=== PATIENT | female | born 1935 | race Caucasian/White ===

== ENCOUNTER → 2016-07-08 | Outpatient (CLI) | payer BC ==
[~2016-07-08] MED LIST: ASPEC81 PO; ASPI-435 PO; BISM262S7 PO; CALC-393 PO; CALCTAB5 PO; CHOL100010 PO; CHOL1TAB42 PO; COEN10CA4 PO; COEN1CAP17 PO; EXLP95 TOP; FERR325T51 PO; FERR83TA2 PO; INSPMPNVLG; LEVE500T14 PO; LEVO150T9 PO; LISI2.5T5 PO; MAGN400T5 PO; MULTCAP36 PO; OMEG10007 PO; RIVA4.6D TD
== END | disposition home or self-care (01) ==
LOC: C.LABFOXMH 17:04
PROVIDERS: ATTEND Internal Medicine
DX: I10 Essential (primary) hypertension (principal)

== ENCOUNTER → 2016-07-26 | Outpatient (CLI) | payer BC ==
[2016-07-26 10:27] LABS: BLOOD UREA NITROGEN 14 mg/dl (7-18); CALCIUM 8.8 mg/dl (8.5-10.1); CARBON DIOXIDE 31 mmol/L (21-32); CHLORIDE 105 mmol/L (98-107); CREATININE 0.72 mg/dl (0.60-1.20); GLUCOSE 178 mg/dl (70-99); POTASSIUM 4.2 mmol/L (3.5-5.1); SODIUM 143 mmol/L (136-145)
== END | disposition home or self-care (01) ==
LOC: C.LABFOXMH 09:06
PROVIDERS: ATTEND Nurse Practitioner Family
DX: I10 Essential (primary) hypertension (principal)

== ENCOUNTER → 2016-08-16 | Outpatient (CLI) | payer BC | END | disposition home or self-care (01) | LOC: C.LABFOXMH 11:55 | PROVIDERS: ATTEND Internal Medicine | DX: R35.0 Frequency of micturition (principal) ==

== ENCOUNTER → 2016-10-04 | Outpatient (CLI) | payer BC ==
--- NOTE | 2016-10-04 16:52 | MAMMOGRAPHY REPORT ---
BILATERAL DIGITAL SCREENING MAMMOGRAM WITH CAD: 10/04/2016 CLINICAL HISTORY: Routine screening. Patient has no complaints. TECHNIQUE: Bilateral CC and MLO views were obtained. Current study was also evaluated with a Comput er Aided Detection (CAD) system. COMPARISON: Comparison is made to exams dated: 09/30/2015 mammogram, 09/24/2014 mammogram, 09/23/2013 mammogram, 09/20/2012 mammogram, 09/20/2011 mammogram, and 09/13/2010 mammogram - [facility]. BREAST COMPOSITION: The tissue of both breasts is heterogeneously dense, which may obscure small ma sses. FINDINGS: There is a 6 mm nodular asymmetry in the far superior left breast, only seen on the MLO v iew. Although this could represent a dermal lesion or lymph node, definitive characterization with targeted ultrasound and possible additional mammographic views is recommended. The right MLO view is suboptimal due to the patient's frozen shoulder. However, a repeat attempt at a right MLO view to include more posterior tissue is also recommended at the time of diagnostic wor kup on the left. There are moderate vascular calcifications and benign rim calcifications bilaterally. No other susp icious mass, architectural distortion or cluster of microcalcifications is seen. IMPRESSION: ACR BI-RADS CATEGORY 0: INCOMPLETE EVALUATION: NEED ADDITIONAL IMAGING EVALUATION The 6 m nodular asymmetry in the left axilla needs additional evaluation. At the time of diagnostic workup in the left breast/axillary region, would recommend attempt at repeating the right MLO view to include more posterior tissue. The patient will be called to schedule an appointment. Approximately 10% of breast cancers are not detected with mammography. A negative mammographic repor t should not delay biopsy if a clinically suggestive mass is present. Sharla Stone M.D. ay/:10/04/2016 16:29:53 Pediatric Social Worker: Sapna Nicholson, [facility] letter sent: Addl Imaging 0 BI-RADS Code: ACR BI-RADS Category 0: Incomplete Evaluation: Need Additional Imaging Evaluation
== END | disposition home or self-care (01) ==
LOC: C.MAMM 14:12
PROVIDERS: ATTEND Internal Medicine
DX: Z12.31 Encounter for screening mammogram for malignant neoplasm of breast (principal); N64.89 Other specified disorders of breast

== ENCOUNTER → 2016-12-14 | Outpatient (CLI) | payer BC ==
--- NOTE | 2016-12-14 13:49 | DIAGNOSTIC IMAGING REPORT ---
RIGHT HIP 2 VIEWS CLINICAL HISTORY: Right hip pain. Fall from standing. FINDINGS: AP and frog-leg views of the right hip are correlated with pelvic radiograph dated 12/20/2009. The skeletal structures are osteopenic. There is no radiographic evidence of fracture in the right hip or the imaged right hemipelvis. Moderate arthritic change is identified. Sclerotic change is present in the right sacroiliac joint. An electronic device projects over the right hemipelvis. Pelvic phleboliths are observed. The overlying soft tissues are within normal limits. IMPRESSION: Osteopenia and arthritic change as above. No right hip fracture is identified. Electronically signed by: Burak Mistry M.D. 12/14/2016 1:47 PM Dictated Date/Time: 12/14/2016 1:46 PM
== END | disposition home or self-care (01) ==
LOC: C.RADBC 13:21
PROVIDERS: ATTEND Nurse Practitioner Family
DX: M25.551 Pain in right hip (principal)

== ENCOUNTER → 2016-12-22 | Outpatient (CLI) | payer BC ==
[2016-12-22 10:04] LABS: ESTIMATED AVERAGE GLUCOSE 189 mg/dl; HA1C FLAG Normal (Normal)
== END | disposition home or self-care (01) ==
LOC: C.LABFOXMH 09:03
PROVIDERS: ATTEND Nurse Practitioner Adult Health
DX: E10.649 Type 1 diabetes mellitus with hypoglycemia without coma (principal)

== ENCOUNTER 2017-01-21 16:04 | Emergency (ER) | payer BC ==
[~2017-01-21] VITALS: Ht 165.1 cm; Wt 59.0 kg
[~2017-01-21 16:04] MED LIST changes: -ASPI-435 PO; -CALC-393 PO; -CHOL1TAB42 PO; -COEN1CAP17 PO; -EXLP95 TOP; -FERR83TA2 PO; -LEVE500T14 PO; -LISI2.5T5 PO
[2017-01-21 16:06] VITALS: BP 129/65; PULSE 83; TEMP 36.7; O2SAT 100; Ht 165.1 cm; Wt 59.0 kg
[2017-01-21] MEDS ORDERED: COEN1CAP17 PO (16:17)
[2017-01-21] MEDS ORDERED: FERR83TA2 PO (16:17)
[2017-01-21] MEDS ORDERED: LISI2.5T5 PO (16:17)
[2017-01-21] MEDS ORDERED: CALC-393 PO (16:17)
[2017-01-21] MEDS ORDERED: CHOL1TAB42 PO (16:17)
[2017-01-21] MEDS ORDERED: EXLP95 TOP (16:17)
[2017-01-21] MEDS ORDERED: ASPI-435 PO (16:17)
[2017-01-21] MEDS ORDERED: LEVE500T14 PO (16:17)
--- NOTE | 2017-01-21 16:40 | DIAGNOSTIC IMAGING REPORT ---
LEFT WRIST MIN 3 VIEWS ROUTINE CLINICAL HISTORY: Left wrist pain and . COMPARISON: None FINDINGS: No acute fracture is identified. There is severe arthritis of the left first carpometacarpal joint. A ring on the fourth finger is noted. There is moderate narrowing of the radiocarpal articulation. Osteopenia is noted. IMPRESSION: 1. No acute fracture. 2. 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 Electronically signed by: Elieser Watson M.D. 01/21/2017 4:38 PM Dictated Date/Time: 01/21/2017 4:37 PM
--- NOTE | 2017-01-21 16:55 | EMERGENCY ROOM VISIT NOTE ---
ED Visit Note First contact with patient: 16:09 CHIEF COMPLAINT: Left wrist injury History of present illness: This 81-year-old white female patient complains of moderate constant wrist pain today after having a piece of furniture close on her wrist. She was working in a dresser that had a hinged top. She was reaching inside when the top suddenly closed. It struck her across the left radial wrist. She had immediate onset of pain. Ecchymosis and mild edema have developed. The pain is worse with movement of the wrist. No laceration, no numbness or weakness. No other injury. She denies any loss of motion. No fingers are involved. No treatment yet. Her accompanies her today. Pain is 3/10. REVIEW OF SYSTEMS: GENERAL: No fever or chills, easy fatigue, loss of appetite, or significant weight change. NEUROLOGIC: No headache, change in mental status, weakness, numbness, or dizziness. PMH: Supplemental sheet was reviewed and signed. Previous surgeries: Tonsillectomy, appendectomy Medical history: Significant for diabetes and osteoarthritis Current medications: Reviewed and filed in patient's chart Allergies: NKDA SOCIAL HISTORY: Patient lives at home. . Retired. No tobacco use, no EtOH use. Family history: Significant for diabetes and cancer. Parents are . PHYSICAL EXAM: Vital Signs: Afebrile. Reviewed and filed in patient's chart. General: Well-developed, well-nourished, elderly white female, in no acute distress. No obvious discomfort. She is sitting on a bed. MENTAL STATUS: Alert and oriented. Skin: Warm and dry with fair turgor. No rashes or lesions. Moderate ecchymosis over the radial aspect of her wrist. No erythema. Mild edema. The patient is not diaphoretic. No abrasions. Musculoskeletal: There is tenderness over the base of the thumb, styloid, and anatomic snuffbox. Mild swelling. Range of motion is full. No obvious deformity. No pain with palpation over the metacarpal heads or digits. There is intact motion of the digits, including opposition and circumduction of the thumb. Wrist circumduction is intact. No pain with palpation over the midshaft forearm. Neurologic: The hand is warm and well perfused and the fingers have normal sensation. Median, radial, and ulnar nerve functions are clearly intact. EMERGENCY DEPARTMENT COURSE: Radiographic images obtained today of the wrist did not show any fracture. DIAGNOSIS: Left wrist contusion DISCHARGE INSTRUCTIONS & TREATMENT: The patient was educated regarding today's findings. Conservative care measures were discussed. Tubigrip compression wrap was applied to the patient. Wear it for 3-4 days until the pain subsides. Ice and elevate the wrist intermittently to reduce pain and swelling. Tylenol 1 g every 6 hours if needed for the pain. Gentle motion daily. Wrist sprain handout was provided. Followup with your PCP if not improved over the next 7 days. Problem List Medical Problems: (1) Closed head injury Status: Resolved (2) Contusion of toe, right Status: Resolved (3) Contusion of toe, right Status: Resolved (4) Diab Jhoana Wo Compl, Type Ii Or Unspec Type, Not Uncntrld Status: Chronic (5) Fracture of right humerus Status: Resolved (6) Fracture, olecranon Status: Resolved (7) HTN (hypertension) Status: Chronic (8) Hyperthyroidism Status: Chronic (9) Left knee sprain Status: Resolved (10) Left knee sprain Status: Resolved (11) Nausea, vomiting, and diarrhea Status: Resolved (12) Short-term memory loss Status: Chronic Current/Historical Medications Scheduled Aspirin (Aspirin 81), 81 MG PO DAILY Calcium Carbonate (Calcium), 600 MG PO DAILY Cholecalciferol (Vitamin D), 5,000 UNITS PO DAILY Coenzyme Q10 (Ubidecarenone) (Co Q 10), 1 CAP PO DAILY Ferrous Sulfate (Ferrous Sulfate), 65 MG PO DAILY Fish Oil ([place]-3), 1 CAP PO QPM Insulin Aspart (novoLOG INSULIN PUMP ), 1 EA N/A UD Levetiracetam (Keppra Xr), 500 MG PO DAILY Levothyroxine Sodium (Levothyroxine Sodium), 150 MCG PO DAILY Lisinopril (Lisinopril), 2.5 MG PO DAILY Magnesium Oxide (Mag-Ox), 400 MG PO DAILY Multiple Vitamins W/ Minerals (Preservision/Lutein), 1 CAP PO BID Rivastigmine Tartrate (Exelon), 1 PATCH TOP DAILY Allergies Coded Allergies: No Known Allergies (Verified , 12/27/15) Vital Signs Date Time Temp Pulse Resp B/P (MAP) Pulse Ox O2 Delivery O2 Flow Rate FiO2 01/21/17 16:06 36.7 83 18 129/65 100 Departure Information Impression Primary Impression: Contusion of left wrist, initial encounter Dispostion Home / Self-Care Forms HOME CARE DOCUMENTATION FORM, TYLENOL USE, IMPORTANT VISIT INFORMATION Patient Instructions My [facility] [employer] Additional Instructions Ice and elevate frequently to reduce pain and swelling Use the compression sleeve to control swelling and improve pain Tylenol every 6 hours as needed for discomfort Gentle motion daily Follow-up with your PCP as needed or return to the ED for any other concerns
== END 2017-01-21 16:44 | disposition home or self-care (01) ==
LOC: C.EDB 16:05 → C.EDD 16:44
DX: S60.212A Contusion of left wrist, initial encounter (principal); W23.0XXA Caught, crushed, jammed, or pinched between moving objects, initial encounter; E11.9 Type 2 diabetes mellitus without complications; I10 Essential (primary) hypertension; M19.90 Unspecified osteoarthritis, unspecified site; Z83.3 Family history of diabetes mellitus; E05.90 Thyrotoxicosis, unspecified without thyrotoxic crisis or storm; Z79.82 Long term (current) use of aspirin; Z79.4 Long term (current) use of insulin

== ENCOUNTER → 2017-02-08 | Outpatient (CLI) | payer BC ==
[~2017-02-08] MED LIST changes: -ASPEC81 PO; +ASPI-435 PO; -BISM262S7 PO; +CALC-393 PO; -CALCTAB5 PO; -CHOL100010 PO; +CHOL1TAB42 PO; -COEN10CA4 PO; +COEN1CAP17 PO; +EXLP95 TOP; -FERR325T51 PO; +FERR83TA2 PO; +LEVE500T14 PO; +LISI2.5T5 PO; -RIVA4.6D TD
--- NOTE | 2017-02-08 13:10 | DIAGNOSTIC IMAGING REPORT ---
LEFT FOOT MIN 3 VIEWS ROUTINE HISTORY: 81 years-old Female acute left foot pain for approximately one week status post trauma. Pain is most pronounced within the region of the first and second metatarsals. COMPARISON: None available TECHNIQUE: 3 views of the left foot FINDINGS: The bones are moderately demineralized which limits evaluation for acute nondisplaced fracture. Multifocal degenerative changes are noted throughout the forefoot, midfoot and hindfoot notably with moderate osteoarthritis of the first MTP joint. Prominent spurring about the calcaneus is noted. 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 No definite acute fracture or dislocation is identified. No opaque foreign body. IMPRESSION: 1. Moderate bone demineralization limits evaluation for acute nondisplaced fracture. 2. No acute fracture or dislocation identified. 3. Multifocal degenerative changes of the forefoot, midfoot and hindfoot as above. The above report was generated using voice recognition software. It may contain grammatical, syntax or spelling errors. Electronically signed by: Gordon Henning M.D. 02/08/2017 1:08 PM Dictated Date/Time: 02/08/2017 1:06 PM
== END | disposition home or self-care (01) ==
LOC: C.RADBC 12:18
PROVIDERS: ATTEND Nurse Practitioner Family
DX: M79.672 Pain in left foot (principal); Z87.828 Personal history of other (healed) physical injury and trauma

== ENCOUNTER → 2017-04-03 | Outpatient (CLI) | payer BC ==
[2017-04-03 08:31] LABS: ALT/SGPT 22 U/L (12-78); AST/SGOT 18 U/L (15-37); BLOOD UREA NITROGEN 15 mg/dl (7-18); BUN/CREATININE RATIO 23.3 (10-20); CALCIUM 8.7 mg/dl (8.5-10.1); CARBON DIOXIDE 35 mmol/L (21-32); CHLORIDE 103 mmol/L (98-107); CHOLESTEROL 187 mg/dl (0-200); CREATININE 0.66 mg/dl (0.60-1.20); GLUCOSE 100 mg/dl (70-99); SODIUM 143 mmol/L (136-145); TRIGLYCERIDES 42 mg/dl (0-150); VERY LOW DENSITY LIPOPROT CALC 8 mg/dl
[2017-04-03 08:41] LABS: ALB/GLOB RATIO 1.2 (0.9-2); ALKALINE PHOSPHATASE 70 U/L (45-117); CHOLESTEROL/HDL RATIO 2.4; HDL CHOLESTEROL 79 mg/dl; LDL CHOLESTEROL CALCULATED 100 mg/dl
[2017-04-03 09:15] LABS: ESTIMATED AVERAGE GLUCOSE 174 mg/dl; HA1C FLAG Normal (Normal)
== END | disposition home or self-care (01) ==
LOC: C.LABFOXMH 08:09
PROVIDERS: ATTEND Nurse Practitioner Family
DX: E11.9 Type 2 diabetes mellitus without complications (principal); E03.9 Hypothyroidism, unspecified

== ENCOUNTER → 2017-05-17 | Outpatient (CLI) | payer BC ==
[2017-05-17 10:29] LABS: CREATININE RANDOM URINE 17.9 mg/dl
== END | disposition home or self-care (01) ==
LOC: C.LABFOXMH 08:00
PROVIDERS: ATTEND Nurse Practitioner Adult Health
DX: R20.9 Unspecified disturbances of skin sensation (principal); I10 Essential (primary) hypertension; E10.40 Type 1 diabetes mellitus with diabetic neuropathy, unspecified; E03.9 Hypothyroidism, unspecified

== ENCOUNTER 2017-06-08 20:29 | Emergency (ER) | payer BC ==
[~2017-06-08] VITALS: Ht 162.6 cm; Wt 57.4 kg
[~2017-06-08 20:29] MED LIST changes: +LISI-1116 PO; -LISI2.5T5 PO
[2017-06-08 20:31] VITALS: TEMP 36.5; Ht 162.6 cm; Wt 57.4 kg
[2017-06-08] MEDS ORDERED: SODIUM CHLORIDE 0.9% 1000ML 1,000 ML IV STA (20:42)
--- NOTE | 2017-06-08 20:48 | EMERGENCY ROOM VISIT NOTE ---
History Report prepared by Daniel: Giovanna Wills Under the Supervision of: Dr. Konrad Gibson D.O. First contact with patient: 20:35 Chief Complaint: HYPERGLYCEMIA Stated Complaint: BRITTLE DIABETIC W/ 400 BLOOD SUGAR ALL DAY History of Present Illness The patient is an 82 year old female who presents to the Emergency Room with complaints of an episode of hyperglycemia starting this morning. The patient states that she checked her blood sugar this morning after breakfast and it was 420. She states that she takes insulin and took 13 units though out the day. She reports that she hasn't eaten since breakfast. She states that it did not help at all. Her notes that her blood sugar goes from 400 to 40 frequently. The patient complains of diarrhea, melena, and abdominal pain. She notes that she had 3 of the abnormal bowel movements this morning. Source of History: patient, spouse/significant other Onset: this morning Position: other (global) Quality: other (global) Timing: other (episode) Associated Symptoms: + abdominal pain, + melena, + diarrhea Review of Systems See HPI for pertinent positives & negatives. A total of 10 systems reviewed and were otherwise negative. Past Medical & Surgical Medical Problems: (1) Closed head injury (2) Contusion of toe, right (3) Contusion of toe, right (4) Diab Jhoana Wo Compl, Type Ii Or Unspec Type, Not Uncntrld (5) Diabetic peripheral neuropathy associated with type 2 diabetes mellitus (6) Diverticulosis Colon (W/O Ment Of Hemorrhage) (7) Foot deformity (8) Fracture of right humerus (9) Fracture, olecranon (10) HTN (hypertension) (11) Hyperthyroidism (12) Left knee sprain (13) Left knee sprain (14) Loss of sensation (15) Nausea, vomiting, and diarrhea (16) Short-term memory loss Family History Cancer Diabetes mellitus Social History Smoking Status: Never Smoker Alcohol Use: none Marital Status: Housing Status: lives with significant other Occupation Status: retired Current/Historical Medications Scheduled Aspirin (Aspirin 81), 81 MG PO DAILY Calcium Carbonate (Calcium), 600 MG PO DAILY Cholecalciferol (Vitamin D), 5,000 UNITS PO DAILY Coenzyme Q10 (Ubidecarenone) (Co Q 10), 100 MG PO DAILY Ferrous Sulfate (Ferrous Sulfate), 65 MG PO DAILY Fish Oil ([place]-3), 1 CAP PO QPM Insulin Aspart (novoLOG INSULIN PUMP ), 1 EA N/A UD Levetiracetam (Keppra Xr), 500 MG PO DAILY Levothyroxine Sodium (Levothyroxine Sodium), 150 MCG PO DAILY Lisinopril (Lisinopril), 2.5 MG PO DAILY Magnesium Oxide (Mag-Ox), 400 MG PO DAILY Ocuvite Preservision (Ocuvite Preservision), 1 TAB PO BID Rivastigmine Tartrate (Exelon), 1 PATCH TOP DAILY Sulfa/Trimethoprim (Bactrim Ds 800MG/160MG), 1 TAB PO BID Allergies Coded Allergies: No Known Allergies (Verified , 06/08/17) Physical Exam Vital Signs Date Time Temp Pulse Resp B/P (MAP) Pulse Ox O2 Delivery O2 Flow Rate FiO2 06/08/17 21:21 69 20 154/76 97 Room Air 06/08/17 21:20 71 06/08/17 20:31 36.5 79 19 145/66 97 Room Air Physical Exam CONSTITUTIONAL/VITAL SIGNS: Reviewed / noted above. GENERAL: Non-toxic in appearance. INTEGUMENTARY: Warm, dry, and [place]. HEAD: Normocephalic. EYES: without scleral icterus or trauma. ENT/OROPHARYNX: clear and moist. LYMPHADENOPATHY/NECK: Is supple without lymphadenopathy or meningismus. RESPIRATORY: Lungs clear and equal. CARDIOVASCULAR: Regular rate and rhythm. GI/ABDOMEN: Soft and nontender. No organomegaly or pulsatile mass. No rebound or guarding. Normal bowel sounds. EXTREMITIES: Warm and well perfused. BACK: No CVA tenderness. NEUROLOGICAL: Intact without focal deficits. PSYCHIATRIC: normal affect. MUSCULOSKELETAL: Normally developed with good muscle tone. Medical Decision & Procedures ER Provider Diagnostic Interpretation: Radiology results as stated below per my review and radiologist interpretation: CHEST ONE VIEW PORTABLE CLINICAL HISTORY: 82 years-old Female presenting with EVALUATE ALTERED MENTAL STATUS/WEAKNESS. TECHNIQUE: Portable upright AP view of the chest was obtained. COMPARISON: 12/27/2015. FINDINGS: Atherosclerosis of the aortic arch. Cardiac silhouette normal in size. Prominent lung markings, unchanged. Lungs and pleural spaces otherwise clear. Degenerative changes of the thoracic spine. Deformity of the right humeral head could suggest prior fracture. Crescentic ossification along the inferior right shoulder joint capsule could suggest degenerative change or prior rim fracture. Upper abdomen normal. IMPRESSION: 1. Chronic prominent lung markings. No focal infiltrate. No change from prior exam. Electronically signed by: Gui Mckinnon M.D. 06/08/2017 9:09 PM Dictated Date/Time: 06/08/2017 9:07 PM Laboratory Results 06/08/17 21:15 Red Blood Count 3.98, Mean Corpuscular Volume 90.7, Mean Corpuscular Hemoglobin 29.6, Mean Corpuscular Hemoglobin Concent 32.7, Mean Platelet Volume 10.4, Neutrophils (%) (Auto) 62.4, Lymphocytes (%) (Auto) 28.0, Monocytes (%) (Auto) 6.2, Eosinophils (%) (Auto) 3.0, Basophils (%) (Auto) 0.2, Neutrophils # (Auto) 2.94, Lymphocytes # (Auto) 1.32, Monocytes # (Auto) 0.29, Eosinophils # (Auto) 0.14, Basophils # (Auto) 0.01 06/08/17 21:15 Test 06/08/17 21:00 06/08/17 21:15 06/08/17 22:00 Urine Color YELLOW Urine Appearance CLEAR (CLEAR) Urine pH 6.5 (4.5-7.5) Urine Specific [place] 1.010 (1.000-1.030) Urine Protein NEG (NEG) Urine Glucose (UA) 2+ (NEG) Urine Ketones NEG (NEG) Urine Occult Blood NEG (NEG) Urine Nitrite NEG (NEG) Urine Bilirubin NEG (NEG) Urine Urobilinogen NEG (NEG) Urine Leukocyte Esterase MODERATE (NEG) Urine WBC (Auto) 5-10 /hpf (0-5) Urine RBC (Auto) 0-4 /hpf (0-4) Urine Hyaline Casts (Auto) 1-5 /lpf (0-5) Urine Epithelial Cells (Auto) 20-30 /lpf (0-5) Urine Bacteria (Auto) 1+ (NEG) White Blood Count 4.71 K/uL (4.8-10.8) Red Blood Count 3.98 M/uL (4.2-5.4) Hemoglobin 11.8 g/dL (12.0-16.0) Hematocrit 36.1 % (37-47) Mean Corpuscular Volume 90.7 fL (80-100) Mean Corpuscular Hemoglobin 29.6 pg (25-34) Mean Corpuscular Hemoglobin Concent 32.7 g/dl (32-36) Platelet Count 147 K/uL (130-400) Mean Platelet Volume 10.4 fL (7.4-10.4) Neutrophils (%) (Auto) 62.4 % Lymphocytes (%) (Auto) 28.0 % Monocytes (%) (Auto) 6.2 % Eosinophils (%) (Auto) 3.0 % Basophils (%) (Auto) 0.2 % Neutrophils # (Auto) 2.94 K/uL (1.4-6.5) Lymphocytes # (Auto) 1.32 K/uL (1.2-3.4) Monocytes # (Auto) 0.29 K/uL (0.11-0.59) Eosinophils # (Auto) 0.14 K/uL (0-0.5) Basophils # (Auto) 0.01 K/uL (0-0.2) RDW Standard Deviation 42.9 fL (36.4-46.3) RDW Coefficient of Variation 12.9 % (11.5-14.5) Immature Granulocyte % (Auto) 0.2 % Immature Granulocyte # (Auto) 0.01 K/uL (0.00-0.02) Anion Gap 6.0 mmol/L (3-11) Est Creatinine Clear Calc Drug Dose 56.8 ml/min Estimated GFR () 95.3 Estimated GFR (Non- 82.3 BUN/Creatinine Ratio 19.9 (10-20) Calcium Level 8.8 mg/dl (8.5-10.1) Magnesium Level 2.0 mg/dl (1.8-2.4) Total Bilirubin 0.7 mg/dl (0.2-1) Direct Bilirubin 0.2 mg/dl (0-0.2) Aspartate Amino Transf (AST/SGOT) 14 U/L (15-37) Alanine Aminotransferase (ALT/SGPT) 22 U/L (12-78) Alkaline Phosphatase 73 U/L (45-117) Total Creatine Kinase 164 U/L (26-192) Creatine Kinase MB 4.2 ng/ml (0.5-3.6) Creatine Kinase MB Ratio 2.6 (0-3.0) Total Protein 6.8 gm/dl (6.4-8.2) Albumin 3.8 gm/dl (3.4-5.0) Lipase 175 U/L (73-393) Bedside Glucose 270 mg/dl (70-90) Laboratory results as stated above per my review. Medications Administered Medications (Trade) Dose Ordered Sig/Dell Route Start Time Stop Time Status Last Admin Dose Admin Sodium Chloride 1,000 ml @ 999 mls/hr Q1H1M STAT IV 06/08/17 20:42 06/08/17 21:42 DC 06/08/17 21:23 999 MLS/HR Ceftriaxone Sodium (Rocephin Inj) 1 gm NOW STAT IV 06/08/17 23:04 06/08/17 23:05 DC 06/08/17 23:15 1 GM ED Course 2035: Previous medical records were reviewed. The patient was evaluated in room B12B. A complete history and physical examination was performed. 2041: Ordered NSS 1000 ml @ 999 mls/hr IV. 2303: Ordered Rocephin Inj 1 gm IV. 2308: On reevaluation, the patient is resting comfortably. I discussed the results and findings with the patient. She verbalized agreement of the treatment plan. The patient was discharged home. Medical Decision Differential includes acute coronary syndrome, myocardial infarction, CVA, TIA, anemia, infection, pneumonia, UTI, pyelonephritis, poor nutrition, dehydration, electrolyte disturbance,hypoglycemia. This is an 82-year-old female who presents to the ED with a chief complaint of hyperglycemia. She denies any other specific symptoms. She did have 3 episodes of diarrhea this morning. Denies fevers. No nausea vomiting. Further details listed above. Patient's exam was unremarkable. She does not report feeling any distress symptoms at this time. Blood work reveals an unremarkable CBC and complete metabolic panel. Glucose was 292. Her glucometer was reading around 400. Urine is concerning for possible infection. Patient was treated with IV Rocephin. She was given IV fluids. She will be discharged on Bactrim. Medication Reconcilliation Current Medication List: was personally reviewed by me Blood Pressure Screening Patient's blood pressure: Elevated blood pressure Blood pressure disposition: Elevated BP felt to be situational Impression Primary Impression: UTI (urinary tract infection) Additional Impression: Hyperglycemia Scribe Attestation The scribe's documentation has been prepared under my direction and personally reviewed by me in its entirety. I confirm that the note above accurately reflects all work, treatment, procedures, and medical decision making performed by me. Departure Information Dispostion Home / Self-Care Prescriptions Sulfa/Trimethoprim (Bactrim Ds 800MG/160MG) Tab 1 TAB PO BID, #10 TAB Prov: Konrad Gibson D.O. 06/08/17 Referrals Ilene Ojeda (PCP) Forms HOME CARE DOCUMENTATION FORM, IMPORTANT VISIT INFORMATION, WORK / SCHOOL INSTRUCTIONS Patient Instructions My [facility] Additional Instructions Bactrim as prescribed twice a day for 5 days. Follow-up with your doctor for further care and evaluation in 5-7 days if symptoms persist. Return to the emergency department for worsening or new symptoms or any concerns. You have been examined and treated today on an emergency basis only. This is not a substitute for, or an effort to provide, complete comprehensive medical care. It is impossible to recognize and treat all injuries or illnesses in a single emergency department visit. It is therefore important that you follow up closely with your doctor. Call as soon as possible for an appointment. Problem Qualifiers
[2017-06-08] MEDS ORDERED: MULT-190 PO (21:05)
--- NOTE | 2017-06-08 21:10 | DIAGNOSTIC IMAGING REPORT ---
CHEST ONE VIEW PORTABLE CLINICAL HISTORY: 82 years-old Female presenting with EVALUATE ALTERED MENTAL STATUS/WEAKNESS. TECHNIQUE: Portable upright AP view of the chest was obtained. COMPARISON: 12/27/2015. FINDINGS: Atherosclerosis of the aortic arch. Cardiac silhouette normal in size. Prominent lung markings, unchanged. Lungs and pleural spaces otherwise clear. Degenerative changes of the thoracic spine. Deformity of the right humeral head could suggest prior fracture. Crescentic ossification along the inferior right shoulder joint capsule could suggest degenerative change or prior rim fracture. Upper abdomen normal. IMPRESSION: 1. Chronic prominent lung markings. No focal infiltrate. No change from prior exam. Electronically signed by: Gui Mckinnon M.D. 06/08/2017 9:09 PM Dictated Date/Time: 06/08/2017 9:07 PM
[2017-06-08 21:34] LABS: BASO % 0.2 %; BASO ABS # 0.01 K/uL (0-0.2); EOS ABS # 0.14 K/uL (0-0.5); HEMATOCRIT 36.1 % (37-47); HEMOGLOBIN 11.8 g/dL (12.0-16.0); IG# 0.01 K/uL (0.00-0.02); LYMPH ABS # 1.32 K/uL (1.2-3.4); MEAN CELL VOLUME 90.7 fL (80-100); MEAN CORPUSCULAR HEMOGLOBIN 29.6 pg (25-34); MEAN CORPUSCULAR HGB CONC 32.7 g/dl (32-36); MEAN PLATELET VOLUME 10.4 fL (7.4-10.4); MONO % 6.2 %; MONO ABS # 0.29 K/uL (0.11-0.59); NEUT % 62.4 %; NEUT ABS # 2.94 K/uL (1.4-6.5); PLATELET COUNT 147 K/uL (130-400); RED CELL DISTRIBUTION WIDTH CV 12.9 % (11.5-14.5); RED CELL DISTRIBUTION WIDTH SD 42.9 fL (36.4-46.3); WHITE BLOOD COUNT 4.71 K/uL (4.8-10.8)
[2017-06-08 21:52] LABS: ALBUMIN 3.8 gm/dl (3.4-5.0); CALCIUM 8.8 mg/dl (8.5-10.1); CREATININE 0.66 mg/dl (0.60-1.20); POTASSIUM 4.2 mmol/L (3.5-5.1)
[2017-06-08 21:55] LABS: CKMB 4.2 ng/ml (0.5-3.6); TOTAL PROTEIN 6.8 gm/dl (6.4-8.2)
[2017-06-08] MEDS ORDERED: CEFTRIAXONE SOD INJ 1 GM ADDVIAL IV STA (23:04)
[2017-06-08] MEDS ORDERED: SULF800T23 PO (23:07)
[2017-06-08 23:19] VITALS: BP 139/61; PULSE 57; O2SAT 99
[2017-06-10] MEDS ORDERED: PHENYLEPHRINE 100MCG/ML 5ML SYR ONE (07:30)
[2017-06-10] MEDS ORDERED: EpHEDrine SULFATE 50MG/5ML SYR ONE (07:30)
[2018-02-08] MEDS ORDERED: CALC-5 PO (14:02)
[2018-02-08] MEDS ORDERED: LEVO125T5 PO (14:02)
== END 2017-06-08 23:47 | disposition home or self-care (01) ==
LOC: C.EDB 20:31
DX: N39.0 Urinary tract infection, site not specified (principal); R73.9 Hyperglycemia, unspecified; E11.9 Type 2 diabetes mellitus without complications; I10 Essential (primary) hypertension; E03.9 Hypothyroidism, unspecified; K57.90 Diverticulosis of intestine, part unspecified, without perforation or abscess without bleeding; Z83.3 Family history of diabetes mellitus; Z79.82 Long term (current) use of aspirin; Z79.4 Long term (current) use of insulin

== ENCOUNTER → 2017-07-20 | Outpatient (CLI) | payer BC ==
[~2017-07-20] MED LIST changes: -LISI-1116 PO; +LISI2.5T5 PO; +MULT-190 PO; -MULTCAP36 PO; +SULF800T23 PO
== END | disposition home or self-care (01) ==
LOC: C.LABFOXMH 08:22
PROVIDERS: ATTEND Internal Medicine
DX: E03.9 Hypothyroidism, unspecified (principal)

== ENCOUNTER → 2017-09-22 | Outpatient (CLI) | payer BC ==
[~2017-09-22] MED LIST changes: +LISI-1116 PO; -LISI2.5T5 PO
[2017-09-22 08:57] LABS: HEMOGLOBIN A1C 8.2 % (4.5-5.6)
== END | disposition home or self-care (01) ==
LOC: C.LABFOXMH 08:24
PROVIDERS: ATTEND Nurse Practitioner Adult Health
DX: E10.40 Type 1 diabetes mellitus with diabetic neuropathy, unspecified (principal); E03.9 Hypothyroidism, unspecified

== ENCOUNTER → 2017-10-10 | Outpatient (CLI) | payer BC ==
--- NOTE | 2017-10-10 15:21 | MAMMOGRAPHY REPORT ---
BILATERAL DIGITAL SCREENING MAMMOGRAM TOMOSYNTHESIS WITH CAD: 10/10/2017 CLINICAL HISTORY: Routine screening. Patient has no complaints. TECHNIQUE: Breast tomosynthesis in addition to standard 2D mammography was performed. Current study was also evaluated with a Computer Aided Detection (CAD) system. COMPARISON: Comparison is made to exams dated: 10/13/2016 ultrasound, 10/13/2016 mammogram, 10/04/2016 ma mmogram, 09/30/2015 mammogram, 09/24/2014 mammogram, and 09/23/2013 mammogram - [facility] nter. BREAST COMPOSITION: The tissue of both breasts is heterogeneously dense, which may obscure small mas ses. FINDINGS: There is a stable sebaceous cyst versus epidermal inclusion cyst in the far superior left a xillary region on the MLO view. There are moderate vascular calcifications and scattered benign rim calcifications in the breasts. No suspicious mass, architectural distortion or cluster of microcalci fications is seen. IMPRESSION: ACR BI-RADS CATEGORY 1: NEGATIVE There is no mammographic evidence of malignancy. A 1 year screening mammogram is recommended. The pa tient will receive written notification of the results. Approximately 10% of breast cancers are not detected with mammography. A negative mammographic report should not delay biopsy if a clinically suggestive mass is present. Sharla Stone M.D. ay/:10/10/2017 14:29:34 Button Pusher: Sapna Nicholson, [facility] letter sent: Normal 1/2 BI-RADS Code: ACR BI-RADS Category 1: Negative
== END | disposition home or self-care (01) ==
LOC: C.MAMM 13:56
PROVIDERS: ATTEND Internal Medicine
DX: Z12.31 Encounter for screening mammogram for malignant neoplasm of breast (principal)

== ENCOUNTER 2020-02-03 21:52 | Inpatient (IN) ==
[2020-02-03] MEDS ORDERED: fentaNYL citrate 100 MCG/2 ML VIAL IV STA ×2 (22:17→22:56)
--- NOTE | 2020-02-03 22:36 | Emergency Department Note ---
History of Present Illness General Chief complaint: Hip Pain Stated complaint: FALL, R HIP FX OR DISLOCATION Time Seen by Provider: 02/03/20 22:04 Source: patient Mode of arrival: EMS Limitations: no limitations History of Present Illness Maximum Pain Intensity: 8 This patient is an 84-year-old female who presents to the emergency department for evaluation of a right hip fracture. Patient states that she was spinning around to sit down in her chair when she became dizzy/lightheaded and fell, landing on her right hip. Patient's reports that she has had some issues with some lightheadedness over the past few months, but nothing that has caused her to fall in the past. Patient and her live at [facility]. Patient reports pain in the right hip, especially with any attempts to move the hip. She rates her current discomfort an 8/10. She denies any chest pain or shortness of breath. She denies any headache or neck pain. Home Medications Home Medications Medication Instructions Recorded Confirmed Type magnesium oxide 400 mg PO QAM #0 tab 12/27/15 02/03/20 History lisinopril 2.5 mg PO QAM #0 tab 01/21/17 02/03/20 History vit C-vit A-fefogo-dbrl-lutein 1 cap PO BID 01/02/19 02/03/20 History [PreserVision Lutein] aspirin 81 mg tablet,delayed 81 mg PO DAILY #0 tab 01/03/19 02/03/20 History release cholecalciferol (vitamin D3) 125 5,000 unit PO DAILY #0 tab 01/03/19 02/03/20 History mcg (5,000 unit) tablet coenzyme Q10 100 mg capsule 100 mg PO DAILY #0 cap 01/03/19 02/03/20 History insulin syringe-needle U-100 0.5 #10 ea 01/03/19 01/21/20 History mL 31 gauge x 10/25" omega 3-abj-kyz-fish oil 1,000 mg 1 cap PO DAILY #0 cap 01/03/19 02/03/20 History (120 mg-180 mg) capsule blood sugar diagnostic #10 ea 01/14/19 01/21/20 History calcium carbonate 600 mg calcium 600 mg PO DAILY tab 01/14/19 02/03/20 History (1,500 mg) tablet ferrous sulfate 325 mg (65 mg 65 mg PO QAM #0 tab 05/04/20 08/24/20 History iron) tablet levetiracetam 500 mg 500 mg PO DAILY 30 Days #30 tab 12/23/19 02/03/20 Rx tablet,extended release 24 hr rivastigmine 9.5 mg TOPICAL DAILY 90 Days #0 12/23/19 02/03/20 History patch insulin aspart U-100 [Novolog 25 units CONTINUOUS IV INFUSION 02/03/20 02/03/20 History U-100 Insulin aspart] DAILY levothyroxine 125 mcg PO DAILY 02/03/20 02/03/20 History Allergies Allergy/AdvReac Type Severity Reaction Status Date / Time No Known Allergies Allergy Verified 02/03/20 23:13 Past Med/Surg History Medical History Closed head injury Diabetes type 1, controlled Dyslipidemia Focal seizures History of herpes zoster History of meningioma History of rheumatic fever Hypertension Insulin pump in place Surgical History History of appendectomy History of breast biopsy History of tonsillectomy Family History Father Colon cancer Mother Alzheimer disease Other Diabetes Social History Smoking Status: Former smoker Cigarettes Per Day: No smoking since freshman year of college.; Second Hand Exposure: No; Do You Dip or Chew Tobacco: No; Tobacco Cessation Education Requested by Patient: No Hx Alcohol Use: Yes Alcohol type: wine Hx Substance Use: No Preferred Language: [place] Communication Ability: Effective Machine Taper Required: No Beliefs That Will Affect Care: None marital status: Current Living Situation: Spouse and Correction Current Living Situation Comment: [facility]. current occupation: retired Other Information That Helps Us Care for You: No Feels Safe at Home: Yes Safety Concerns: Feels Safe At This Time Review of Systems A total of 10 systems reviewed and were otherwise negative Physical Exam Vital Signs Vital Signs - 24 hr 02/03/20 22:10 02/03/20 22:19 02/03/20 22:30 Temperature 36.7 C Temperature Source Oral Pulse Rate 89 88 94 H Pulse Rate from SpO2 Sensor 88 92 H Pulse Rhythm Regular Pulse Strength Normal Respiratory Rate 18 20 19 Respiratory Effort / Characteristics Non-Labored Spontaneous Respiratory Depth Normal Respiratory Pattern Regular Blood Pressure 165/74 H 165/74 H 174/86 H Blood Pressure Mean 104 101 97 Blood Pressure Position Lying Pulse Oximetry 99 98 97 Oxygen Delivery Method Room Air Sepsis Recent Fever Within 48 Hours No Sepsis New/Unexplained Change in Mental Status No Sepsis Action Taken by Nursing No Action Required VITALS: Vitals are noted on the nurse's note and reviewed by myself. Vital signs stable. GENERAL: This is an 84-year-old female, appears to be in pain, lying supine in bed. SKIN: There are no lacerations or abrasions. HEAD: Normocephalic atraumatic. EARS: External auditory canals clear, tympanic membranes pearly garcia without erythema or effusion bilaterally. EYES: Pupils equal round and reactive to light and accommodation. Extraocular movements intact. MOUTH: Mucous membranes moist. Tonsils are not enlarged. Pharynx without erythema or exudate. NECK: Supple without nuchal rigidity. Cervical spine is nontender. HEART: Regular rate and rhythm without murmurs gallops or rubs. LUNGS: Clear to auscultation bilaterally without wheezes, rales or rhonchi. ABDOMEN: Positive bowel sounds x 4. Soft, nontender to palpation. MUSCULOSKELETAL: The right leg is shortened and externally rotated. There is a large hematoma of the proximal right upper leg. There is tenderness to palpation of the right lateral hip. No tenderness of the knee or tibia/fibula. Dorsalis pedis pulse 2+. NEURO: Patient was alert and oriented to person place and time. Distal sensation intact. Course Consultations Consultation #1: Dr. Chavarria - [facility] [place] [facility] hospitalist Administered Medications Lactated Ringer's (Lr) 1,000 mls @ 80 mls/hr IV .[id number] [facility] Stop: 03/05/20 00:50 Last Admin: 02/04/20 01:38 Dose: 80 mls/hr Documented by: [id number] Insulin Aspart (Novolog Insulin Pump) 1 ea N/A Q6 [facility]; Protocol Stop: 03/05/20 05:59 Last Admin: 02/04/20 06:02 Dose: 1 ea Documented by: [id number] Levothyroxine Sodium (Levothyroxine Sodium 125 Mcg Tablet) 125 mcg PO DAILYBB [facility] Stop: 03/05/20 06:29 Last Admin: 02/04/20 06:03 Dose: 125 mcg Documented by: [id number] Miscellaneous (Keppra Xr~Order Awaiting Action) 1 ea N/A QS DALY Stop: 03/05/20 01:14 Last Admin: 02/04/20 01:05 Dose: Not Given Documented by: [id number] Miscellaneous (Exelon Patch~Order Awaiting Action) 1 ea N/A QS DALY Stop: 03/05/20 01:14 Last Admin: 02/04/20 01:04 Dose: Not Given Documented by: [id number] Discontinued Medications Fentanyl Citrate (Fentanyl Citrate 100 Mcg/2 Ml Vial) 50 mcg IV NOW STA Stop: 02/03/20 22:18 Last Admin: 02/03/20 22:26 Dose: 50 mcg Documented by: [id number] Fentanyl Citrate (Fentanyl Citrate 100 Mcg/2 Ml Vial) 50 mcg IV NOW STA Stop: 02/03/20 22:57 Last Admin: 02/03/20 23:17 Dose: 50 mcg Documented by: [id number] Insulin Aspart (Insulin Aspart Per Unit) 2 units SC ONE ONE Stop: 02/04/20 06:16 Last Admin: 02/04/20 06:24 Dose: 2 units Documented by: [id number] Cosigned by: [id number] Morphine Sulfate (Morphine Sulfate 4 Mg/Ml 1 Ml Carp\\Vial) 4 mg IV NOW STA Stop: 02/04/20 00:22 Last Admin: 02/04/20 00:27 Dose: 4 mg Documented by: [id number] Ondansetron HCl (Ondansetron Inj 2 Mg/Ml 2 Ml Vial) Confirm Administered Dose 4 mg .ROUTE .STK-MED ONE Stop: 02/04/20 00:31 Last Admin: 02/04/20 00:30 Dose: 4 mg Documented by: [id number] Medical Decision Making Differential Diagnosis Differential diagnosis includes fracture, dislocation, contusion, anemia, cardiac disease, electrolyte abnormality, among others. Home Medications Current Medication List: was personally reviewed by me Laboratory Data Attestation: I reviewed the patient's lab results. Result diagrams: 02/03/20 22:10 02/03/20 22:10 Lab Results 02/03/20 02/03/20 02/03/20 Range/Units 22:10 22:10 22:10 WBC 6.93 (4.8-10.8) K/uL RBC 3.92 L (4.2-5.4) M/uL Hgb 11.9 L (12.0-16.0) g/dL Hct 36.1 L (37-47) % MCV 92.1 (80-100) fL MCH 30.4 (25-34) pg MCHC 33.0 (32-36) g/dL Plt Count 169 (130-400) K/uL Immature Gran % (Auto) 0.3 % Neut % (Auto) 64.9 % Lymph % (Auto) 27.1 % [place] % (Auto) 5.5 % Eos % (Auto) 1.9 % Baso % (Auto) 0.3 % Neut # (Auto) 4.50 (1.4-6.5) K/uL Lymph # (Auto) 1.88 (1.2-3.4) K/uL [place] # (Auto) 0.38 (0.11-0.59) K/uL Eos # (Auto) 0.13 (0-0.5) K/uL Baso # (Auto) 0.02 (0-0.2) K/uL Immature Gran # (Auto) 0.02 (0.00-0.02) K/uL PT 11.5 (9.0-12.0) Seconds INR 1.1 (0.9-1.1) APTT 23.1 (21.0-31.0) Seconds PTT Ratio 0.8 Sodium 139 (136-145) mmol/L Potassium 4.2 (3.5-5.1) mmol/L Chloride 103 (98-107) mmol/L Carbon Dioxide 33 H (21-32) mmol/L Anion Gap 3.0 (3-11) BUN 16 (7-18) mg/dl Creatinine 0.83 (0.6-1.2) mg/dl Est Cr Clr Drug Dosing 39.1 ml/min Est GFR ( Amer) 75.1 Est GFR (Non-Af Amer) 64.8 BUN/Creatinine Ratio 19.5 (10-20) Glucose 146 H (70-99) mg/dl Calcium 9.0 (8.5-10.1) mg/dl Magnesium 1.9 (1.8-2.4) mg/dl Total Bilirubin 0.3 (0.2-1) mg/dl AST 18 (15-37) U/L ALT 22 (12-78) U/L Alkaline Phosphatase 80 (45-117) U/L Total Protein 6.6 (6.4-8.2) gm/dl Albumin 3.7 (3.4-5.0) gm/dl Globulin 2.9 (2.5-4.0) gm/dl Albumin/Globulin Ratio 1.3 (0.9-2) Blood Type Antibody Screen 02/03/20 Range/Units 22:44 WBC (4.8-10.8) K/uL RBC (4.2-5.4) M/uL Hgb (12.0-16.0) g/dL Hct (37-47) % MCV (80-100) fL MCH (25-34) pg MCHC (32-36) g/dL Plt Count (130-400) K/uL Immature Gran % (Auto) % Neut % (Auto) % Lymph % (Auto) % [place] % (Auto) % Eos % (Auto) % Baso % (Auto) % Neut # (Auto) (1.4-6.5) K/uL Lymph # (Auto) (1.2-3.4) K/uL [place] # (Auto) (0.11-0.59) K/uL Eos # (Auto) (0-0.5) K/uL Baso # (Auto) (0-0.2) K/uL Immature Gran # (Auto) (0.00-0.02) K/uL PT (9.0-12.0) Seconds INR (0.9-1.1) APTT (21.0-31.0) Seconds PTT Ratio Sodium (136-145) mmol/L Potassium (3.5-5.1) mmol/L Chloride (98-107) mmol/L Carbon Dioxide (21-32) mmol/L Anion Gap (3-11) BUN (7-18) mg/dl Creatinine (0.6-1.2) mg/dl Est Cr Clr Drug Dosing ml/min Est GFR ( Amer) Est GFR (Non-Af Amer) BUN/Creatinine Ratio (10-20) Glucose (70-99) mg/dl Calcium (8.5-10.1) mg/dl Magnesium (1.8-2.4) mg/dl Total Bilirubin (0.2-1) mg/dl AST (15-37) U/L ALT (12-78) U/L Alkaline Phosphatase (45-117) U/L Total Protein (6.4-8.2) gm/dl Albumin (3.4-5.0) gm/dl Globulin (2.5-4.0) gm/dl Albumin/Globulin Ratio (0.9-2) Blood Type AB Negative Antibody Screen NEGATIVE Imaging Data Attestation: I personally reviewed and interpreted this imaging study as follows: My Impression: RIGHT HIP: Angulated intertrochanteric fracture. CHEST 1 VIEW: No pneumothorax or pneumonia. No cardiomegaly. ECG Data Attestation: I personally reviewed and interpreted this ECG as follows: Indication: + weakness Rate (beats per minute): 84 Rhythm: + normal sinus ECG Intervals/blocks: + Normal QRS ECG ST segments: + Normal ST segments Change: no significant change Blood Pressure Blood Pressure Findings: Normal blood pressure Blood Pressure Disposition: did not require urgent referral MDM Narrative The patient is an 84-year-old female who presents today for evaluation of a fall/right hip pain. Patient did become slightly lightheaded before the fall, which has been happening to her over the past few months. X-ray shows an angulated hip fracture. Labs are unremarkable. Patient did not sustain any other injuries. She was treated with IV fentanyl and morphine in the emergency department for her pain. The case was discussed with the [facility] service, who agreed to evaluate the patient for further care. The patient was independently evaluated by Dr. Lyle, who agreed with my assessment and treatment plan. Impression & Plan Fracture of right hip Discharge Plan Visit Data Chief Complaint: Hip Pain Stated Complaint: FALL, R HIP FX OR DISLOCATION ED Provider: Mariano Lyle ED Midlevel Provider: Porsche Kwon Discharge Problem: Fracture of right hip Patient Disposition: Admitted As Inpatient Discharge Instructions Interventions: ED Discharge Assessment Last Done: 02/04/20 00:04 Discharge Problem: Fracture of right hip Qualifiers: Encounter type: initial encounter Fracture type: closed Qualified Code(s): S72.001A - Fracture of unspecified part of neck of right femur, initial encounter for closed fracture
[2020-02-03 22:49] LABS: Basophils # (auto) 0.02 K/uL (0-0.2); Basophils % (auto) 0.3 %; Eosinophils # (auto) 0.13 K/uL (0-0.5); Eosinophils % (auto) 1.9 %; Hematocrit (blood only) 36.1 % (37-47); Hemoglobin 11.9 g/dL (12.0-16.0); Immature Granulocytes # (auto) 0.02 K/uL (0.00-0.02); Immature Granulocytes % (auto) 0.3 %; Lymphocytes # (auto) 1.88 K/uL (1.2-3.4); Lymphocytes % (auto) 27.1 %; Mean Corpuscular Hemoglobin 30.4 pg (25-34); Mean Corpuscular Volume 92.1 fL (80-100); Monocytes # (auto) 0.38 K/uL (0.11-0.59); Monocytes % (auto) 5.5 %; Neutrophils % (auto) 64.9 %; Platelet Count 169 K/uL (130-400); Red Blood Count 3.92 M/uL (4.2-5.4); White Blood Count 6.93 K/uL (4.8-10.8)
[2020-02-03 22:53] LABS: Albumin Level 3.7 gm/dl (3.4-5.0); BUN Creatinine Ratio 19.5 (10-20); Creatinine Clr Calc Pharmacy 39.1 ml/min; Est GFR (African American) 75.1; Est GFR (Non-African American) 64.8; INR 1.1 (0.9-1.1); Partial Thromboplastin Ratio 0.8; Partial Thromboplastin Time 23.1 Seconds (21.0-31.0); Potassium 4.2 mmol/L (3.5-5.1); Prothrombin Time 11.5 Seconds (9.0-12.0)
[2020-02-03 22:56] LABS: Albumin Globulin Ratio 1.3 (0.9-2); Bilirubin,Total 0.3 mg/dl (0.2-1); Globulin 2.9 gm/dl (2.5-4.0); Total Protein 6.6 gm/dl (6.4-8.2)
--- NOTE | 2020-02-03 23:31 | History & Physical Report ---
Date of Service February 03, 2020 Assessment & Plan (1) Hip fracture: 84yo C female presenting with closed fracture of right hip following mechanical fall at [facility]. Patient is neurovascularly intact, pain is well controlled at present -Admit to medical floor -Check EKG and BNP preoperatively -Pharmacy management on insulin -Pain control with Tylenol, Oxycodone and Morphine PRN -Will hold ASA and Lisinopril -Patient may proceed to surgery with no additional testing. Pharmacy to assist with perioperative blood sugar management. -Pre-op COVID-19 test ordered Present on Admission?: Yes (2) Dyslipidemia: Chronic -Continue fish oil outpatient Present on Admission?: Yes (3) Hypertension: Blood pressure well controlled. denies history of HTN - Hold Lisinopril 2.5mg po daily pre-op, patient with DM -Continue to monitor Present on Admission?: Yes (4) Diabetes type 1, controlled: Longstanding Type I DM with insulin pump in place. states patient is a very brittle diabetic. -Hold insulin pump -Will proceed with basal/bolus coverage -Pharmacy consultation/Glycemic management assistance appreciated Present on Admission?: Yes (5) Focal seizures: Chronic -Continue Keppra Present on Admission?: Yes (6) Hypothyroidism: Chronic. -Continue SYnthroid F/E/N - LR at 80mL/hr, monitor electrolytes NPO Ppx - low risk for DVT, SCDs Code - Full Dispo - Admit to medical floor Present on Admission?: Yes History of Present Illness Chief Complaint: right hip fracture Primary Care Provider: Walter Jeter MD Gricelda Doyle is an 84yo C female with history of HTN, HLP, DM Type I on insulin pump. Patient had an episode of dizziness today after getting out of a chair and fell onto her right hip. Denies head trauma or LOC. She denies CP, palpitations, cough, SOB. No fevers/chills/abdominal pain/nausea/vomiting. On arrival to the ER patient found to be afebrile, HD stable, X-ray revealed fracture of right hip. Patient's is at bedside and states that patient's blood sugars are quite variable. He says that they range anywhere from 40 - 400 and that they change rapidly. Patient has an insulin pump in place. states that her basal rate is typically 0.5u/hr and CR=1:15. No additional complaints at this time. Allergies Allergy/AdvReac Type Severity Reaction Status Date / Time No Known Allergies Allergy Verified 02/03/20 23:13 Home Medications Home Medications Medication Instructions Recorded Confirmed Type magnesium oxide 400 mg PO QAM #0 tab 12/27/15 02/03/20 History lisinopril 2.5 mg PO QAM #0 tab 01/21/17 02/03/20 History vit C-vit B-murowt-dlsf-lutein 1 cap PO BID 01/02/19 02/03/20 History [PreserVision Lutein] aspirin 81 mg tablet,delayed 81 mg PO DAILY #0 tab 01/03/19 02/03/20 History release cholecalciferol (vitamin D3) 125 5,000 unit PO DAILY #0 tab 01/03/19 02/03/20 History mcg (5,000 unit) tablet coenzyme Q10 100 mg capsule 100 mg PO DAILY #0 cap 01/03/19 02/03/20 History insulin syringe-needle U-100 0.5 #10 ea 01/03/19 01/21/20 History mL 31 gauge x 5/16" omega 8-oit-tuq-fish oil 1,000 mg 1 cap PO DAILY #0 cap 01/03/19 02/03/20 History (120 mg-180 mg) capsule blood sugar diagnostic #10 ea 01/14/19 01/21/20 History calcium carbonate 600 mg calcium 600 mg PO DAILY tab 01/14/19 02/03/20 History (1,500 mg) tablet ferrous sulfate 325 mg (65 mg 65 mg PO QAM #0 tab 10/14/19 02/03/20 History iron) tablet levetiracetam 500 mg 500 mg PO DAILY 30 Days #30 tab 12/23/19 02/03/20 Rx tablet,extended release 24 hr rivastigmine 9.5 mg TOPICAL DAILY 90 Days #0 12/23/19 02/03/20 History patch insulin aspart U-100 [Novolog 25 units CONTINUOUS IV INFUSION 02/03/20 02/03/20 History U-100 Insulin aspart] DAILY levothyroxine 125 mcg PO DAILY 02/03/20 02/03/20 History Past Med/Surg History Medical History (Updated 02/04/20 @ 04:37 by Noa Chavarria DO) Closed head injury Diabetes type 1, controlled Dyslipidemia Focal seizures History of herpes zoster History of meningioma History of rheumatic fever Hypertension Insulin pump in place Surgical History History of appendectomy History of breast biopsy History of tonsillectomy Family History Father Colon cancer Mother Alzheimer disease Other Diabetes Social History Smoking Status: Former smoker Cigarettes Per Day: No smoking since freshman year of college.; Second Hand Exposure: No; Do You Dip or Chew Tobacco: No; Tobacco Cessation Education Requested by Patient: No Hx Alcohol Use: Yes Alcohol type: wine Hx Substance Use: No Preferred Language: Greenlandic Communication Ability: Effective Finish Carpenter Required: No Beliefs That Will Affect Care: None marital status: Current Living Situation: Spouse and Halfway Current Living Situation Comment: [facility]. current occupation: retired Other Information That Helps Us Care for You: No Feels Safe at Home: Yes Safety Concerns: Feels Safe At This Time Review of Systems Review of Systems: All systems reviewed & are unremarkable except as noted in HPI & below Physical Exam Physical Exam: General: patient resting comfortably, NAD, non-toxic in appearance, AA&O x 4 Skin: warm, dry, intact, no rashes or lesions HEENT: NC/AT, PERRL, EOMI, anicteric sclera, conjunctiva without injection, external ear normal to inspection and nontender, nares patent, moist mucus membranes, dentition intact, no oropharyngeal lesions, neck supple, trachea midline, no LAD, no thyromegaly, no JVD Heart: +S1/S2, regular, no m/r/g Lungs: equal air entry bilaterally, no rales/rhonchi/wheezes Abd: +BS, soft, NT/ND, no masses/organomegaly/ascites Ext: warm, 2+ pulses in UE/LE bilaterally, no clubbing/cyanosis or edema Neuro: nonfocal, patient AA&O x 4, speech intact, no facial droop, moving all extremities on command with equal strength 5/5 Results & Data Results & Data ([facility]) Vital Signs (Past 12 Hours) Vital Signs Temp Pulse Resp BP Pulse Ox 02/03/20 22:10 36.7 C 89 18 165/74 H 99 Laboratory Results Lab Results 02/03/20 02/03/20 02/03/20 Range/Units 22:10 22:10 22:10 WBC 6.93 (4.8-10.8) K/uL RBC 3.92 L (4.2-5.4) M/uL Hgb 11.9 L (12.0-16.0) g/dL Hct 36.1 L (37-47) % MCV 92.1 (80-100) fL MCH 30.4 (25-34) pg MCHC 33.0 (32-36) g/dL Plt Count 169 (130-400) K/uL Immature Gran % (Auto) 0.3 % Neut % (Auto) 64.9 % Lymph % (Auto) 27.1 % [place] % (Auto) 5.5 % Eos % (Auto) 1.9 % Baso % (Auto) 0.3 % Neut # (Auto) 4.50 (1.4-6.5) K/uL Lymph # (Auto) 1.88 (1.2-3.4) K/uL [place] # (Auto) 0.38 (0.11-0.59) K/uL Eos # (Auto) 0.13 (0-0.5) K/uL Baso # (Auto) 0.02 (0-0.2) K/uL Immature Gran # (Auto) 0.02 (0.00-0.02) K/uL PT 11.5 (9.0-12.0) Seconds INR 1.1 (0.9-1.1) APTT 23.1 (21.0-31.0) Seconds PTT Ratio 0.8 Sodium 139 (136-145) mmol/L Potassium 4.2 (3.5-5.1) mmol/L Chloride 103 (98-107) mmol/L Carbon Dioxide 33 H (21-32) mmol/L Anion Gap 3.0 (3-11) BUN 16 (7-18) mg/dl Creatinine 0.83 (0.6-1.2) mg/dl Est Cr Clr Drug Dosing 39.1 ml/min Est GFR ( Amer) 75.1 Est GFR (Non-Af Amer) 64.8 BUN/Creatinine Ratio 19.5 (10-20) Glucose 146 H (70-99) mg/dl POC Glucose (70-99) mg/dl Calcium 9.0 (8.5-10.1) mg/dl Magnesium 1.9 (1.8-2.4) mg/dl Total Bilirubin 0.3 (0.2-1) mg/dl AST 18 (15-37) U/L ALT 22 (12-78) U/L Alkaline Phosphatase 80 (45-117) U/L Total Protein 6.6 (6.4-8.2) gm/dl Albumin 3.7 (3.4-5.0) gm/dl Globulin 2.9 (2.5-4.0) gm/dl Albumin/Globulin Ratio 1.3 (0.9-2) Urine Color Urine Appearance (Clear) Urine pH (4.5-7.5) Ur Specific Lilly (1.000-1.030) Urine Protein (Negative) Urine Glucose (UA) (Negative) Urine Ketones (Negative) Urine Blood (Negative) Urine Nitrite (Negative) Urine Bilirubin (Negative) Urine Urobilinogen (Negative) Ur Leukocyte Esterase (Negative) Blood Type Antibody Screen 02/03/20 02/03/20 02/03/20 Range/Units 22:44 23:40 23:40 WBC (4.8-10.8) K/uL RBC (4.2-5.4) M/uL Hgb (12.0-16.0) g/dL Hct (37-47) % MCV (80-100) fL MCH (25-34) pg MCHC (32-36) g/dL Plt Count (130-400) K/uL Immature Gran % (Auto) % Neut % (Auto) % Lymph % (Auto) % [place] % (Auto) % Eos % (Auto) % Baso % (Auto) % Neut # (Auto) (1.4-6.5) K/uL Lymph # (Auto) (1.2-3.4) K/uL [place] # (Auto) (0.11-0.59) K/uL Eos # (Auto) (0-0.5) K/uL Baso # (Auto) (0-0.2) K/uL Immature Gran # (Auto) (0.00-0.02) K/uL PT (9.0-12.0) Seconds INR (0.9-1.1) APTT (21.0-31.0) Seconds PTT Ratio Sodium (136-145) mmol/L Potassium (3.5-5.1) mmol/L Chloride (98-107) mmol/L Carbon Dioxide (21-32) mmol/L Anion Gap (3-11) BUN (7-18) mg/dl Creatinine (0.6-1.2) mg/dl Est Cr Clr Drug Dosing ml/min Est GFR ( Amer) Est GFR (Non-Af Amer) BUN/Creatinine Ratio (10-20) Glucose (70-99) mg/dl POC Glucose 134 H (70-99) mg/dl Calcium (8.5-10.1) mg/dl Magnesium (1.8-2.4) mg/dl Total Bilirubin (0.2-1) mg/dl AST (15-37) U/L ALT (12-78) U/L Alkaline Phosphatase (45-117) U/L Total Protein (6.4-8.2) gm/dl Albumin (3.4-5.0) gm/dl Globulin (2.5-4.0) gm/dl Albumin/Globulin Ratio (0.9-2) Urine Color Yellow Urine Appearance Clear (Clear) Urine pH 7.0 (4.5-7.5) Ur Specific Lilly 1.016 (1.000-1.030) Urine Protein Negative (Negative) Urine Glucose (UA) Negative (Negative) Urine Ketones Negative (Negative) Urine Blood Negative (Negative) Urine Nitrite Negative (Negative) Urine Bilirubin Negative (Negative) Urine Urobilinogen Negative (Negative) Ur Leukocyte Esterase Negative (Negative) Blood Type AB Negative Antibody Screen NEGATIVE 02/04/20 Range/Units 00:53 WBC (4.8-10.8) K/uL RBC (4.2-5.4) M/uL Hgb (12.0-16.0) g/dL Hct (37-47) % MCV (80-100) fL MCH (25-34) pg MCHC (32-36) g/dL Plt Count (130-400) K/uL Immature Gran % (Auto) % Neut % (Auto) % Lymph % (Auto) % [place] % (Auto) % Eos % (Auto) % Baso % (Auto) % Neut # (Auto) (1.4-6.5) K/uL Lymph # (Auto) (1.2-3.4) K/uL [place] # (Auto) (0.11-0.59) K/uL Eos # (Auto) (0-0.5) K/uL Baso # (Auto) (0-0.2) K/uL Immature Gran # (Auto) (0.00-0.02) K/uL PT (9.0-12.0) Seconds INR (0.9-1.1) APTT (21.0-31.0) Seconds PTT Ratio Sodium (136-145) mmol/L Potassium (3.5-5.1) mmol/L Chloride (98-107) mmol/L Carbon Dioxide (21-32) mmol/L Anion Gap (3-11) BUN (7-18) mg/dl Creatinine (0.6-1.2) mg/dl Est Cr Clr Drug Dosing ml/min Est GFR ( Amer) Est GFR (Non-Af Amer) BUN/Creatinine Ratio (10-20) Glucose (70-99) mg/dl POC Glucose 200 H (70-99) mg/dl Calcium (8.5-10.1) mg/dl Magnesium (1.8-2.4) mg/dl Total Bilirubin (0.2-1) mg/dl AST (15-37) U/L ALT (12-78) U/L Alkaline Phosphatase (45-117) U/L Total Protein (6.4-8.2) gm/dl Albumin (3.4-5.0) gm/dl Globulin (2.5-4.0) gm/dl Albumin/Globulin Ratio (0.9-2) Urine Color Urine Appearance (Clear) Urine pH (4.5-7.5) Ur Specific Lilly (1.000-1.030) Urine Protein (Negative) Urine Glucose (UA) (Negative) Urine Ketones (Negative) Urine Blood (Negative) Urine Nitrite (Negative) Urine Bilirubin (Negative) Urine Urobilinogen (Negative) Ur Leukocyte Esterase (Negative) Blood Type Antibody Screen PG Care Time/CCT Total # of Minutes Spent Total Time Spent with Patient: Total time spent is greater than 50% in coordination of care (as documented) at patient's floor/unit and/or counseling patient: Coding Level of Care Code 59069 Initial In Care Lvl 3 Diagnoses Hip fracture S72.001A Encounter type: initial encounter Fracture type: closed Laterality: right Dyslipidemia E78.5 Hypertension I10 Hypertension type: essential hypertension Diabetes type 1, controlled E10.8 Diabetes mellitus complication status: with unspecified complications Focal seizures R56.9 Hypothyroidism E03.9 Hypothyroidism type: unspecified (1) Hypertension Hypertension type: essential hypertension Qualified Code(s): I10 - Essential (primary) hypertension (2) Diabetes type 1, controlled Diabetes mellitus complication status: with unspecified complications Qualified Code(s): E10.8 - Type 1 diabetes mellitus with unspecified complications (3) Hypothyroidism Hypothyroidism type: unspecified Qualified Code(s): E03.9 - Hypothyroidism, unspecified (4) Hip fracture Encounter type: initial encounter Fracture type: closed Laterality: right Qualified Code(s): S72.001A - Fracture of unspecified part of neck of right femur, initial encounter for closed fracture
[2020-02-04 00:06] LABS: Appearance Urine Clear (Clear); Bilirubin Urine Negative (Negative); Blood Urine Negative (Negative); Color Urine Yellow; Glucose Urine UA Negative (Negative); Ketones Urine Negative (Negative); Leukocyte Esterase Urine Negative (Negative); Nitrite Urine Negative (Negative); Protein Urine Negative (Negative); Specific Gravity Urine 1.016 (1.000-1.030); Urobilinogen Urine Negative (Negative)
[2020-02-04] MEDS ORDERED: MoRPHine SULFATE 4 MG/ML 1 ML CARP\\VIAL IV STA (00:21)
[2020-02-04] MEDS ORDERED: ONDANSETRON INJ 2 MG/ML 2 ML VIAL ONE ×2 (00:30→13:47)
--- NOTE | 2020-02-04 00:30 | Emergency Department Note ---
ED Visit Note The patient was seen and examined with Porsche Kwon PA-C. I agree with the history, physical and findings. Please see the note for disposition and details. Right hip fracture. Hospitalist consulted for admission. .
[2020-02-04] MEDS ORDERED: GLUCOSE 40% GEL 15 GM TUBE PO PRN (00:51)
[2020-02-04] MEDS ORDERED: ACETAMINOPHEN 325 MG TAB PO PRN (00:51)
[2020-02-04] MEDS ORDERED: MAGNESIUM HYDROXIDE SUSP 30 ML UDC PO PRN (00:51)
[2020-02-04] MEDS ORDERED: OXYCODONE HCL IR 5 MG TAB (IMMEDIATE RELEASE) PO PRN (00:51)
[2020-02-04] MEDS ORDERED: MoRPHine SULFATE 2 MG/ML CARP IV PRN (00:51)
[2020-02-04] MEDS ORDERED: bisacodyL 10 MG SUPP PR PRN (00:51)
[2020-02-04] MEDS ORDERED: NALOXONE HCL 0.4 MG/1 ML VIAL/CARP IV PRN ×2 (00:51→15:40)
[2020-02-04] MEDS ORDERED: GLUCAGON FOR INJ 1 MG VIAL SQ PRN (00:51)
[2020-02-04] MEDS ORDERED: LACTATED RINGER'S 1,000 ML IV SCH (00:51)
[2020-02-04] MEDS ORDERED: CARBOHYDRATES FOR HYPOGLYCEMIA PO PRN (00:51)
[2020-02-04] MEDS ORDERED: GLUCOSE 10 TABS/TUBE PO PRN (00:51)
[2020-02-04] MEDS ORDERED: DEXTROSE 50% 50 ML SYRINGE IV PRN (00:51)
[2020-02-04] MEDS ORDERED: PHARMACY GLYCEMIC MGMT CONSULT PRN (01:00)
[2020-02-04 01:04] LABS: Magnesium 1.9 mg/dl (1.8-2.4)
[2020-02-04] MEDS: EXELON PATCH~ORDER AWAITING ACTION SCH ×3 (01:04→17:32)
[2020-02-04] MEDS: KEPPRA XR~ORDER AWAITING ACTION SCH ×3 (01:05→17:32)
[2020-02-04] MEDS ORDERED: INSULIN ASPART 100 UNITS/ML VIAL SC PRN (01:30)
[2020-02-04] MEDS ORDERED: NovoLOG INSULIN PUMP SCH (06:00)
[2020-02-04] MEDS ORDERED: INSULIN ASPART PER UNIT SC ONE (06:15)
[2020-02-04] MEDS ORDERED: LEVOTHYROXINE SODIUM 125 MCG TABLET PO SCH (06:30)
[2020-02-04 07:24] LABS: Hematocrit (blood only) 36.3 % (37-47); Hemoglobin 11.9 g/dL (12.0-16.0); Immature Granulocytes # (auto) 0.03 K/uL (0.00-0.02); Immature Granulocytes % (auto) 0.2 %; Lymphocytes # (auto) 0.73 K/uL (1.2-3.4); Lymphocytes % (auto) 5.2 %; Mean Corpuscular Hemoglobin 30.4 pg (25-34); Mean Corpuscular Hgb Conc 32.8 g/dL (32-36); Mean Corpuscular Volume 92.8 fL (80-100); Mean Platelet Volume 9.8 fL (7.4-10.4); Monocytes # (auto) 0.48 K/uL (0.11-0.59); Monocytes % (auto) 3.4 %; Neutrophils # (auto) 12.93 K/uL (1.4-6.5); Neutrophils % (auto) 91.2 %; Platelet Count 180 K/uL (130-400); RDW Coefficient of Variation 12.9 % (11.5-14.5); RDW Standard Deviation 43.6 fL (36.4-46.3); Red Blood Count 3.91 M/uL (4.2-5.4); White Blood Count 14.17 K/uL (4.8-10.8)
[2020-02-04] MEDS ORDERED: INSULIN ASPART 100 UNITS/ML 3 ML PEN SC SCH (07:30)
--- NOTE | 2020-02-04 07:47 | XRay Report ---
XR chest 1V portable CLINICAL HISTORY: Hip fracture. COMPARISON STUDY: Chest radiograph February 08, 2018. FINDINGS: Lung volumes are normal. Lungs are clear. There is no pneumothorax or pleural effusion. Car diac size is stable. Mediastinal contours are normal. There is no evidence for pulmonary edema. Incid ental note is made of an old, healed proximal right humeral fracture. Skinfold projects over the righ t hemithorax. IMPRESSION: No acute cardiopulmonary findings. No significant change in appearance of the chest. ACT 112: Negative or not required by law. Electronically signed by: Elieser Watson M.D. 02/04/2020 7:46 AM
--- NOTE | 2020-02-04 07:50 | XRay Report ---
XR hip RT min 2V CLINICAL HISTORY: right hip injury COMPARISON: Right hip radiographs December 28, 2018. FINDINGS: Note is made of an acute displaced intertrochanteric fracture of the right femur. Angulati on at the level of the fracture is noted. No additional fractures are identified on this examination. IMPRESSION: Acute displaced intertrochanteric fracture of the right femur. ACT 112: Negative or not required by law. Electronically signed by: Elieser Watson M.D. 02/04/2020 7:48 AM
[2020-02-04 07:51] LABS: BUN Creatinine Ratio 19.5 (10-20); Calcium 9.3 mg/dl (8.5-10.1); Est GFR (African American) 70.9; Est GFR (Non-African American) 61.2; Potassium 4.3 mmol/L (3.5-5.1)
--- NOTE | 2020-02-04 08:44 | Pharmacy Report ---
Pharmacy Glycemic Short Note 2 - Date of Service February 04, 2020 - Glycemic Short BSG Results (Last 24 hours): 02/03/20 02/03/20 02/04/20 22:10 23:40 00:53 Glucose 146 H POC Glucose 134 H 200 H 02/04/20 02/04/20 05:56 07:13 Glucose 270 H POC Glucose 250 H OUTPATIENT ANTIDIABETIC REGIMEN: * Novolog pump (Medtronic 630G) * Basal: 0000 0.55, 0200 0.5, 1200 0.6, 1600 0.55 * Bolus insulin to carb ratio: 0000 1:15, 0800 1:14, 1130 1:15 * Correction factor: 50 * BG Target: 175 ([id number]) and 140-160 ([id number]) * TDD: 22 units ASSESSMENT: * Gricelda is a 84 yo T1DM admitted with closed right hip fracture. She is NPO for hip surgery * Patient is well controlled on Novolog insulin pump as an outpatient. Her manages her pump. Pump was continued on admission. Despite NPO status, BSGs have been 200 - 250 mg/dL over the past several hours. * Hospitalist requested insulin pump be stopped and DKA protocol be initiated based on evidence of ketones in her blood. Of note, most recent labs do not indicate metabolic acidosis (anion gap and bicarb are WNL). This transition has been held up per patient was taken to OR around 1215. Plan for glycemic control will depend on whether or not patient is administered steroids saulo- operatively. PLAN FOR INPATIENT GLYCEMIC CONTROL: * Basal * Lantus 12 units SQ q24h * Bolus * Novolog q4h * Goal range: 120-170 mg/dL * Correction factor: 50 * Carb ratio: 15 regimen will require adjustment if steroids are given in OR PLAN FOR DISCHARGE: * A1c of 7.7% is reasonable based on patient age/co morbidities. * Continue Novolog insulin pump on discharge and f/u with [facility] Endocrinology
--- NOTE | 2020-02-04 09:06 | Electrocardiogram Report ---
Test Reason : Blood Pressure : / mmHG Vent. Rate : 104 BPM Atrial Rate : 104 BPM P-R Int : 130 ms QRS Dur : 086 ms QT Int : 340 ms P-R-T Axes : 076 056 020 degrees QTc Int : 447 ms Sinus tachycardia with Premature supraventricular complexes Incomplete right bundle branch block Diffuse Minor Nonspecific ST abnormality Abnormal ECG When compared with ECG of 02-JAN-2019 14:32, Premature supraventricular complexes are now Present Nonspecific ST abnormality now present Confirmed by Wilmer Eagle ([id number]) on 02/04/2020 9:06:21 AM Referred By: Lynette Odom Confirmed By:Wilmer Eagle
--- NOTE | 2020-02-04 10:40 | Hospitalist Progress Note ---
Date of Service February 04, 2020 Assessment & Plan (1) Hip fracture: * 84yo C female presenting with closed fracture of right hip following mechanical fall at [facility]. Patient is neurovascularly intact, pain is well controlled at present * -Admit to medical floor * EKG pre-op with T wave abn, improved on repeat EKG this AM. Trop bumped to 0.049 and trended down on repeat --> likely demand given recent stress/fracture/dehydration. IVF changed from LR to NSS + 20meq KCl @125cc/hr * Pharmacy consulted for DKA given elevated BSG and beta-hydroxybutrate 5.89 * BNP 580 * CXR without acute findings * Holding ASA and lisinopril * Pre-op COVID-19 negative * NPO for OR this afternoon with Dr. Kaplan * pain control with tylenol, oxycodone and morphine as needed * PT/OT following surgery per orthopedic team * TSH added to labs as patient with low TSH earlier this month and reported worsening dizziness and constipation lately (2) Dyslipidemia: * Chronic * Continue fish oil outpatient (3) Hypertension: * Blood pressure well controlled and denies history of HTN * Holding lisinopril pre-operatively (patient with DM I) * BP elevated slightly at 150/75 likely secondary to pain * Continue to monitor (4) Diabetes type 1, controlled: * Longstanding Type I DM with insulin pump in place. states patient is a very brittle diabetic. * Given 2 unit bolus this morning via pump given by --> will be held post-operatively and placed on SQ DKA protocol as above * Pharmacy consulted -- appreciate assistance * Most recent BSG prior to being taken down for surgery 201 * Continue to monitor -- labs and replace electrolytes as needed (5) Focal seizures: * Chronic * Continue Keppra (6) Hypothyroidism: * Chronic. Last TSH 0.386 January 2020 * Will repeat TSH * Continue home levothyroxine 125mcg daily for now (7) Elevated troponin: * Trending down -- likely demand given acute fracture. EKG stable (8) DKA, type 1: (9) DVT prophylaxis: * SCDs * chemoproph not ordered as patient for OR this afternoon Admission and Anticipated Discharge Date Admission Date: February 03, 2020 Supervising Physician Co-Signing Physician Notes Pt d/w Ms. Bernal, PAC Agree with plan as outlined above R hip repair today DM-I pt, uses pump at baseline Subjective Patient evaluated this morning at bedside with . Pain tolerable with medications. Discussed elevated blood sugars and bolus prior to going down for surgery. administering 2 units from her pump and then will be placed on SQ protocol for tighter control given slight DKA on labs and undergoing surgery where she will likely receive steroids in operative period. Denies fever, chills, chest pain, shortness of breath, abdominal pain, nausea or vomiting at this time. She has been dealing with issues with constipation lately and endorses 1 BM yesterday but she typically had been going daily. Getting ready to be wheeled off for surgery as I was leaving the room. She states she was dizzy while getting to her chair but does not have dizziness at this current moment. Review of Systems Review of Systems: All systems reviewed & are unremarkable except as noted in HPI & below Physical Exam Constitutional: well developed; no acute distress Eyes: + anicteric sclerae and PERRL ENMT: dry mm Neck: normal visual inspection Respiratory: normal respiratory effort, lungs clear to auscultation Cardiovascular: RRR, no murmur, no edema Gastrointestinal (Abdomen): normal bowel sounds, soft, nontender, no hepatosplenomegaly Musculoskeletal: no cyanosis or clubbing, extremities motor strength 5/5 ROM testing deferred given fx Skin: warm , dry Neurologic: patellar DTR's 2+ bilat, sensation intact Psychiatric: Orientation: alert, oriented x 3 and cooperative Lymphatic: no cervical or axillary lymphadenopathy Results & Data Results & Data ([facility]) Vital Signs (Past 12 Hours) Vital Signs Temp Pulse Pulse Resp BP BP BP 02/04/20 07:35 36.9 C 99 H 16 149/64 H 02/04/20 00:50 36.8 C 64 16 122/78 02/04/20 00:00 95 H 21 154/57 H 02/03/20 23:51 98 H 15 151/68 H Pulse Ox 02/04/20 07:35 95 02/04/20 00:50 96 02/04/20 00:00 96 02/03/20 23:51 98 Laboratory Results 02/04/20 02/04/20 02/04/20 Range/Units 12:12 12:05 10:28 WBC (4.8-10.8) K/uL RBC (4.2-5.4) M/uL Hgb (12.0-16.0) g/dL Hct (37-47) % MCV (80-100) fL MCH (25-34) pg MCHC (32-36) g/dL RDW Std Deviation (36.4-46.3) fL RDW Coeff of Shady (11.5-14.5) % Plt Count (130-400) K/uL MPV (7.4-10.4) fL Immature Gran % (Auto) % Neut % (Auto) % Lymph % (Auto) % [place] % (Auto) % Eos % (Auto) % Baso % (Auto) % Neut # (Auto) (1.4-6.5) K/uL Lymph # (Auto) (1.2-3.4) K/uL [place] # (Auto) (0.11-0.59) K/uL Eos # (Auto) (0-0.5) K/uL Baso # (Auto) (0-0.2) K/uL Immature Gran # (Auto) (0.00-0.02) K/uL PT (9.0-12.0) Seconds INR (0.9-1.1) APTT (21.0-31.0) Seconds PTT Ratio Sodium (136-145) mmol/L Potassium (3.5-5.1) mmol/L Chloride (98-107) mmol/L Carbon Dioxide (21-32) mmol/L Anion Gap (3-11) BUN (7-18) mg/dl Creatinine (0.6-1.2) mg/dl Est Cr Clr Drug Dosing ml/min Est GFR ( Amer) Est GFR (Non-Af Amer) BUN/Creatinine Ratio (10-20) Glucose (70-99) mg/dl POC Glucose 201 H 246 H (70-99) mg/dl Calcium (8.5-10.1) mg/dl Magnesium (1.8-2.4) mg/dl Total Bilirubin (0.2-1) mg/dl AST (15-37) U/L ALT (12-78) U/L Alkaline Phosphatase (45-117) U/L Troponin I 0.043 (0-0.045) ng/ml NT-Pro-B Natriuret Pep (0-1800) pg/ml Total Protein (6.4-8.2) gm/dl Albumin (3.4-5.0) gm/dl Globulin (2.5-4.0) gm/dl Albumin/Globulin Ratio (0.9-2) Beta-Hydroxybutyric Acd (0.2-2.81) mg/dl Urine Color Urine Appearance (Clear) Urine pH (4.5-7.5) Ur Specific [place] (1.000-1.030) Urine Protein (Negative) Urine Glucose (UA) (Negative) Urine Ketones (Negative) Urine Blood (Negative) Urine Nitrite (Negative) Urine Bilirubin (Negative) Urine Urobilinogen (Negative) Ur Leukocyte Esterase (Negative) COVID-19 Eval Order SARS-CoV-2, RNA, NAAT (NEGATIVE) Blood Type Antibody Screen 02/04/20 02/04/20 02/04/20 Range/Units 07:13 07:13 07:13 WBC (4.8-10.8) K/uL RBC (4.2-5.4) M/uL Hgb (12.0-16.0) g/dL Hct (37-47) % MCV (80-100) fL MCH (25-34) pg MCHC (32-36) g/dL RDW Std Deviation (36.4-46.3) fL RDW Coeff of Shady (11.5-14.5) % Plt Count (130-400) K/uL MPV (7.4-10.4) fL Immature Gran % (Auto) % Neut % (Auto) % Lymph % (Auto) % [place] % (Auto) % Eos % (Auto) % Baso % (Auto) % Neut # (Auto) (1.4-6.5) K/uL Lymph # (Auto) (1.2-3.4) K/uL [place] # (Auto) (0.11-0.59) K/uL Eos # (Auto) (0-0.5) K/uL Baso # (Auto) (0-0.2) K/uL Immature Gran # (Auto) (0.00-0.02) K/uL PT (9.0-12.0) Seconds INR (0.9-1.1) APTT (21.0-31.0) Seconds PTT Ratio Sodium 137 (136-145) mmol/L Potassium 4.3 (3.5-5.1) mmol/L Chloride 102 (98-107) mmol/L Carbon Dioxide 30 (21-32) mmol/L Anion Gap 5.0 (3-11) BUN 17 (7-18) mg/dl Creatinine 0.87 (0.6-1.2) mg/dl Est Cr Clr Drug Dosing 40.0 ml/min Est GFR ( Amer) 70.9 Est GFR (Non-Af Amer) 61.2 BUN/Creatinine Ratio 19.5 (10-20) Glucose 270 H (70-99) mg/dl POC Glucose (70-99) mg/dl Calcium 9.3 (8.5-10.1) mg/dl Magnesium (1.8-2.4) mg/dl Total Bilirubin (0.2-1) mg/dl AST (15-37) U/L ALT (12-78) U/L Alkaline Phosphatase (45-117) U/L Troponin I 0.049 H* (0-0.045) ng/ml NT-Pro-B Natriuret Pep 580 (0-1800) pg/ml Total Protein (6.4-8.2) gm/dl Albumin (3.4-5.0) gm/dl Globulin (2.5-4.0) gm/dl Albumin/Globulin Ratio (0.9-2) Beta-Hydroxybutyric Acd 5.89 H (0.2-2.81) mg/dl Urine Color Urine Appearance (Clear) Urine pH (4.5-7.5) Ur Specific [place] (1.000-1.030) Urine Protein (Negative) Urine Glucose (UA) (Negative) Urine Ketones (Negative) Urine Blood (Negative) Urine Nitrite (Negative) Urine Bilirubin (Negative) Urine Urobilinogen (Negative) Ur Leukocyte Esterase (Negative) COVID-19 Eval Order SARS-CoV-2, RNA, NAAT (NEGATIVE) Blood Type Antibody Screen 02/04/20 02/04/20 02/04/20 Range/Units 07:13 05:56 05:48 WBC 14.17 H (4.8-10.8) K/uL RBC 3.91 L (4.2-5.4) M/uL Hgb 11.9 L (12.0-16.0) g/dL Hct 36.3 L (37-47) % MCV 92.8 (80-100) fL MCH 30.4 (25-34) pg MCHC 32.8 (32-36) g/dL RDW Std Deviation 43.6 (36.4-46.3) fL RDW Coeff of Shady 12.9 (11.5-14.5) % Plt Count 180 (130-400) K/uL MPV 9.8 (7.4-10.4) fL Immature Gran % (Auto) 0.2 % Neut % (Auto) 91.2 % Lymph % (Auto) 5.2 % [place] % (Auto) 3.4 % Eos % (Auto) 0.0 % Baso % (Auto) 0.0 % Neut # (Auto) 12.93 H (1.4-6.5) K/uL Lymph # (Auto) 0.73 L (1.2-3.4) K/uL [place] # (Auto) 0.48 (0.11-0.59) K/uL Eos # (Auto) 0.00 (0-0.5) K/uL Baso # (Auto) 0.00 (0-0.2) K/uL Immature Gran # (Auto) 0.03 H (0.00-0.02) K/uL PT (9.0-12.0) Seconds INR (0.9-1.1) APTT (21.0-31.0) Seconds PTT Ratio Sodium (136-145) mmol/L Potassium (3.5-5.1) mmol/L Chloride (98-107) mmol/L Carbon Dioxide (21-32) mmol/L Anion Gap (3-11) BUN (7-18) mg/dl Creatinine (0.6-1.2) mg/dl Est Cr Clr Drug Dosing ml/min Est GFR ( Amer) Est GFR (Non-Af Amer) BUN/Creatinine Ratio (10-20) Glucose (70-99) mg/dl POC Glucose 250 H (70-99) mg/dl Calcium (8.5-10.1) mg/dl Magnesium (1.8-2.4) mg/dl Total Bilirubin (0.2-1) mg/dl AST (15-37) U/L ALT (12-78) U/L Alkaline Phosphatase (45-117) U/L Troponin I (0-0.045) ng/ml NT-Pro-B Natriuret Pep (0-1800) pg/ml Total Protein (6.4-8.2) gm/dl Albumin (3.4-5.0) gm/dl Globulin (2.5-4.0) gm/dl Albumin/Globulin Ratio (0.9-2) Beta-Hydroxybutyric Acd (0.2-2.81) mg/dl Urine Color Urine Appearance (Clear) Urine pH (4.5-7.5) Ur Specific [place] (1.000-1.030) Urine Protein (Negative) Urine Glucose (UA) (Negative) Urine Ketones (Negative) Urine Blood (Negative) Urine Nitrite (Negative) Urine Bilirubin (Negative) Urine Urobilinogen (Negative) Ur Leukocyte Esterase (Negative) COVID-19 Eval Order SARS-CoV-2, RNA, NAAT NEGATIVE (NEGATIVE) Blood Type Antibody Screen 02/04/20 02/04/20 02/03/20 Range/Units 05:48 00:53 23:40 WBC (4.8-10.8) K/uL RBC (4.2-5.4) M/uL Hgb (12.0-16.0) g/dL Hct (37-47) % MCV (80-100) fL MCH (25-34) pg MCHC (32-36) g/dL RDW Std Deviation (36.4-46.3) fL RDW Coeff of Shady (11.5-14.5) % Plt Count (130-400) K/uL MPV (7.4-10.4) fL Immature Gran % (Auto) % Neut % (Auto) % Lymph % (Auto) % [place] % (Auto) % Eos % (Auto) % Baso % (Auto) % Neut # (Auto) (1.4-6.5) K/uL Lymph # (Auto) (1.2-3.4) K/uL [place] # (Auto) (0.11-0.59) K/uL Eos # (Auto) (0-0.5) K/uL Baso # (Auto) (0-0.2) K/uL Immature Gran # (Auto) (0.00-0.02) K/uL PT (9.0-12.0) Seconds INR (0.9-1.1) APTT (21.0-31.0) Seconds PTT Ratio Sodium (136-145) mmol/L Potassium (3.5-5.1) mmol/L Chloride (98-107) mmol/L Carbon Dioxide (21-32) mmol/L Anion Gap (3-11) BUN (7-18) mg/dl Creatinine (0.6-1.2) mg/dl Est Cr Clr Drug Dosing ml/min Est GFR ( Amer) Est GFR (Non-Af Amer) BUN/Creatinine Ratio (10-20) Glucose (70-99) mg/dl POC Glucose 200 H (70-99) mg/dl Calcium (8.5-10.1) mg/dl Magnesium (1.8-2.4) mg/dl Total Bilirubin (0.2-1) mg/dl AST (15-37) U/L ALT (12-78) U/L Alkaline Phosphatase (45-117) U/L Troponin I (0-0.045) ng/ml NT-Pro-B Natriuret Pep (0-1800) pg/ml Total Protein (6.4-8.2) gm/dl Albumin (3.4-5.0) gm/dl Globulin (2.5-4.0) gm/dl Albumin/Globulin Ratio (0.9-2) Beta-Hydroxybutyric Acd (0.2-2.81) mg/dl Urine Color Yellow Urine Appearance Clear (Clear) Urine pH 7.0 (4.5-7.5) Ur Specific [place] 1.016 (1.000-1.030) Urine Protein Negative (Negative) Urine Glucose (UA) Negative (Negative) Urine Ketones Negative (Negative) Urine Blood Negative (Negative) Urine Nitrite Negative (Negative) Urine Bilirubin Negative (Negative) Urine Urobilinogen Negative (Negative) Ur Leukocyte Esterase Negative (Negative) COVID-19 Eval Order Covid19 [facility] SARS-CoV-2, RNA, NAAT (NEGATIVE) Blood Type Antibody Screen 02/03/20 02/03/20 02/03/20 Range/Units 23:40 22:44 22:10 WBC (4.8-10.8) K/uL RBC (4.2-5.4) M/uL Hgb (12.0-16.0) g/dL Hct (37-47) % MCV (80-100) fL MCH (25-34) pg MCHC (32-36) g/dL RDW Std Deviation (36.4-46.3) fL RDW Coeff of Shady (11.5-14.5) % Plt Count (130-400) K/uL MPV (7.4-10.4) fL Immature Gran % (Auto) % Neut % (Auto) % Lymph % (Auto) % [place] % (Auto) % Eos % (Auto) % Baso % (Auto) % Neut # (Auto) (1.4-6.5) K/uL Lymph # (Auto) (1.2-3.4) K/uL [place] # (Auto) (0.11-0.59) K/uL Eos # (Auto) (0-0.5) K/uL Baso # (Auto) (0-0.2) K/uL Immature Gran # (Auto) (0.00-0.02) K/uL PT (9.0-12.0) Seconds INR (0.9-1.1) APTT (21.0-31.0) Seconds PTT Ratio Sodium 139 (136-145) mmol/L Potassium 4.2 (3.5-5.1) mmol/L Chloride 103 (98-107) mmol/L Carbon Dioxide 33 H (21-32) mmol/L Anion Gap 3.0 (3-11) BUN 16 (7-18) mg/dl Creatinine 0.83 (0.6-1.2) mg/dl Est Cr Clr Drug Dosing 39.1 ml/min Est GFR ( Amer) 75.1 Est GFR (Non-Af Amer) 64.8 BUN/Creatinine Ratio 19.5 (10-20) Glucose 146 H (70-99) mg/dl POC Glucose 134 H (70-99) mg/dl Calcium 9.0 (8.5-10.1) mg/dl Magnesium 1.9 (1.8-2.4) mg/dl Total Bilirubin 0.3 (0.2-1) mg/dl AST 18 (15-37) U/L ALT 22 (12-78) U/L Alkaline Phosphatase 80 (45-117) U/L Troponin I (0-0.045) ng/ml NT-Pro-B Natriuret Pep (0-1800) pg/ml Total Protein 6.6 (6.4-8.2) gm/dl Albumin 3.7 (3.4-5.0) gm/dl Globulin 2.9 (2.5-4.0) gm/dl Albumin/Globulin Ratio 1.3 (0.9-2) Beta-Hydroxybutyric Acd (0.2-2.81) mg/dl Urine Color Urine Appearance (Clear) Urine pH (4.5-7.5) Ur Specific [place] (1.000-1.030) Urine Protein (Negative) Urine Glucose (UA) (Negative) Urine Ketones (Negative) Urine Blood (Negative) Urine Nitrite (Negative) Urine Bilirubin (Negative) Urine Urobilinogen (Negative) Ur Leukocyte Esterase (Negative) COVID-19 Eval Order SARS-CoV-2, RNA, NAAT (NEGATIVE) Blood Type AB Negative Antibody Screen NEGATIVE 02/03/20 02/03/20 Range/Units 22:10 22:10 WBC 6.93 (4.8-10.8) K/uL RBC 3.92 L (4.2-5.4) M/uL Hgb 11.9 L (12.0-16.0) g/dL Hct 36.1 L (37-47) % MCV 92.1 (80-100) fL MCH 30.4 (25-34) pg MCHC 33.0 (32-36) g/dL RDW Std Deviation (36.4-46.3) fL RDW Coeff of Shady (11.5-14.5) % Plt Count 169 (130-400) K/uL MPV (7.4-10.4) fL Immature Gran % (Auto) 0.3 % Neut % (Auto) 64.9 % Lymph % (Auto) 27.1 % [place] % (Auto) 5.5 % Eos % (Auto) 1.9 % Baso % (Auto) 0.3 % Neut # (Auto) 4.50 (1.4-6.5) K/uL Lymph # (Auto) 1.88 (1.2-3.4) K/uL [place] # (Auto) 0.38 (0.11-0.59) K/uL Eos # (Auto) 0.13 (0-0.5) K/uL Baso # (Auto) 0.02 (0-0.2) K/uL Immature Gran # (Auto) 0.02 (0.00-0.02) K/uL PT 11.5 (9.0-12.0) Seconds INR 1.1 (0.9-1.1) APTT 23.1 (21.0-31.0) Seconds PTT Ratio 0.8 Sodium (136-145) mmol/L Potassium (3.5-5.1) mmol/L Chloride (98-107) mmol/L Carbon Dioxide (21-32) mmol/L Anion Gap (3-11) BUN (7-18) mg/dl Creatinine (0.6-1.2) mg/dl Est Cr Clr Drug Dosing ml/min Est GFR ( Amer) Est GFR (Non-Af Amer) BUN/Creatinine Ratio (10-20) Glucose (70-99) mg/dl POC Glucose (70-99) mg/dl Calcium (8.5-10.1) mg/dl Magnesium (1.8-2.4) mg/dl Total Bilirubin (0.2-1) mg/dl AST (15-37) U/L ALT (12-78) U/L Alkaline Phosphatase (45-117) U/L Troponin I (0-0.045) ng/ml NT-Pro-B Natriuret Pep (0-1800) pg/ml Total Protein (6.4-8.2) gm/dl Albumin (3.4-5.0) gm/dl Globulin (2.5-4.0) gm/dl Albumin/Globulin Ratio (0.9-2) Beta-Hydroxybutyric Acd (0.2-2.81) mg/dl Urine Color Urine Appearance (Clear) Urine pH (4.5-7.5) Ur Specific [place] (1.000-1.030) Urine Protein (Negative) Urine Glucose (UA) (Negative) Urine Ketones (Negative) Urine Blood (Negative) Urine Nitrite (Negative) Urine Bilirubin (Negative) Urine Urobilinogen (Negative) Ur Leukocyte Esterase (Negative) COVID-19 Eval Order SARS-CoV-2, RNA, NAAT (NEGATIVE) Blood Type Antibody Screen PG Care Time/CCT Total # of Minutes Spent Total Time Spent with Patient: Total time spent is greater than 50% in coordination of care (as documented) at patient's floor/unit and/or counseling patient: Coding Level of Care Code 77760 Subseq Hosp Care Lvl 3 Diagnoses Hip fracture S72.001A Encounter type: initial encounter Fracture type: closed Laterality: right Dyslipidemia E78.5 Hypertension I10 Hypertension type: essential hypertension Diabetes type 1, controlled E10.8 Diabetes mellitus complication status: with unspecified complications Focal seizures R56.9 Hypothyroidism E03.9 Hypothyroidism type: unspecified Elevated troponin R79.89 DKA, type 1 E10.10 DVT prophylaxis Z29.9 (1) Hip fracture Encounter type: initial encounter Fracture type: closed Laterality: right Qualified Code(s): S72.001A - Fracture of unspecified part of neck of right femur, initial encounter for closed fracture (2) Hypothyroidism Hypothyroidism type: unspecified Qualified Code(s): E03.9 - Hypothyroidism, unspecified (3) Diabetes type 1, controlled Diabetes mellitus complication status: with unspecified complications Qualified Code(s): E10.8 - Type 1 diabetes mellitus with unspecified complications (4) Hypertension Hypertension type: essential hypertension Qualified Code(s): I10 - Essential (primary) hypertension
[2020-02-04] MEDS: NSS + 20MEQ KCL 20 MEQ/1,000 ML BAG IV SCH (11:47)
[2020-02-04] MEDS ORDERED: fentaNYL citrate 100 MCG/2 ML VIAL ONE ×2 (12:05→13:48)
[2020-02-04] MEDS ORDERED: MIDAZOLAM HCL 1 MG/ML 2ML VIAL ONE (12:08)
--- NOTE | 2020-02-04 12:11 | Electrocardiogram Report ---
Test Reason : Blood Pressure : / mmHG Vent. Rate : 093 BPM Atrial Rate : 093 BPM P-R Int : 142 ms QRS Dur : 080 ms QT Int : 372 ms P-R-T Axes : 080 062 048 degrees QTc Int : 462 ms Sinus rhythm with Premature atrial complexes Diffuse Minor Nonspecific ST abnormality Abnormal ECG When compared with ECG of 04-FEB-2020 07:22, Nonspecific T wave abnormality no longer evident in Anterior leads Confirmed by Wilmer Eagle ([id number]) on 02/04/2020 12:11:18 PM Referred By: Lynette Odom Confirmed By:Wilmer Eagle
[2020-02-04] MEDS: NovoLOG INSULIN PUMP SCH ×2 (12:20→17:33)
--- NOTE | 2020-02-04 12:34 | Anesthesiology Consultation ---
Date of Service February 04, 2020 Assessment & Plan (1) Encounter for pre-operative examination: Chart Review Chart Review: Acceptable Risk for Surgery Consults Requested none ASA ASA4 Proposed Anesthesia Anesthesia Type: MAC Spinal Risk / Benefits Reviewed With: PT / POA / Parent / Guardian, Accepts Plan and Informed Consent Obtained History Surgery Operation Date: 02/04/20 10:50 Proposed Procedures p Right Hip Trochanteric Nailing - Konrad Kaplan Height/Weight Height: 5 ft 4 in Weight: 52.7 kg Allergies Allergy/AdvReac Type Severity Reaction Status Date / Time No Known Allergies Allergy Verified 02/03/20 23:13 Medications Home Medications Medication Instructions Recorded Confirmed Last Taken magnesium oxide 400 mg PO QAM #0 tab 12/27/15 02/03/20 02/03/20 lisinopril 2.5 mg PO QAM #0 tab 01/21/17 02/03/20 02/03/20 vit C-vit R-mafmcu-wyaj-lutein 1 cap PO BID 01/02/19 02/03/20 02/03/20 [PreserVision Lutein] aspirin 81 mg tablet,delayed 81 mg PO DAILY #0 tab 01/03/19 02/03/20 02/03/20 release cholecalciferol (vitamin D3) 125 5,000 unit PO DAILY #0 tab 01/03/19 02/03/20 02/03/20 mcg (5,000 unit) tablet coenzyme Q10 100 mg capsule 100 mg PO DAILY #0 cap 01/03/19 02/03/20 02/03/20 insulin syringe-needle U-100 0.5 #10 ea 01/03/19 01/21/20 Unknown mL 31 gauge x 5/16" omega 3-ajf-ncm-fish oil 1,000 mg 1 cap PO DAILY #0 cap 01/03/19 02/03/20 02/03/20 (120 mg-180 mg) capsule blood sugar diagnostic #10 ea 01/14/19 01/21/20 Unknown calcium carbonate 600 mg calcium 600 mg PO DAILY tab 01/14/19 02/03/20 02/03/20 (1,500 mg) tablet ferrous sulfate 325 mg (65 mg 65 mg PO QAM #0 tab 10/14/19 02/03/20 02/03/20 iron) tablet levetiracetam 500 mg 500 mg PO DAILY 30 Days #30 tab 12/23/19 02/03/20 02/03/20 tablet,extended release 24 hr rivastigmine 9.5 mg TOPICAL DAILY 90 Days #0 12/23/19 02/03/20 02/03/20 patch insulin aspart U-100 [Novolog 25 units CONTINUOUS IV INFUSION 02/03/20 02/03/20 02/03/20 U-100 Insulin aspart] DAILY levothyroxine 125 mcg PO DAILY 02/03/20 02/03/20 02/03/20 Active Medications Generic Name Dose Route Start Last Admin Trade Name Gudelia PRN Reason Stop Dose Admin Potassium Chloride/Sodium Chloride 20 meq in 1,000 mls @ 125 mls/hr 02/04/20 12:00 02/04/20 11:47 Normal Saline W/20 Meq Kcl IV 03/05/20 11:59 125 mls/hr .Q8H DALY Administration Insulin Aspart 1 02/04/20 12:00 02/04/20 12:20 Novolog Insulin Pump N/A 03/05/20 11:59 Not Given Q4 DALY Protocol Levothyroxine Sodium 125 mcg 02/04/20 06:30 02/04/20 06:03 Levothyroxine Sodium 125 Mcg Tablet PO 03/05/20 06:29 125 mcg DAILYBB DALY Administration Miscellaneous 1 02/04/20 01:15 02/04/20 09:07 Keppra Xr~Order Awaiting Action N/A 03/05/20 01:14 Not Given QS DALY Miscellaneous 1 ea 02/04/20 01:15 02/04/20 09:07 Exelon Patch~Order Awaiting Action N/A 03/05/20 01:14 Not Given QS DALY Past Medical History Medical History Closed head injury Diabetes type 1, controlled Dyslipidemia Focal seizures History of herpes zoster History of meningioma History of rheumatic fever Hypertension Insulin pump in place Exercise / Class Metabolic Activity III < 4 Walking/Shop/Light housework Past Family History Family History Father Colon cancer Mother Alzheimer disease Other Diabetes Past Surgical History Surgical History History of appendectomy History of breast biopsy History of tonsillectomy Past Anesthesia History No Hx of Anesthesia Complications and No Family Hx of Anesthesia Complications History of PONV No Hx of PONV and No Hx of Motion Sickness Social History Smoking Status: Former smoker tobacco type: cigarettes Smoking cigarettes per day: No smoking since freshman year of college. Do You Dip or Chew Tobacco: No Hx Alcohol Use: Yes Alcohol type: wine alcohol intake frequency: holidays/special occasions only Hx Substance Use: No Physical Exam Vital Signs Last Vital Signs Temp 98.4 F 02/04/20 07:35 Pulse 99 H 02/04/20 07:35 Resp 16 02/04/20 07:35 BP 149/64 H 02/04/20 07:35 Pulse Ox 95 02/04/20 07:35 ENMT Mouth: + dentures Thyromental Distance: > or= 3.5 Finger Breadths Mallampati Class: II Neck normal visual inspection Respiratory normal respiratory effort Auscultation: lungs clear to auscultation bilaterally Cardiovascular Rate/Rhythm: regular rhythm and + tachycardic Testing Laboratory Results 02/04/20 07:13 02/04/20 07:13 PT 11.5 Seconds (9.0-12.0) 02/03/20 22:10 INR 1.1 (0.9-1.1) 02/03/20 22:10 APTT 23.1 Seconds (21.0-31.0) 02/03/20 22:10 Urine Color Yellow 02/03/20 23:40 Urine Appearance Clear (Clear) 02/03/20 23:40 Urine pH 7.0 (4.5-7.5) 02/03/20 23:40 Ur Specific [employer] 1.016 (1.000-1.030) 02/03/20 23:40 Urine Protein Negative (Negative) 02/03/20 23:40 Urine Glucose (UA) Negative (Negative) 02/03/20 23:40 Urine Ketones Negative (Negative) 02/03/20 23:40 Urine Nitrite Negative (Negative) 02/03/20 23:40 Ur Leukocyte Esterase Negative (Negative) 02/03/20 23:40 Blood Type AB Negative 02/03/20 22:44 Antibody Screen NEGATIVE 02/03/20 22:44 02/04/20 02/04/20 02/04/20 12:05 10:28 05:56 POC Glucose 201 H 246 H 250 H 02/04/20 00:53 POC Glucose 200 H Electrocardiogram Date: 02/04/20 Sinus rhythm with Premature atrial complexes, rate 93 bpm Diffuse Minor Nonspecific ST abnormality Abnormal ECG When compared with ECG of 04-FEB-2020 07:22, Nonspecific T wave abnormality no longer evident in Anterior leads Confirmed by Wilmer Eagle ([id number]) on 02/04/2020 12:11:18 PM Chest X-Ray Date: 02/04/20 IMPRESSION: No acute cardiopulmonary findings. No significant change in appearance of the chest.
[2020-02-04] MEDS ORDERED: ATROPINE SULFATE 0.1 MG/ML 10ML SYR IV PRN (12:45)
[2020-02-04] MEDS ORDERED: ePHEDrine sulfate 50 MG/ML AMP IV PRN (12:45)
[2020-02-04] MEDS ORDERED: fentaNYL citrate 100 MCG/2 ML VIAL IV PRN (12:45)
[2020-02-04] MEDS ORDERED: ONDANSETRON INJ 2 MG/ML 2 ML VIAL IV PRN (12:45)
[2020-02-04] MEDS ORDERED: LACTATED RINGER'S 500 ML IV ONE (12:53)
[2020-02-04] MEDS ORDERED: BUPIVACAINE 0.5 % 5 MG/1 ML PF 10ML VIAL ONE (12:54)
[2020-02-04] MEDS ORDERED: CEFAZOLIN 2,000 MG/15 ML IV PUSH IV ONE (13:06)
[2020-02-04] MEDS ORDERED: CEFAZOLIN 3000MG/72.5 ML BAG IV ONE (13:10)
[2020-02-04] MEDS ORDERED: EPINEPHrine INJ 1 MG/ML AMP ONE (13:15)
[2020-02-04] MEDS ORDERED: BUPIVACAINE 0.5 % 5 MG/1 ML MPF 30ML VIAL ONE (13:15)
--- NOTE | 2020-02-04 13:17 | Orthopedic Consultation ---
Date of Consultation February 04, 2020 Assessment & Plan (1) Closed intertrochanteric fracture of right hip: The diagnosis was discussed with the patient and her today in the preoperative area. I recommended surgery today for right hip intertrochanteric nail to stabilize a fracture and return her to weightbearing. We discussed the risks and benefits of surgery in detail. The risks discussed include but not limited to infection, neurovascular, blood loss, nonunion/malunion, symptomatic hardware, need for repeat or revision procedures, pain syndromes, blood clots and complications related to anesthesia. They both asked appropriate questions, demonstrated good understanding, elected proceed with surgery. Informed consent was obtained today in the preoperative area with the patient and her present. Present on Admission?: Yes History of Present Illness Reason for Consultation: Right hip fracture Attending Physician: Nadja Santoyo DO History of Present Illness 84-year-old female who sustained a fall at her assisted living facility last evening resulting in immediate pain and inability to bear weight. She was taken to the emergency room at [facility] and she was diagnosed with a intertrochanteric fracture of the right hip. She was admitted to the hospitalist service overnight and she was medically optimized. Surgical clearance was obtained. She has been n.p.o. since midnight Allergies Allergy/AdvReac Type Severity Reaction Status Date / Time No Known Allergies Allergy Verified 02/03/20 23:13 Home Medications Home Medications Medication Instructions Recorded Confirmed Type magnesium oxide 400 mg PO QAM #0 tab 12/27/15 02/03/20 History lisinopril 2.5 mg PO QAM #0 tab 01/21/17 02/03/20 History vit C-vit F-zyqpwj-iagj-lutein 1 cap PO BID 01/02/19 02/03/20 History [PreserVision Lutein] aspirin 81 mg tablet,delayed 81 mg PO DAILY #0 tab 01/03/19 02/03/20 History release cholecalciferol (vitamin D3) 125 5,000 unit PO DAILY #0 tab 01/03/19 02/03/20 History mcg (5,000 unit) tablet coenzyme Q10 100 mg capsule 100 mg PO DAILY #0 cap 01/03/19 02/03/20 History insulin syringe-needle U-100 0.5 #10 ea 01/03/19 01/21/20 History mL 31 gauge x 5/16" omega 6-awo-jiu-fish oil 1,000 mg 1 cap PO DAILY #0 cap 01/03/19 02/03/20 History (120 mg-180 mg) capsule blood sugar diagnostic #10 ea 01/14/19 01/21/20 History calcium carbonate 600 mg calcium 600 mg PO DAILY tab 01/14/19 02/03/20 History (1,500 mg) tablet ferrous sulfate 325 mg (65 mg 65 mg PO QAM #0 tab 10/14/19 02/03/20 History iron) tablet levetiracetam 500 mg 500 mg PO DAILY 30 Days #30 tab 12/23/19 02/03/20 Rx tablet,extended release 24 hr rivastigmine 9.5 mg TOPICAL DAILY 90 Days #0 12/23/19 02/03/20 History patch insulin aspart U-100 [Novolog 25 units CONTINUOUS IV INFUSION 02/03/20 02/03/20 History U-100 Insulin aspart] DAILY levothyroxine 125 mcg PO DAILY 02/03/20 02/03/20 History Patient History Medical History Closed head injury Diabetes type 1, controlled Dyslipidemia Focal seizures History of herpes zoster History of meningioma History of rheumatic fever Hypertension Insulin pump in place Surgical History History of appendectomy History of breast biopsy History of tonsillectomy Family History Father Colon cancer Mother Alzheimer disease Other Diabetes Social History Smoking Status: Former smoker Cigarettes Per Day: No smoking since freshman year of college.; Second Hand Exposure: No; Do You Dip or Chew Tobacco: No; Tobacco Cessation Education Requested by Patient: No Hx Alcohol Use: Yes Alcohol type: wine Hx Substance Use: No Preferred Language: Georgian Communication Ability: Effective Lumber Trimmer Required: No Beliefs That Will Affect Care: None marital status: Current Living Situation: Spouse and Group Home Current Living Situation Comment: [facility]. current occupation: retired Other Information That Helps Us Care for You: No Feels Safe at Home: Yes Safety Concerns: Feels Safe At This Time Review of Systems Review of Systems: All systems reviewed & are unremarkable except as noted in HPI & below Physical Exam Physical Exam: Right lower extremity: The overlying skin on the right hip has no disruption. The extremity is held in a position that is shortened and externally rotated. She has positive dorsiflexion/plantarflexion/EHL activity. Sensation is grossly intact light touch. There are 2+ DP and PT pulses. Constitutional: well developed and well nourished; no acute distress and not intoxicated appearing ENMT: external ear and nose normal, oropharynx normal Respiratory: normal respiratory effort; no respiratory distress Cardiovascular: Extremities: normal capillary refill; no edema Skin: no rashes, warm and dry Psychiatric: A+Ox3, euthymic affect Results & Data ([facility]) Vital Signs (Past 12 Hours) Vital Signs Temp Pulse Resp BP Pulse Ox 02/04/20 12:38 37 C 106 H 18 150/75 H 99 02/04/20 07:35 36.9 C 99 H 16 149/64 H 95 Laboratory Tests 02/03/20 02/04/20 02/04/20 23:40 05:48 07:13 WBC 14.17 H Hgb 11.9 L Hct 36.3 L Glucose Ur Leukocyte Esterase Negative SARS-CoV-2, RNA, NAAT NEGATIVE 02/04/20 07:13 WBC Hgb Hct Glucose 270 H Ur Leukocyte Esterase SARS-CoV-2, RNA, NAAT Plain x-rays of the AP pelvis/AP and lateral hip demonstrate intertrochanteric fracture without any subtrochanteric extension. PG Care Time/CCT Total # of Minutes Spent Total Time Spent with Patient: Total time spent is greater than 50% in coordination of care (as documented) at patient's floor/unit and/or counseling patient: Coding Level of Care Code 30895 Initial Inpt Care Lvl 3 Diagnoses Closed intertrochanteric fracture of right hip S72.141A Encounter type: initial encounter (1) Closed intertrochanteric fracture of right hip Encounter type: initial encounter
--- NOTE | 2020-02-04 13:20 | History & Physical Bridge Note ---
Date of Service February 04, 2020 History & Physical Bridge Note I have examined the patient, reviewed the History & Physical and in the interval since the performance of the History & Physical I have noted the following changes of clinical significance: no changes noted. Patient is aware of COVID-19 risks. Patient is asymptomatic of any COVID-19 symptoms. Patient has been tested for COVID-19.
[2020-02-04] MEDS ORDERED: PROPOFOL IV EMULSION 10 MG/ML 20 ML VIAL IV ONE (13:47)
[2020-02-04] MEDS ORDERED: PHENYLEPHRINE 100MCG/ML 5ML SYR ONE (13:49)
[2020-02-04] MEDS ORDERED: ePHEDrine sulfate 50 MG/ML SYR ONE (13:49)
--- NOTE | 2020-02-04 15:28 | Post Operative Brief Note ---
PG Immediate Post Op with CF Date of Surgery February 04, 2020 Pre & Post Diagnosis Operation Date: 02/04/20 10:50 Pre-Op Diagnosis: Right Intertrochanteric Hip Fracture Post-Op Diagnosis: Right Intertrochanteric Hip Fracture I identified the patient and participated in the time-out.: Yes Procedure Operation Date: 02/04/20 10:50 Actual Procedures p Right Hip Interrochanteric Nailing (Short Nail)(Right) - Konrad Kaplan Surgeon Konrad Kaplan Saw Offbearer Sergio Caro PA-C Estimated Blood Loss 250 Findings Consistent with Post-Op Diagnosis Specimens Specimen Description: none per surgeon Drains Miranda Catheter (Present on admission)
--- NOTE | 2020-02-04 15:31 | Fluoroscopy Report ---
INTRAOPERATIVE RADIOGRAPHS CLINICAL HISTORY: Open reduction and internal fixation of the right femur. Fluoroscopy time: 113 seconds. FINDINGS: 4 spot fluoroscopic views of the right femur are correlated with radiographs dated 0. Intertrochanteric and intramedullary nails have placed transfixing an intertrochanteric fracture. There has been mandaen of near-anatomic alignment. A single cortical lag screw transfixes the dis jaye end of the intramedullary nail. The orthopedic hardware appears intact. There is mild medial disp lacement of the lesser trochanter. IMPRESSION: Intraoperative images from open reduction and internal fixation of a right femoral fractu re as above. Electronically signed by: Burak Mistry M.D. 02/04/2020 3:30 PM
--- NOTE | 2020-02-04 15:31 | Fluoroscopy Report ---
INTRAOPERATIVE RADIOGRAPHS CLINICAL HISTORY: Open reduction and internal fixation of the right femur. Fluoroscopy time: 113 seconds. FINDINGS: 4 spot fluoroscopic views of the right femur are correlated with radiographs dated 0. Intertrochanteric and intramedullary nails have placed transfixing an intertrochanteric fracture. There has been sabianism of near-anatomic alignment. A single cortical lag screw transfixes the dis jaye end of the intramedullary nail. The orthopedic hardware appears intact. There is mild medial disp lacement of the lesser trochanter. IMPRESSION: Intraoperative images from open reduction and internal fixation of a right femoral fractu re as above. Electronically signed by: Burak Mistry M.D. 02/04/2020 3:30 PM
--- NOTE | 2020-02-04 15:35 | Operative Report ---
PG Post Operative Report Pre & Post Diagnosis Operation Date: 02/04/20 10:50 Pre-Op Diagnosis: Right Intertrochanteric Hip Fracture Post-Op Diagnosis: Right Intertrochanteric Hip Fracture I identified the patient and participated in the time-out.: Yes Procedure Operation Date: 02/04/20 10:50 Actual Procedures p Right Hip Interrochanteric Nailing (Short Nail)(Right) - Konrad Kaplan Surgeon Konrad Kaplan Steward/Stewardess Tourist Class Sergio Caro PA-C Estimated Blood Loss 250 Findings See Below There was a comminuted intertrochanteric nail without subtrochanteric tension that was stabilized by a short Synthes trochanteric fixation nail. Synthes implants included a 11 mm titanium helical blade measuring 90 mm length, a 12 mm / 130 degree titanium cannulated trochanteric fixation nail measuring 170 mm in length, and a 5 mm diameter interlocking screw measuring 38 mm in length. Of note, the interlock screw was in complicated by extremely hard bone. The screw head stripped but did gain bicortical purchase. Specimens none Anesthesia Type General Complications none Disposition Accompanied Patient To Recovery: No Disposition: Recovery Room Indications 84-year-old female who sustained a fall onto her right hip resulting immediate pain and inability her weight. She is admitted to the hospital with an intertrochanteric right femur fracture. She was cleared and optimized for surgery by the hospitalist team. Surgery was recommended for fracture treatment with a trochanteric fixation nail. The risks benefits of this surgery was discussed in detail with the patient and her in the preoperative area and informed consent was obtained. Description of Procedure On the day of surgery should be was greeted in the preoperative holding area and the informed consent was reviewed and confirmed. The surgical site was then identified by the patient and signed by myself. The patient was taken to the operating placed by the OR table and anesthesia was induced. The patient is then positioned on the fracture table. All kathy prominences were well padded. The operative foot was placed in the fracture boot with abundant padding. The well leg was secured. We then positioned the lower extremities in a scissor fashion with a non-op leg flexed down to allow visualization with fluoroscopy which was confirmed before we prepped and draped. Surgical timeout was called and verified by all present. Antibiotics were infused, and equipment was available and functional. The procedure was initiated with a closed reduction maneuvers. Gentle in-line traction pulled the fracture out to length. The limb was then internally rotated to reduce the proximal femur, but this fracture pattern seem to require a bit of external rotation for anatomic reduction. Flexion and adduction were used to adjust the reduction and allow access to the greater trochanter. We had adequate reduction prior to prepping and draping. The leg was then prepped and draped in usual sterile fashion. Surgical timeout was reconfirmed. We initiated the surgical internal fixation portion with finding the start point with the tip of the greater trochanter. Fluoroscopic guidance was used and a small poke hole was established. The start point was confirmed on fluoroscopy in AP and lateral planes and the pin was advanced using a mallet. An incision was made about the pin to allow access for the reamers. The pin was then advanced past the lesser trochanter, and its position was confirmed using AP and lateral fluoroscopy. Using the protective sleeve, the opening reamer was advanced under power with fluoroscopic guidance over the guidepin. It was advanced slowly and we did ream out some lateral bone of the trochanter. Preoperative measurements and intraoperative findings with the opening reamer allowed for a 12 millimeters short trochanteric fixation nail. The implant was loaded onto the jig and advanced manually down the canal, while ensuring maintenance of the reduction on fluoroscopy. We then tapped it down into place until we achieve the good position for our cephalo-medullary screw. The cannula was placed on the jig to allow positioning of the cephalo-medullary screw. The skin incision was made in the appropriate spot. The jig cannulas were then placed against the lateral cortex. The cephalo-medullary screw guid epin was advanced towards the femoral head. The center-center position was confirmed on fluoroscopy in AP and lateral planes. The length of the screw was measured off the guide. The helical blade screw was then opened on the back table and prepared on the screwdriver. The lateral cortical opening drill, followed by the triple drill reamer for the helical blade was advanced under fluoroscopic guidance. The helical blade was advanced over the guidepin to appropriate position. The helical blade was locked in rotation and then the traction was taken off. Fluoroscopy confirmed maintenance of reduction and adequate position of the implant. Attention was then directed distally to perform the interlock screws in using the short trochanteric fixation nail interlock guide on the jig. 1 interlock screw was placed with a 5 mm diameter. The length was measured using the drill pin. On placement of the screw, we encountered a significantly hard bone which required clearing bony debris from the drill bit. We did gain bicortical purchase with fluoroscopic guidance. Upon placement of the interlock screw, there was significant resistance. We did gain bicortical purchase but the screw head was left prominent as a began to strip. I felt the best course of action was to leave as is because fixation was stable and she had adequate soft tissue coverage of the 5 mm screw\. This completed the fixation. The wounds were then thoroughly irrigated with bulb syringe and normal saline. The deep fascial layer was approximated with 1 Vicryl suture. The dermal layer was approximated using 2-0 Vicryl suture. The final skin closure was completed with jodie. Wounds were dressed with sterile Xeroform, sterile gauze, and foam tape over ABDs. The patient tolerated procedure well, awoke from anesthesia without complication, was extubated in the operating room, and transferred to the PACU in stable condition. Disposition: The patient be weightbearing as tolerated. I recommended routine DVT prophylaxis consisting of low molecular weight heparin while an inpatient and transition to oral aspirin, if tolerable, as the patient transitions out of the hospital. DVT prophylaxis should last 6 weeks. 24 hours of antibiotic prophylaxis should be continued. Physician insurance sales assistant attestation: Sergio Caro PA-C was present and scrubbed for the duration of the case. He was essential to prepping/draping, patient positioning, reduction maneuvers, and assistance with wound closure. I attest to the content of the Intraoperative Record and any orders documented therein. Any exceptions are noted below.
[2020-02-04] MEDS ORDERED: HYDROmorphone INJ 0.5 MG/0.5 ML SYR IV PRN (15:46)
--- NOTE | 2020-02-04 16:15 | XRay Report ---
XR hip RT min 2V CLINICAL HISTORY: Post-Operative implant position. Right hip fracture. COMPARISON STUDY: Right hip 02/03/2020. FINDINGS: Status post internal fixation of a right intertrochanteric hip fracture with a proximal int ramedullary joaquim and interlocking femoral neck pin. The hardware is intact. Alignment is near-anatomic . Skin jodie are in place. IMPRESSION: Status post internal fixation of a right intertrochanteric hip fracture. ACT 112: Negative or not required by law. Electronically signed by: Francesco Vang M.D. 02/04/2020 4:14 PM
--- NOTE | 2020-02-04 16:51 | Anesthesiology Progress Note ---
Date of Service February 04, 2020 Anesthesia Post Procedure Vital Signs Vital Signs: Temp Pulse Pulse Pulse Resp BP BP 02/04/20 16:40 97.5 F L 87 15 124/52 L 02/04/20 16:30 89 16 129/53 L 02/04/20 16:20 95 H 15 139/68 02/04/20 16:10 92 H 16 140/65 02/04/20 16:00 91 H 18 143/67 H 02/04/20 15:50 87 15 118/63 02/04/20 15:44 97.7 F 93 H 23 124/60 02/04/20 12:38 98.6 F 106 H 18 150/75 H 02/04/20 07:35 98.4 F 99 H 16 149/64 H 02/04/20 00:50 98.2 F 64 16 02/04/20 00:00 95 H 21 154/57 H 02/03/20 23:51 98 H 15 151/68 H 02/03/20 22:30 94 H 19 174/86 H 02/03/20 22:19 88 20 165/74 H 02/03/20 22:10 98.1 F 89 18 165/74 H BP Pulse Ox 02/04/20 16:40 100 02/04/20 16:30 99 02/04/20 16:20 100 02/04/20 16:10 100 02/04/20 16:00 100 02/04/20 15:50 100 02/04/20 15:44 100 02/04/20 12:38 99 02/04/20 07:35 95 02/04/20 00:50 122/78 96 02/04/20 00:00 96 02/03/20 23:51 98 02/03/20 22:30 97 02/03/20 22:19 98 02/03/20 22:10 99 Pain Intensity Right Hip: Pain Intensity: 0 Transfer of Care Handoff Completed per policy Notes Mental Status: alert / awake / arousable and participated in evaluation Patient Amnestic to Procedure: Yes Nausea / Vomiting: adequately controlled Pain: adequately controlled Airway Patency, RR, SpO2: stable & adequate BP & HR: stable & adequate Hydration State: stable & adequate Anesthetic Complications: no major complications apparent and Pt Satisfied with anesthetic care
[2020-02-04] MEDS ORDERED: INSULIN GLARGINE SOLOSTAR 100 UNITS/ML 3 ML PEN SC SCH (17:00)
[2020-02-04] MEDS: INSULIN ASPART 100 UNITS/ML 3 ML PEN SC SCH ×2 (18:33→22:01)
[2020-02-04] MEDS ORDERED: Nursing to Pharmacy Communication SCH (19:45)
[2020-02-04] MEDS: INSULIN GLARGINE SOLOSTAR 100 UNITS/ML 3 ML PEN SC SCH (20:54)
[2020-02-04] MEDS: DOCUSATE SODIUM/SENNA 50/8.6MG TAB PO SCH (20:57)
[2020-02-04] MEDS ORDERED: CEFAZOLIN 1000MG 1,000 MG/7.5 ML SYR IV ONE (22:30)
[2020-02-05] MEDS: INSULIN ASPART 100 UNITS/ML 3 ML PEN SC SCH ×6 (00:36→21:18)
[2020-02-05] MEDS: NSS + 20MEQ KCL 20 MEQ/1,000 ML BAG IV SCH ×5 (01:01→23:06)
[2020-02-05 06:54] LABS: Basophils # (auto) 0.01 K/uL (0-0.2); Basophils % (auto) 0.1 %; Eosinophils # (auto) 0.02 K/uL (0-0.5); Eosinophils % (auto) 0.2 %; Hematocrit (blood only) 24.7 % (37-47); Hemoglobin 8.2 g/dL (12.0-16.0); Immature Granulocytes # (auto) 0.01 K/uL (0.00-0.02); Immature Granulocytes % (auto) 0.1 %; Lymphocytes # (auto) 1.87 K/uL (1.2-3.4); Lymphocytes % (auto) 21.8 %; Mean Corpuscular Hemoglobin 30.8 pg (25-34); Mean Corpuscular Hgb Conc 33.2 g/dL (32-36); Mean Corpuscular Volume 92.9 fL (80-100); Monocytes # (auto) 0.85 K/uL (0.11-0.59); Monocytes % (auto) 9.9 %; Neutrophils # (auto) 5.83 K/uL (1.4-6.5); Neutrophils % (auto) 67.9 %; Platelet Count 133 K/uL (130-400); RDW Coefficient of Variation 13.2 % (11.5-14.5); RDW Standard Deviation 44.8 fL (36.4-46.3); Red Blood Count 2.66 M/uL (4.2-5.4); White Blood Count 8.59 K/uL (4.8-10.8)
[2020-02-05 07:16] LABS: Alanine Aminotransferase 19 U/L (12-78); Albumin Level 2.6 gm/dl (3.4-5.0); Aspartate Aminotransferase 16 U/L (15-37); BUN Creatinine Ratio 15.2 (10-20); Bilirubin Direct < 0.1 mg/dl (0-0.2); Blood Urea Nitrogen 12 mg/dl (7-18); Carbon Dioxide 28 mmol/L (21-32); Chloride 106 mmol/L (98-107); Creatinine Clr Calc Pharmacy 44.7 ml/min; Est GFR (African American) 80.9; Est GFR (Non-African American) 69.8; Glucose 190 mg/dl (70-99); Potassium 4.3 mmol/L (3.5-5.1); Sodium 139 mmol/L (136-145)
[2020-02-05 07:21] LABS: Alkaline Phosphatase 60 U/L (45-117); Bilirubin,Total 0.6 mg/dl (0.2-1); Total Protein 5.1 gm/dl (6.4-8.2)
[2020-02-05] MEDS: ENOXAPARIN INJ 30 MG/0.3 ML SYR SQ SCH (07:40)
--- NOTE | 2020-02-05 08:11 | Anesthesiology Progress Note ---
Date of Service February 05, 2020 Anesthesia Post Procedure Vital Signs Vital Signs: Temp Pulse Pulse Resp BP BP Pulse Ox 02/05/20 07:11 36.6 C 103 H 18 130/62 97 02/05/20 03:00 36.5 C 85 16 96/53 L 95 02/04/20 23:27 36.5 C 84 16 116/66 96 02/04/20 20:45 36.8 C 93 H 18 101/55 L 96 02/04/20 19:10 36.5 C 101 H 18 113/65 96 02/04/20 18:18 36.5 C 95 H 17 113/61 99 02/04/20 17:34 36.3 C L 86 16 119/68 99 02/04/20 17:00 88 18 124/54 L 100 02/04/20 16:50 89 17 119/60 100 02/04/20 16:40 36.4 C L 87 15 124/52 L 100 02/04/20 16:30 89 16 129/53 L 99 02/04/20 16:20 95 H 15 139/68 100 02/04/20 16:10 92 H 16 140/65 100 02/04/20 16:00 91 H 18 143/67 H 100 02/04/20 15:50 87 15 118/63 100 02/04/20 15:44 36.5 C 93 H 23 124/60 100 02/04/20 12:38 37 C 106 H 18 150/75 H 99 Pain Intensity Right Hip: Pain Intensity: 0 Notes Mental Status: alert / awake / arousable Patient Amnestic to Procedure: Yes Nausea / Vomiting: adequately controlled Pain: adequately controlled Airway Patency, RR, SpO2: stable & adequate BP & HR: stable & adequate Hydration State: stable & adequate Anesthetic Complications: no major complications apparent and Pt Satisfied with anesthetic care
--- NOTE | 2020-02-05 11:41 | Hospitalist Progress Note ---
Date of Service February 05, 2020 Assessment & Plan (1) Hip fracture: * 84yo C female presenting with closed fracture of right hip following mechanical fall at [facility]. EKG pre-op with T wave abn, improved on repeat EKG this AM. Trop bumped to 0.049 and trended down on repeat --> likely demand given recent stress/fracture/dehydration. CXR negative. TSH wnl * Orthopedics consulted * POD #1 s/p RIGHT hip with Dr. Kaplan. Pre-op h/h 11.9/36.3. EBL 250cc. * H/h down to 8.2/24.7 -- acute blood loss following surgery as well as some dilutional effect * Will repeat CBC this afternoon -- transfuse if needed (no cp, sob at current time) -- states no issues with transfusions in the past * PT/OT/pain management/DVT (Lovenox SQ) per surgical team * Vit D level pending Patient hopeful for PT/OT through [facility] at discharge (2) Diabetes type 1, controlled: * Longstanding Type I DM with insulin pump in place. states patient is a very brittle diabetic. * IVF changed from LR to NSS + 20meq KCl @125cc/hr for DKA on admission with beta-hydroxybutrate 5.89 and pharmacy consulted * Given 2 unit bolus via pump given by prior to surgery--> held post- operatively and placed on ISS and SQ DKA protocol as above * Most recent POC glucose 291 -- continue SQ protocol. Given 5 units insulin for lunch time sugar * Continue to monitor electrolytes and replace as needed (3) Dyslipidemia: * Chronic * Continue fish oil outpatient (4) Hypertension: * Blood pressure well controlled and denies history of HTN * Holding lisinopril pre-operatively (patient with DM I) -- will continue to hold for now but restart in AM * BP stable at 130/62 * Continue to monitor (5) Focal seizures: * Chronic * Continue Keppra (6) Hypothyroidism: * Chronic. Last TSH 0.386 January 2020 * Repeat TSH wnl -- rec repeat outpatient * Continue home levothyroxine 125mcg daily for now (7) Elevated troponin: * Trending down -- likely demand given acute fracture. EKG stable * No s/sx ischemia at this time (8) DKA, type 1: * See above (9) DVT prophylaxis: * SCDs * Lovenox Patient from [facility]. Plans for therapy through the same. Will repeat h/h this afternoon and transfuse if necessary. Hopeful to transition back to home insulin pump within the next 24 hours. Admission and Anticipated Discharge Date Admission Date: February 03, 2020 Supervising Physician Co-Signing Physician Notes Attending Attestation: Chart reviewed in detail, care plan d/w PA Bhakti Bernal. I agree with the blackwood components of her documentation. POD #1 s/p right hip fracture ORIF. Appreciate ortho assistance. T1DM - appreciate glycemic management from pharmacy. ACUTE BLOOD LOSS ANEMIA - serial H/H's - may need transfusional support. Gavin Salomon MD Subjective Patient evaluated this morning. Pain well controlled. Worked with occupational therapy this morning and was able to get out of bed and up to the chair. Eating/drinking without difficulty. Doll catheter still in place. Awaiting PT later today. Denies fever, chills, chest pain, shortness of breath, palpitations, abdominal pain. Believes she may have had a bowel movement yesterday but is unsure. confirms she hasn't had one since he has been with her. Discussed repeating blood counts this afternoon and that we will continue to utilize SQ insulin for now given recent bump in her sugar and she had not been snacking in between. Hopeful to transition back to her insulin pump in next 24 hours and her goal is 150 outpatient. From [facility] and has had therapy through there in the past and wound like to continue therapy at discharge at their facility. Review of Systems Review of Systems: All systems reviewed & are unremarkable except as noted in HPI & below Physical Exam Constitutional: WD/WN, vitals as above no acute distress Eyes: + anicteric sclerae and PERRL ENMT: mmm Neck: normal visual inspection Respiratory: normal respiratory effort, lungs clear to auscultation Cardiovascular: RRR, no murmur, no edema Gastrointestinal (Abdomen): normal bowel sounds, soft, nontender, no hepatosplenomegaly Musculoskeletal: dressing to RIGHT hip c/d/i tender to palpation over lateral aspect of femur NVI 2+ dp, pt pulses calves non-tender to palpation bilaterally Neurologic: PERRL, EOMI, accommodation nl, no face palsy, no dysarthria Psychiatric: A+Ox3, euthymic affect Genitourinary: doll draining yellow urine Lymphatic: no cervical or axillary lymphadenopathy Results & Data Results & Data ([facility]) Vital Signs (Past 12 Hours) Vital Signs Temp Pulse Resp BP BP Pulse Ox 02/05/20 07:11 36.6 C 103 H 18 130/62 97 02/05/20 03:00 36.5 C 85 16 96/53 L 95 Laboratory Results 02/05/20 02/05/20 02/05/20 Range/Units 11:49 08:03 06:20 WBC (4.8-10.8) K/uL RBC (4.2-5.4) M/uL Hgb (12.0-16.0) g/dL Hct (37-47) % MCV (80-100) fL MCH (25-34) pg MCHC (32-36) g/dL RDW Std Deviation (36.4-46.3) fL RDW Coeff of Shady (11.5-14.5) % Plt Count (130-400) K/uL MPV (7.4-10.4) fL Immature Gran % (Auto) % Neut % (Auto) % Lymph % (Auto) % Lane % (Auto) % Eos % (Auto) % Baso % (Auto) % Neut # (Auto) (1.4-6.5) K/uL Lymph # (Auto) (1.2-3.4) K/uL Lane # (Auto) (0.11-0.59) K/uL Eos # (Auto) (0-0.5) K/uL Baso # (Auto) (0-0.2) K/uL Immature Gran # (Auto) (0.00-0.02) K/uL Sodium 139 (136-145) mmol/L Potassium 4.3 (3.5-5.1) mmol/L Chloride 106 (98-107) mmol/L Carbon Dioxide 28 (21-32) mmol/L Anion Gap 5.0 (3-11) BUN 12 (7-18) mg/dl Creatinine 0.78 (0.6-1.2) mg/dl Est Cr Clr Drug Dosing 44.7 ml/min Est GFR ( Amer) 80.9 Est GFR (Non-Af Amer) 69.8 BUN/Creatinine Ratio 15.2 (10-20) Glucose 190 H (70-99) mg/dl POC Glucose 291 H 191 H (70-99) mg/dl Calcium 8.0 L (8.5-10.1) mg/dl Total Bilirubin 0.6 (0.2-1) mg/dl Direct Bilirubin < 0.1 (0-0.2) mg/dl AST 16 (15-37) U/L ALT 19 (12-78) U/L Alkaline Phosphatase 60 (45-117) U/L Troponin I (0-0.045) ng/ml Total Protein 5.1 L D (6.4-8.2) gm/dl Albumin 2.6 L (3.4-5.0) gm/dl TSH (0.300-4.500) uIu/ml 02/05/20 02/05/20 02/05/20 Range/Units 06:20 04:11 00:02 WBC 8.59 (4.8-10.8) K/uL RBC 2.66 L (4.2-5.4) M/uL Hgb 8.2 L D (12.0-16.0) g/dL Hct 24.7 L (37-47) % MCV 92.9 (80-100) fL MCH 30.8 (25-34) pg MCHC 33.2 (32-36) g/dL RDW Std Deviation 44.8 (36.4-46.3) fL RDW Coeff of Shady 13.2 (11.5-14.5) % Plt Count 133 (130-400) K/uL MPV 10.0 (7.4-10.4) fL Immature Gran % (Auto) 0.1 % Neut % (Auto) 67.9 % Lymph % (Auto) 21.8 % Lane % (Auto) 9.9 % Eos % (Auto) 0.2 % Baso % (Auto) 0.1 % Neut # (Auto) 5.83 (1.4-6.5) K/uL Lymph # (Auto) 1.87 (1.2-3.4) K/uL Lane # (Auto) 0.85 H (0.11-0.59) K/uL Eos # (Auto) 0.02 (0-0.5) K/uL Baso # (Auto) 0.01 (0-0.2) K/uL Immature Gran # (Auto) 0.01 (0.00-0.02) K/uL Sodium (136-145) mmol/L Potassium (3.5-5.1) mmol/L Chloride (98-107) mmol/L Carbon Dioxide (21-32) mmol/L Anion Gap (3-11) BUN (7-18) mg/dl Creatinine (0.6-1.2) mg/dl Est Cr Clr Drug Dosing ml/min Est GFR ( Amer) Est GFR (Non-Af Amer) BUN/Creatinine Ratio (10-20) Glucose (70-99) mg/dl POC Glucose 218 H 280 H (70-99) mg/dl Calcium (8.5-10.1) mg/dl Total Bilirubin (0.2-1) mg/dl Direct Bilirubin (0-0.2) mg/dl AST (15-37) U/L ALT (12-78) U/L Alkaline Phosphatase (45-117) U/L Troponin I (0-0.045) ng/ml Total Protein (6.4-8.2) gm/dl Albumin (3.4-5.0) gm/dl TSH (0.300-4.500) uIu/ml 02/04/20 02/04/20 02/04/20 Range/Units 21:58 21:56 17:21 WBC (4.8-10.8) K/uL RBC (4.2-5.4) M/uL Hgb (12.0-16.0) g/dL Hct (37-47) % MCV (80-100) fL MCH (25-34) pg MCHC (32-36) g/dL RDW Std Deviation (36.4-46.3) fL RDW Coeff of Shady (11.5-14.5) % Plt Count (130-400) K/uL MPV (7.4-10.4) fL Immature Gran % (Auto) % Neut % (Auto) % Lymph % (Auto) % Lane % (Auto) % Eos % (Auto) % Baso % (Auto) % Neut # (Auto) (1.4-6.5) K/uL Lymph # (Auto) (1.2-3.4) K/uL Lane # (Auto) (0.11-0.59) K/uL Eos # (Auto) (0-0.5) K/uL Baso # (Auto) (0-0.2) K/uL Immature Gran # (Auto) (0.00-0.02) K/uL Sodium (136-145) mmol/L Potassium (3.5-5.1) mmol/L Chloride (98-107) mmol/L Carbon Dioxide (21-32) mmol/L Anion Gap (3-11) BUN (7-18) mg/dl Creatinine (0.6-1.2) mg/dl Est Cr Clr Drug Dosing ml/min Est GFR ( Amer) Est GFR (Non-Af Amer) BUN/Creatinine Ratio (10-20) Glucose (70-99) mg/dl POC Glucose 298 H 319 H* 249 H (70-99) mg/dl Calcium (8.5-10.1) mg/dl Total Bilirubin (0.2-1) mg/dl Direct Bilirubin (0-0.2) mg/dl AST (15-37) U/L ALT (12-78) U/L Alkaline Phosphatase (45-117) U/L Troponin I (0-0.045) ng/ml Total Protein (6.4-8.2) gm/dl Albumin (3.4-5.0) gm/dl TSH (0.300-4.500) uIu/ml 02/04/20 02/04/20 02/04/20 Range/Units 15:47 12:12 12:12 WBC (4.8-10.8) K/uL RBC (4.2-5.4) M/uL Hgb (12.0-16.0) g/dL Hct (37-47) % MCV (80-100) fL MCH (25-34) pg MCHC (32-36) g/dL RDW Std Deviation (36.4-46.3) fL RDW Coeff of Shady (11.5-14.5) % Plt Count (130-400) K/uL MPV (7.4-10.4) fL Immature Gran % (Auto) % Neut % (Auto) % Lymph % (Auto) % Lane % (Auto) % Eos % (Auto) % Baso % (Auto) % Neut # (Auto) (1.4-6.5) K/uL Lymph # (Auto) (1.2-3.4) K/uL Lane # (Auto) (0.11-0.59) K/uL Eos # (Auto) (0-0.5) K/uL Baso # (Auto) (0-0.2) K/uL Immature Gran # (Auto) (0.00-0.02) K/uL Sodium (136-145) mmol/L Potassium (3.5-5.1) mmol/L Chloride (98-107) mmol/L Carbon Dioxide (21-32) mmol/L Anion Gap (3-11) BUN (7-18) mg/dl Creatinine (0.6-1.2) mg/dl Est Cr Clr Drug Dosing ml/min Est GFR ( Amer) Est GFR (Non-Af Amer) BUN/Creatinine Ratio (10-20) Glucose (70-99) mg/dl POC Glucose 231 H (70-99) mg/dl Calcium (8.5-10.1) mg/dl Total Bilirubin (0.2-1) mg/dl Direct Bilirubin (0-0.2) mg/dl AST (15-37) U/L ALT (12-78) U/L Alkaline Phosphatase (45-117) U/L Troponin I 0.043 (0-0.045) ng/ml Total Protein (6.4-8.2) gm/dl Albumin (3.4-5.0) gm/dl TSH 0.639 (0.300-4.500) uIu/ml Diagnostic Findings HIP RIGHT 2 VIEW IMPRESSION: Status post internal fixation of a right intertrochanteric hip fracture. PG Care Time/CCT Total # of Minutes Spent Total Time Spent with Patient: Total time spent is greater than 50% in coordination of care (as documented) at patient's floor/unit and/or counseling patient: Coding Level of Care Code 67191 Subseq Hosp Care Lvl 3 Diagnoses Hip fracture S72.001A Encounter type: initial encounter Fracture type: closed Laterality: right Diabetes type 1, controlled E10.8 Diabetes mellitus complication status: with unspecified complications Dyslipidemia E78.5 Hypertension I10 Hypertension type: essential hypertension Focal seizures R56.9 Hypothyroidism E03.9 Hypothyroidism type: unspecified Elevated troponin R79.89 DKA, type 1 E10.10 DVT prophylaxis Z29.9 (1) Hip fracture Encounter type: initial encounter Fracture type: closed Laterality: right Qualified Code(s): S72.001A - Fracture of unspecified part of neck of right femur, initial encounter for closed fracture (2) Hypothyroidism Hypothyroidism type: unspecified Qualified Code(s): E03.9 - Hypothyroidism, unspecified (3) Diabetes type 1, controlled Diabetes mellitus complication status: with unspecified complications Qualified Code(s): E10.8 - Type 1 diabetes mellitus with unspecified complications (4) Hypertension Hypertension type: essential hypertension Qualified Code(s): I10 - Essential (primary) hypertension
[2020-02-05] MEDS ORDERED: INSULIN GLARGINE SOLOSTAR 100 UNITS/ML 3 ML PEN SC ONE (12:00)
[2020-02-05 12:43] LABS: Magnesium 1.9 mg/dl (1.8-2.4); Phosphorus 2.3 mg/dl (2.5-4.9)
[2020-02-05] MEDS ORDERED: SODIUM PHOSPHATE 3 MMOL/1 ML INFUSION IV STA (14:07)
--- NOTE | 2020-02-05 14:29 | Orthopedic Progress Note ---
Date of Service February 05, 2020 Assessment & Plan (1) S/P right hip fracture: Continue plan of care Patient will remain on DVT prophylaxis with Lovenox for at least 6 weeks post op Her dressings will remain in place for now She will continue oxycodone as needed for pain control She will finish her course of post operative antibiotics Patient should remain weight bearing as tolerated. PT/OT will continue to evaluate She will follow up in our office in 2 weeks for additional post op x-rays and staple removal at that time Admission and Anticipated Discharge Date Admission Date: February 03, 2020 Andreas Madison is a pleasant 84 year old female who is currently 1 day s/p right intertrochanteric nailing for a right intertrochanteric hip fracture suffered on 02/03/20. Patient states her pain is currently well controlled. She did not have any difficulties sleeping through the night. She was being evaluated by PT upon arrival this afternoon. Patient states OT also visited with her earlier today. She has been on her feet twice so far and reports no pain with weight bearing. She is still having difficulty with ambulation. She denies any numbness or tingling. She denies any fever, chills, or sweats. Her hemoglobin today is 8.2, it was 11.9 on 02/04/20. She denies any lightheadedness or dizziness. She has no complaints at this time. Review of Systems Constitutional: no fever, no chills and no problem reported Eyes: as per Subjective / HPI; no problem reported Ear, Nose, Mouth, Throat: as per Subjective / HPI; no problem reported Respiratory: as per Subjective / HPI; no problem reported Cardiovascular: no edema and no problem reported Gastrointestinal: no nausea, no vomiting and no problem reported Musculoskeletal: as per Subjective / HPI Integumentary: as per Subjective / HPI; no problem reported Neurologic: no tingling, no paresthesia and no problem reported Psychiatric: no problem reported Endocrine: as per Subjective / HPI Hematologic / Lymphatic: as per Subjective / HPI Allergy / Immunological: no problem reported Physical Exam Musculoskeletal: Patient was sitting comfortably in her chair at bedside, being evaluated by PT upon arrival. She is A+Ox3, WDWN, in no acute distress. Right lower extremity: Dressings remained in place for exam. No evidence of drainage or discharge overlying her dressings. Positive tib ant, EHL, and plantarflexion/dorsiflexion. She can actively flex and extend her toes Capillary refill <2 seconds Light touch sensation grossly intact Firing of quad evident upon attempted SLR Patient was able to stand, without pain, when aided by PT. She had not yet attempted to take any steps Results & Data ([facility]) Vital Signs (Past 12 Hours) Vital Signs Temp Pulse Resp BP BP Pulse Ox 02/05/20 07:11 36.6 C 103 H 18 130/62 97 02/05/20 03:00 36.5 C 85 16 96/53 L 95 PG Care Time/CCT Total # of Minutes Spent Total Time Spent with Patient: Total time spent is greater than 50% in coordination of care (as documented) at patient's floor/unit and/or counseling patient: Coding Level of Care Code None Diagnoses S/P right hip fracture Z87.81
[2020-02-05] MEDS ORDERED: SODIUM PHOSPHATE 9 MMOL in SODIUM CHLORIDE 0.9% 250 ML IV ONE (14:30)
--- NOTE | 2020-02-05 14:53 | Pharmacy Report ---
Pharmacy Glycemic Short Note 2 - Date of Service February 05, 2020 - Glycemic Short BSG Results (Last 24 hours): 02/04/20 02/04/20 02/04/20 15:47 17:21 21:56 Glucose POC Glucose 231 H 249 H 319 H* 02/04/20 02/05/20 02/05/20 21:58 00:02 04:11 Glucose POC Glucose 298 H 280 H 218 H 02/05/20 02/05/20 02/05/20 06:20 08:03 11:49 Glucose 190 H POC Glucose 191 H 291 H OUTPATIENT ANTIDIABETIC REGIMEN: * Novolog pump (Zigabidtronic 630G) * Basal: 0000 0.55, 0200 0.5, 1200 0.6, 1600 0.55 * Bolus insulin to carb ratio: 0000 1:15, 0800 1:14, 1130 1:15 * Correction factor: 50 * BG Target: 175 ([id number]) and 140-160 ([id number]) * TDD: 22 units ASSESSMENT: 02/04: * Gricelda is POD #1 s/p R hip surgery * After surgery she was taken off her insulin pump and started on SQ basal + bolus insulin: * She was given 12 units of Lantus (which is similar to the 24 hour basal amount given via her pump). This was not given until ~2100, therefore patient went several hours without basal insulin * Novolog was ordered based on home CF and CR * All BSGs today have been above goal, therefore both basal and bolus insulin have been increased. Will continue to make conservative changes since patient is a brittle type 1. 02/03: * Gricelda is a 84 yo T1DM admitted with closed right hip fracture. She is NPO for hip surgery * Patient is well controlled on Novolog insulin pump as an outpatient. Her manages her pump. Pump was continued on admission. Despite NPO status, BSGs have been 200 - 250 mg/dL over the past several hours. * Hospitalist requested insulin pump be stopped and DKA protocol be initiated based on evidence of ketones in her blood. Of note, most recent labs do not indicate metabolic acidosis (anion gap and bicarb are WNL). This transition has been held up per patient was taken to OR around 1215. Plan for glycemic control will depend on whether or not patient is administered steroids saulo- operatively. PLAN FOR INPATIENT GLYCEMIC CONTROL: * Basal * Lantus 12 units SQ q24h * Extra 3 units x 1 with lunch * Bolus * Novolog q4h * Goal range: 120-170 mg/dL * Correction factor: 40 * Carb ratio: 12 * Plan to transition patient back to insulin pump closer to time of discharge (patient's manages pump and will need to be present for this process) PLAN FOR DISCHARGE: * A1c of 7.7% is reasonable based on patient age/co morbidities. * Continue Novolog insulin pump on discharge and f/u with [facility]
[2020-02-05] MEDS ORDERED: NON-FORMULARY MEDICATION (Coenzyme Q10 100 MG) PO SCH (15:00)
[2020-02-05] MEDS: FERROUS SULFATE 325 MG TAB PO SCH (15:53)
[2020-02-05] MEDS: CEROVITE ADV FORMULA TAB PO SCH (15:54)
[2020-02-05 16:41] LABS: Hematocrit (blood only) 24.1 % (37-47); Hemoglobin 8.2 g/dL (12.0-16.0); Mean Corpuscular Hemoglobin 32.2 pg (25-34); Mean Corpuscular Volume 94.5 fL (80-100); Mean Platelet Volume 10.2 fL (7.4-10.4); Platelet Count 120 K/uL (130-400); RDW Coefficient of Variation 13.2 % (11.5-14.5); Red Blood Count 2.55 M/uL (4.2-5.4); White Blood Count 8.24 K/uL (4.8-10.8)
[2020-02-05 16:46] LABS: Base Excess VBG 3.6 mEq/L; HCO3 VBG 29 mmol/L; Oxygen Saturation VBG < 60.0 %; PCO2 VBG 45 mmHg (38-50); PO2 VBG 30 mmHg; pH VBG 7.42 (7.36-7.41)
[2020-02-05] MEDS: CHOLECALCIFEROL 1,000 UNITS 25 MCG TAB PO SCH (16:56)
[2020-02-05] MEDS: MAGNESIUM OXIDE 400 MG TAB PO SCH (16:56)
[2020-02-05] MEDS: INSULIN GLARGINE SOLOSTAR 100 UNITS/ML 3 ML PEN SC SCH (21:21)
[2020-02-05] MEDS: DOCUSATE SODIUM/SENNA 50/8.6MG TAB PO SCH (21:21)
[2020-02-05] MEDS: OXYCODONE HCL IR 5 MG TAB (IMMEDIATE RELEASE) PO PRN (23:35)
[2020-02-06] MEDS: INSULIN ASPART 100 UNITS/ML 3 ML PEN SC SCH ×8 (00:03→23:53)
[2020-02-06] MEDS: HYDROmorphone INJ 0.5 MG/0.5 ML SYR IV PRN (01:08)
[2020-02-06 06:50] LABS: Basophils # (auto) 0.01 K/uL (0-0.2); Basophils % (auto) 0.1 %; Hematocrit (blood only) 21.4 % (37-47); Hemoglobin 7.2 g/dL (12.0-16.0); Immature Granulocytes # (auto) 0.02 K/uL (0.00-0.02); Immature Granulocytes % (auto) 0.2 %; Lymphocytes # (auto) 1.19 K/uL (1.2-3.4); Lymphocytes % (auto) 14.1 %; Mean Corpuscular Hemoglobin 31.2 pg (25-34); Mean Corpuscular Hgb Conc 33.6 g/dL (32-36); Mean Corpuscular Volume 92.6 fL (80-100); Mean Platelet Volume 9.9 fL (7.4-10.4); Monocytes # (auto) 0.98 K/uL (0.11-0.59); Monocytes % (auto) 11.6 %; Neutrophils # (auto) 6.22 K/uL (1.4-6.5); Platelet Count 122 K/uL (130-400); RDW Coefficient of Variation 13.1 % (11.5-14.5); RDW Standard Deviation 44.6 fL (36.4-46.3); Red Blood Count 2.31 M/uL (4.2-5.4); White Blood Count 8.42 K/uL (4.8-10.8)
[2020-02-06 07:13] LABS: Base Excess VBG 5.8 mEq/L; HCO3 VBG 31 mmol/L; PCO2 VBG 49 mmHg (38-50); PO2 VBG 27 mmHg; pH VBG 7.42 (7.36-7.41)
[2020-02-06 07:21] LABS: BUN Creatinine Ratio 21.6 (10-20); Calcium 7.8 mg/dl (8.5-10.1); Creatinine Clr Calc Pharmacy 68.3 ml/min; Est GFR (African American) 102.3; Est GFR (Non-African American) 88.3; Magnesium 2.2 mg/dl (1.8-2.4); Phosphorus 1.9 mg/dl (2.5-4.9); Potassium 4.2 mmol/L (3.5-5.1)
[2020-02-06] MEDS: NSS + 20MEQ KCL 20 MEQ/1,000 ML BAG IV SCH ×2 (07:26→16:57)
[2020-02-06] MEDS ORDERED: Nursing to Pharmacy Communication SCH (07:30)
[2020-02-06 07:53] LABS: RBC Morphology Unremarkable
[2020-02-06 08:11] LABS: Oxygen Saturation VBG < 60.0 %
[2020-02-06] MEDS ORDERED: SODIUM CHLORIDE 0.9% 250 ML IV PRN ×2 (08:24→08:50)
--- NOTE | 2020-02-06 10:15 | Hospitalist Progress Note ---
Date of Service February 06, 2020 Assessment & Plan (1) Hip fracture: * 84yo C female presenting with closed fracture of right hip following mechanical fall at [facility]. EKG pre-op with T wave abn, improved on repeat EKG this AM. Trop bumped to 0.049 and trended down on repeat --> likely demand given recent stress/fracture/dehydration. CXR negative. TSH wnl * Orthopedics consulted * POD #2 s/p RIGHT hip with Dr. aKplan. Pre-op h/h 11.9/36.3. EBL 250cc. Repeat h/h evening 02/04 stable 8.2 from AM * H/h down to 7.2/21.4 --> ordered 1 unit PRBC and will repeat h/h this evening after blood completed. Likely acute blood loss following surgery as well as dilutional from IVF * Will repeat CBC this afternoon following blood * PT/OT/pain management/DVT (Lovenox SQ) per surgical team * EKG repeated for irregular rhythm reported by nursing --> sinus rhythm with PACs, nonspecific T wave abn, similar to prior. Will repeat trop with afternoon CBC although patient denies any cp/sob * Vit D level 59.2 Patient hopeful for PT/OT through [facility] at discharge (2) Diabetes type 1, controlled: * Longstanding Type I DM with insulin pump in place. states patient is a very brittle diabetic. * IVF changed from LR to NSS + 20meq KCl @125cc/hr for DKA on admission with beta-hydroxybutyrate 5.89 and pharmacy consulted * Given 2 unit bolus via pump given by prior to surgery--> held post- operatively and placed on ISS and SQ DKA protocol with basal/bolus coverage * Patient had been trending down evening of 02/04 although bumped to 315 at lunch time BSG and then 335 on re-check. Discussed with pharmacy and would like to place back on home pump although not brought in by , who will need to be present for exchange as he assists at home. * Pharmacy to tighten parameters * Continue to monitor (3) Dyslipidemia: * Chronic * Continue fish oil outpatient (4) Hypertension: * Blood pressure well controlled and denies history of HTN * Holding lisinopril pre-operatively (patient with DM I) -- will continue to hold for now as patient receiving IVF and blood products with BP 113/64 * Restart lisinopril AM 02/06 * Continue to monitor (5) Focal seizures: * Chronic * Continue Keppra --> had been continued on 02/04 but not in system --> ordered separately to start 02/05 (6) Hypothyroidism: * Chronic. Last TSH 0.386 January 2020 * Repeat TSH wnl -- rec repeat outpatient * Continue home levothyroxine 125mcg daily for now--> had not been ordered even though continued on aug --> ordered separately to start in AM (7) Elevated troponin: * Trending down -- likely demand ischemia given acute fracture and blood loss. EKG stable * No s/sx ischemia at this time (8) DKA, type 1: * See above (9) DVT prophylaxis: * SCDs * Lovenox Patient from [facility]. Plans for therapy through the same. Admission and Anticipated Discharge Date Admission Date: February 03, 2020 Supervising Physician Co-Signing Physician Notes Attending Attestation: Chart reviewed in detail, care plan d/w CADE Bernal. I agree with the blackwood components of her documentation. POD #2 s/p right hip fracture ORIF. Appreciate ortho assistance. T1DM - appreciate glycemic management from pharmacy. Pump is on hold at this time; management with SC injections. ACUTE BLOOD LOSS ANEMIA - s/p PRBCs. CBC am. Gavin Salomon MD Subjective Patient evaluated this afternoon up in the chair. States she is feeling much better today. Had some pain overnight and still painful with ambulation but controlled with current pain medications. Eating/drinking without difficulty. had just left room to get something to eat. Discussed not receiving her Synthroid or Keppra yesterday but that they are resumed today. She denies fever, chills, chest pain, shortness of breath, abdominal pain. Had some nausea overnight into this morning but has since resolved. No vomiting. Had bowel movement this morning which was normal for the patient per her account. Hopeful for discharge to [facility] with therapy. Discussed tightening control on her blood sugars and to switch over to her insulin pump tomorrow when able to bring in. Discussed repeating labs this afternoon Review of Systems Review of Systems: All systems reviewed & are unremarkable except as noted in HPI & below Physical Exam Constitutional: well developed; no acute distress general pallor Eyes: + anicteric sclerae and PERRL Neck: normal visual inspection Respiratory: normal respiratory effort, lungs clear to auscultation Cardiovascular: Rate/Rhythm: regular rate and regular rhythm Heart Sounds: no murmur Extremities: no edema Gastrointestinal (Abdomen): Inspection/Auscultation: + abdomen distended and normal bowel sounds Percussion/Palpation: + abdomen tender (minimally tender in suprapubic region) Musculoskeletal: dressing to right hip c/d. edges of dressing peeling away. no drainage noted tender to palpation over trochanter NVI calves non-tender good dorsiflexion/plantarflexion, increased strength with hip flexion to RLE, although LLE>RLE 2+ dp, pt pulses bilaterally Skin: warm dry Neurologic: patellar DTR's 2+ bilat, sensation intact and PERRL, EOMI, accommodation nl, no face palsy, no dysarthria Psychiatric: A+Ox3, euthymic affect Lymphatic: no cervical or axillary lymphadenopathy Results & Data Results & [facility]) Vital Signs (Past 12 Hours) Vital Signs Temp Pulse Pulse Pulse Resp BP BP 02/06/20 09:47 36.6 C 118 H 18 124/73 02/06/20 07:53 36.6 C 96 H 16 119/63 02/05/20 23:49 36.9 C 113 H 18 BP Pulse Ox 02/06/20 09:47 02/06/20 07:53 95 02/05/20 23:49 136/62 97 Laboratory Results 02/06/20 02/06/20 02/06/20 Range/Units 12:01 11:58 08:31 WBC (4.8-10.8) K/uL RBC (4.2-5.4) M/uL Hgb (12.0-16.0) g/dL Hct (37-47) % MCV (80-100) fL MCH (25-34) pg MCHC (32-36) g/dL RDW Std Deviation (36.4-46.3) fL RDW Coeff of Shady (11.5-14.5) % Plt Count (130-400) K/uL MPV (7.4-10.4) fL Immature Gran % (Auto) % Neut % (Auto) % Lymph % (Auto) % J[place] % (Auto) % Eos % (Auto) % Baso % (Auto) % Neut # (Auto) (1.4-6.5) K/uL Lymph # (Auto) (1.2-3.4) K/uL J[place] # (Auto) (0.11-0.59) K/uL Eos # (Auto) (0-0.5) K/uL Baso # (Auto) (0-0.2) K/uL Immature Gran # (Auto) (0.00-0.02) K/uL RBC Morphology VBG pH (7.36-7.41) VBG pCO2 (38-50) mmHg VBG pO2 mmHg VBG HCO3 mmol/L VBG O2 Saturation % VBG Base Excess mEq/L Barometric Pressure mm/Hg Sodium (136-145) mmol/L Potassium (3.5-5.1) mmol/L Chloride (98-107) mmol/L Carbon Dioxide (21-32) mmol/L Anion Gap (3-11) BUN (7-18) mg/dl Creatinine (0.6-1.2) mg/dl Est Cr Clr Drug Dosing ml/min Est GFR ( Amer) Est GFR (Non-Af Amer) BUN/Creatinine Ratio (10-20) Glucose (70-99) mg/dl POC Glucose 335 H* 315 H* 195 H (70-99) mg/dl Calcium (8.5-10.1) mg/dl Phosphorus (2.5-4.9) mg/dl Magnesium (1.8-2.4) mg/dl 25-OH Vitamin D Total (30-100) ng/ml Blood Type Blood Type Recheck Antibody Screen Crossmatch 02/06/20 02/06/20 02/06/20 Range/Units 06:40 06:39 06:39 WBC (4.8-10.8) K/uL RBC (4.2-5.4) M/uL Hgb (12.0-16.0) g/dL Hct (37-47) % MCV (80-100) fL MCH (25-34) pg MCHC (32-36) g/dL RDW Std Deviation (36.4-46.3) fL RDW Coeff of Shady (11.5-14.5) % Plt Count (130-400) K/uL MPV (7.4-10.4) fL Immature Gran % (Auto) % Neut % (Auto) % Lymph % (Auto) % J[place]uld % (Auto) % Eos % (Auto) % Baso % (Auto) % Neut # (Auto) (1.4-6.5) K/uL Lymph # (Auto) (1.2-3.4) K/uL J[place] # (Auto) (0.11-0.59) K/uL Eos # (Auto) (0-0.5) K/uL Baso # (Auto) (0-0.2) K/uL Immature Gran # (Auto) (0.00-0.02) K/uL RBC Morphology VBG pH 7.42 H (7.36-7.41) VBG pCO2 49 (38-50) mmHg VBG pO2 27 mmHg VBG HCO3 31 mmol/L VBG O2 Saturation < 60.0 % VBG Base Excess 5.8 mEq/L Barometric Pressure 729.5 mm/Hg Sodium 142 (136-145) mmol/L Potassium 4.2 (3.5-5.1) mmol/L Chloride 108 H (98-107) mmol/L Carbon Dioxide 32 (21-32) mmol/L Anion Gap 2.0 L (3-11) BUN 11 (7-18) mg/dl Creatinine 0.51 L (0.6-1.2) mg/dl Est Cr Clr Drug Dosing 68.3 ml/min Est GFR ( Amer) 102.3 Est GFR (Non-Af Amer) 88.3 BUN/Creatinine Ratio 21.6 H (10-20) Glucose 178 H (70-99) mg/dl POC Glucose (70-99) mg/dl Calcium 7.8 L (8.5-10.1) mg/dl Phosphorus 1.9 L (2.5-4.9) mg/dl Magnesium 2.2 (1.8-2.4) mg/dl 25-OH Vitamin D Total (30-100) ng/ml Blood Type Blood Type Recheck AB Negative Antibody Screen Crossmatch 02/06/20 02/06/20 02/06/20 Range/Units 06:39 04:38 00:00 WBC 8.42 (4.8-10.8) K/uL RBC 2.31 L (4.2-5.4) M/uL Hgb 7.2 L (12.0-16.0) g/dL Hct 21.4 L (37-47) % MCV 92.6 (80-100) fL MCH 31.2 (25-34) pg MCHC 33.6 (32-36) g/dL RDW Std Deviation 44.6 (36.4-46.3) fL RDW Coeff of Shady 13.1 (11.5-14.5) % Plt Count 122 L (130-400) K/uL MPV 9.9 (7.4-10.4) fL Immature Gran % (Auto) 0.2 % Neut % (Auto) 74.0 % Lymph % (Auto) 14.1 % Jerauld % (Auto) 11.6 % Eos % (Auto) 0.0 % Baso % (Auto) 0.1 % Neut # (Auto) 6.22 (1.4-6.5) K/uL Lymph # (Auto) 1.19 L (1.2-3.4) K/uL J[place]uld # (Auto) 0.98 H (0.11-0.59) K/uL Eos # (Auto) 0.00 (0-0.5) K/uL Baso # (Auto) 0.01 (0-0.2) K/uL Immature Gran # (Auto) 0.02 (0.00-0.02) K/uL RBC Morphology Unremarkable VBG pH (7.36-7.41) VBG pCO2 (38-50) mmHg VBG pO2 mmHg VBG HCO3 mmol/L VBG O2 Saturation % VBG Base Excess mEq/L Barometric Pressure mm/Hg Sodium (136-145) mmol/L Potassium (3.5-5.1) mmol/L Chloride (98-107) mmol/L Carbon Dioxide (21-32) mmol/L Anion Gap (3-11) BUN (7-18) mg/dl Creatinine (0.6-1.2) mg/dl Est Cr Clr Drug Dosing ml/min Est GFR ( Amer) Est GFR (Non-Af Amer) BUN/Creatinine Ratio (10-20) Glucose (70-99) mg/dl POC Glucose 213 H 296 H (70-99) mg/dl Calcium (8.5-10.1) mg/dl Phosphorus (2.5-4.9) mg/dl Magnesium (1.8-2.4) mg/dl 25-OH Vitamin D Total (30-100) ng/ml Blood Type Blood Type Recheck Antibody Screen Crossmatch 02/05/20 02/05/20 02/05/20 Range/Units 21:17 17:13 16:29 WBC (4.8-10.8) K/uL RBC (4.2-5.4) M/uL Hgb (12.0-16.0) g/dL Hct (37-47) % MCV (80-100) fL MCH (25-34) pg MCHC (32-36) g/dL RDW Std Deviation (36.4-46.3) fL RDW Coeff of Shady (11.5-14.5) % Plt Count (130-400) K/uL MPV (7.4-10.4) fL Immature Gran % (Auto) % Neut % (Auto) % Lymph % (Auto) % Jerauld % (Auto) % Eos % (Auto) % Baso % (Auto) % Neut # (Auto) (1.4-6.5) K/uL Lymph # (Auto) (1.2-3.4) K/uL J[place] # (Auto) (0.11-0.59) K/uL Eos # (Auto) (0-0.5) K/uL Baso # (Auto) (0-0.2) K/uL Immature Gran # (Auto) (0.00-0.02) K/uL RBC Morphology VBG pH (7.36-7.41) VBG pCO2 (38-50) mmHg VBG pO2 mmHg VBG HCO3 mmol/L VBG O2 Saturation % VBG Base Excess mEq/L Barometric Pressure mm/Hg Sodium (136-145) mmol/L Potassium (3.5-5.1) mmol/L Chloride (98-107) mmol/L Carbon Dioxide (21-32) mmol/L Anion Gap (3-11) BUN (7-18) mg/dl Creatinine (0.6-1.2) mg/dl Est Cr Clr Drug Dosing ml/min Est GFR ( Amer) Est GFR (Non-Af Amer) BUN/Creatinine Ratio (10-20) Glucose (70-99) mg/dl POC Glucose 278 H 220 H (70-99) mg/dl Calcium (8.5-10.1) mg/dl Phosphorus (2.5-4.9) mg/dl Magnesium (1.8-2.4) mg/dl 25-OH Vitamin D Total 59.2 (30-100) ng/ml Blood Type Blood Type Recheck Antibody Screen Crossmatch 02/05/20 02/05/20 02/05/20 Range/Units 16:29 16:29 15:17 WBC 8.24 (4.8-10.8) K/uL RBC 2.55 L (4.2-5.4) M/uL Hgb 8.2 L (12.0-16.0) g/dL Hct 24.1 L (37-47) % MCV 94.5 (80-100) fL MCH 32.2 (25-34) pg MCHC 34.0 (32-36) g/dL RDW Std Deviation 46.0 (36.4-46.3) fL RDW Coeff of Shady 13.2 (11.5-14.5) % Plt Count 120 L (130-400) K/uL MPV 10.2 (7.4-10.4) fL Immature Gran % (Auto) % Neut % (Auto) % Lymph % (Auto) % Jerauld % (Auto) % Eos % (Auto) % Baso % (Auto) % Neut # (Auto) (1.4-6.5) K/uL Lymph # (Auto) (1.2-3.4) K/uL J[place]uld # (Auto) (0.11-0.59) K/uL Eos # (Auto) (0-0.5) K/uL Baso # (Auto) (0-0.2) K/uL Immature Gran # (Auto) (0.00-0.02) K/uL RBC Morphology VBG pH 7.42 H (7.36-7.41) VBG pCO2 45 (38-50) mmHg VBG pO2 30 mmHg VBG HCO3 29 mmol/L VBG O2 Saturation < 60.0 % VBG Base Excess 3.6 mEq/L Barometric Pressure 730.8 mm/Hg Sodium (136-145) mmol/L Potassium (3.5-5.1) mmol/L Chloride (98-107) mmol/L Carbon Dioxide (21-32) mmol/L Anion Gap (3-11) BUN (7-18) mg/dl Creatinine (0.6-1.2) mg/dl Est Cr Clr Drug Dosing ml/min Est GFR ( Amer) Est GFR (Non-Af Amer) BUN/Creatinine Ratio (10-20) Glucose (70-99) mg/dl POC Glucose 270 H (70-99) mg/dl Calcium (8.5-10.1) mg/dl Phosphorus (2.5-4.9) mg/dl Magnesium (1.8-2.4) mg/dl 25-OH Vitamin D Total (30-100) ng/ml Blood Type Blood Type Recheck Antibody Screen Crossmatch 02/05/20 02/03/20 Range/Units 06:20 22:44 WBC (4.8-10.8) K/uL RBC (4.2-5.4) M/uL Hgb (12.0-16.0) g/dL Hct (37-47) % MCV (80-100) fL MCH (25-34) pg MCHC (32-36) g/dL RDW Std Deviation (36.4-46.3) fL RDW Coeff of Shady (11.5-14.5) % Plt Count (130-400) K/uL MPV (7.4-10.4) fL Immature Gran % (Auto) % Neut % (Auto) % Lymph % (Auto) % J[place] % (Auto) % Eos % (Auto) % Baso % (Auto) % Neut # (Auto) (1.4-6.5) K/uL Lymph # (Auto) (1.2-3.4) K/uL [place] # (Auto) (0.11-0.59) K/uL Eos # (Auto) (0-0.5) K/uL Baso # (Auto) (0-0.2) K/uL Immature Gran # (Auto) (0.00-0.02) K/uL RBC Morphology VBG pH (7.36-7.41) VBG pCO2 (38-50) mmHg VBG pO2 mmHg VBG HCO3 mmol/L VBG O2 Saturation % VBG Base Excess mEq/L Barometric Pressure mm/Hg Sodium (136-145) mmol/L Potassium (3.5-5.1) mmol/L Chloride (98-107) mmol/L Carbon Dioxide (21-32) mmol/L Anion Gap (3-11) BUN (7-18) mg/dl Creatinine (0.6-1.2) mg/dl Est Cr Clr Drug Dosing ml/min Est GFR ( Amer) Est GFR (Non-Af Amer) BUN/Creatinine Ratio (10-20) Glucose (70-99) mg/dl POC Glucose (70-99) mg/dl Calcium (8.5-10.1) mg/dl Phosphorus 2.3 L (2.5-4.9) mg/dl Magnesium 1.9 (1.8-2.4) mg/dl 25-OH Vitamin D Total (30-100) ng/ml Blood Type AB Negative Blood Type Recheck Antibody Screen NEGATIVE Crossmatch See Detail PG Care Time/CCT Total # of Minutes Spent Total Time Spent with Patient: Total time spent is greater than 50% in coordination of care (as documented) at patient's floor/unit and/or counseling patient: Coding Level of Care Code 86609 Subseq Hosp Care Lvl 3 Diagnoses Hip fracture S72.001A Encounter type: initial encounter Fracture type: closed Laterality: right Diabetes type 1, controlled E10.8 Diabetes mellitus complication status: with unspecified complications Dyslipidemia E78.5 Hypertension I10 Hypertension type: essential hypertension Focal seizures R56.9 Hypothyroidism E03.9 Hypothyroidism type: unspecified Elevated troponin R79.89 DKA, type 1 E10.10 DVT prophylaxis Z29.9 (1) Hip fracture Encounter type: initial encounter Fracture type: closed Laterality: right Qualified Code(s): S72.001A - Fracture of unspecified part of neck of right femur, initial encounter for closed fracture (2) Hypothyroidism Hypothyroidism type: unspecified Qualified Code(s): E03.9 - Hypothyroidism, unspecified (3) Diabetes type 1, controlled Diabetes mellitus complication status: with unspecified complications Qualified Code(s): E10.8 - Type 1 diabetes mellitus with unspecified complications (4) Hypertension Hypertension type: essential hypertension Qualified Code(s): I10 - Essential (primary) hypertension
[2020-02-06] MEDS: FERROUS SULFATE 325 MG TAB PO SCH (10:30)
[2020-02-06] MEDS: ASPIRIN 81 MG ECTAB PO SCH (10:30)
[2020-02-06] MEDS: ENOXAPARIN INJ 30 MG/0.3 ML SYR SQ SCH (10:30)
[2020-02-06] MEDS: CEROVITE ADV FORMULA TAB PO SCH (10:31)
[2020-02-06] MEDS: MAGNESIUM OXIDE 400 MG TAB PO SCH (10:31)
[2020-02-06] MEDS: CALCIUM CARBONATE 1250MG TAB PO SCH (10:31)
[2020-02-06] MEDS: CHOLECALCIFEROL 1,000 UNITS 25 MCG TAB PO SCH (10:31)
[2020-02-06] MEDS ORDERED: POTASSIUM PHOS 3 MMOL/1 ML INFUSION IV STA (11:46)
[2020-02-06] MEDS ORDERED: POTASSIUM PHOSPHATE 21 MMOL in SODIUM CHLORIDE 0.9% 500 ML IV ONE (12:15)
[2020-02-06] MEDS ORDERED: INSULIN GLARGINE SOLOSTAR 100 UNITS/ML 3 ML PEN SC ONE (13:15)
[2020-02-06] MEDS: levETIRAcetam 500 MG TAB PO SCH (14:15)
[2020-02-06] MEDS: ACETAMINOPHEN 500 MG TAB PO PRN (14:22)
--- NOTE | 2020-02-06 14:43 | Pharmacy Report ---
Glycemic Control Progress Note - Date of Service February 06, 2020 - Scope Glycemic Pharmacist consulted for glycemic control to write orders per [facility] inpatient glycemic control protocol. - Objective Accuchecks BSG(last 24 hours):: 02/05/20 02/05/20 02/05/20 15:17 17:13 21:17 Glucose POC Glucose 270 H 220 H 278 H 02/06/20 02/06/20 02/06/20 00:00 04:38 06:39 Glucose 178 H POC Glucose 296 H 213 H 02/06/20 02/06/20 02/06/20 08:31 11:58 12:01 Glucose POC Glucose 195 H 315 H* 335 H* - Recent Pertinent Medications The patient is currently receiving: * Basal insulin: Lantus 12 units every 24 hours (received an additional 3 units at noon) * Correctional Insulin: Novolog Correction per scale ACHS Goal Range: Low 120 mg/dL - High 170 mg/dL Correction Factor: 40 mg/dL/unit * Prandial insulin: Per carb ratio of 1 unit per 10 grams CHO consumed - Outpatient Anti-Diabetic Meds Novolog pump -see previous notes for settings - Assessment & Plan ASSESSMENT: * See progress note from 02/04/20 for more background info, in short: * Pt receiving SQ basal bolus insulin regimen for hyperglycemia secondary to baseline DM (outpatient regimen on hold). Patient is POD 2 for Novolog pump. * Patient is currently receiving an average of 43 units of insulin per day * 15 units of basal insulin * 28 units of prandial/correctional insulin * BSGs ranging 191 - 296 mg/dl over the past 24hrs * Changes needed to insulin regimen: * AM Fasting BSG = 195 mg/dl. This is slightly above goal range for patient based on inpatient targets and co-morbidities. Plan today was for to bring in insulin pump but he did not. Patient received an additional 6 units of Novolog overnight indicating she is basal deficient. Give 15 units now. (home regimen of 12 units plus a little more since insulin pump requirements are generally less than SQ requirements). * Post-prandial BSGs are very elevated. Carbohydrate ratio had been tightened last night. Tighten further tonight. * Total daily dose = ? units. TBD * Additional notes / comments: plan to restart insulin pump tomorrow per discussion with provider PLAN FOR INPATIENT GLYCEMIC CONTROL: * Increasing Lantus to 15 units SQ now * Continuing correction factor of 40 mg/dl/unit * TIGHTENING carb ratio to 1 unit per 8 grams CHO consumed * Continuing goal range of Low 110 mg/dL - High 140 mg/dL RECOMMENDATIONS FOR DISCHARGE: * patient may continue to follow with outpatient endocrinology Thank you.
[2020-02-06 14:57] LABS: Hematocrit (blood only) 29.8 % (37-47); Hemoglobin 9.7 g/dL (12.0-16.0); Mean Corpuscular Hemoglobin 30.1 pg (25-34); Mean Corpuscular Hgb Conc 32.6 g/dL (32-36); Mean Corpuscular Volume 92.5 fL (80-100); Mean Platelet Volume 10.8 fL (7.4-10.4); Platelet Count 148 K/uL (130-400); RDW Coefficient of Variation 14.8 % (11.5-14.5); Red Blood Count 3.22 M/uL (4.2-5.4); White Blood Count 11.34 K/uL (4.8-10.8)
--- NOTE | 2020-02-06 16:19 | Electrocardiogram Report ---
Test Reason : Blood Pressure : / mmHG Vent. Rate : 097 BPM Atrial Rate : 097 BPM P-R Int : 116 ms QRS Dur : 072 ms QT Int : 342 ms P-R-T Axes : 076 048 038 degrees QTc Int : 434 ms Sinus rhythm with Premature atrial complexes Diffuse Minor Nonspecific ST and T wave abnormality Abnormal ECG When compared with ECG of 04-FEB-2020 09:38, Nonspecific T wave abnormality now evident in Inferior leads Nonspecific T wave abnormality now evident in Anterolateral leads Confirmed by Wilmer Eagle ([id number]) on 02/06/2020 4:19:09 PM Referred By: Lynette Odom Confirmed By:Wilmer Eagle
[2020-02-06] MEDS: DOCUSATE SODIUM/SENNA 50/8.6MG TAB PO SCH (20:19)
[2020-02-06] MEDS: OXYCODONE HCL IR 5 MG TAB (IMMEDIATE RELEASE) PO PRN (20:51)
[2020-02-06 21:02] LABS: Appearance Urine Cloudy (Clear); Bacteria Urine Automated Negative (Negative); Bilirubin Urine Negative (Negative); Blood Urine Trace (Negative); Color Urine Yellow; Glucose Urine UA 1+ (Negative); Ketones Urine Negative (Negative); Leukocyte Esterase Urine 3+ (Negative); Nitrite Urine Negative (Negative); Protein Urine Trace (Negative); Urobilinogen Urine Negative (Negative); WBC Urine Automated >30 /hpf (0-5)
[2020-02-06 21:24] LABS: RBC Urine Automated 0-4 /hpf (0-4)
[2020-02-07] MEDS: ACETAMINOPHEN 500 MG TAB PO PRN ×2 (02:13→19:32)
[2020-02-07] MEDS: OXYCODONE HCL IR 5 MG TAB (IMMEDIATE RELEASE) PO PRN (02:13)
[2020-02-07] MEDS: INSULIN ASPART 100 UNITS/ML 3 ML PEN SC SCH ×6 (03:52→23:47)
[2020-02-07] MEDS: LEVOTHYROXINE SODIUM 125 MCG TABLET PO SCH (06:02)
[2020-02-07 06:19] LABS: Basophils # (auto) 0.02 K/uL (0-0.2); Basophils % (auto) 0.2 %; Eosinophils # (auto) 0.08 K/uL (0-0.5); Eosinophils % (auto) 0.9 %; Hematocrit (blood only) 23.5 % (37-47); Hemoglobin 7.8 g/dL (12.0-16.0); Immature Granulocytes # (auto) 0.02 K/uL (0.00-0.02); Immature Granulocytes % (auto) 0.2 %; Lymphocytes # (auto) 1.46 K/uL (1.2-3.4); Lymphocytes % (auto) 17.2 %; Mean Corpuscular Hemoglobin 29.9 pg (25-34); Mean Corpuscular Hgb Conc 33.2 g/dL (32-36); Mean Platelet Volume 10.4 fL (7.4-10.4); Monocytes # (auto) 0.67 K/uL (0.11-0.59); Monocytes % (auto) 7.9 %; Neutrophils # (auto) 6.23 K/uL (1.4-6.5); Neutrophils % (auto) 73.6 %; Platelet Count 116 K/uL (130-400); RDW Coefficient of Variation 15.1 % (11.5-14.5); RDW Standard Deviation 49.6 fL (36.4-46.3); Red Blood Count 2.61 M/uL (4.2-5.4); White Blood Count 8.48 K/uL (4.8-10.8)
[2020-02-07] MEDS ORDERED: SODIUM CHLORIDE 0.9% 250 ML IV PRN ×2 (06:30→06:54)
[2020-02-07 06:38] LABS: RBC Morphology Unremarkable
[2020-02-07 06:52] LABS: Albumin Level 2.1 gm/dl (3.4-5.0); BUN Creatinine Ratio 29.1 (10-20); Bilirubin Direct 0.1 mg/dl (0-0.2); Creatinine Clr Calc Pharmacy 69.7 ml/min; Est GFR (Non-African American) 88.9; Potassium 4.8 mmol/L (3.5-5.1)
[2020-02-07 06:55] LABS: Bilirubin,Total 0.6 mg/dl (0.2-1); Phosphorus 2.2 mg/dl (2.5-4.9); Total Protein 4.6 gm/dl (6.4-8.2)
[2020-02-07] MEDS ORDERED: SODIUM PHOSPHATE 3 MMOL/1 ML INFUSION IV STA (08:49)
[2020-02-07] MEDS ORDERED: SODIUM PHOSPHATE 21 MMOL in SODIUM CHLORIDE 0.9% 500 ML IV ONE (09:00)
[2020-02-07] MEDS: FERROUS SULFATE 325 MG TAB PO SCH (09:31)
[2020-02-07] MEDS: CHOLECALCIFEROL 1,000 UNITS 25 MCG TAB PO SCH (09:31)
[2020-02-07] MEDS: CALCIUM CARBONATE 1250MG TAB PO SCH (09:32)
[2020-02-07] MEDS: MAGNESIUM OXIDE 400 MG TAB PO SCH (09:32)
[2020-02-07] MEDS: levETIRAcetam 500 MG TAB PO SCH (09:32)
[2020-02-07] MEDS: CEROVITE ADV FORMULA TAB PO SCH (09:32)
[2020-02-07] MEDS: ENOXAPARIN INJ 30 MG/0.3 ML SYR SQ SCH (09:33)
[2020-02-07] MEDS: ASPIRIN 81 MG ECTAB PO SCH (09:33)
--- NOTE | 2020-02-07 12:16 | Pharmacy Report ---
Glycemic Control Progress Note - Date of Service February 07, 2020 - Scope Glycemic Pharmacist consulted for glycemic control to write orders per [facility] inpatient glycemic control protocol. - Objective Accuchecks BSG(last 24 hours):: 02/06/20 02/06/20 02/06/20 16:18 17:46 20:04 Glucose POC Glucose 274 H 230 H 194 H 02/06/20 02/07/20 02/07/20 23:52 03:51 05:47 Glucose 162 H POC Glucose 151 H 167 H 02/07/20 08:30 Glucose POC Glucose 204 H - Recent Pertinent Medications The patient is currently receiving: * Basal insulin: Lantus 15 units every 24 hours * Correctional Insulin: Novolog Correction per scale ACHS Goal Range: Low 120 mg/dL - High 170 mg/dL Correction Factor: 40 mg/dL/unit * Prandial insulin: Per carb ratio of 1 unit per 8 grams CHO consumed - Outpatient Anti-Diabetic Meds Novolog pump - Assessment & Plan ASSESSMENT: * See progress note from 02/04/20 for more background info, in short: * Pt receiving SQ basal bolus insulin regimen for hyperglycemia secondary to baseline DM (outpatient regimen on hold). * Patient is currently receiving an average of 41 units of insulin per day * 15 units of basal insulin * 26 units of prandial/correctional insulin * BSGs ranging 151 - 315 mg/dl over the past 24hrs * Changes needed to insulin regimen: * AM Fasting BSG = 204 mg/dl. This is slightly above goal range for patient based on inpatient targets and co-morbidities. There was a plan today to start patient's own insulin pump today. Patient's brought in insulin pump without any supplies. Site is 7 days old. After discussion with physician, will continue with basal bolus for today. to bring in own supplies tomorrow including pump set and material to change DexCom. will be present for all meals to bolus patient. * Post-prandial BSGs were elevated yesterday -- however did trend down after tightening of carbohydrate ratio. Continue. * Total daily dose = ~40 units. This is much higher than what patient requires at home. Per , she requires around 25 units/day. PLAN FOR INPATIENT GLYCEMIC CONTROL: * Continuing Lantus 15 units SQ with lunch * Continuing correction factor of 40 mg/dl/unit * Continuing carb ratio of 1 unit per 8 grams CHO consumed * Continuing goal range of Low 110 mg/dL - High 140 mg/dL RECOMMENDATIONS FOR DISCHARGE: * Case management spoke with Lynette. * It is okay to continue insulin pump -- Lynette will manage. Thank you.
[2020-02-07] MEDS ORDERED: INSULIN GLARGINE SOLOSTAR 100 UNITS/ML 3 ML PEN SC ONE (12:30)
--- NOTE | 2020-02-07 17:59 | Orthopedic Progress Note ---
Date of Service February 07, 2020 Assessment & Plan (1) Closed intertrochanteric fracture of right hip: Making expected progress that postoperative day #3. She has remained inpatient to manage acute blood loss related to fracture and surgery. She has responded well to the transfusion. She has also required management of her blood glucose and insulin pump. The edema in her thigh is expected and directly related to perioperative blood loss through the fracture. -Continue plan of care. Hospitalist management is much appreciated. -Continue to change dressing daily, or as needed. -Hip abduction pillow has not required, but she can use for comfort if it helps. -Continue PT/OTweightbearing as tolerated. I encouraged range of motion through the leg to help mobilize some of the fluid. -Continue DVT prophylaxis, defer to medical team for choice of agent upon discharge. Duration should be for 6 weeks or until restores to preoperative level of function and walking. -Disposition: May be discharge when deemed ready by the hospitalist team. No further need for inpatient orthopedic service. I placed discharge and follow-up information into the instructions. Admission and Anticipated Discharge Date Admission Date: February 03, 2020 Subjective Evaluated as she remains an inpatient. in the room. They both report that she is making progress. Pain is tolerable. She had some discomfort overnight and it appears that an abduction pillow was used. She has remained as an inpatient to manage blood glucose. They report that she took several steps in the room. Review of Systems Review of Systems: All systems reviewed & are unremarkable except as noted in HPI & below Physical Exam Physical Exam: Right lower extremity: Dressing was taken down to reveal well approximated incisions without active drainage. There is no erythema. The thigh compartments are full, as expected. There is moderate edema about the knee. She has positive dorsiflexion, plantarflexion, and EHL activity. There is a palpable 2+ DP pulse. Constitutional: well developed and well nourished; no acute distress and not intoxicated appearing Respiratory: normal respiratory effort; no respiratory distress Cardiovascular: Extremities: normal capillary refill; no edema Skin: no rashes, warm and dry Psychiatric: A+Ox3, euthymic affect Results & Data ([facility]) Vital Signs (Past 12 Hours) Vital Signs Temp Pulse Pulse Pulse Resp BP BP 02/07/20 15:10 36.9 C 93 H 18 02/07/20 12:00 36.8 C 60 60 20 119/71 119/71 08/28/20 11:27 36.7 C 93 H 16 120/68 02/07/20 10:27 36.9 C 76 16 110/58 L 02/07/20 09:57 36.7 C 88 18 97/48 L 02/07/20 09:40 36.7 C 89 18 106/66 02/07/20 09:25 36.7 C 82 18 115/54 L 02/07/20 07:39 36.4 C L 84 20 BP Pulse Ox 02/07/20 15:10 113/65 99 02/07/20 12:00 96 02/07/20 11:27 98 02/07/20 10:27 97 02/07/20 09:57 96 02/07/20 09:40 93 02/07/20 09:25 92 02/07/20 07:39 128/72 97 PG Care Time/CCT Total # of Minutes Spent Total Time Spent with Patient: Total time spent is greater than 50% in coordination of care (as documented) at patient's floor/unit and/or counseling patient: Coding Level of Care Code None Diagnoses Closed intertrochanteric fracture of right hip S72.141A Encounter type: initial encounter (1) Closed intertrochanteric fracture of right hip Encounter type: initial encounter
[2020-02-07] MEDS: POLYETHYLENE (MIRALAX) 17 GM PACK PO SCH ×2 (19:32→21:24)
--- NOTE | 2020-02-07 21:17 | Hospitalist Progress Note ---
Date of Service February 07, 2020 Assessment & Plan (1) Closed intertrochanteric fracture of right hip: POD #3 s/p right hip ORIF. Doing well from surgical standpoint. DVT proph - lovenox 30mg daily. 25-OH vit D level 59. Pain controlled. Dispo - [facility] portion for rehab. (2) Acute blood loss anemia: Pre-surgical Hb 11.9. Now 7.8. Tx 1 unit PRBCs today. CBC in am. Cont ferrous sulfate supplementation. No evidence of GI bleeding. (3) Diabetes type 1, controlled: spoke with pharmacy who continues to manage T1DM. cont basal-bolus insulin SC. transition to pump in am. (4) Insulin pump in place: bringing necessary hook-up supplies in am. transition to pump in am on 02/07. long-standing DM for decades. (5) Hypothyroidism: TSH this admission wnl. Cont synthroid. (6) Dyslipidemia: (7) Elevated troponin: NO ischemic symptoms during the admission. Myocardial demand ischemia in setting of acute blood loss anemia. EKGs have been wnl. Follow. (8) Constipation: already on senna/colace. add miralax BID. milk of mag prn. no evidence of ileus. (9) Focal seizures: cont keppra prophylaxis. no issues while hospitalized. (10) DVT prophylaxis: lovenox 30mg daily. cont DVT proph x 30 days post-op. updated at bedside. dispo - [facility] portion of [facility], hopefully d/c on 02/07. Admission and Anticipated Discharge Date Admission Date: February 03, 2020 Subjective patient c/o constipation. passing flatus, but no stool since her surgery. suffers from chronic constipation at home. denies abd pain. eating fine. hip pain controlled. at bedside -- he confirms he will bring all necessary insulin pump supplies in am. they ask about d/c. Review of Systems Constitutional: no fever Respiratory: no cough and no dyspnea Cardiovascular: no chest pain Gastrointestinal: no abdominal pain, no nausea and no vomiting Physical Exam Constitutional: + thin; no acute distress and no altered mental status ENMT: external ear and nose normal, oropharynx normal Respiratory: normal respiratory effort, lungs clear to auscultation Cardiovascular: Rate/Rhythm: regular rate and + irregularly irregular (extra beats) Heart Sounds: normal S1 and normal S2; no murmur Vessels: posterior tibial pulses present and dorsalis pedis pulses present; no JVD Extremities: + edema (trace b/l ) Gastrointestinal (Abdomen): Inspection/Auscultation: + abdomen distended (minimal ) and normal bowel sounds Percussion/Palpation: abdomen nontender, no guarding and no hepatosplenomegaly Skin: right lateral thigh incision c/d/i Psychiatric: A+Ox3, euthymic affect Results & Data Results & Data ([facility]) Vital Signs (Past 12 Hours) Vital Signs Temp Pulse Pulse Pulse Resp BP BP 02/07/20 15:10 36.9 C 93 H 18 02/07/20 12:00 36.8 C 60 60 20 119/71 119/71 02/07/20 11:27 36.7 C 93 H 16 120/68 02/07/20 10:27 36.9 C 76 16 110/58 L 02/07/20 09:57 36.7 C 88 18 97/48 L 02/07/20 09:40 36.7 C 89 18 106/66 02/07/20 09:25 36.7 C 82 18 115/54 L BP Pulse Ox 02/07/20 15:10 113/65 99 02/07/20 12:00 96 02/07/20 11:27 98 02/07/20 10:27 97 02/07/20 09:57 96 02/07/20 09:40 93 02/07/20 09:25 92 Laboratory Results Hb 7.8 Cr 0.5 BSGs improved with most now <225 PG Care Time/CCT Total # of Minutes Spent Total Time Spent with Patient: Total time spent is greater than 50% in coordination of care (as documented) at patient's floor/unit and/or counseling patient: Coding Level of Care Code 43270 Subseq Hosp Care Lvl 2 Diagnoses Closed intertrochanteric fracture of right hip S72.141A Encounter type: initial encounter Acute blood loss anemia D62 Diabetes type 1, controlled E10.8 Diabetes mellitus complication status: with unspecified complications Insulin pump in place Z96.41 Hypothyroidism E03.9 Hypothyroidism type: unspecified Dyslipidemia E78.5 Elevated troponin R79.89 Constipation K59.00 Focal seizures R56.9 DVT prophylaxis Z29.9 (1) Closed intertrochanteric fracture of right hip Encounter type: initial encounter (2) Diabetes type 1, controlled Diabetes mellitus complication status: with unspecified complications Qualified Code(s): E10.8 - Type 1 diabetes mellitus with unspecified complications (3) Hypothyroidism Hypothyroidism type: unspecified Qualified Code(s): E03.9 - Hypothyroidism, unspecified
[2020-02-07] MEDS: DOCUSATE SODIUM/SENNA 50/8.6MG TAB PO SCH (21:24)
[2020-02-08] MEDS: HYDROmorphone INJ 0.5 MG/0.5 ML SYR IV PRN (01:18)
[2020-02-08] MEDS: INSULIN ASPART 100 UNITS/ML 3 ML PEN SC SCH ×2 (05:13→09:27)
[2020-02-08] MEDS: LEVOTHYROXINE SODIUM 125 MCG TABLET PO SCH (06:14)
[2020-02-08 07:04] LABS: Basophils # (auto) 0.05 K/uL (0-0.2); Basophils % (auto) 0.6 %; Eosinophils # (auto) 0.25 K/uL (0-0.5); Hematocrit (blood only) 31.4 % (37-47); Hemoglobin 10.2 g/dL (12.0-16.0); Immature Granulocytes # (auto) 0.04 K/uL (0.00-0.02); Immature Granulocytes % (auto) 0.5 %; Mean Corpuscular Hemoglobin 29.7 pg (25-34); Mean Corpuscular Hgb Conc 32.5 g/dL (32-36); Mean Corpuscular Volume 91.3 fL (80-100); Mean Platelet Volume 10.4 fL (7.4-10.4); Monocytes # (auto) 0.79 K/uL (0.11-0.59); Monocytes % (auto) 9.5 %; Neutrophils # (auto) 4.75 K/uL (1.4-6.5); Neutrophils % (auto) 57.4 %; Platelet Count 160 K/uL (130-400); RDW Coefficient of Variation 14.6 % (11.5-14.5); Red Blood Count 3.44 M/uL (4.2-5.4); White Blood Count 8.28 K/uL (4.8-10.8)
[2020-02-08 07:34] LABS: BUN Creatinine Ratio 24.8 (10-20); Calcium 8.2 mg/dl (8.5-10.1); Creatinine Clr Calc Pharmacy 62.2 ml/min; Est GFR (African American) 99.2; Est GFR (Non-African American) 85.6; Potassium 4.4 mmol/L (3.5-5.1)
[2020-02-08 08:04] VITALS: BP 139/71; PULSE 82; TEMP 98.1; O2SAT 98
[2020-02-08 09:08] LABS: Folate (Folic Acid) 8.65 ng/ml (>5.38)
--- NOTE | 2020-02-08 09:16 | Hospitalist Progress Note ---
Date of Service February 08, 2020 Assessment & Plan Admission and Anticipated Discharge Date Admission Date: February 03, 2020 Results & Data Results & Data ([facility]) Vital Signs (Past 12 Hours) Vital Signs Temp Pulse Resp BP BP Pulse Ox 02/08/20 08:00 36.7 C 82 16 139/71 98 02/07/20 23:13 36.6 C 103 H 18 151/75 H 94 PG Care Time/CCT Total # of Minutes Spent Total Time Spent with Patient: Total time spent is greater than 50% in coordination of care (as documented) at patient's floor/unit and/or counseling patient: Coding
[2020-02-08] MEDS: POLYETHYLENE (MIRALAX) 17 GM PACK PO SCH (09:29)
[2020-02-08] MEDS: ASPIRIN 81 MG ECTAB PO SCH (09:29)
[2020-02-08] MEDS: CALCIUM CARBONATE 1250MG TAB PO SCH (09:29)
[2020-02-08] MEDS: MAGNESIUM OXIDE 400 MG TAB PO SCH (09:30)
[2020-02-08] MEDS: ENOXAPARIN INJ 30 MG/0.3 ML SYR SQ SCH (09:30)
[2020-02-08] MEDS: CHOLECALCIFEROL 1,000 UNITS 25 MCG TAB PO SCH (09:31)
[2020-02-08] MEDS: levETIRAcetam 500 MG TAB PO SCH (09:31)
[2020-02-08] MEDS: CEROVITE ADV FORMULA TAB PO SCH (09:31)
[2020-02-08] MEDS: FERROUS SULFATE 325 MG TAB PO SCH (09:31)
[2020-02-08] MEDS: OXYCODONE HCL IR 5 MG TAB (IMMEDIATE RELEASE) PO PRN (09:40)
[2020-02-08] MEDS ORDERED: CYANOCOBALAMIN 500 MCG TABLET (VITAMIN B-12) PO SCH (09:45)
--- NOTE | 2020-02-08 10:23 | Discharge Summary ---
Date of Service February 08, 2020 Admission HPI Per Admitting Provider Gricelda Doyle is an 84yo C female with history of HTN, HLP, DM Type I on insulin pump. Patient had an episode of dizziness today after getting out of a chair and fell onto her right hip. Denies head trauma or LOC. She denies CP, palpitations, cough, SOB. No fevers/chills/abdominal pain/nausea/vomiting. On arrival to the ER patient found to be afebrile, HD stable, X-ray revealed fracture of right hip. Patient's is at bedside and states that patient's blood sugars are quite variable. He says that they range anywhere from 40 - 400 and that they change rapidly. Patient has an insulin pump in place. states that her basal rate is typically 0.5u/hr and CR=1:15. No additional complaints at this time. Admission Exam Per Admitting Provider General: patient resting comfortably, NAD, non-toxic in appearance, AA&O x 4 Skin: warm, dry, intact, no rashes or lesions HEENT: NC/AT, PERRL, EOMI, anicteric sclera, conjunctiva without injection, external ear normal to inspection and nontender, nares patent, moist mucus membranes, dentition intact, no oropharyngeal lesions, neck supple, trachea midline, no LAD, no thyromegaly, no JVD Heart: +S1/S2, regular, no m/r/g Lungs: equal air entry bilaterally, no rales/rhonchi/wheezes Abd: +BS, soft, NT/ND, no masses/organomegaly/ascites Ext: warm, 2+ pulses in UE/LE bilaterally, no clubbing/cyanosis or edema Neuro: nonfocal, patient AA&O x 4, speech intact, no facial droop, moving all extremities on command with equal strength 5/5 Principal Diagnosis Right Hip Fracture Discharge Exam Constitutional well developed; no acute distress Eyes + anicteric sclerae and PERRL ENMT Ears: no EAC abnormality Nose: no external nose abnormality Neck normal visual inspection Respiratory normal respiratory effort, lungs clear to auscultation Cardiovascular Rate/Rhythm: regular rate and regular rhythm (extra beats) Heart Sounds: no murmur Extremities: no edema Gastrointestinal (Abdomen) normal bowel sounds, soft, nontender, no hepatosplenomegaly Inspection/Auscultation: + abdomen distended (minimal) Percussion/Palpation: abdomen nontender insulin pump in place Musculoskeletal dressing to R hip c/d/i minimally tender to palpation decreased hematoma at surgical site Neurologic patellar DTR's 2+ bilat, sensation intact and PERRL, EOMI, accommodation nl, no face palsy, no dysarthria Psychiatric A+Ox3, euthymic affect Orientation: alert, oriented x 3 and cooperative Lymphatic no cervical or axillary lymphadenopathy Discharge Data Allergies Allergy/AdvReac Type Severity Reaction Status Date / Time No Known Allergies Allergy Verified 02/03/20 23:13 Consultations 02/03/20 23:15 ED Decision to Admit Stat 02/04/20 00:51 Consult Case Management - Discharge Planning Routine 02/04/20 15:41 Consult Case Management - Discharge Planning Routine Procedures Performed Operation Date: 02/04/20 10:50 Actual Procedures p Right Hip Interrochanteric Nailing (Short Nail)(Right) - Konrad Kaplan Ordered Studies 02/04/20 14:30 FL fluoroscopy <1hr Routine FL hip RT 2-3V Routine Hip XRAY Hospital Course (1) Closed intertrochanteric fracture of right hip: POD #4 s/p right hip ORIF with Dr. Kaplan on 02/03 Pre-surgical Hb 11.9 and had dropped <8 requiring total of 2units PRBC during admission. h/h stable at 10. DVT proph - lovenox 30mg daily. 25-OH vit D level 59 and on replacement therapy -- continued at discharge Discharged to [facility] ([facility]) with transition back to [facility] after rehab (2) Acute blood loss anemia: h/h stable at 10. -- did req 2 u PRBC during admission Continued outpatient ferrous sulfate B12 borderline low and ordered oral replacement, continued at discharge No evidence of GI bleeding (3) Diabetes type 1, controlled: Brittle diabetic. Basal rate 0.5u/h with CR 1:15 Was placed on basal-bolus insulin SC while inpatient with mild DKA on admission. Blood sugars very variable (40-400) outpatient as well as inpatient even with pharmacy management. Had been receiving well above her home regimen with sugars still getting close to 300. Patient was transitioned back to her home insulin pump where she typically receives ~12 units basal insulin daily in hopes to gain better control at discharge with a continuous rate. Patient did have continuous glucose monitor present prior to surgery and transmitter shows stopped transmitting around 7pm 02/03 (patient arrived back to nursing unit around 5pm) so it must have been lost in between that time frame. Contacted PACU and charge nurse to contact [facility] office supervisor to see about possible replacement although seemed to be ok with obtaining new one --> to be followed up by nursing next week. Patient discharged on her home pump although will have [facility]mer Baca check blood sugars manually and use scale provided by , as he is not allowed to visit her over there and had been going for every meal to bolus patient during previous rehab. Follow up with Endocrinology outpatient (4) Insulin pump in place: bringing necessary hook-up supplies in am although CBG monitor lost as above (to call hospital next week for possible replacement). Per , patient's sugars are quite variable and they follow with Endocrinology locally with goal BSG 150 stopped transmitting on Monday night -- so it must have been removed in PACU or once back to the floor (of note, patient had sugars checked and was visible prior to being taken down for surgery as gave 2 unit bolus via pump prior to being taken down) long-standing DM for decades and follows with Endocrinology -- to follow up post-discharge (5) Hypothyroidism: TSH this admission wnl. Cont synthroid. (6) Dyslipidemia: Chronic Continue fish oil outpatient (7) Elevated troponin: NO ischemic symptoms during the admission. Myocardial demand ischemia in setting of acute blood loss anemia. EKGs have been wnl. (8) Constipation: already on senna/colace. added miralax BID. can continue bowel regimen at discharge to ensure continues to move her bowels. She had several BM 02/05 and per she typically does not go daily and is forgetful with short term memory (9) Focal seizures: cont keppra prophylaxis. no issues while hospitalized. (10) DVT prophylaxis: Lovenox 30mg daily --> continue for 30 days post-op for DVT prevention B12 level only slightly above "normal" at 256 -- started on and continued B12 supplementation at discharge Of note, would have low threshold for repeat UA/Cx if patient has any urinary symptoms as she did have doll placed. UA on admission without infection. Discharged to [facility] ([facility] portion of [facility]) Total Time Total Time Spent Total Time Spent (In Minutes): 75 Discharge Plan Discharge Items Patient Disposition: Transfer Custodial Fac Reason For Visit: HIP FRACTURE Discharge Diagnosis: Right intertrochanteric hip fracture Goals: You have been hospitalized for an urgent problem which required surgery. During your stay at [facility], we have made an effort to correct the problem that brought you to the hospital while keeping you as comfortable as possible. Surgery and medications were used to bring your condition under con trol and your discharge instructions will include directions for any medications you should take after leaving the hospital. Please make sure to follow the advice of your surgeon regarding follow up with the surgeon and with your primary care provider. Activity: Per Instructions section Non-emergency contact: Primary Care Provider and Surgeon Call non-emergency contact if: you have any medication questions, your symptoms worsen and your pain is not controlled Follow-up/Referrals: Konrad Kaplan [Surgeon] - Walter Jeter MD [Primary Care Provider] - Diet: Carb Count or DM1 Addtl Attending Provider Instructions: You have been hospitalized for a right hip fracture. You were taken to surgery for repair and required blood transfusions for acute blood loss following surgery. You blood counts are improved and stable following blood administration. Your vitamin D level was checked and is within normal limits. You should continue your daily supplements at discharge. Your B12 level appears to be slightly on the lower end and you should continue w ith B12 supplementation to ensure proper blood production as discussed. Please continue to utilize miralax as needed for constipation while you are using pain medications. You are being discharged on your home insulin pump and should follow up with Endocrinology at discharge for further management. They will check your blood sugars and bolus as needed based on previous recommendations from endocrine and have been filled out to provide to Wilmer Baca by . Please follow up with orthopedics in two weeks to monitor your progress. Please follow up with your primary care provider in one week to follow up following your hospitalization and surgery. If you develop any urinary symptoms, would recommend repeating urine analysis and culture in the meantime. It has been a pleasure being a part of the medical team providing for you while you have been in the hospital. Take care! Addtl Senior Sharepoint Architect Provider Instructions: Orthopaedic Instructions after Hip Fracture Surgery: Please keep your wound clean and dry. Do not remove any of the zulema. Zulema were removed at your follow-up appointment with orthopedic surgery. Please continue daily dressing changes until your follow-up appointment. If there is no drainage onto the dressing for total of 24 hours, you may shower after 5 days from surgery. Allow soap and water to run over the incision, no scrubbing, and pat dry. Do not submerse (sitting in bathtub, hot tub, jacuzzi, pool, etc) the wound for at least 3 weeks. You may bear weight on your lower extremities as tolerated. Please use the walker or as instructed by physical therapy. For pain control please use Tylenol as needed. You can also apply ice to the surgical site. To reduce the risk of dangerous blood clots please continue Lovenox SQ for the next 6 weeks. Pending Studies at Discharge: No Stand-Alone Forms: My [facility] Skilled Items Patient informed of condition?: Yes DNR: No Discharge Level of Care: Skilled Communicable Disease: No Discharge Prognosis: Improving Lines: None Urinary Catheter: No Medications and DC Order Prescriptions: New polyethylene glycol 3350 [Miralax] 17 gram Powder In Packet 17 g PO BID 30 Days Qty: 30 RF: 0 sennosides-docusate sodium [Senokot-S] 8.6-50 mg Tablet 2 tab PO HS 30 Days Qty: 60 RF: 0 cyanocobalamin (vitamin B-12) 500 mcg Tablet 500 mcg PO QAM 30 Days Qty: 30 RF: 0 oxycodone 5 mg Tablet 5 mg PO Q4H PRN (Reason: pain) Qty: 12 RF: 0 enoxaparin [Lovenox] 30 mg/0.3 mL Syringe 30 mg subcut QAM 90 Days Qty: 27 RF: 0 Continued magnesium oxide 400 mg (241.3 mg magnesium) Tablet 400 mg PO QAM Qty: 0 RF: 0 lisinopril 2.5 mg Tablet 2.5 mg PO QAM Qty: 0 RF: 0 omega 1-ads-ysv-fish oil [Fish Oil] 1,000 mg (120 mg-180 mg) capsule 1 cap PO DAILY Qty: 0 RF: 0 cholecalciferol (vitamin D3) [Vitamin D3] 5,000 unit tablet 5,000 unit PO DAILY Qty: 0 RF: 0 aspirin 81 mg tablet,delayed release (DR/EC) 81 mg PO DAILY Qty: 0 RF: 0 coenzyme Q10 100 mg capsule 100 mg PO DAILY Qty: 0 RF: 0 ferrous sulfate [iron] 325 mg (65 mg iron) tablet 65 mg PO QAM Qty: 0 RF: 0 (DME) insulin syringe-needle U-100 [BD Insulin Syringe Ultra-Fine] 0.5 mL 31 gauge x 5/16" syringe See Dose Instructions .ROUTE .MEDSUPPLY Qty: 10 RF: 0 calcium carbonate [Calcium 600] 600 mg calcium (1,500 mg) tablet 600 mg PO DAILY RF: 0 (DME) Contour Next Test Strips strip See Dose Instructions .ROUTE .MEDSUPPLY Qty: 10 RF: 0 rivastigmine [Exelon] 9.5 mg/24 hr patch 24 hour 9.5 mg Topical DAILY 90 Days Qty: 0 RF: 0 levetiracetam [Keppra XR] 500 mg tablet extended release 24 hr 500 mg PO DAILY 30 Days Qty: 30 RF: 5 PreserVision Lutein 226 mg-200 unit -5 mg-0.8 mg Capsule 1 cap PO BID RF: 0 insulin aspart U-100 [Novolog U-100 Insulin aspart] 100 unit/mL solution 25 units continuous IV infusion DAILY RF: 0 levothyroxine 125 mcg tablet 125 mcg PO DAILY RF: 0 Discharge Orders: Discharge Order (Routine); Ordered 02/08/20 Ordered By: Bhakti Bernal Admission Data Admit Date/Time: 02/03/20 23:30 Attending Provider: Gavin Salomon Admit Provider: Noa Chavarria Primary Care Provider: Walter Jeter Other Providers: Konrad Kaplan Other Interventions: Discharge Summary Assessment (RN) Last Done: 02/08/20 14:16 Supervising Physician Co-Signing Physician Notes Attending Attestation and Discharge Note: Pt seen/examined, chart reviewed, discharge care plan d/w CADE Bernal. I agree w/ the blackwood components of her documentation. 84yo female with T1DM on insulin pump who presented with right hip fracture following a fall. Underwent ORIF by Dr Konrad Kaplan. Post-op course complicated by acute blood loss anemia requiring PRBC transfusion. Also with uncontrolled DM - pharmacy provided blackwood recommendations for management. Ultimately transitioned back to her pump prior to discharge. pathological right hip fracture 2nd to osteoporosis discharge exam: gen - NAD neck - no JVD heart - RRR, s1, s2 lungs - CTA b/l abd - soft NT ext - mild edema right thigh skin - dressings c/d/i right thigh Gavin Salomon MD Coding Level of Care Code D/C Day Management >30 mins Diagnoses Closed intertrochanteric fracture of right hip S72.141A Encounter type: initial encounter Acute blood loss anemia D62 Diabetes type 1, controlled E10.8 Diabetes mellitus complication status: with unspecified complications Insulin pump in place Z96.41 Hypothyroidism E03.9 Hypothyroidism type: unspecified Dyslipidemia E78.5 Elevated troponin R79.89 Constipation K59.00 Focal seizures R56.9 DVT prophylaxis Z29.9
[2020-02-08] MEDS ORDERED: INSULIN ASPART 100 UNITS/ML VIAL SC PRN (10:30)
[2020-02-08] MEDS ORDERED: NovoLOG INSULIN PUMP SCH (11:30)
[2020-02-08] MEDS ORDERED: INSULIN ASPART 100 UNITS/ML 3 ML PEN SC SCH (12:00)
[2020-02-08] MEDS: INSULIN GLARGINE SOLOSTAR 100 UNITS/ML 3 ML PEN SC ONE ×2 (13:49→13:55)
== END 2020-02-08 14:45 | DRG 480 ==
LOC: ED 21:52 → 3N 23:30 → SUATTDRO 23:30 → 3N 02-04 00:04

== ENCOUNTER 2021-04-16 05:57 | Inpatient (IN) ==
[2021-04-16] MEDS ORDERED: ONDANSETRON INJ 2 MG/ML 2 ML VIAL IV STA (06:16)
[2021-04-16] MEDS ORDERED: SODIUM CHLORIDE 0.9% 1000ML 2,000 ML IV ONE (06:16)
[2021-04-16] MEDS ORDERED: CALCIUM CHLORIDE 10% 1,000 MG in SODIUM CHLORIDE 0.9% 50 ML IV STA (06:29)
[2021-04-16] MEDS ORDERED: NovoLIN-R INSULIN PER UNIT CHARGE IV STA (06:29)
[2021-04-16] MEDS ORDERED: CALCIUM CHLORIDE 10% 10 ML SYR IV ONE (06:33)
--- NOTE | 2021-04-16 06:42 | Emergency Department Note ---
Impression & Plan DKA (diabetic ketoacidosis), AMS (altered mental status), Anemia, Acute GI bleeding, Acute hyperkalemia, Abnormal EKG, IRENA (acute kidney injury) ED Provider Note With IVNAME: JORDON PALENCIA AGE: 86 SEX: F : 1935 ARRIVES VIA: Ambulance INFORMANT: Patient, the patient's significant other, EMS personnel ED PROVIDER(S): Aman Akhtar DO CHIEF COMPLAINT: Altered mental status HPI: The patient is an 86-year-old female who presented to the emergency department with her significant other by ambulance. The patient was starting having symptoms according to the significant other around midnight. The patient is confused which is not her baseline and she is unable to give much of the history. The patient herself is not complaining of chest pain. She denies having any abdominal pain. Her significant other states she has been having headache and nausea since last evening he thinks around midnight. He is also been noticing that her blood sugar has been elevated since yesterday. Normally she has very well-controlled blood sugar with an insulin pump. Insulin pump was changed approximately 4 to 5 days ago and have been working fine. The patient arrived via ambulance because of worsening symptoms. It sounds though she did have one episode of emesis. The patient denies having any fever. She denies having any weakness in the arms or legs. The patient was noted to have a very abnormal EKG and I was called to her room immediately for concerns of ischemia. ROS: See above HPI for pertinent positives & negatives. A total of 10 systems reviewed and were otherwise negative. PAST MEDICAL HISTORY: See Below PAST SURGICAL HISTORY: See Below FAMILY HISTORY: See Below SOCIAL HISTORY: See Below HOME MEDICATIONS: See Below ALLERGIES: See Below VITALS: See Below PHYSICAL EXAMINATION: GENERAL: The patient is awake to loud verbal commands but keeps her eyes closed for most of the evaluation. EYES: The conjunctivae are clear. The pupils are round and reactive. EARS, NOSE, MOUTH AND THROAT: The nose is without any evidence of any deformity. Mucous membranes are dry. NECK: The neck is nontender and supple. RESPIRATORY: Mild tachypnea was noted. Lungs were clear to auscultation. CARDIOVASCULAR: Regular rate and rhythm noted there no murmurs rubs or gallops normal S1 normal S2. GASTROINTESTINAL: The abdomen is soft and nondistended. There is diffuse tenderness to palpation. There is no guarding or rigidity. Rectal exam revealed brown stool which was heme positive. MUSCULOSKELETAL/EXTREMITIES: There is no evidence of gross deformity full range of motion is noted in the hips and shoulders. SKIN: Skin is warm and dry. Trace pedal edema was noted bilaterally. NEUROLOGIC: Patient is awake to verbal commands. She is not oriented to place or situation but appears to recognize her significant other and response to his voice. She is moving all extremities. MEDICAL DECISION MAKING: The patient is an 86-year-old female who presented to the emergency department with her significant other for evaluation of nausea vomiting. The patient had altered mental status. She was found to have DKA on laboratory studies. Her initial EKG was very abnormal with QRS widening and abnormal T waves. This is likely secondary to her elevated potassium. She was treated with calcium as well as IV fluids and IV insulin in the emergency department. On reevaluation her EKG significantly improved. I discussed the patient's laboratory and radiographic studies with her and her significant other. She received IV antibiotics IV fluids and IV insulin under DKA protocol. She also had a central line placed. Blood pressure slowly improved while she was in the emergency department. I discussed the patient's condition with the on-call [facility] hospitalist group. They've agreed to evaluate the patient in the emergency department for further management and disposition. Triage Nursing notes reviewed. Prior medical records reviewed Vital Signs: reviewed and remarkable for hypotension. Differential diagnosis: Infection, dehydration, metabolic abnormality, hypo/hyperglycemia, electrolyte disturbance, anemia, hypoxia, cardiac sources, intracerebral event, toxicologic, neurologic, as well as other pathologies. ER treatment provided: See below Diagnostics interpreted by me: ECG: EKG was obtained in the emergency department. My interpretation is sinus rhythm at 78 bpm. Sinus arrhythmia was noted. Diffuse ST depression with peak T waves were noted. A right bundle branch block pattern was also appreciated. This was compared to a tracing from February 052019. The EKG changes are new compared to the earlier tracing. A second EKG was obtained in the emergency department after treatment with calcium and insulin. My interpretation is sinus rhythm at 94 bpm. PACs were noted. Persistence of inferior and low lateral ST depressions was noted. This was compared again to a tracing from February 052019. The appearance is similar however the ST segment depressions are new. Cardiac Monitoring: An order was placed for continuous cardiac monitoring. The monitor shows a rate of 84 bpm with sinus rhythm. Laboratory studies: As stated above and show below. Imaging studies: See below Consultation(s): I discussed this case with Dr. Leon who is on-call for the [facility] hospitalist group. ED COURSE: Procedures: Femoral Central Venous Catheter Indication: DKA Catheter Type: Triple-lumen left femoral vein Location: Verbal consent was obtained after the risks and benefits were explained, including but not limited to intra-abdominal injury, vessel injury, bleeding, scarring, infection, pain, and bone/joint/nerve damage. At this time, the risks of the procedure are less than the risks of NOT performing the procedure. A time out was taken and the correct patient and site identified. The patient was placed in the supine position and the skin was prepped in the standard fashion with chlorhexidine and full sterile drapes applied. The proper landmarks were identified, anesthetized with 1% lidocaine without epinephrine, and the needle was inserted through the skin in the standard fashion. The needle was carefully advanced into blood vessel lumen. The guidewire was placed uneventfully. The vessel is dilated and the catheter was placed. It was secured into position. There was good blood return from all ports. The patient tolerated the procedure well and there were no complications. PDMP:reviewed and no issues Critical Care: I have personally spent greater than 65 minutes of critical care time in the direct management of this patient. This includes bedside care, interpretation of diagnostic studies, and testing, discussion with consultants, patient, and family members, and other required patient management activities. This 65 minutes is in excess of all separately billable procedures. Past Med/Surg History Medical History Closed head injury Diabetes type 1, controlled Diabetic peripheral neuropathy associated with type 1 diabetes mellitus Dyslipidemia Focal seizures Fracture of right hip History of herpes zoster History of meningioma History of rheumatic fever Hypertension Hypothyroidism Insulin pump in place Meningioma Pancreatic cyst Short-term memory loss Surgical History History of appendectomy History of breast biopsy History of hip surgery History of surgery on arm History of tonsillectomy Family History Father Colon cancer Mother Alzheimer disease Other Diabetes Social History Smoking Status: Never smoker Cigarettes Per Day: No smoking since freshman year of college.; Second Hand Exposure: No; Hx Alcohol Use: Yes Alcohol type: wine Hx Substance Use: No Preferred Language: Sami Communication Ability: Effective Disbursement Clerk Required: No Beliefs That Will Affect Care: None marital status: Current Living Situation: Spouse and Shelter Current Living Situation Comment: [facility]. current occupation: retired Feels Safe at Home: Yes Assistive Devices: Walker Allergies Allergies Allergy/AdvReac Type Severity Reaction Status Date / Time No Known Allergies Allergy Verified 04/16/21 07:32 Home Meds Home Medications Medication Instructions Recorded Confirmed magnesium oxide 400 mg (241.3 mg 400 mg PO HS #0 tab 12/27/15 04/16/21 magnesium) tablet lisinopril 2.5 mg tablet 2.5 mg PO HS #0 tab 01/21/17 04/16/21 vit C-vit [id number] ox-lutein 1 cap PO BID 01/02/19 04/16/21 226 mg-200 unit-5 mg-0.8 mg capsule (PreserVision Lutein) aspirin 81 mg tablet,delayed 81 mg PO QAM #0 tab 01/03/19 04/16/21 release cholecalciferol (vitamin D3) 125 5,000 unit PO HS #0 tab 01/03/19 04/16/21 mcg (5,000 unit) tablet (Vitamin D3) coenzyme Q10 100 mg capsule 100 mg PO HS #0 cap 01/03/19 04/16/21 insulin syringe-needle U-100 0.5 #10 ea 01/03/19 02/23/21 mL 31 gauge x 5/16" (BD Insulin Syringe Ultra-Fine) omega [id number] oil 1,000 mg 1 cap PO HS #0 cap 01/03/19 04/16/21 (120 mg-180 mg) capsule (Fish Oil) blood sugar diagnostic (Contour #10 ea 01/14/19 02/23/21 Next Test Strips) calcium carbonate 600 mg calcium 600 mg PO HS tab 01/14/19 04/16/21 (1,500 mg) tablet (Calcium) levothyroxine 125 mcg tablet 125 mcg PO DAILYBB tab 07/28/20 04/16/21 alendronate 70 mg tablet (Fosamax) 70 mg PO WK tab 10/26/20 04/16/21 acetaminophen 500 mg tablet 500 mg PO BID 04/16/21 04/16/21 cyanocobalamin (vitamin B-12) 500 500 mcg PO HS 04/16/21 04/16/21 mcg tablet (Vitamin B-12) levetiracetam 500 mg 500 mg PO QAM 04/16/21 04/16/21 tablet,extended release 24 hr (Keppra XR) magnesium hydroxide 400 mg/5 mL 30 ml PO UD 04/16/21 04/16/21 oral suspension (Jackson Milk of Magnesia) rivastigmine (Exelon Patch) 9.5 mg TOPICAL QAM 04/16/21 04/16/21 Previous Rx's Medication Instructions Recorded Novolog U-100 Insulin aspart 100 80 unit CONTINUOUS IV INFUSION 09/16/20 unit/mL subcutaneous solution DAILY 90 Days #80 ml NS (insulin aspart U-100) Results & Data (ED) Vital Signs Vital Signs - 24 hr 04/16/21 06:05 04/16/21 06:46 04/16/21 07:00 Temperature 36.4 C L Temperature Source Oral Pulse Rate 83 88 Pulse Rate from SpO2 Sensor 89 Respiratory Rate 16 24 Respiratory Effort / Characteristics Non-Labored Non-Labored Spontaneous Respiratory Depth Normal Blood Pressure 100/30 L 101/39 L Blood Pressure Mean 53 59 Pulse Oximetry 98 98 98 Oxygen Delivery Method Room Air Room Air Room Air Sepsis Recent Fever Within 48 Hours No Sepsis New/Unexplained Change in Mental Status N/A Sepsis Action Taken by Nursing No Action Required 04/16/21 07:30 04/16/21 07:45 04/16/21 08:00 Temperature Temperature Source Pulse Rate 91 H 107 H 92 H Pulse Rate from SpO2 Sensor 98 H 106 H 92 H Respiratory Rate 23 22 18 Respiratory Effort / Characteristics Non-Labored Spontaneous Non-Labored Spontaneous Respiratory Depth Blood Pressure 102/61 109/69 110/42 L Blood Pressure Mean 74 82 64 Pulse Oximetry 100 97 99 Oxygen Delivery Method Room Air Room Air Room Air Sepsis Recent Fever Within 48 Hours Sepsis New/Unexplained Change in Mental Status Sepsis Action Taken by Nursing 04/16/21 08:15 04/16/21 08:30 04/16/21 08:45 Temperature Temperature Source Pulse Rate 86 86 84 Pulse Rate from SpO2 Sensor 87 86 84 Respiratory Rate 17 18 17 Respiratory Effort / Characteristics Non-Labored Spontaneous Respiratory Depth Blood Pressure 100/37 L 102/40 L 105/42 L Blood Pressure Mean 58 60 63 Pulse Oximetry 100 99 98 Oxygen Delivery Method Room Air Room Air Room Air Sepsis Recent Fever Within 48 Hours Sepsis New/Unexplained Change in Mental Status Sepsis Action Taken by Nursing 04/16/21 09:30 04/16/21 10:00 Temperature Temperature Source Pulse Rate Pulse Rate from SpO2 Sensor Respiratory Rate 18 19 Respiratory Effort / Characteristics Non-Labored Spontaneous Non-Labored Spontaneous Respiratory Depth Blood Pressure Blood Pressure Mean Pulse Oximetry 100 98 Oxygen Delivery Method Room Air Room Air Sepsis Recent Fever Within 48 Hours Sepsis New/Unexplained Change in Mental Status Sepsis Action Taken by Shelter Medications Current Medication List: was personally reviewed by me Laboratory Data Attestation: I reviewed the patient's lab results. Result diagrams: 04/16/21 Unknown 04/16/21 Unknown Lab Results 04/16/21 04/16/21 04/16/21 Range/Units 06:13 06:26 06:50 WBC (4.8-10.8) K/uL RBC (4.2-5.4) M/uL Hgb (12.0-16.0) g/dL POC Hgb 10.5 L (12.0-16.0) g/dl Hct (37-47) % POC Hct 31 L (37-47) % MCV (80-100) fL MCH (25-34) pg MCHC (32-36) g/dL RDW Std Deviation (36.4-46.3) fL RDW Coeff of [place] (11.5-14.5) % Plt Count (130-400) K/uL MPV (7.4-10.4) fL Immature Gran % (Auto) % Neut % (Auto) % Lymph % (Auto) % [place] % (Auto) % Eos % (Auto) % Baso % (Auto) % Neut # (Auto) (1.4-6.5) K/uL Lymph # (Auto) (1.2-3.4) K/uL [place] # (Auto) (0.11-0.59) K/uL Eos # (Auto) (0-0.5) K/uL Baso # (Auto) (0-0.2) K/uL Immature Gran # (Auto) (0.00-0.02) K/uL PT (9.0-12.0) Seconds INR (0.9-1.1) APTT (21.0-31.0) Seconds PTT Ratio VBG pH (7.36-7.41) VBG pCO2 (38-50) mmHg VBG pO2 mmHg VBG HCO3 mmol/L VBG O2 Saturation % VBG Base Excess mEq/L Barometric Pressure mm/Hg POC Sodium 123 L (135-144) mmol/L Sodium (136-145) mmol/L POC Potassium 7.0 H* (3.3-5.0) mmol/L Potassium (3.5-5.1) mmol/L POC Chloride 94 L (101-112) mmol/L Chloride (98-107) mmol/L Carbon Dioxide (21-32) mmol/L POC Total CO2 14 L (24-31) mmol/L Anion Gap (3-11) POC Anion Gap 24.0 (16-25) mmol/L POC BUN 57 H (7-18) mg/dl BUN (7-18) mg/dl Creatinine (0.6-1.2) mg/dl POC Creatinine 2.3 H (0.6-1.3) mg/dl Est Cr Clr Drug Dosing ml/min Est GFR ( Amer) ml/min Est GFR (Non-Af Amer) ml/min BUN/Creatinine Ratio (10-20) Glucose (70-99) mg/dl POC Glucose > 600 H* (70-99) mg/dl POC Glucose (other) > 700 H* (70-99) mg/dl Estimat Average Glucose mg/dl Hemoglobin A1c (4.5-5.6) % Lactate (0.4-2.0) mmol/L Calcium (8.5-10.1) mg/dl POC Ioniz Calcium [place] 1.05 L (1.12-1.32) mmol/l Phosphorus (2.5-4.9) mg/dl Magnesium (1.8-2.4) mg/dl Total Bilirubin (0.2-1) mg/dl AST (15-37) U/L ALT (12-78) U/L Alkaline Phosphatase (45-117) U/L Troponin I (0-0.045) ng/ml Total Protein (6.4-8.2) gm/dl Albumin (3.4-5.0) gm/dl Globulin (2.5-4.0) gm/dl Albumin/Globulin Ratio (0.9-2) Beta-Hydroxybutyric Acd (0.2-2.81) mg/dl Procalcitonin (0-0.5) ng/ml TSH (0.300-4.500) uIu/ml Free T4 (0.8-1.6) ng/dl Urine Color Urine Appearance (Clear) Urine pH (4.5-7.5) Ur Specific [place] (1.000-1.030) Urine Protein (Negative) Urine Glucose (UA) (Negative) Urine Ketones (Negative) Urine Blood (Negative) Urine Nitrite (Negative) Urine Bilirubin (Negative) Urine Urobilinogen (Negative) Ur Leukocyte Esterase (Negative) Urine WBC (Auto) (0-5) /hpf Urine RBC (Auto) (0-4) /hpf U Hyaline Cast (Auto) (0-5) /lpf U Epithel Cells (Auto) (0-5) /lpf Urine Bacteria (Auto) (Negative) COVID-19 Eval Order Covid19 at [facility] SARS-CoV-2 (PCR) (Negative) Crossmatch 04/16/21 04/16/21 04/16/21 Range/Units 06:50 06:58 08:10 WBC (4.8-10.8) K/uL RBC (4.2-5.4) M/uL Hgb (12.0-16.0) g/dL POC Hgb (12.0-16.0) g/dl Hct (37-47) % POC Hct (37-47) % MCV (80-100) fL MCH (25-34) pg MCHC (32-36) g/dL RDW Std Deviation (36.4-46.3) fL RDW Coeff of Shady (11.5-14.5) % Plt Count (130-400) K/uL MPV (7.4-10.4) fL Immature Gran % (Auto) % Neut % (Auto) % Lymph % (Auto) % [place] % (Auto) % Eos % (Auto) % Baso % (Auto) % Neut # (Auto) (1.4-6.5) K/uL Lymph # (Auto) (1.2-3.4) K/uL [place] # (Auto) (0.11-0.59) K/uL Eos # (Auto) (0-0.5) K/uL Baso # (Auto) (0-0.2) K/uL Immature Gran # (Auto) (0.00-0.02) K/uL PT (9.0-12.0) Seconds INR (0.9-1.1) APTT (21.0-31.0) Seconds PTT Ratio VBG pH 7.17 L (7.36-7.41) VBG pCO2 31 L (38-50) mmHg VBG pO2 66 mmHg VBG HCO3 11 mmol/L VBG O2 Saturation 87.2 % VBG Base Excess -16.2 mEq/L Barometric Pressure 740.6 mm/Hg POC Sodium (135-144) mmol/L Sodium (136-145) mmol/L POC Potassium (3.3-5.0) mmol/L Potassium (3.5-5.1) mmol/L POC Chloride (101-112) mmol/L Chloride (98-107) mmol/L Carbon Dioxide (21-32) mmol/L POC Total CO2 (24-31) mmol/L Anion Gap (3-11) POC Anion Gap (16-25) mmol/L POC BUN (7-18) mg/dl BUN (7-18) mg/dl Creatinine (0.6-1.2) mg/dl POC Creatinine (0.6-1.3) mg/dl Est Cr Clr Drug Dosing ml/min Est GFR ( Amer) ml/min Est GFR (Non-Af Amer) ml/min BUN/Creatinine Ratio (10-20) Glucose (70-99) mg/dl POC Glucose (70-99) mg/dl POC Glucose (other) (70-99) mg/dl Estimat Average Glucose mg/dl Hemoglobin A1c (4.5-5.6) % Lactate 4.2 H* (0.4-2.0) mmol/L Calcium (8.5-10.1) mg/dl POC Ioniz Calcium [place] (1.12-1.32) mmol/l Phosphorus (2.5-4.9) mg/dl Magnesium (1.8-2.4) mg/dl Total Bilirubin (0.2-1) mg/dl AST (15-37) U/L ALT (12-78) U/L Alkaline Phosphatase (45-117) U/L Troponin I (0-0.045) ng/ml Total Protein (6.4-8.2) gm/dl Albumin (3.4-5.0) gm/dl Globulin (2.5-4.0) gm/dl Albumin/Globulin Ratio (0.9-2) Beta-Hydroxybutyric Acd (0.2-2.81) mg/dl Procalcitonin (0-0.5) ng/ml TSH (0.300-4.500) uIu/ml Free T4 (0.8-1.6) ng/dl Urine Color Urine Appearance (Clear) Urine pH (4.5-7.5) Ur Specific [place] (1.000-1.030) Urine Protein (Negative) Urine Glucose (UA) (Negative) Urine Ketones (Negative) Urine Blood (Negative) Urine Nitrite (Negative) Urine Bilirubin (Negative) Urine Urobilinogen (Negative) Ur Leukocyte Esterase (Negative) Urine WBC (Auto) (0-5) /hpf Urine RBC (Auto) (0-4) /hpf U Hyaline Cast (Auto) (0-5) /lpf U Epithel Cells (Auto) (0-5) /lpf Urine Bacteria (Auto) (Negative) COVID-19 Eval Order SARS-CoV-2 (PCR) NEGATIVE (Negative) Crossmatch 04/16/21 04/16/21 04/16/21 Range/Units 08:13 08:13 08:13 WBC 16.83 H (4.8-10.8) K/uL RBC 2.96 L (4.2-5.4) M/uL Hgb 9.0 L (12.0-16.0) g/dL POC Hgb (12.0-16.0) g/dl Hct 28.7 L (37-47) % POC Hct (37-47) % MCV 97.0 (80-100) fL MCH 30.4 (25-34) pg MCHC 31.4 L (32-36) g/dL RDW Std Deviation 47.2 H (36.4-46.3) fL RDW Coeff of [place]ady 13.4 (11.5-14.5) % Plt Count 205 (130-400) K/uL MPV 10.5 H (7.4-10.4) fL Immature Gran % (Auto) 0.5 % Neut % (Auto) 80.2 % Lymph % (Auto) 8.4 % [place] % (Auto) 10.7 % Eos % (Auto) 0.1 % Baso % (Auto) 0.1 % Neut # (Auto) 13.51 H (1.4-6.5) K/uL Lymph # (Auto) 1.42 (1.2-3.4) K/uL [place] # (Auto) 1.80 H (0.11-0.59) K/uL Eos # (Auto) 0.01 (0-0.5) K/uL Baso # (Auto) 0.01 (0-0.2) K/uL Immature Gran # (Auto) 0.08 H (0.00-0.02) K/uL PT (9.0-12.0) Seconds INR (0.9-1.1) APTT (21.0-31.0) Seconds PTT Ratio VBG pH (7.36-7.41) VBG pCO2 (38-50) mmHg VBG pO2 mmHg VBG HCO3 mmol/L VBG O2 Saturation % VBG Base Excess mEq/L Barometric Pressure mm/Hg POC Sodium (135-144) mmol/L Sodium 130 L (136-145) mmol/L POC Potassium (3.3-5.0) mmol/L Potassium 5.0 D (3.5-5.1) mmol/L POC Chloride (101-112) mmol/L Chloride 97 L (98-107) mmol/L Carbon Dioxide 12 L (21-32) mmol/L POC Total CO2 (24-31) mmol/L Anion Gap 20.0 H (3-11) POC Anion Gap (16-25) mmol/L POC BUN (7-18) mg/dl BUN 59 H (7-18) mg/dl Creatinine 2.79 H (0.6-1.2) mg/dl POC Creatinine (0.6-1.3) mg/dl Est Cr Clr Drug Dosing 11.0 ml/min Est GFR ( Amer) 17.1 ml/min Est GFR (Non-Af Amer) 14.7 ml/min BUN/Creatinine Ratio 21.3 H (10-20) Glucose 871 H* (70-99) mg/dl POC Glucose (70-99) mg/dl POC Glucose (other) (70-99) mg/dl Estimat Average Glucose 189 mg/dl Hemoglobin A1c 8.2 H (4.5-5.6) % Lactate (0.4-2.0) mmol/L Calcium 9.0 (8.5-10.1) mg/dl POC Ioniz Calcium [place] (1.12-1.32) mmol/l Phosphorus 6.2 H (2.5-4.9) mg/dl Magnesium 2.8 H (1.8-2.4) mg/dl Total Bilirubin 0.6 (0.2-1) mg/dl AST 13 L (15-37) U/L ALT 25 (12-78) U/L Alkaline Phosphatase 74 (45-117) U/L Troponin I (0-0.045) ng/ml Total Protein 5.7 L (6.4-8.2) gm/dl Albumin 3.0 L (3.4-5.0) gm/dl Globulin 2.7 (2.5-4.0) gm/dl Albumin/Globulin Ratio 1.1 (0.9-2) Beta-Hydroxybutyric Acd (0.2-2.81) mg/dl Procalcitonin (0-0.5) ng/ml TSH (0.300-4.500) uIu/ml Free T4 (0.8-1.6) ng/dl Urine Color Urine Appearance (Clear) Urine pH (4.5-7.5) Ur Specific [place] (1.000-1.030) Urine Protein (Negative) Urine Glucose (UA) (Negative) Urine Ketones (Negative) Urine Blood (Negative) Urine Nitrite (Negative) Urine Bilirubin (Negative) Urine Urobilinogen (Negative) Ur Leukocyte Esterase (Negative) Urine WBC (Auto) (0-5) /hpf Urine RBC (Auto) (0-4) /hpf U Hyaline Cast (Auto) (0-5) /lpf U Epithel Cells (Auto) (0-5) /lpf Urine Bacteria (Auto) (Negative) COVID-19 Eval Order SARS-CoV-2 (PCR) (Negative) Crossmatch 04/16/21 04/16/21 04/16/21 Range/Units 09:05 10:00 Unknown WBC 16.72 H (4.8-10.8) K/uL RBC 3.15 L (4.2-5.4) M/uL Hgb 9.6 L (12.0-16.0) g/dL POC Hgb (12.0-16.0) g/dl Hct 31.1 L (37-47) % POC Hct (37-47) % MCV 98.7 (80-100) fL MCH 30.5 (25-34) pg MCHC 30.9 L (32-36) g/dL RDW Std Deviation 49.8 H (36.4-46.3) fL RDW Coeff of [place] 13.8 (11.5-14.5) % Plt Count 227 (130-400) K/uL MPV 11.3 H (7.4-10.4) fL Immature Gran % (Auto) 0.4 % Neut % (Auto) 87.1 % Lymph % (Auto) 5.8 % [place] % (Auto) 6.5 % Eos % (Auto) 0.1 % Baso % (Auto) 0.1 % Neut # (Auto) 14.58 H (1.4-6.5) K/uL Lymph # (Auto) 0.97 L (1.2-3.4) K/uL [place] # (Auto) 1.08 H (0.11-0.59) K/uL Eos # (Auto) 0.01 (0-0.5) K/uL Baso # (Auto) 0.01 (0-0.2) K/uL Immature Gran # (Auto) 0.07 H (0.00-0.02) K/uL PT (9.0-12.0) Seconds INR (0.9-1.1) APTT (21.0-31.0) Seconds PTT Ratio VBG pH (7.36-7.41) VBG pCO2 (38-50) mmHg VBG pO2 mmHg VBG HCO3 mmol/L VBG O2 Saturation % VBG Base Excess mEq/L Barometric Pressure mm/Hg POC Sodium (135-144) mmol/L Sodium (136-145) mmol/L POC Potassium (3.3-5.0) mmol/L Potassium (3.5-5.1) mmol/L POC Chloride (101-112) mmol/L Chloride (98-107) mmol/L Carbon Dioxide (21-32) mmol/L POC Total CO2 (24-31) mmol/L Anion Gap (3-11) POC Anion Gap (16-25) mmol/L POC BUN (7-18) mg/dl BUN (7-18) mg/dl Creatinine (0.6-1.2) mg/dl POC Creatinine (0.6-1.3) mg/dl Est Cr Clr Drug Dosing ml/min Est GFR ( Amer) ml/min Est GFR (Non-Af Amer) ml/min BUN/Creatinine Ratio (10-20) Glucose 826 H* (70-99) mg/dl POC Glucose (70-99) mg/dl POC Glucose (other) (70-99) mg/dl Estimat Average Glucose mg/dl Hemoglobin A1c (4.5-5.6) % Lactate (0.4-2.0) mmol/L Calcium (8.5-10.1) mg/dl POC Ioniz Calcium [place] (1.12-1.32) mmol/l Phosphorus (2.5-4.9) mg/dl Magnesium (1.8-2.4) mg/dl Total Bilirubin (0.2-1) mg/dl AST (15-37) U/L ALT (12-78) U/L Alkaline Phosphatase (45-117) U/L Troponin I (0-0.045) ng/ml Total Protein (6.4-8.2) gm/dl Albumin (3.4-5.0) gm/dl Globulin (2.5-4.0) gm/dl Albumin/Globulin Ratio (0.9-2) Beta-Hydroxybutyric Acd (0.2-2.81) mg/dl Procalcitonin (0-0.5) ng/ml TSH (0.300-4.500) uIu/ml Free T4 (0.8-1.6) ng/dl Urine Color Urine Appearance (Clear) Urine pH (4.5-7.5) Ur Specific [place] (1.000-1.030) Urine Protein (Negative) Urine Glucose (UA) (Negative) Urine Ketones (Negative) Urine Blood (Negative) Urine Nitrite (Negative) Urine Bilirubin (Negative) Urine Urobilinogen (Negative) Ur Leukocyte Esterase (Negative) Urine WBC (Auto) (0-5) /hpf Urine RBC (Auto) (0-4) /hpf U Hyaline Cast (Auto) (0-5) /lpf U Epithel Cells (Auto) (0-5) /lpf Urine Bacteria (Auto) (Negative) COVID-19 Eval Order SARS-CoV-2 (PCR) (Negative) Crossmatch See Detail 04/16/21 04/16/21 04/16/21 Range/Units Unknown Unknown Unknown WBC (4.8-10.8) K/uL RBC (4.2-5.4) M/uL Hgb (12.0-16.0) g/dL POC Hgb (12.0-16.0) g/dl Hct (37-47) % POC Hct (37-47) % MCV (80-100) fL MCH (25-34) pg MCHC (32-36) g/dL RDW Std Deviation (36.4-46.3) fL RDW Coeff of [place] (11.5-14.5) % Plt Count (130-400) K/uL MPV (7.4-10.4) fL Immature Gran % (Auto) % Neut % (Auto) % Lymph % (Auto) % [place] % (Auto) % Eos % (Auto) % Baso % (Auto) % Neut # (Auto) (1.4-6.5) K/uL Lymph # (Auto) (1.2-3.4) K/uL [place] # (Auto) (0.11-0.59) K/uL Eos # (Auto) (0-0.5) K/uL Baso # (Auto) (0-0.2) K/uL Immature Gran # (Auto) (0.00-0.02) K/uL PT 10.9 (9.0-12.0) Seconds INR 1.1 (0.9-1.1) APTT 21.7 (21.0-31.0) Seconds PTT Ratio 0.8 VBG pH (7.36-7.41) VBG pCO2 (38-50) mmHg VBG pO2 mmHg VBG HCO3 mmol/L VBG O2 Saturation % VBG Base Excess mEq/L Barometric Pressure mm/Hg POC Sodium (135-144) mmol/L Sodium 125 L (136-145) mmol/L POC Potassium (3.3-5.0) mmol/L Potassium 6.9 H* (3.5-5.1) mmol/L POC Chloride (101-112) mmol/L Chloride 90 L (98-107) mmol/L Carbon Dioxide 10 L (21-32) mmol/L POC Total CO2 (24-31) mmol/L Anion Gap 25.0 H (3-11) POC Anion Gap (16-25) mmol/L POC BUN (7-18) mg/dl BUN 59 H (7-18) mg/dl Creatinine 2.65 H (0.6-1.2) mg/dl POC Creatinine (0.6-1.3) mg/dl Est Cr Clr Drug Dosing Not Reportable ml/min Est GFR ( Amer) 18.2 ml/min Est GFR (Non-Af Amer) 15.7 ml/min BUN/Creatinine Ratio 22.3 H (10-20) Glucose 1013 H* (70-99) mg/dl POC Glucose (70-99) mg/dl POC Glucose (other) (70-99) mg/dl Estimat Average Glucose mg/dl Hemoglobin A1c (4.5-5.6) % Lactate 4.2 H* (0.4-2.0) mmol/L Calcium 8.9 (8.5-10.1) mg/dl POC Ioniz Calcium [place] (1.12-1.32) mmol/l Phosphorus (2.5-4.9) mg/dl Magnesium 2.8 H (1.8-2.4) mg/dl Total Bilirubin 0.7 (0.2-1) mg/dl AST 13 L (15-37) U/L ALT 20 (12-78) U/L Alkaline Phosphatase 78 (45-117) U/L Troponin I 0.109 H* (0-0.045) ng/ml Total Protein 6.0 L (6.4-8.2) gm/dl Albumin 3.3 L (3.4-5.0) gm/dl Globulin 2.7 (2.5-4.0) gm/dl Albumin/Globulin Ratio 1.2 (0.9-2) Beta-Hydroxybutyric Acd 81.81 H (0.2-2.81) mg/dl Procalcitonin (0-0.5) ng/ml TSH 23.600 H (0.300-4.500) uIu/ml Free T4 1.48 (0.8-1.6) ng/dl Urine Color Urine Appearance (Clear) Urine pH (4.5-7.5) Ur Specific [place] (1.000-1.030) Urine Protein (Negative) Urine Glucose (UA) (Negative) Urine Ketones (Negative) Urine Blood (Negative) Urine Nitrite (Negative) Urine Bilirubin (Negative) Urine Urobilinogen (Negative) Ur Leukocyte Esterase (Negative) Urine WBC (Auto) (0-5) /hpf Urine RBC (Auto) (0-4) /hpf U Hyaline Cast (Auto) (0-5) /lpf U Epithel Cells (Auto) (0-5) /lpf Urine Bacteria (Auto) (Negative) COVID-19 Eval Order SARS-CoV-2 (PCR) (Negative) Crossmatch 04/16/21 04/16/21 Range/Units Unknown Unknown WBC (4.8-10.8) K/uL RBC (4.2-5.4) M/uL Hgb (12.0-16.0) g/dL POC Hgb (12.0-16.0) g/dl Hct (37-47) % POC Hct (37-47) % MCV (80-100) fL MCH (25-34) pg MCHC (32-36) g/dL RDW Std Deviation (36.4-46.3) fL RDW Coeff of [place] (11.5-14.5) % Plt Count (130-400) K/uL MPV (7.4-10.4) fL Immature Gran % (Auto) % Neut % (Auto) % Lymph % (Auto) % [place] % (Auto) % Eos % (Auto) % Baso % (Auto) % Neut # (Auto) (1.4-6.5) K/uL Lymph # (Auto) (1.2-3.4) K/uL [place] # (Auto) (0.11-0.59) K/uL Eos # (Auto) (0-0.5) K/uL Baso # (Auto) (0-0.2) K/uL Immature Gran # (Auto) (0.00-0.02) K/uL PT (9.0-12.0) Seconds INR (0.9-1.1) APTT (21.0-31.0) Seconds PTT Ratio VBG pH (7.36-7.41) VBG pCO2 (38-50) mmHg VBG pO2 mmHg VBG HCO3 mmol/L VBG O2 Saturation % VBG Base Excess mEq/L Barometric Pressure mm/Hg POC Sodium (135-144) mmol/L Sodium (136-145) mmol/L POC Potassium (3.3-5.0) mmol/L Potassium (3.5-5.1) mmol/L POC Chloride (101-112) mmol/L Chloride (98-107) mmol/L Carbon Dioxide (21-32) mmol/L POC Total CO2 (24-31) mmol/L Anion Gap (3-11) POC Anion Gap (16-25) mmol/L POC BUN (7-18) mg/dl BUN (7-18) mg/dl Creatinine (0.6-1.2) mg/dl POC Creatinine (0.6-1.3) mg/dl Est Cr Clr Drug Dosing ml/min Est GFR ( Amer) ml/min Est GFR (Non-Af Amer) ml/min BUN/Creatinine Ratio (10-20) Glucose (70-99) mg/dl POC Glucose (70-99) mg/dl POC Glucose (other) (70-99) mg/dl Estimat Average Glucose mg/dl Hemoglobin A1c (4.5-5.6) % Lactate (0.4-2.0) mmol/L Calcium (8.5-10.1) mg/dl POC Ioniz Calcium [place] (1.12-1.32) mmol/l Phosphorus (2.5-4.9) mg/dl Magnesium (1.8-2.4) mg/dl Total Bilirubin (0.2-1) mg/dl AST (15-37) U/L ALT (12-78) U/L Alkaline Phosphatase (45-117) U/L Troponin I (0-0.045) ng/ml Total Protein (6.4-8.2) gm/dl Albumin (3.4-5.0) gm/dl Globulin (2.5-4.0) gm/dl Albumin/Globulin Ratio (0.9-2) Beta-Hydroxybutyric Acd (0.2-2.81) mg/dl Procalcitonin 0.86 H (0-0.5) ng/ml TSH (0.300-4.500) uIu/ml Free T4 (0.8-1.6) ng/dl Urine Color Yellow Urine Appearance Clear (Clear) Urine pH 5.0 (4.5-7.5) Ur Specific [place] 1.022 (1.000-1.030) Urine Protein Trace H (Negative) Urine Glucose (UA) 3+ H (Negative) Urine Ketones Trace H (Negative) Urine Blood Negative (Negative) Urine Nitrite Negative (Negative) Urine Bilirubin Negative (Negative) Urine Urobilinogen Negative (Negative) Ur Leukocyte Esterase Negative (Negative) Urine WBC (Auto) 1-5 (0-5) /hpf Urine RBC (Auto) 5-10 H (0-4) /hpf U Hyaline Cast (Auto) 1-5 (0-5) /lpf U Epithel Cells (Auto) 20-30 H (0-5) /lpf Urine Bacteria (Auto) Negative (Negative) COVID-19 Eval Order SARS-CoV-2 (PCR) (Negative) Crossmatch Administered Medications Insulin Human Regular 250 (units/ Sodium Chloride) 250 mls @ 4.8 mls/hr IV .Q24H [facility]; Protocol Stop: 05/16/21 07:59 Last Titration: 04/16/21 10:02 Dose: 5.8 units/hr, 5.8 mls/hr Documented by: [id number] Cosigned by: [id number] Admin: 04/16/21 08:34 Dose: 4.8 units/hr, 4.8 mls/hr Documented by: [id number] Cosigned by: [id number] Discontinued Medications Calcium Chloride (Calcium Chloride 10% 10 Ml Syr) Confirm Administered Dose 1,000 mg IV .STK-MED ONE Stop: 04/16/21 06:34 Last Admin: 04/16/21 06:39 Dose: 1,000 mg Documented by: [id number] Sodium Chloride (Nss 1000ml) 2,000 mls @ 999 mls/hr IV .Q2H1M ONE Stop: 04/16/21 08:16 Last Infusion: 04/16/21 08:37 Dose: 0 mls/hr Documented by: [id number] Admin: 04/16/21 06:37 Dose: 999 mls/hr Documented by: [id number] Calcium Chloride 1,000 mg/ (Sodium Chloride) 60 mls @ 240 mls/hr IV NOW STA Stop: 04/16/21 06:43 Last Admin: 04/16/21 06:39 Dose: Not Given Documented by: [id number] Sodium Chloride (Nss 1000ml) 1,000 mls @ 999 mls/hr IV .Q1H1M ONE Stop: 04/16/21 08:52 Last Infusion: 04/16/21 09:45 Dose: 0 mls/hr Documented by: [id number] Admin: 04/16/21 08:00 Dose: 999 mls/hr Documented by: [id number] Pantoprazole Sodium 40 mg/ (Syringe) 10 mls @ 5 mls/min IV NOW ONE Stop: 04/16/21 07:53 Last Admin: 04/16/21 08:38 Dose: 5 mls/min Documented by: [id number] Piperacillin Sod/Tazobactam Sod (Zosyn) 4.5 gm in 120 mls @ 240 mls/hr IV NOW ONE Stop: 04/16/21 08:21 Last Infusion: 04/16/21 08:40 Dose: 0 mls/hr Documented by: [id number] Admin: 04/16/21 08:05 Dose: 240 mls/hr Documented by: [id number] Sodium Chloride (Nss 1000ml) 1,000 mls @ 999 mls/hr IV .Q1H1M DALY Stop: 04/16/21 09:45 Last Infusion: 04/16/21 09:44 Dose: 0 mls/hr Documented by: [id number] Admin: 04/16/21 08:35 Dose: 999 mls/hr Documented by: [id number] Insulin Human Regular (Novolin-R Insulin Per Unit Charge) 10 units IV NOW STA Stop: 04/16/21 06:30 Last Admin: 04/16/21 06:37 Dose: 10 units Documented by: [id number] Cosigned by: [id number] Miscellaneous (Stat Iv Infusion Titration Per Protocol) 1 ea N/A NOW STA Stop: 04/16/21 07:55 Last Admin: 04/16/21 08:43 Dose: Not Given Documented by: [id number] Miscellaneous (Dka Goal Range 150-250 Mg/Dl) 1 ea N/A ONE ONE Stop: 04/16/21 07:55 Last Admin: 04/16/21 08:43 Dose: Not Given Documented by: [id number] Ondansetron HCl (Ondansetron Inj 2 Mg/Ml 2 Ml Vial) 4 mg IV NOW STA Stop: 04/16/21 06:17 Last Admin: 04/16/21 06:36 Dose: 4 mg Documented by: [id number] Imaging Data Radiologist's Impression: Abdomen/Pelvis CT 04/16/21 06:16 CT abd pelvis wo con CLINICAL HISTORY: vomiting TECHNIQUE: Helical axial images of the abdomen and pelvis were obtained. Automated dose lowering techniques and/or adjustment according to patient size were utilized for this exam. This exam was performed without intravenous contrast. COMPARISON: None available at the time of this dictation. FINDINGS: Lower chest: For findings above the diaphragm, please see CT chest performed sa day. Liver: Hepatic steatosis is noted. Gallbladder and biliary tree: No calcified gallstones. Normal caliber wall. No intra- or extrahepatic biliary ductal dilation. Pancreas: Unremarkable, no focal lesions. Spleen: Unremarkable. Adrenals: Unremarkable. Kidneys and ureters: Nonobstructive nephrolithiasis is seen. Bladder: Miranda catheter is seen. Reproductive organs: Uterus retroverted. Bowel: Evaluation is limited due to paucity of intraperitoneal fat. Status post appendectomy. No evidence of bowel obstruction. Lymph nodes Retroperitoneal: Unremarkable. Mesenteric: Unremarkable. Pelvic: Unremarkable. Peritoneum: Normal Vessels: Atherosclerotic calcifications are seen. Abdominal wall: Unremarkable. Bones: Degenerative changes in the visualized spine. Scoliosis is noted. IMPRESSION: No acute abnormalities to explain patient's vomiting, in particular no evidence of bowel obstruction. ACT 112: Negative or not required by law. Electronically signed by: Harlan Rg M.D. 04/16/2021 7:46 AM Chest X-Ray 04/16/21 06:16 XR chest 1V portable CLINICAL HISTORY: SEPSIS TECHNIQUE: Single frontal radiograph of the chest was obtained. Comparison: Comparison is made to chest one view 02/03/2020 FINDINGS: No lines and tubes are seen. Cardiomegaly is noted. The lungs are clear. No evidence of pleural effusion or pneumothorax. Likely old healed right humeral fracture noted. IMPRESSION: No acute chest disease. ACT 112: Negative or not required by law. Electronically signed by: Harlan Rg M.D. 04/16/2021 8:[address] 04/16/21 06:16 CT head/brain wo con CLINICAL HISTORY: AMS Technique: Contiguous axial CT images of the head were acquired from the base of the skull to the vertex without intravenous contrast administration. Images were viewed in brain, subdural and bone windows. Automated dose lowering techniques and/or adjustment according to patient size were utilized for this exam. Comparison: Comparison is made to CT head 01/02/2019 Findings: Areas of decreased attenuation are present in the periventricular and subcortical white matter bilaterally consistent with small vessel ischemic disease. Generalized cerebral atrophy with commensurate enlargement of the ventricles, sulci, and cisterns is also present. There is no acute intracranial hemorrhage or evidence of acute territorial infarction. No shift of the midline structures, mass effect, or extra-axial abnormalities are shown. Atheroscl erotic calcifications are present in the intracranial segments of the internal carotid arteries. A large calcified mass arising from the falx is again seen. Imaged portions of the paranasal sinuses and mastoid air cells are clear. The orbits appear normal. There are no acute fractures of the calvaria or scalp swelling. Impression: No acute abnormalities. Interval stability of parafalcine meningioma. ACT 112: Negative or not required by law. Electronically signed by: Harlan Rg M.D. 04/16/2021 7:[address] 04/16/21 07:09 CT chest diagnostic wo con CLINICAL HISTORY: abnl CXR hyperglycemia, nausea, confusion TECHNIQUE: Multidetector row helical CT of the chest was performed. Coronal and sagittal reformations were obtained. Automated dose lowering techniques and/or adjustment according to patient size were utilized for this exam. Comparison: Comparison is made to chest one view 04/16/[address] chest 05/30/2008 FINDINGS: Lungs and pleura: Biapical scarring is noted. Dependent atelectasis versus scarring is seen. Heart and pericardium: Cardiomegaly is seen with biatrial enlargement. Vessels: Severe atherosclerotic changes in the aorta and coronary arteries. Mediastinum and simone: Unremarkable. Chest wall and lower neck: Subcentimeter thyroid nodules are noted which do not require follow-up by ACR criteria. Abdomen: For findings below the diaphragm, please refer to CT of the abdomen dated the same. Bones: Degenerative changes are seen in the visualized spine and shoulder joints. IMPRESSION: 1. Chronic scarring changes without evidence of acute abnormality. 2. Cardiomegaly ACT 112: Negative or not required by law. Electronically signed by: Harlan Rg M.D. 04/16/2021 7:31 AM Discharge Plan Visit Data Chief Complaint: Altered Mental Status Stated Complaint: AMS ED Provider: Aman Akhtar ED Midlevel Provider: Esteban Dan Discharge Problem: DKA (diabetic ketoacidosis), AMS (altered mental status), Anemia, Acute GI bleeding, Acute hyperkalemia, Abnormal EKG, IRENA (acute kidney injury) Patient Disposition: Being Evaluated by Hospitalist Forms Stand Alone Forms: My [facility] Prescriptions Prescriptions: No Action magnesium oxide 400 mg (241.3 mg magnesium) Tablet 400 mg PO HS Qty: 0 RF: 0 lisinopril 2.5 mg Tablet 2.5 mg PO HS Qty: 0 RF: 0 omega [id number]-fish oil [Fish Oil] 1,000 mg (120 mg-180 mg) capsule 1 cap PO HS Qty: 0 RF: 0 cholecalciferol (vitamin D3) [Vitamin D3] 5,000 unit tablet 5,000 unit PO HS Qty: 0 RF: 0 aspirin 81 mg tablet,delayed release (DR/EC) 81 mg PO QAM Qty: 0 RF: 0 coenzyme Q10 100 mg capsule 100 mg PO HS Qty: 0 RF: 0 insulin aspart U-100 [Novolog U-100 Insulin aspart] 100 unit/mL solution 80 unit continuous IV infusion DAILY 90 Days Qty: 80 RF: 3 levothyroxine 125 mcg tablet 125 mcg PO DAILYBB RF: 0 (DME) insulin syringe-needle U-100 [BD Insulin Syringe Ultra-Fine] 0.5 mL 31 gauge x 5/16" syringe See Dose Instructions .ROUTE .MEDSUPPLY Qty: 10 RF: 0 calcium carbonate [Calcium 600] 600 mg calcium (1,500 mg) tablet 600 mg PO HS RF: 0 (DME) Contour Next Test Strips strip See Dose Instructions .ROUTE .MEDSUPPLY Qty: 10 RF: 0 alendronate [Fosamax] 70 mg tablet 70 mg PO WK RF: 0 PreserVision Lutein 226 mg-200 unit -5 mg-0.8 mg Capsule 1 cap PO BID RF: 0 acetaminophen [Tylenol Ex Str Rapid Release] 500 mg Tablet 500 mg PO BID RF: 0 cyanocobalamin (vitamin B-12) [Vitamin B-12] 500 mcg Tablet 500 mcg PO HS RF: 0 rivastigmine [Exelon Patch] 9.5 mg/24 hour patch 24 hour 9.5 mg Topical QAM RF: 0 levetiracetam [Keppra XR] 500 mg tablet extended release 24 hr 500 mg PO QAM RF: 0 magnesium hydroxide [Jackson Milk of Magnesia] 400 mg/5 mL Suspension 30 ml PO UD RF: 0 Referrals Referrals: Lynette Odom [Primary Care Provider] -
[2021-04-16 06:44] LABS: Basophils # (auto) 0.01 K/uL (0-0.2); Basophils % (auto) 0.1 %; Eosinophils # (auto) 0.01 K/uL (0-0.5); Eosinophils % (auto) 0.1 %; Hematocrit (blood only) 31.1 % (37-47); Hemoglobin 9.6 g/dL (12.0-16.0); Immature Granulocytes # (auto) 0.07 K/uL (0.00-0.02); Immature Granulocytes % (auto) 0.4 %; Lymphocytes # (auto) 0.97 K/uL (1.2-3.4); Lymphocytes % (auto) 5.8 %; Mean Corpuscular Hemoglobin 30.5 pg (25-34); Mean Corpuscular Hgb Conc 30.9 g/dL (32-36); Mean Corpuscular Volume 98.7 fL (80-100); Mean Platelet Volume 11.3 fL (7.4-10.4); Monocytes # (auto) 1.08 K/uL (0.11-0.59); Monocytes % (auto) 6.5 %; Neutrophils # (auto) 14.58 K/uL (1.4-6.5); Neutrophils % (auto) 87.1 %; Platelet Count 227 K/uL (130-400); RDW Coefficient of Variation 13.8 % (11.5-14.5); RDW Standard Deviation 49.8 fL (36.4-46.3); Red Blood Count 3.15 M/uL (4.2-5.4); White Blood Count 16.72 K/uL (4.8-10.8)
[2021-04-16 07:01] LABS: INR 1.1 (0.9-1.1); Partial Thromboplastin Ratio 0.8; Partial Thromboplastin Time 21.7 Seconds (21.0-31.0); Prothrombin Time 10.9 Seconds (9.0-12.0)
[2021-04-16 07:03] LABS: Appearance Urine Clear (Clear); Bacteria Urine Automated Negative (Negative); Bilirubin Urine Negative (Negative); Blood Urine Negative (Negative); Color Urine Yellow; Epithelial Cell Urine Auto 20-30 /lpf (0-5); Glucose Urine UA 3+ (Negative); Ketones Urine Trace (Negative); Leukocyte Esterase Urine Negative (Negative); Nitrite Urine Negative (Negative); Protein Urine Trace (Negative); Specific Gravity Urine 1.022 (1.000-1.030); Urobilinogen Urine Negative (Negative)
[2021-04-16 07:11] LABS: iSTAT Blood Urea Nitrogen 57 mg/dl (7-18); iSTAT Carbon Dioxide 14 mmol/L (24-31); iSTAT Chloride 94 mmol/L (101-112); iSTAT Creatinine 2.3 mg/dl (0.6-1.3); iSTAT Glucose > 700 mg/dl (70-99); iSTAT Hematocrit 31 % (37-47); iSTAT Hemoglobin 10.5 g/dl (12.0-16.0); iSTAT Ionized Calcium 1.05 mmol/l (1.12-1.32); iSTAT Sodium 123 mmol/L (135-144)
[2021-04-16 07:14] LABS: Base Excess VBG -16.2 mEq/L; Oxygen Saturation VBG 87.2 %; pH VBG 7.17 (7.36-7.41)
--- NOTE | 2021-04-16 07:26 | CT Scan Report ---
CT head/brain wo con CLINICAL HISTORY: AMS Technique: Contiguous axial CT images of the head were acquired from the base of the skull to the tara charleen without intravenous contrast administration. Images were viewed in brain, subdural and bone [facility]. Automated dose lowering techniques and/or adjustment according to patient size were utilized for this exam. Comparison: Comparison is made to CT head 01/02/2019 Findings: Areas of decreased attenuation are present in the periventricular and subcortical white matter bilate rally consistent with small vessel ischemic disease. Generalized cerebral atrophy with commensurate e nlargement of the ventricles, sulci, and cisterns is also present. There is no acute intracranial hem orrhage or evidence of acute territorial infarction. No shift of the midline structures, mass effect, or extra-axial abnormalities are shown. Atherosclerotic calcifications are present in the intracran ial segments of the internal carotid arteries. A large calcified mass arising from the falx is again seen. Imaged portions of the paranasal sinuses and mastoid air cells are clear. The orbits appear normal. There are no acute fractures of the calvaria or scalp swelling. Impression: No acute abnormalities. Interval stability of parafalcine meningioma. ACT 112: Negative or not required by law. Electronically signed by: Harlan Rg M.D. 04/16/2021 7:24 AM
--- NOTE | 2021-04-16 07:32 | CT Scan Report ---
CT chest diagnostic wo con CLINICAL HISTORY: abnl CXR hyperglycemia, nausea, confusion TECHNIQUE: Multidetector row helical CT of the chest was performed. Coronal and sagittal reformations were obtained. Automated dose lowering techniques and/or adjustment according to patient size were u tilized for this exam. Comparison: Comparison is made to chest one view 04/16/[address] chest 05/30/2008 FINDINGS: Lungs and pleura: Biapical scarring is noted. Dependent atelectasis versus scarring is seen. Heart and pericardium: Cardiomegaly is seen with biatrial enlargement. Vessels: Severe atherosclerotic changes in the aorta and coronary arteries. Mediastinum and simone: Unremarkable. Chest wall and lower neck: Subcentimeter thyroid nodules are noted which do not require follow-up by ACR criteria. Abdomen: For findings below the diaphragm, please refer to CT of the abdomen dated the same. Bones: Degenerative changes are seen in the visualized spine and shoulder joints. IMPRESSION: 1. Chronic scarring changes without evidence of acute abnormality. 2. Cardiomegaly ACT 112: Negative or not required by law. Electronically signed by: Harlan Rg M.D. 04/16/2021 7:31 AM
[2021-04-16 07:35] LABS: Alanine Aminotransferase 20 U/L (12-78); Albumin Globulin Ratio 1.2 (0.9-2); Albumin Level 3.3 gm/dl (3.4-5.0); Alkaline Phosphatase 78 U/L (45-117); Aspartate Aminotransferase 13 U/L (15-37); BUN Creatinine Ratio 22.3 (10-20); Bilirubin,Total 0.7 mg/dl (0.2-1); Blood Urea Nitrogen 59 mg/dl (7-18); Calcium 8.9 mg/dl (8.5-10.1); Carbon Dioxide 10 mmol/L (21-32); Chloride 90 mmol/L (98-107); Est GFR (African American) 18.2 ml/min; Est GFR (Non-African American) 15.7 ml/min; Globulin 2.7 gm/dl (2.5-4.0); Glucose 1013 mg/dl (70-99); Magnesium 2.8 mg/dl (1.8-2.4); Potassium 6.9 mmol/L (3.5-5.1); Sodium 125 mmol/L (136-145)
[2021-04-16 07:37] LABS: Troponin I 0.109 ng/ml (0-0.045)
--- NOTE | 2021-04-16 07:48 | CT Scan Report ---
CT abd pelvis wo con CLINICAL HISTORY: vomiting TECHNIQUE: Helical axial images of the abdomen and pelvis were obtained. Automated dose lowering tech niques and/or adjustment according to patient size were utilized for this exam. This exam was perfor med without intravenous contrast. COMPARISON: None available at the time of this dictation. FINDINGS: Lower chest: For findings above the diaphragm, please see CT chest performed same day. Liver: Hepatic steatosis is noted. Gallbladder and biliary tree: No calcified gallstones. Normal caliber wall. No intra- or extrahepatic biliary ductal dilation. Pancreas: Unremarkable, no focal lesions. Spleen: Unremarkable. Adrenals: Unremarkable. Kidneys and ureters: Nonobstructive nephrolithiasis is seen. Bladder: Miranda catheter is seen. Reproductive organs: Uterus retroverted. Bowel: Evaluation is limited due to paucity of intraperitoneal fat. Status post appendectomy. No evid ence of bowel obstruction. Lymph nodes Retroperitoneal: Unremarkable. Mesenteric: Unremarkable. Pelvic: Unremarkable. Peritoneum: Normal Vessels: Atherosclerotic calcifications are seen. Abdominal wall: Unremarkable. Bones: Degenerative changes in the visualized spine. Scoliosis is noted. IMPRESSION: No acute abnormalities to explain patient's vomiting, in particular no evidence of bowel obstruction. ACT 112: Negative or not required by law. Electronically signed by: Harlan Rg M.D. 04/16/2021 7:46 AM
[2021-04-16] MEDS ORDERED: SODIUM CHLORIDE 0.9% 1000ML 1,000 ML IV ONE (07:52)
[2021-04-16] MEDS ORDERED: PANTOprazole 40 MG in SYRINGE 0 ML IV ONE (07:52)
[2021-04-16] MEDS ORDERED: PIPERACILL/TAZOBAC CONSULT ACTIVE PRN ×2 (07:52→14:09)
[2021-04-16] MEDS ORDERED: PIPERACILLIN/TAZOBACTAM 4.5 GM/120 ML BAG IV ONE (07:52)
[2021-04-16] MEDS ORDERED: CARBOHYDRATES FOR HYPOGLYCEMIA PO PRN (07:54)
[2021-04-16] MEDS ORDERED: GLUCOSE 40% GEL 15 GM TUBE PO PRN (07:54)
[2021-04-16] MEDS ORDERED: STAT IV Infusion **Titration per Protocol STA (07:54)
[2021-04-16] MEDS ORDERED: GLUCOSE 10 TABS/TUBE PO PRN (07:54)
[2021-04-16] MEDS ORDERED: DKA GOAL RANGE 150-250 mg/dl ONE (07:54)
[2021-04-16] MEDS ORDERED: GLUCAGON FOR INJ 1 MG VIAL SQ PRN (07:54)
[2021-04-16] MEDS ORDERED: INSULIN REGULAR 250 UNITS in SODIUM CHLORIDE 0.9% 247.5 ML IV SCH (08:00)
--- NOTE | 2021-04-16 08:00 | Communication Note ---
Date of Service: April 16, 2021 I was part of the care provided to the patient. For care plan please refer to the attending note.
[2021-04-16 08:08] LABS: Beta-Hydroxybutyrate 81.81 mg/dl (0.2-2.81); T4 Free Thyroxine 1.48 ng/dl (0.8-1.6)
--- NOTE | 2021-04-16 08:18 | XRay Report ---
XR chest 1V portable CLINICAL HISTORY: SEPSIS TECHNIQUE: Single frontal radiograph of the chest was obtained. Comparison: Comparison is made to chest one view 02/03/2020 FINDINGS: No lines and tubes are seen. Cardiomegaly is noted. The lungs are clear. No evidence of pleural effus ion or pneumothorax. Likely old healed right humeral fracture noted. IMPRESSION: No acute chest disease. ACT 112: Negative or not required by law. Electronically signed by: Harlan Rg M.D. 04/16/2021 8:17 AM
--- NOTE | 2021-04-16 08:23 | History & Physical Report ---
Date of Service April 16, 2021 Assessment & Plan (1) DKA (diabetic ketoacidosis): Plan: Presented with glucose greater than 1000, VBG pH 7.1, anion gap of 25, with acute kidney injury and hyperkalemia, NSTEMI Suspect due to insulin pump failure- reports he continued to bolus her multiple times over the last 12 hours and her glucose continue to rise No recent infectious symptoms, no chest pain. She did vomit once after hyperglycemia started last evening but no evidence of pneumonia. No UTI or evidence of skin infections Leukocytosis most likely reactive to DKA No strokelike symptoms Anion gap likely due to DKA and lactic acidosis CT chest/abdomen/pelvis without acute findings -Admit to ICU -Continue to aggressively hydrate with IV fluids-has already received 3 L normal saline, will give 1 more liter of normal saline bolus and then start Normosol at 125 mL's per hour with 20 mEq of KCl as repeat potassium has improved -Continue insulin drip started in the ICU until anion gap is closed -Serial BMP, magnesium, phosphorus, VBG, lactate -Add D5 into IV fluids when glucose less than 250 -Protecting airway at this time, no need for intubation -Appreciate clam dredger management -Do not want a drop glucose by more than 100 mg/DL per hour -Start empiric Zosyn in case of sepsis given leukocytosis, follow blood cultures (2) Acute metabolic encephalopathy: Plan: Likely secondary to DKA, renal failure, severe dehydration CT head with stable meningioma, but no hemorrhage or stroke seen Treating DKA, hydrating It is possible that she could have some degree of encephalopathy due to Keppra toxicity secondary to renal failure, but not likely (3) Hyperkalemia: Plan: Potassium of 6.9 on arrival, secondary to hyperglycemia and acute kidney injury ECG initially quite abnormal with ST elevation in anterior leads and ST depression in inferolateral leads-improved with treatment with IV calcium chloride and IV insulin Potassium improved to 5.0 on repeat Continue IV fluids -Serial BMPs -Given DKA and high amounts of insulin being given, add potassium chloride to maintenance IV fluids (4) Abnormal EKG: Plan: As above, seems more likely secondary to hyperkalemia is quickly resolved and she did not complain of chest pain Troponin is elevated on admission at 0.1 -Trend serial EKGs and troponins -Check echocardiogram (5) Anemia: Plan: Hemoglobin 9.2 on arrival down from twelve 1 year ago. This is borderline macrocytic TSH is quite elevated at 23 could be contributing to anemia She was Hemoccult positive on rectal exam in the ER, but no gross melena or history of GI bleeding as per She has not had an EGD or colonoscopy in many years This hemoglobin is also likely significantly hemoconcentrated and may actually be lower than 9 -Follow serial CBC, type and crossmatch for 2 units in case of need for transfusion Hold for now on anticoagulation for DVT prophylaxis -Check iron studies, B12, folate in the morning -Treat hypothyroidism as below (6) IRENA (acute kidney injury): Plan: Creatinine 2.6 on arrival with hyperkalemia as above Continue IV fluid hydration Follow BMP Avoid nephrotoxic agents -Hold home lisinopril (7) Pseudohyponatremia: Plan: Corrected sodium is 140 Follow BMP (8) Elevated troponin: Plan: As above, trend serial troponin and ECG Check echocardiogram Likely secondary to myocardial demand ischemia in the setting of DKA (9) Dyslipidemia: Plan: Hold home omega-3 (10) Hypertension: Plan: Blood pressure stable Hold home lisinopril (11) Diabetes type 1, controlled: Plan: Check hemoglobin A1c Normally on insulin pump-on hold (12) Focal seizures: Plan: Convert home extended release Keppra to IV Keppra 250 mg every 12 hours while n.p.o. Keppra does need to be renally dosed (13) Hypothyroidism: Plan: TSH quite elevated at 23 Patient's reports that they were aware that her TSH was abnormal and were told by health psychologist to make sure that she is her levothyroxine from her other pills when she takes in the morning Continue levothyroxine 75 mcg IV once daily while n.p.o. (14) Meningioma: Plan: Stable from previous Follows with neurology (15) Short-term memory loss: Plan: Hold home Exelon patch Plan: DVT prophylaxis-SCDs only given heme positive stool and anemia Disposition-admit to ICU Lines-has a left femoral CVC, Miranda catheter DNR/DNI as per discussion with , but is okay with vasopressors History of Present Illness Chief Complaint: Altered mental status, high blood sugars Primary Care Provider: Lynette Odom This patient is an 86-year-old female with history of type 1 diabetes for over 50 years on an insulin pump, partial seizures, mild cognitive impairment, Diabetic peripheral neuropathy, macular degeneration, hypothyroidism, hyperlipidemia, HTN, meningioma, who presents from [facility] with altered mental status and high blood sugars as per the . The patient is quite lethargic not able to answer any questions. Her reports that yesterday afternoon, he and his attended a meeting together, but by dinnertime she reported nausea and not feeling well. Her blood sugar was in the 300s and 400s which he reports is not uncommon for her. He helped her with her insulin pump to bolus extra insulin through the evening. She did have one episode of vomiting last night. He reports prior to yesterday, she was in her normal state of health. She has not had any recent fevers or chills, no complaints of headaches, no cough or cold symptoms, no chest pain or shortness of breath, no abdominal pain or urinary symptoms. No blood in her stool or diarrhea. This morning, she was very lethargic and she came to the ER. In the ER, she was found to be in DKA have a glucose of 1013, acute kidney injury with a creatinine of 2.65, hyperkalemia with a potassium of 7.0, and elevated lactate at 4.2, and a pH on VBG of 7.17. Hemoglobin was low at 9.6 down from twelve 1 year ago. Her troponin was elevated at 0.109 and she had an abnormal ECG initially with sinus tachycardia with PVCs and bigeminy with possible ST elevation in V1 and V2 with ST depression in the inferolateral leads. She was treated for her hyperkalemia with IV calcium chloride, 3 L of IV fluids, and IV insulin. Her potassium did come down to 5.0 and her repeat ECG showed resolution of ST elevations and with persistent nonspecific ST depression in the inferolateral leads but not as significant as previous as well as an incomplete right bundle branch block. Her Covid-19 test was negative. She had a leukocytosis of 16. She had some abdominal tenderness on exam as per ER physician and was sent for CT of the chest abdomen and pelvis-this showed just some chronic biapical scarring and dependent atelectasis versus scarring in the chest and abdomen/pelvis with hepatic steatosis, but no other acute abnormalities or bowel obstruction. She was found to be Hemoccult positive without gross melena on rectal exam as per ER physician. CT of the head showed no acute abnormalities and interval stability of a known parafalcine meningioma. She will be admitted to the intensive care unit for management of DKA, acute kidney injury, hyperkalemia, new anemia with Hemoccult positive stool, and possible NSTEMI. I discussed her care with the clam dredger at the time of admission. Allergies Allergy/AdvReac Type Severity Reaction Status Date / Time No Known Allergies Allergy Verified 04/16/21 07:32 Home Medications Medication Instructions Recorded Confirmed Type magnesium oxide 400 mg (241.3 mg 400 mg PO HS #0 tab 12/27/15 04/16/21 History magnesium) tablet lisinopril 2.5 mg tablet 2.5 mg PO HS #0 tab 01/21/17 04/16/21 History vit C-vit B-yttmbc-nspx ox-lutein 1 cap PO BID 01/02/19 04/16/21 History 226 mg-200 unit-5 mg-0.8 mg capsule (PreserVision Lutein) aspirin 81 mg tablet,delayed 81 mg PO QAM #0 tab 01/03/19 04/16/21 History release cholecalciferol (vitamin D3) 125 5,000 unit PO HS #0 tab 01/03/19 04/16/21 History mcg (5,000 unit) tablet (Vitamin D3) coenzyme Q10 100 mg capsule 100 mg PO HS #0 cap 01/03/19 04/16/21 History insulin syringe-needle U-100 0.5 #10 ea 01/03/19 02/23/21 History mL 31 gauge x 5/16" (BD Insulin Syringe Ultra-Fine) omega 6-vyh-rrr-fish oil 1,000 mg 1 cap PO HS #0 cap 01/03/19 04/16/21 History (120 mg-180 mg) capsule (Fish Oil) blood sugar diagnostic (Contour #10 ea 01/14/19 02/23/21 History Next Test Strips) calcium carbonate 600 mg calcium 600 mg PO HS tab 01/14/19 04/16/21 History (1,500 mg) tablet (Calcium) levothyroxine 125 mcg tablet 125 mcg PO DAILYBB tab 07/28/20 04/16/21 History Novolog U-100 Insulin aspart 100 80 unit CONTINUOUS IV INFUSION 09/16/20 04/16/21 Rx unit/mL subcutaneous solution DAILY 90 Days #80 ml NS (insulin aspart U-100) alendronate 70 mg tablet (Fosamax) 70 mg PO WK tab 10/26/20 04/16/21 History acetaminophen 500 mg tablet 500 mg PO BID 04/16/21 04/16/21 History cyanocobalamin (vitamin B-12) 500 500 mcg PO HS 04/16/21 04/16/21 History mcg tablet (Vitamin B-12) levetiracetam 500 mg 500 mg PO QAM 04/16/21 04/16/21 History tablet,extended release 24 hr (Keppra XR) magnesium hydroxide 400 mg/5 mL 30 ml PO UD 04/16/21 04/16/21 History oral suspension (Jackson Milk of Magnesia) rivastigmine (Exelon Patch) 9.5 mg TOPICAL QAM 04/16/21 04/16/21 History Past Med/Surg History Medical History Closed head injury Diabetes type 1, controlled Diabetic peripheral neuropathy associated with type 1 diabetes mellitus Dyslipidemia Focal seizures Fracture of right hip History of herpes zoster History of meningioma History of rheumatic fever Hypertension Hypothyroidism Insulin pump in place Meningioma Pancreatic cyst Short-term memory loss Surgical History History of appendectomy History of breast biopsy History of hip surgery History of surgery on arm History of tonsillectomy Family History Father Colon cancer Mother Alzheimer disease Other Diabetes Social History Smoking Status: Never smoker Cigarettes Per Day: No smoking since freshman year of college.; Second Hand Exposure: No; Hx Alcohol Use: No Hx Substance Use: No Preferred Language: [place]ese Communication Ability: Effective Supermarket Manager Required: No Beliefs That Will Affect Care: None marital status: Current Living Situation: Spouse Current Living Situation Comment: [facility]. current occupation: retired Feels Safe at Home: Yes Assistive Devices: Walker Review of Systems Review of Systems: All systems reviewed & are unremarkable except as noted in HPI & below As per Physical Exam Constitutional: WD/WN, vitals as above Eyes: PERRL, conjunctivae normal, anicteric sclerae ENMT: Ears: no hearing impairment and no external ear abnormality Nose: no external nose abnormality and no nasal mucous membrane abnormality Mouth: + dry oral mucous membranes Neck: trachea midline, no thyromegaly Respiratory: normal respiratory effort, lungs clear to auscultation Cardiovascular: RRR, no murmur, no edema Vessels: dorsalis pedis pulses present Extremities: no calf tenderness and no pedal edema Chest (Breasts): Chest: normal inspection of chest Gastrointestinal (Abdomen): normal bowel sounds, soft, nontender, no hepatosplenomegaly Musculoskeletal: Extremities: extremities normal to inspection; no cyanosis and no clubbing Skin: no rashes, warm and dry Neurologic: moves all extremities; no focal motor deficits and + not awake (But wakes up fairly easily and opens eyes and follows commands) Does not interact much except for yes and no answers at times Genitourinary: Miranda catheter in place draining clear yellow urine Lymphatic: no lymphedema Results & Data Results & Data ([facility]) Vital Signs (Past 12 Hours) Vital Signs Temp Pulse Resp BP Pulse Ox 04/16/21 06:46 98 04/16/21 06:05 36.4 C L 83 16 100/30 L 98 Laboratory Results 04/16/21 04/16/21 04/16/21 Range/Units Unknown Unknown Unknown WBC (4.8-10.8) K/uL RBC (4.2-5.4) M/uL Hgb (12.0-16.0) g/dL POC Hgb (12.0-16.0) g/dl Hct (37-47) % POC Hct (37-47) % MCV (80-100) fL MCH (25-34) pg MCHC (32-36) g/dL RDW Std Deviation (36.4-46.3) fL RDW Coeff of Shady (11.5-14.5) % Plt Count (130-400) K/uL MPV (7.4-10.4) fL Immature Gran % (Auto) % Neut % (Auto) % Lymph % (Auto) % Walker % (Auto) % Eos % (Auto) % Baso % (Auto) % Neut # (Auto) (1.4-6.5) K/uL Lymph # (Auto) (1.2-3.4) K/uL Walker # (Auto) (0.11-0.59) K/uL Eos # (Auto) (0-0.5) K/uL Baso # (Auto) (0-0.2) K/uL Immature Gran # (Auto) (0.00-0.02) K/uL PT (9.0-12.0) Seconds INR (0.9-1.1) APTT (21.0-31.0) Seconds PTT Ratio VBG pH (7.36-7.41) VBG pCO2 (38-50) mmHg VBG pO2 mmHg VBG HCO3 mmol/L VBG O2 Saturation % VBG Base Excess mEq/L Barometric Pressure mm/Hg POC Sodium (135-144) mmol/L Sodium (136-145) mmol/L POC Potassium (3.3-5.0) mmol/L Potassium (3.5-5.1) mmol/L POC Chloride (101-112) mmol/L Chloride (98-107) mmol/L Carbon Dioxide (21-32) mmol/L POC Total CO2 (24-31) mmol/L Anion Gap (3-11) POC Anion Gap (16-25) mmol/L POC BUN (7-18) mg/dl BUN (7-18) mg/dl Creatinine (0.6-1.2) mg/dl POC Creatinine (0.6-1.3) mg/dl Est Cr Clr Drug Dosing ml/min Est GFR ( Amer) ml/min Est GFR (Non-Af Amer) ml/min BUN/Creatinine Ratio (10-20) Glucose (70-99) mg/dl POC Glucose (70-99) mg/dl POC Glucose (other) (70-99) mg/dl Estimat Average Glucose Hemoglobin A1c Lactate 4.2 H* (0.4-2.0) mmol/L Calcium (8.5-10.1) mg/dl POC Ioniz Calcium Bethel (1.12-1.32) mmol/l Phosphorus (2.5-4.9) mg/dl Magnesium (1.8-2.4) mg/dl Total Bilirubin (0.2-1) mg/dl AST (15-37) U/L ALT (12-78) U/L Alkaline Phosphatase (45-117) U/L Troponin I (0-0.045) ng/ml Total Protein (6.4-8.2) gm/dl Albumin (3.4-5.0) gm/dl Globulin (2.5-4.0) gm/dl Albumin/Globulin Ratio (0.9-2) Beta-Hydroxybutyric Acd (0.2-2.81) mg/dl Procalcitonin 0.86 H (0-0.5) ng/ml TSH (0.300-4.500) uIu/ml Free T4 (0.8-1.6) ng/dl Urine Color Yellow Urine Appearance Clear (Clear) Urine pH 5.0 (4.5-7.5) Ur Specific [place] 1.022 (1.000-1.030) Urine Protein Trace H (Negative) Urine Glucose (UA) 3+ H (Negative) Urine Ketones Trace H (Negative) Urine Blood Negative (Negative) Urine Nitrite Negative (Negative) Urine Bilirubin Negative (Negative) Urine Urobilinogen Negative (Negative) Ur Leukocyte Esterase Negative (Negative) Urine WBC (Auto) 1-5 (0-5) /hpf Urine RBC (Auto) 5-10 H (0-4) /hpf U Hyaline Cast (Auto) 1-5 (0-5) /lpf U Epithel Cells (Auto) 20-30 H (0-5) /lpf Urine Bacteria (Auto) Negative (Negative) COVID-19 Eval Order SARS-CoV-2 (PCR) (Negative) 04/16/21 04/16/21 04/16/21 Range/Units Unknown Unknown Unknown WBC 16.72 H (4.8-10.8) K/uL RBC 3.15 L (4.2-5.4) M/uL Hgb 9.6 L (12.0-16.0) g/dL POC Hgb (12.0-16.0) g/dl Hct 31.1 L (37-47) % POC Hct (37-47) % MCV 98.7 (80-100) fL MCH 30.5 (25-34) pg MCHC 30.9 L (32-36) g/dL RDW Std Deviation 49.8 H (36.4-46.3) fL RDW Coeff of Shady 13.8 (11.5-14.5) % Plt Count 227 (130-400) K/uL MPV 11.3 H (7.4-10.4) fL Immature Gran % (Auto) 0.4 % Neut % (Auto) 87.1 % Lymph % (Auto) 5.8 % Walker % (Auto) 6.5 % Eos % (Auto) 0.1 % Baso % (Auto) 0.1 % Neut # (Auto) 14.58 H (1.4-6.5) K/uL Lymph # (Auto) 0.97 L (1.2-3.4) K/uL Walker # (Auto) 1.08 H (0.11-0.59) K/uL Eos # (Auto) 0.01 (0-0.5) K/uL Baso # (Auto) 0.01 (0-0.2) K/uL Immature Gran # (Auto) 0.07 H (0.00-0.02) K/uL PT 10.9 (9.0-12.0) Seconds INR 1.1 (0.9-1.1) APTT 21.7 (21.0-31.0) Seconds PTT Ratio 0.8 VBG pH (7.36-7.41) VBG pCO2 (38-50) mmHg VBG pO2 mmHg VBG HCO3 mmol/L VBG O2 Saturation % VBG Base Excess mEq/L Barometric Pressure mm/Hg POC Sodium (135-144) mmol/L Sodium 125 L (136-145) mmol/L POC Potassium (3.3-5.0) mmol/L Potassium 6.9 H* (3.5-5.1) mmol/L POC Chloride (101-112) mmol/L Chloride 90 L (98-107) mmol/L Carbon Dioxide 10 L (21-32) mmol/L POC Total CO2 (24-31) mmol/L Anion Gap 25.0 H (3-11) POC Anion Gap (16-25) mmol/L POC BUN (7-18) mg/dl BUN 59 H (7-18) mg/dl Creatinine 2.65 H (0.6-1.2) mg/dl POC Creatinine (0.6-1.3) mg/dl Est Cr Clr Drug Dosing Not Reportable ml/min Est GFR ( Amer) 18.2 ml/min Est GFR (Non-Af Amer) 15.7 ml/min BUN/Creatinine Ratio 22.3 H (10-20) Glucose 1013 H* (70-99) mg/dl POC Glucose (70-99) mg/dl POC Glucose (other) (70-99) mg/dl Estimat Average Glucose Hemoglobin A1c Lactate (0.4-2.0) mmol/L Calcium 8.9 (8.5-10.1) mg/dl POC Ioniz Calcium Bethel (1.12-1.32) mmol/l Phosphorus (2.5-4.9) mg/dl Magnesium 2.8 H (1.8-2.4) mg/dl Total Bilirubin 0.7 (0.2-1) mg/dl AST 13 L (15-37) U/L ALT 20 (12-78) U/L Alkaline Phosphatase 78 (45-117) U/L Troponin I 0.109 H* (0-0.045) ng/ml Total Protein 6.0 L (6.4-8.2) gm/dl Albumin 3.3 L (3.4-5.0) gm/dl Globulin 2.7 (2.5-4.0) gm/dl Albumin/Globulin Ratio 1.2 (0.9-2) Beta-Hydroxybutyric Acd 81.81 H (0.2-2.81) mg/dl Procalcitonin (0-0.5) ng/ml TSH 23.600 H (0.300-4.500) uIu/ml Free T4 1.48 (0.8-1.6) ng/dl Urine Color Urine Appearance (Clear) Urine pH (4.5-7.5) Ur Specific [place] (1.000-1.030) Urine Protein (Negative) Urine Glucose (UA) (Negative) Urine Ketones (Negative) Urine Blood (Negative) Urine Nitrite (Negative) Urine Bilirubin (Negative) Urine Urobilinogen (Negative) Ur Leukocyte Esterase (Negative) Urine WBC (Auto) (0-5) /hpf Urine RBC (Auto) (0-4) /hpf U Hyaline Cast (Auto) (0-5) /lpf U Epithel Cells (Auto) (0-5) /lpf Urine Bacteria (Auto) (Negative) COVID-19 Eval Order SARS-CoV-2 (PCR) (Negative) 04/16/21 04/16/21 04/16/21 Range/Units 09:05 08:13 08:13 WBC (4.8-10.8) K/uL RBC (4.2-5.4) M/uL Hgb (12.0-16.0) g/dL POC Hgb (12.0-16.0) g/dl Hct (37-47) % POC Hct (37-47) % MCV (80-100) fL MCH (25-34) pg MCHC (32-36) g/dL RDW Std Deviation (36.4-46.3) fL RDW Coeff of Shady (11.5-14.5) % Plt Count (130-400) K/uL MPV (7.4-10.4) fL Immature Gran % (Auto) % Neut % (Auto) % Lymph % (Auto) % Walker % (Auto) % Eos % (Auto) % Baso % (Auto) % Neut # (Auto) (1.4-6.5) K/uL Lymph # (Auto) (1.2-3.4) K/uL Walker # (Auto) (0.11-0.59) K/uL Eos # (Auto) (0-0.5) K/uL Baso # (Auto) (0-0.2) K/uL Immature Gran # (Auto) (0.00-0.02) K/uL PT (9.0-12.0) Seconds INR (0.9-1.1) APTT (21.0-31.0) Seconds PTT Ratio VBG pH (7.36-7.41) VBG pCO2 (38-50) mmHg VBG pO2 mmHg VBG HCO3 mmol/L VBG O2 Saturation % VBG Base Excess mEq/L Barometric Pressure mm/Hg POC Sodium (135-144) mmol/L Sodium 130 L (136-145) mmol/L POC Potassium (3.3-5.0) mmol/L Potassium 5.0 D (3.5-5.1) mmol/L POC Chloride (101-112) mmol/L Chloride 97 L (98-107) mmol/L Carbon Dioxide 12 L (21-32) mmol/L POC Total CO2 (24-31) mmol/L Anion Gap 20.0 H (3-11) POC Anion Gap (16-25) mmol/L POC BUN (7-18) mg/dl BUN 59 H (7-18) mg/dl Creatinine 2.79 H (0.6-1.2) mg/dl POC Creatinine (0.6-1.3) mg/dl Est Cr Clr Drug Dosing 11.0 ml/min Est GFR ( Amer) 17.1 ml/min Est GFR (Non-Af Amer) 14.7 ml/min BUN/Creatinine Ratio 21.3 H (10-20) Glucose Pending 871 H* (70-99) mg/dl POC Glucose (70-99) mg/dl POC Glucose (other) (70-99) mg/dl Estimat Average Glucose Pending Hemoglobin A1c Pending Lactate (0.4-2.0) mmol/L Calcium 9.0 (8.5-10.1) mg/dl POC Ioniz Calcium Bethel (1.12-1.32) mmol/l Phosphorus 6.2 H (2.5-4.9) mg/dl Magnesium 2.8 H (1.8-2.4) mg/dl Total Bilirubin 0.6 (0.2-1) mg/dl AST 13 L (15-37) U/L ALT 25 (12-78) U/L Alkaline Phosphatase 74 (45-117) U/L Troponin I (0-0.045) ng/ml Total Protein 5.7 L (6.4-8.2) gm/dl Albumin 3.0 L (3.4-5.0) gm/dl Globulin 2.7 (2.5-4.0) gm/dl Albumin/Globulin Ratio 1.1 (0.9-2) Beta-Hydroxybutyric Acd (0.2-2.81) mg/dl Procalcitonin (0-0.5) ng/ml TSH (0.300-4.500) uIu/ml Free T4 (0.8-1.6) ng/dl Urine Color Urine Appearance (Clear) Urine pH (4.5-7.5) Ur Specific [place] (1.000-1.030) Urine Protein (Negative) Urine Glucose (UA) (Negative) Urine Ketones (Negative) Urine Blood (Negative) Urine Nitrite (Negative) Urine Bilirubin (Negative) Urine Urobilinogen (Negative) Ur Leukocyte Esterase (Negative) Urine WBC (Auto) (0-5) /hpf Urine RBC (Auto) (0-4) /hpf U Hyaline Cast (Auto) (0-5) /lpf U Epithel Cells (Auto) (0-5) /lpf Urine Bacteria (Auto) (Negative) COVID-19 Eval Order SARS-CoV-2 (PCR) (Negative) 04/16/21 04/16/21 04/16/21 Range/Units 08:13 08:10 06:58 WBC 16.83 H (4.8-10.8) K/uL RBC 2.96 L (4.2-5.4) M/uL Hgb 9.0 L (12.0-16.0) g/dL POC Hgb (12.0-16.0) g/dl Hct 28.7 L (37-47) % POC Hct (37-47) % MCV 97.0 (80-100) fL MCH 30.4 (25-34) pg MCHC 31.4 L (32-36) g/dL RDW Std Deviation 47.2 H (36.4-46.3) fL RDW Coeff of Shady 13.4 (11.5-14.5) % Plt Count 205 (130-400) K/uL MPV 10.5 H (7.4-10.4) fL Immature Gran % (Auto) 0.5 % Neut % (Auto) 80.2 % Lymph % (Auto) 8.4 % Walker % (Auto) 10.7 % Eos % (Auto) 0.1 % Baso % (Auto) 0.1 % Neut # (Auto) 13.51 H (1.4-6.5) K/uL Lymph # (Auto) 1.42 (1.2-3.4) K/uL Walker # (Auto) 1.80 H (0.11-0.59) K/uL Eos # (Auto) 0.01 (0-0.5) K/uL Baso # (Auto) 0.01 (0-0.2) K/uL Immature Gran # (Auto) 0.08 H (0.00-0.02) K/uL PT (9.0-12.0) Seconds INR (0.9-1.1) APTT (21.0-31.0) Seconds PTT Ratio VBG pH 7.17 L (7.36-7.41) VBG pCO2 31 L (38-50) mmHg VBG pO2 66 mmHg VBG HCO3 11 mmol/L VBG O2 Saturation 87.2 % VBG Base Excess -16.2 mEq/L Barometric Pressure 740.6 mm/Hg POC Sodium (135-144) mmol/L Sodium (136-145) mmol/L POC Potassium (3.3-5.0) mmol/L Potassium (3.5-5.1) mmol/L POC Chloride (101-112) mmol/L Chloride (98-107) mmol/L Carbon Dioxide (21-32) mmol/L POC Total CO2 (24-31) mmol/L Anion Gap (3-11) POC Anion Gap (16-25) mmol/L POC BUN (7-18) mg/dl BUN (7-18) mg/dl Creatinine (0.6-1.2) mg/dl POC Creatinine (0.6-1.3) mg/dl Est Cr Clr Drug Dosing ml/min Est GFR ( Amer) ml/min Est GFR (Non-Af Amer) ml/min BUN/Creatinine Ratio (10-20) Glucose (70-99) mg/dl POC Glucose (70-99) mg/dl POC Glucose (other) (70-99) mg/dl Estimat Average Glucose Hemoglobin A1c Lactate 4.2 H* (0.4-2.0) mmol/L Calcium (8.5-10.1) mg/dl POC Ioniz Calcium [place] (1.12-1.32) mmol/l Phosphorus (2.5-4.9) mg/dl Magnesium (1.8-2.4) mg/dl Total Bilirubin (0.2-1) mg/dl AST (15-37) U/L ALT (12-78) U/L Alkaline Phosphatase (45-117) U/L Troponin I (0-0.045) ng/ml Total Protein (6.4-8.2) gm/dl Albumin (3.4-5.0) gm/dl Globulin (2.5-4.0) gm/dl Albumin/Globulin Ratio (0.9-2) Beta-Hydroxybutyric Acd (0.2-2.81) mg/dl Procalcitonin (0-0.5) ng/ml TSH (0.300-4.500) uIu/ml Free T4 (0.8-1.6) ng/dl Urine Color Urine Appearance (Clear) Urine pH (4.5-7.5) Ur Specific [place] (1.000-1.030) Urine Protein (Negative) Urine Glucose (UA) (Negative) Urine Ketones (Negative) Urine Blood (Negative) Urine Nitrite (Negative) Urine Bilirubin (Negative) Urine Urobilinogen (Negative) Ur Leukocyte Esterase (Negative) Urine WBC (Auto) (0-5) /hpf Urine RBC (Auto) (0-4) /hpf U Hyaline Cast (Auto) (0-5) /lpf U Epithel Cells (Auto) (0-5) /lpf Urine Bacteria (Auto) (Negative) COVID-19 Eval Order SARS-CoV-2 (PCR) (Negative) 04/16/21 04/16/21 04/16/21 Range/Units 06:50 06:50 06:26 WBC (4.8-10.8) K/uL RBC (4.2-5.4) M/uL Hgb (12.0-16.0) g/dL POC Hgb 10.5 L (12.0-16.0) g/dl Hct (37-47) % POC Hct 31 L (37-47) % MCV (80-100) fL MCH (25-34) pg MCHC (32-36) g/dL RDW Std Deviation (36.4-46.3) fL RDW Coeff of Shady (11.5-14.5) % Plt Count (130-400) K/uL MPV (7.4-10.4) fL Immature Gran % (Auto) % Neut % (Auto) % Lymph % (Auto) % Walker % (Auto) % Eos % (Auto) % Baso % (Auto) % Neut # (Auto) (1.4-6.5) K/uL Lymph # (Auto) (1.2-3.4) K/uL Walker # (Auto) (0.11-0.59) K/uL Eos # (Auto) (0-0.5) K/uL Baso # (Auto) (0-0.2) K/uL Immature Gran # (Auto) (0.00-0.02) K/uL PT (9.0-12.0) Seconds INR (0.9-1.1) APTT (21.0-31.0) Seconds PTT Ratio VBG pH (7.36-7.41) VBG pCO2 (38-50) mmHg VBG pO2 mmHg VBG HCO3 mmol/L VBG O2 Saturation % VBG Base Excess mEq/L Barometric Pressure mm/Hg POC Sodium 123 L (135-144) mmol/L Sodium (136-145) mmol/L POC Potassium 7.0 H* (3.3-5.0) mmol/L Potassium (3.5-5.1) mmol/L POC Chloride 94 L (101-112) mmol/L Chloride (98-107) mmol/L Carbon Dioxide (21-32) mmol/L POC Total CO2 14 L (24-31) mmol/L Anion Gap (3-11) POC Anion Gap 24.0 (16-25) mmol/L POC BUN 57 H (7-18) mg/dl BUN (7-18) mg/dl Creatinine (0.6-1.2) mg/dl POC Creatinine 2.3 H (0.6-1.3) mg/dl Est Cr Clr Drug Dosing ml/min Est GFR ( Amer) ml/min Est GFR (Non-Af Amer) ml/min BUN/Creatinine Ratio (10-20) Glucose (70-99) mg/dl POC Glucose (70-99) mg/dl POC Glucose (other) > 700 H* (70-99) mg/dl Estimat Average Glucose Hemoglobin A1c Lactate (0.4-2.0) mmol/L Calcium (8.5-10.1) mg/dl POC Ioniz Calcium [place] 1.05 L (1.12-1.32) mmol/l Phosphorus (2.5-4.9) mg/dl Magnesium (1.8-2.4) mg/dl Total Bilirubin (0.2-1) mg/dl AST (15-37) U/L ALT (12-78) U/L Alkaline Phosphatase (45-117) U/L Troponin I (0-0.045) ng/ml Total Protein (6.4-8.2) gm/dl Albumin (3.4-5.0) gm/dl Globulin (2.5-4.0) gm/dl Albumin/Globulin Ratio (0.9-2) Beta-Hydroxybutyric Acd (0.2-2.81) mg/dl Procalcitonin (0-0.5) ng/ml TSH (0.300-4.500) uIu/ml Free T4 (0.8-1.6) ng/dl Urine Color Urine Appearance (Clear) Urine pH (4.5-7.5) Ur Specific [place] (1.000-1.030) Urine Protein (Negative) Urine Glucose (UA) (Negative) Urine Ketones (Negative) Urine Blood (Negative) Urine Nitrite (Negative) Urine Bilirubin (Negative) Urine Urobilinogen (Negative) Ur Leukocyte Esterase (Negative) Urine WBC (Auto) (0-5) /hpf Urine RBC (Auto) (0-4) /hpf U Hyaline Cast (Auto) (0-5) /lpf U Epithel Cells (Auto) (0-5) /lpf Urine Bacteria (Auto) (Negative) COVID-19 Eval Order Covid19 at [facility] SARS-CoV-2 (PCR) NEGATIVE (Negative) 04/16/21 Range/Units 06:13 WBC (4.8-10.8) K/uL RBC (4.2-5.4) M/uL Hgb (12.0-16.0) g/dL POC Hgb (12.0-16.0) g/dl Hct (37-47) % POC Hct (37-47) % MCV (80-100) fL MCH (25-34) pg MCHC (32-36) g/dL RDW Std Deviation (36.4-46.3) fL RDW Coeff of [place] (11.5-14.5) % Plt Count (130-400) K/uL MPV (7.4-10.4) fL Immature Gran % (Auto) % Neut % (Auto) % Lymph % (Auto) % Walker % (Auto) % Eos % (Auto) % Baso % (Auto) % Neut # (Auto) (1.4-6.5) K/uL Lymph # (Auto) (1.2-3.4) K/uL Walker # (Auto) (0.11-0.59) K/uL Eos # (Auto) (0-0.5) K/uL Baso # (Auto) (0-0.2) K/uL Immature Gran # (Auto) (0.00-0.02) K/uL PT (9.0-12.0) Seconds INR (0.9-1.1) APTT (21.0-31.0) Seconds PTT Ratio VBG pH (7.36-7.41) VBG pCO2 (38-50) mmHg VBG pO2 mmHg VBG HCO3 mmol/L VBG O2 Saturation % VBG Base Excess mEq/L Barometric Pressure mm/Hg POC Sodium (135-144) mmol/L Sodium (136-145) mmol/L POC Potassium (3.3-5.0) mmol/L Potassium (3.5-5.1) mmol/L POC Chloride (101-112) mmol/L Chloride (98-107) mmol/L Carbon Dioxide (21-32) mmol/L POC Total CO2 (24-31) mmol/L Anion Gap (3-11) POC Anion Gap (16-25) mmol/L POC BUN (7-18) mg/dl BUN (7-18) mg/dl Creatinine (0.6-1.2) mg/dl POC Creatinine (0.6-1.3) mg/dl Est Cr Clr Drug Dosing ml/min Est GFR ( Amer) ml/min Est GFR (Non-Af Amer) ml/min BUN/Creatinine Ratio (10-20) Glucose (70-99) mg/dl POC Glucose > 600 H* (70-99) mg/dl POC Glucose (other) (70-99) mg/dl Estimat Average Glucose Hemoglobin A1c Lactate (0.4-2.0) mmol/L Calcium (8.5-10.1) mg/dl POC Ioniz Calcium [place] (1.12-1.32) mmol/l Phosphorus (2.5-4.9) mg/dl Magnesium (1.8-2.4) mg/dl Total Bilirubin (0.2-1) mg/dl AST (15-37) U/L ALT (12-78) U/L Alkaline Phosphatase (45-117) U/L Troponin I (0-0.045) ng/ml Total Protein (6.4-8.2) gm/dl Albumin (3.4-5.0) gm/dl Globulin (2.5-4.0) gm/dl Albumin/Globulin Ratio (0.9-2) Beta-Hydroxybutyric Acd (0.2-2.81) mg/dl Procalcitonin (0-0.5) ng/ml TSH (0.300-4.500) uIu/ml Free T4 (0.8-1.6) ng/dl Urine Color Urine Appearance (Clear) Urine pH (4.5-7.5) Ur Specific [place] (1.000-1.030) Urine Protein (Negative) Urine Glucose (UA) (Negative) Urine Ketones (Negative) Urine Blood (Negative) Urine Nitrite (Negative) Urine Bilirubin (Negative) Urine Urobilinogen (Negative) Ur Leukocyte Esterase (Negative) Urine WBC (Auto) (0-5) /hpf Urine RBC (Auto) (0-4) /hpf U Hyaline Cast (Auto) (0-5) /lpf U Epithel Cells (Auto) (0-5) /lpf Urine Bacteria (Auto) (Negative) COVID-19 Eval Order SARS-CoV-2 (PCR) (Negative) Diagnostic Findings Abdomen/Pelvis CT 04/16/21 06:16 CT abd pelvis wo con CLINICAL HISTORY: vomiting TECHNIQUE: Helical axial images of the abdomen and pelvis were obtained. Automated dose lowering techniques and/or adjustment according to patient size were utilized for this exam. This exam was performed without intravenous contrast. COMPARISON: None available at the time of this dictation. FINDINGS: Lower chest: For findings above the diaphragm, please see CT chest performed same day. Liver: Hepatic steatosis is noted. Gallbladder and biliary tree: No calcified gallstones. Normal caliber wall. No intra- or extrahepatic biliary ductal dilation. Pancreas: Unremarkable, no focal lesions. Spleen: Unremarkable. Adrenals: Unremarkable. Kidneys and ureters: Nonobstructive nephrolithiasis is seen. Bladder: Miranda catheter is seen. Reproductive organs: Uterus retroverted. Bowel: Evaluation is limited due to paucity of intraperitoneal fat. Status post appendectomy. No evidence of bowel obstruction. Lymph nodes Retroperitoneal: Unremarkable. Mesenteric: Unremarkable. Pelvic: Unremarkable. Peritoneum: Normal Vessels: Atherosclerotic calcifications are seen. Abdominal wall: Unremarkable. Bones: Degenerative changes in the visualized spine. Scoliosis is noted. IMPRESSION: No acute abnormalities to explain patient's vomiting, in particular no evidence of bowel obstruction. ACT 112: Negative or not required by law. Electronically signed by: Harlan Rg M.D. 04/16/2021 7:46 AM Chest X-Ray 04/16/21 06:16 XR chest 1V portable CLINICAL HISTORY: SEPSIS TECHNIQUE: Single frontal radiograph of the chest was obtained. Comparison: Comparison is made to chest one view 02/03/2020 FINDINGS: No lines and tubes are seen. Cardiomegaly is noted. The lungs are clear. No evidence of pleural effusion or pneumothorax. Likely old healed right humeral fracture noted. IMPRESSION: No acute chest disease. ACT 112: Negative or not required by law. Electronically signed by: Harlan Rg M.D. 04/16/2021 8:[address] 04/16/21 06:16 CT head/brain wo con CLINICAL HISTORY: AMS Technique: Contiguous axial CT images of the head were acquired from the base of the skull to the vertex without intravenous contrast administration. Images were viewed in brain, subdural and bone windows. Automated dose lowering techniques and/or adjustment according to patient size were utilized for this exam. Comparison: Comparison is made to CT head 01/02/2019 Findings: Areas of decreased attenuation are present in the periventricular and subcortical white matter bilaterally consistent with small vessel ischemic disease. Generalized cerebral atrophy with commensurate enlargement of the ventricles, sulci, and cisterns is also present. There is no acute intracranial hemorrhage or evidence of acute territorial infarction. No shift of the midline structures, mass effect, or extra-axial abnormalities are shown. Atherosclerotic calcifications are present in the intracranial segments of the internal carotid arteries. A large calcified mass arising from the falx is again seen. Imaged portions of the paranasal sinuses and mastoid air cells are clear. The orbits appear normal. There are no acute fractures of the calvaria or scalp swelling. Impression: No acute abnormalities. Interval stability of parafalcine meningioma. ACT 112: Negative or not required by law. Electronically signed by: Harlan Rg M.D. 04/16/2021 7:[address] 04/16/21 07:09 CT chest diagnostic wo con CLINICAL HISTORY: abnl CXR hyperglycemia, nausea, confusion TECHNIQUE: Multidetector row helical CT of the chest was performed. Coronal and sagittal reformations were obtained. Automated dose lowering techniques and/or adjustment according to patient size were utilized for this exam. Comparison: Comparison is made to chest one view 04/16/[address] chest 05/30/2008 FINDINGS: Lungs and pleura: Biapical scarring is noted. Dependent atelectasis versus scarring is seen. Heart and pericardium: Cardiomegaly is seen with biatrial enlargement. Vessels: Severe atherosclerotic changes in the aorta and coronary arteries. Mediastinum and simone: Unremarkable. Chest wall and lower neck: Subcentimeter thyroid nodules are noted which do not require follow-up by ACR criteria. Abdomen: For findings below the diaphragm, please refer to CT of the abdomen dated the same. Bones: Degenerative changes are seen in the visualized spine and shoulder joints. IMPRESSION: 1. Chronic scarring changes without evidence of acute abnormality. 2. Cardiomegaly ACT 112: Negative or not required by law. Electronically signed by: Harlan Rg M.D. 04/16/2021 7:31 AM ECG Additional Comments: As per HPI Code Status & VTE Plan Code Status DNR/DNI, but is okay with vasopressors VTE Prophylaxis Plan VTE Prophylaxis will be ordered: Yes PG Care Time/CCT Total # of Minutes Spent Total Time Spent with Patient: Total time spent is greater than 50% in coordination of care (as documented) at patient's floor/unit and/or counseling patient: Coding Level of Care Code 39540 Initial Inpt Care Lvl 3 Diagnoses DKA (diabetic ketoacidosis) E10.11 Diabetes mellitus complication detail: with coma Diabetes mellitus type: type 1 Anemia D64.9 Anemia type: unspecified type Abnormal EKG R94.31 IRENA (acute kidney injury) N17.9 Dyslipidemia E78.5 Hypertension I10 Hypertension type: essential hypertension Diabetes type 1, controlled E10.8 Diabetes mellitus complication status: with unspecified complications Focal seizures R56.9 Hypothyroidism E03.9 Hypothyroidism type: unspecified Meningioma D32.9 Pseudohyponatremia R79.89 Hyperkalemia E87.5 Elevated troponin R77.8 Acute metabolic encephalopathy G93.41 Short-term memory loss R41.3 (1) DKA (diabetic ketoacidosis) Diabetes mellitus complication detail: with coma Diabetes mellitus type: type 1 Qualified Code(s): E10.11 - Type 1 diabetes mellitus with ketoacidosis with coma (2) Anemia Anemia type: unspecified type Qualified Code(s): D64.9 - Anemia, unspecified (3) Hypothyroidism Hypothyroidism type: unspecified Qualified Code(s): E03.9 - Hypothyroidism, unspecified (4) Diabetes type 1, controlled Diabetes mellitus complication status: with unspecified complications Qualified Code(s): E10.8 - Type 1 diabetes mellitus with unspecified complications (5) Hypertension Hypertension type: essential hypertension Qualified Code(s): I10 - Essential (primary) hypertension
[2021-04-16 08:32] LABS: Hematocrit (blood only) 28.7 % (37-47); Mean Corpuscular Hemoglobin 30.4 pg (25-34); Mean Corpuscular Hgb Conc 31.4 g/dL (32-36); Mean Platelet Volume 10.5 fL (7.4-10.4); Platelet Count 205 K/uL (130-400); RDW Coefficient of Variation 13.4 % (11.5-14.5); RDW Standard Deviation 47.2 fL (36.4-46.3); Red Blood Count 2.96 M/uL (4.2-5.4); White Blood Count 16.83 K/uL (4.8-10.8)
[2021-04-16] MEDS ORDERED: SODIUM CHLORIDE 0.9% 1000ML 1,000 ML IV SCH (08:45)
[2021-04-16 09:08] LABS: Albumin Globulin Ratio 1.1 (0.9-2); BUN Creatinine Ratio 21.3 (10-20); Bilirubin,Total 0.6 mg/dl (0.2-1); Est GFR (African American) 17.1 ml/min; Est GFR (Non-African American) 14.7 ml/min; Globulin 2.7 gm/dl (2.5-4.0); Magnesium 2.8 mg/dl (1.8-2.4); Phosphorus 6.2 mg/dl (2.5-4.9); Total Protein 5.7 gm/dl (6.4-8.2)
[2021-04-16 09:26] LABS: Basophils # (auto) 0.01 K/uL (0-0.2); Basophils % (auto) 0.1 %; Eosinophils # (auto) 0.01 K/uL (0-0.5); Eosinophils % (auto) 0.1 %; Immature Granulocytes # (auto) 0.08 K/uL (0.00-0.02); Immature Granulocytes % (auto) 0.5 %; Lymphocytes # (auto) 1.42 K/uL (1.2-3.4); Lymphocytes % (auto) 8.4 %; Monocytes % (auto) 10.7 %; Neutrophils # (auto) 13.51 K/uL (1.4-6.5); Neutrophils % (auto) 80.2 %
[2021-04-16 09:54] LABS: Estimated Average Glucose 189 mg/dl; Hemoglobin A1C 8.2 % (4.5-5.6)
[2021-04-16 10:35] LABS: Beta-Hydroxybutyrate 51.45 mg/dl (0.2-2.81)
--- NOTE | 2021-04-16 10:44 | XCELERA ---
[id number]
[2021-04-16] MEDS: INSULIN ASPART 100 UNITS/ML 3 ML PEN SC SCH ×3 (10:53→17:08)
[2021-04-16] MEDS ORDERED: POTASSIUM CHLORIDE 20 MEQ in NORMOSOL-R 1,000 ML IV SCH (11:45)
[2021-04-16 11:50] LABS: Beta-Hydroxybutyrate 40.38 mg/dl (0.2-2.81)
[2021-04-16] MEDS ORDERED: levETIRAcetam 250 MG in 0.9 % SODIUM CHLORIDE 100 ML IV ONE (12:00)
[2021-04-16] MEDS ORDERED: LEVOTHYROXINE SODIUM 75 MCG in SYRINGE 0 ML IV ONE (12:00)
[2021-04-16 12:05] LABS: Beta-Hydroxybutyrate 26.34 mg/dl (0.2-2.81)
[2021-04-16 12:08] LABS: Hematocrit (blood only) 28.8 % (37-47); Hemoglobin 9.2 g/dL (12.0-16.0); Mean Corpuscular Hemoglobin 30.3 pg (25-34); Mean Corpuscular Hgb Conc 31.9 g/dL (32-36); Mean Corpuscular Volume 94.7 fL (80-100); Mean Platelet Volume 10.5 fL (7.4-10.4); Platelet Count 188 K/uL (130-400); RDW Coefficient of Variation 13.4 % (11.5-14.5); RDW Standard Deviation 46.5 fL (36.4-46.3); Red Blood Count 3.04 M/uL (4.2-5.4); White Blood Count 16.64 K/uL (4.8-10.8)
[2021-04-16 12:21] LABS: Base Excess VBG -6.9 mEq/L; Oxygen Saturation VBG 80.2 %; pH VBG 7.28 (7.36-7.41)
[2021-04-16 13:04] LABS: BUN Creatinine Ratio 22.5 (10-20); Calcium 8.6 mg/dl (8.5-10.1); Creatinine Clr Calc Pharmacy 11.8 ml/min; Est GFR (African American) 18.6 ml/min; Est GFR (Non-African American) 16.1 ml/min; Magnesium 2.8 mg/dl (1.8-2.4); Potassium 4.7 mmol/L (3.5-5.1); Troponin I 1.05 ng/ml (0-0.045)
[2021-04-16 13:16] LABS: Beta-Hydroxybutyrate 19.48 mg/dl (0.2-2.81)
[2021-04-16 13:18] LABS: Phosphorus 4.9 mg/dl (2.5-4.9)
[2021-04-16] MEDS ORDERED: SODIUM CHLORIDE 0.9% 250 ML IV PRN (14:09)
[2021-04-16] MEDS ORDERED: ICU PROTOCOL FOR HYPERGLYCEMIA PRN (14:09)
[2021-04-16 14:20] LABS: Beta-Hydroxybutyrate 7.23 mg/dl (0.2-2.81)
[2021-04-16 15:07] LABS: Beta-Hydroxybutyrate 2.94 mg/dl (0.2-2.81)
[2021-04-16] MEDS ORDERED: PIPERACILLIN/TAZOBACTAM 3.375 GM in DEXTROSE 5% 100 ML IV STA (15:18)
[2021-04-16] MEDS: POTASSIUM CHLORIDE 20 MEQ in NORMOSOL-R 1,000 ML IV SCH ×2 (15:56→18:17)
[2021-04-16 16:16] LABS: Beta-Hydroxybutyrate 1.41 mg/dl (0.2-2.81)
--- NOTE | 2021-04-16 16:17 | Critical Care Consultation ---
Date of Consultation April 16, 2021 Assessment & Plan (1) DKA (diabetic ketoacidosis): (2) Diabetic peripheral neuropathy associated with type 1 diabetes mellitus: (3) IRENA (acute kidney injury): (4) High anion gap metabolic acidosis: CT chest 04/16/2021 personally reviewed: Biapical scarring appreciated with minimal right upper lobe opacity likely representing scarring (unchanged since 2018) No mediastinal adenopathy -- HAGMA Delta-delta: Less than 1, gap/nongap Gap is likely from ketoacidosis plus lactic acidosis nongap is likely from IRENA Follow up urine lytes VBG showed a pH of 7.17 Monitor Procalcitonin 0.86 Continue with insulin drip until anion gap closes Decreasing blood glucose no more than 100 in an hour Replace potassium IV when potassium level between 3.3-5.3 BMP every 4 hours Continue with IV fluids -- IRENA Likely secondary to hypotension Follow-up urine lites Monitor BUN/creatinine Avoid nephrotoxic medications Strict ins and outs --Anemia of chronic disease FOBT positive Continue to monitor H&H --Hyperkalemia Likely in the setting of severe acidosis Continue to monitor while on insulin drip No ST-T wave changes appreciated on the EKG QTC 469 --Elevated troponin Likely from type II IN Trend troponin and EKG --Hypothyroidism TSH 8.1 Free T4 1.48 --Pseudohyponatremia corrected sodium 140 --History of seizures Continue with Keppra --Type 1 diabetes Patient has insulin pump at home --DNR/DNI --Prophylaxis VTE: Heparin GI: Pantoprazole Lines: Peripheral, left femoral Diet: N.p.o. Plan: Continue with BMP every 4 hours Not to decrease glucose more than 100 and an hour Follow-up urine lites Leukocytosis is likely from DKA. Continue with empiric antibiotics for the time being Follow-up in the MRSA Latest blood sugar is 426. I have personally spent 51 minutes of critical care time in the direct managemen t of this patient. This is a life/limb threatening event. This includes time spent evaluating patie nt, direct bedside care, chart review, placing orders, interpretation of diagnostic studies, discussion with consultants, patient, and family members, as well as other required patient management activities. This time is exclusive of all separately billable procedures, and teaching time and separate from and in addition to any other critical care service time. Please note the above document was generated using voice recognition software. It may contain grammatical, syntax or spelling errors. History of Present Illness Attending Physician: Debra Leon MD History of Present Illness 86-year-old female past medical history of type 1 diabetes on insulin pump at home, dyslipidemia, hypothyroidism, seizure disorder presented to the hospital with complaints of altered mental status In the ED patient was found to have sugar in 1000 She was in DKA pH on the VBG was 7.17 Patient was also found to be in IRENA with creatinine is 2.65 and potassium was 6.9 and bicarb of 10 ICU was consulted for further management At the time of examination patient was lying comfortably in bed She was sleeping x-ray Saturating 98-100 % on room air Denies any chest pain, no shortness of breath, no headache, no nausea or vomiting vomiting Denies any headache. Patient was awake alert oriented to self and place Social history: Lifetime non-smoker Allergies Allergy/AdvReac Type Severity Reaction Status Date / Time No Known Allergies Allergy Verified 04/16/21 07:32 Home Medications Medication Instructions Recorded Confirmed Type magnesium oxide 400 mg (241.3 mg 400 mg PO HS #0 tab 12/27/15 04/16/21 History magnesium) tablet lisinopril 2.5 mg tablet 2.5 mg PO HS #0 tab 01/21/17 04/16/21 History vit C-vit O-fvyufy-fkay ox-lutein 1 cap PO BID 01/02/19 04/16/21 History 226 mg-200 unit-5 mg-0.8 mg capsule (PreserVision Lutein) aspirin 81 mg tablet,delayed 81 mg PO QAM #0 tab 01/03/19 04/16/21 History release cholecalciferol (vitamin D3) 125 5,000 unit PO HS #0 tab 01/03/19 04/16/21 History mcg (5,000 unit) tablet (Vitamin D3) coenzyme Q10 100 mg capsule 100 mg PO HS #0 cap 01/03/19 04/16/21 History insulin syringe-needle U-100 0.5 #10 ea 01/03/19 02/23/21 History mL 31 gauge x 5/16" (BD Insulin Syringe Ultra-Fine) omega 4-lcn-vcy-fish oil 1,000 mg 1 cap PO HS #0 cap 01/03/19 04/16/21 History (120 mg-180 mg) capsule (Fish Oil) blood sugar diagnostic (Contour #10 ea 01/14/19 02/23/21 History Next Test Strips) calcium carbonate 600 mg calcium 600 mg PO HS tab 01/14/19 04/16/21 History (1,500 mg) tablet (Calcium) levothyroxine 125 mcg tablet 125 mcg PO DAILYBB tab 07/28/20 04/16/21 History Novolog U-100 Insulin aspart 100 80 unit CONTINUOUS IV INFUSION 09/16/20 04/16/21 Rx unit/mL subcutaneous solution DAILY 90 Days #80 ml NS (insulin aspart U-100) alendronate 70 mg tablet (Fosamax) 70 mg PO WK tab 10/26/20 04/16/21 History acetaminophen 500 mg tablet 500 mg PO BID 04/16/21 04/16/21 History cyanocobalamin (vitamin B-12) 500 500 mcg PO HS 04/16/21 04/16/21 History mcg tablet (Vitamin B-12) levetiracetam 500 mg 500 mg PO QAM 04/16/21 04/16/21 History tablet,extended release 24 hr (Keppra XR) magnesium hydroxide 400 mg/5 mL 30 ml PO UD 04/16/21 04/16/21 History oral suspension (Jackson Milk of Magnesia) rivastigmine (Exelon Patch) 9.5 mg TOPICAL QAM 04/16/21 04/16/21 History Patient History Medical History Closed head injury Diabetes type 1, controlled Diabetic peripheral neuropathy associated with type 1 diabetes mellitus Dyslipidemia Focal seizures Fracture of right hip History of herpes zoster History of meningioma History of rheumatic fever Hypertension Hypothyroidism Insulin pump in place Meningioma Pancreatic cyst Short-term memory loss Surgical History History of appendectomy History of breast biopsy History of hip surgery History of surgery on arm History of tonsillectomy Family History Father Colon cancer Mother Alzheimer disease Other Diabetes Social History Smoking Status: Never smoker Cigarettes Per Day: No smoking since freshman year of college.; Second Hand Exposure: No; Hx Alcohol Use: No Hx Substance Use: No Preferred Language: Icelandic Communication Ability: Effective Coordinator Volunteer Services Required: No Beliefs That Will Affect Care: None marital status: Current Living Situation: Spouse Current Living Situation Comment: [facility]. current occupation: retired Feels Safe at Home: Yes Assistive Devices: Walker Review of Systems Review of Systems: All systems reviewed & are unremarkable except as noted in HPI & below Physical Exam Physical Exam: Constitutional: No acute distress HEENT: EOMI, PERRLA Respiratory system: Good air entry bilaterally, no wheeze, no rhonchi, no crac kles CVS: S1-S2 positive, no murmurs or gallops Abdomen: Soft, nontender, nondistended, positive bowel sounds x4 Extremities: +2 pulses bilaterally radialis/ dorsalis pedis, no cyanosis, +1 pitting edema bilateral lower extremity Neuro: Awake alert oriented x3 Psych: Normal mood and affect G/U: Positive Miranda Skin: no rashes, warm and dry Lymphatic: no cervical or axillary lymphadenopathy Results & Data Results & Data ([facility]) Vital Signs (Past 12 Hours) Vital Signs Temp Pulse Resp BP Pulse Ox 04/16/21 12:45 81 16 103/43 L 99 04/16/21 12:30 87 19 99/67 L 100 04/16/21 12:15 88 24 120/54 L 100 04/16/21 12:00 84 19 114/45 L 97 04/16/21 11:45 85 18 108/46 L 100 04/16/21 11:30 83 14 95/41 L 99 04/16/21 11:15 86 18 106/45 L 100 04/16/21 11:00 86 17 105/44 L 98 04/16/21 10:45 89 19 108/47 L 99 04/16/21 10:30 89 19 109/44 L 99 04/16/21 10:15 88 17 93/51 L 98 04/16/21 10:00 86 17 110/44 L 100 04/16/21 09:45 90 21 112/49 L 99 04/16/21 09:30 85 18 100/45 L 100 04/16/21 09:15 86 17 99/41 L 100 04/16/21 09:00 88 19 109/44 L 100 04/16/21 08:45 84 17 105/42 L 98 04/16/21 08:30 86 18 102/40 L 99 04/16/21 08:15 86 17 100/37 L 100 04/16/21 08:00 92 H 18 110/42 L 99 04/16/21 07:45 107 H 22 109/69 97 04/16/21 07:30 91 H 23 102/61 100 04/16/21 07:00 88 24 101/39 L 98 04/16/21 06:46 98 04/16/21 06:05 36.4 C L 83 16 100/30 L 98 04/16/21 Unknown 04/16/21 Unknown Coding Level of Care Code Critical Care 1st 30-74 mins Diagnoses DKA (diabetic ketoacidosis) E10.11 Diabetes mellitus complication detail: with coma Diabetes mellitus type: type 1 Diabetic peripheral neuropathy associated with type 1 diabetes mellitus E10.42 IRENA (acute kidney injury) N17.9 High anion gap metabolic acidosis E87.2 Time Spent (min) 51 (1) DKA (diabetic ketoacidosis) Diabetes mellitus complication detail: with coma Diabetes mellitus type: type 1 Qualified Code(s): E10.11 - Type 1 diabetes mellitus with ketoacidosis with coma
[2021-04-16 18:24] LABS: Basophils # (auto) 0.01 K/uL (0-0.2); Basophils % (auto) 0.1 %; Hematocrit (blood only) 27.5 % (37-47); Hemoglobin 9.2 g/dL (12.0-16.0); Immature Granulocytes # (auto) 0.08 K/uL (0.00-0.02); Immature Granulocytes % (auto) 0.4 %; Lymphocytes # (auto) 0.99 K/uL (1.2-3.4); Lymphocytes % (auto) 5.6 %; Mean Corpuscular Hemoglobin 30.9 pg (25-34); Mean Corpuscular Hgb Conc 33.5 g/dL (32-36); Mean Corpuscular Volume 92.3 fL (80-100); Mean Platelet Volume 10.1 fL (7.4-10.4); Monocytes # (auto) 0.86 K/uL (0.11-0.59); Monocytes % (auto) 4.8 %; Neutrophils # (auto) 15.89 K/uL (1.4-6.5); Neutrophils % (auto) 89.1 %; Platelet Count 182 K/uL (130-400); RDW Coefficient of Variation 13.2 % (11.5-14.5); RDW Standard Deviation 44.7 fL (36.4-46.3); Red Blood Count 2.98 M/uL (4.2-5.4); White Blood Count 17.83 K/uL (4.8-10.8)
[2021-04-16 18:41] LABS: Oxygen Saturation VBG 82.1 %; pH VBG 7.36 (7.36-7.41)
[2021-04-16 18:47] LABS: BUN Creatinine Ratio 24.6 (10-20); Calcium 8.7 mg/dl (8.5-10.1); Creatinine Clr Calc Pharmacy 14.5 ml/min; Est GFR (African American) 21.5 ml/min; Est GFR (Non-African American) 18.5 ml/min; Magnesium 2.9 mg/dl (1.8-2.4); Phosphorus 3.1 mg/dl (2.5-4.9); Potassium 4.2 mmol/L (3.5-5.1); Troponin I 1.67 ng/ml (0-0.045)
[2021-04-16 18:49] LABS: Chloride Random Urine < 10 mmol/L; Potassium Random Urine 47.7 mmol/L; Sodium Random Urine < 5 mmol/L; Uric Acid Urine Random 28.3 mg/dl
[2021-04-16 18:59] LABS: Beta-Hydroxybutyrate 0.95 mg/dl (0.2-2.81)
[2021-04-16] MEDS: DEXTROSE 50% 50 ML SYRINGE IV PRN ×2 (21:45→23:50)
[2021-04-16] MEDS: PANTOprazole 40 MG in SYRINGE 0 ML IV SCH (21:58)
[2021-04-16] MEDS: PIPERACILLIN/TAZOBACTAM 3.375 GM in DEXTROSE 5% 100 ML IV SCH (21:58)
[2021-04-16 22:08] LABS: BUN Creatinine Ratio 25.9 (10-20); Calcium 8.9 mg/dl (8.5-10.1); Creatinine Clr Calc Pharmacy 15.8 ml/min; Est GFR (Non-African American) 20.7 ml/min; Potassium 4.2 mmol/L (3.5-5.1)
[2021-04-16 22:15] LABS: Phosphorus 2.9 mg/dl (2.5-4.9); Troponin I 1.93 ng/ml (0-0.045)
[2021-04-16] MEDS ORDERED: PHARMACY GLYCEMIC MGMT CONSULT PRN (23:14)
[2021-04-16] MEDS ORDERED: INSULIN GLARGINE SOLOSTAR 100 UNITS/ML 3 ML PEN SC ONE (23:45)
[2021-04-17] MEDS: DEXTROSE 50% 50 ML SYRINGE IV PRN ×2 (01:08→06:06)
[2021-04-17] MEDS: POTASSIUM CHLORIDE 20 MEQ in NORMOSOL-R 1,000 ML IV SCH (03:54)
[2021-04-17] MEDS ORDERED: D5W AND 1/2NSS + 20MEQ KCL 20 MEQ/1,000 ML BAG IV SCH (04:30)
[2021-04-17] MEDS: INSULIN ASPART 100 UNITS/ML 3 ML PEN SC SCH ×5 (06:06→21:08)
[2021-04-17] MEDS: PIPERACILLIN/TAZOBACTAM 3.375 GM in DEXTROSE 5% 100 ML IV SCH ×2 (06:07→19:45)
[2021-04-17] MEDS ORDERED: NORMOSOL-R 1,000 ML IV ONE (06:14)
--- NOTE | 2021-04-17 06:19 | Electrocardiogram Report ---
Test Reason : Blood Pressure : / mmHG Vent. Rate : 065 BPM Atrial Rate : 065 BPM P-R Int : 184 ms QRS Dur : 114 ms QT Int : 224 ms P-R-T Axes : 087 064 082 degrees QTc Int : 233 ms Normal sinus rhythm with sinus arrhythmia Low voltage QRS Right bundle branch block ST depression, consider subendocardial injury Abnormal ECG When compared with ECG of 06-FEB-2020 13:23, Right bundle branch block is now Present Premature atrial complexes are no longer Present Confirmed by Walter Ballard ([id number]) on 04/17/2021 6:18:44 AM Referred By: Lynette Odom Confirmed By:Walter Ballard
[2021-04-17 06:20] LABS: Basophils # (auto) 0.01 K/uL (0-0.2); Hematocrit (blood only) 27.1 % (37-47); Immature Granulocytes # (auto) 0.07 K/uL (0.00-0.02); Immature Granulocytes % (auto) 0.3 %; Lymphocytes # (auto) 1.52 K/uL (1.2-3.4); Mean Corpuscular Hemoglobin 30.8 pg (25-34); Mean Corpuscular Hgb Conc 33.2 g/dL (32-36); Mean Corpuscular Volume 92.8 fL (80-100); Mean Platelet Volume 10.3 fL (7.4-10.4); Monocytes # (auto) 1.44 K/uL (0.11-0.59); Monocytes % (auto) 6.6 %; Neutrophils # (auto) 18.66 K/uL (1.4-6.5); Neutrophils % (auto) 86.1 %; Platelet Count 191 K/uL (130-400); RDW Coefficient of Variation 13.4 % (11.5-14.5); RDW Standard Deviation 45.5 fL (36.4-46.3); Red Blood Count 2.92 M/uL (4.2-5.4)
--- NOTE | 2021-04-17 06:26 | Electrocardiogram Report ---
Test Reason : Blood Pressure : / mmHG Vent. Rate : 094 BPM Atrial Rate : 094 BPM P-R Int : 158 ms QRS Dur : 110 ms QT Int : 352 ms P-R-T Axes : 080 009 075 degrees QTc Int : 440 ms Sinus rhythm with Premature supraventricular complexes Incomplete right bundle branch block Nonspecific ST and T wave abnormality Abnormal ECG When compared with ECG of 16-APR-2021 06:07, Incomplete right bundle branch block has replaced Right bundle branch block Confirmed by Walter Ballard ([id number]) on 04/17/2021 6:26:30 AM Referred By: Lynette Odom Confirmed By:Walter Ballard
[2021-04-17 06:27] LABS: INR 1.2 (0.9-1.1); Partial Thromboplastin Ratio 0.9; Partial Thromboplastin Time 24.3 Seconds (21.0-31.0); Prothrombin Time 12.4 Seconds (9.0-12.0)
--- NOTE | 2021-04-17 06:49 | Electrocardiogram Report ---
Test Reason : Blood Pressure : / mmHG Vent. Rate : 088 BPM Atrial Rate : 088 BPM P-R Int : 132 ms QRS Dur : 090 ms QT Int : 388 ms P-R-T Axes : 078 058 -25 degrees QTc Int : 469 ms Poor data quality, interpretation may be adversely affected Normal sinus rhythm Nonspecific ST and T wave abnormality Abnormal ECG When compared with ECG of 16-APR-2021 07:00, Premature supraventricular complexes are no longer Present Questionable change in QRS duration Confirmed by Walter Ballard ([id number]) on 04/17/2021 6:49:14 AM Referred By: Lynette Odom Confirmed By:Walter Ballard
[2021-04-17 06:53] LABS: Alanine Aminotransferase 25 U/L (12-78); Albumin Level 2.7 gm/dl (3.4-5.0); Aspartate Aminotransferase 29 U/L (15-37); BUN Creatinine Ratio 27.4 (10-20); Bilirubin Direct < 0.1 mg/dl (0-0.2); Blood Urea Nitrogen 48 mg/dl (7-18); Calcium 8.4 mg/dl (8.5-10.1); Carbon Dioxide 23 mmol/L (21-32); Chloride 113 mmol/L (98-107); Est GFR (African American) 29.8 ml/min; Est GFR (Non-African American) 25.7 ml/min; Glucose 70 mg/dl (70-99); Iron 39 mcg/dl (35-150); Magnesium 2.9 mg/dl (1.8-2.4); Phosphorus 3.4 mg/dl (2.5-4.9); Potassium 4.4 mmol/L (3.5-5.1); Sodium 143 mmol/L (136-145)
[2021-04-17 07:08] LABS: Alkaline Phosphatase 61 U/L (45-117); Bilirubin,Total 0.3 mg/dl (0.2-1); Ferritin 265.2 ng/ml (8-388); Total Iron Binding Capacity 193 mcg/dl (250-450); Total Protein 5.2 gm/dl (6.4-8.2); Transferrin 154 mg/dl (200-360); Transferrin (FE) Percent Satur 18 % (15-50)
--- NOTE | 2021-04-17 07:34 | XRay Report ---
XR chest 1V portable CLINICAL HISTORY: Respiratory failure. COMPARISON STUDY: Chest radiograph and chest CT April 16, 2021. FINDINGS: Old proximal right humeral deformity is incidentally noted. Electronic device of the right upper arm is incidentally noted as well. There is no pneumothorax. Mild left basilar opacity has deve loped. There is pulmonary vascular congestion. IMPRESSION: 1. Interval development of mild left basilar opacity. This favors atelectasis although an infectious process could appear similar. 2. Pulmonary vascular congestion. ACT 112: Negative or not required by law. Electronically signed by: Elieser Watson M.D. 04/17/2021 7:33 AM
[2021-04-17] MEDS ORDERED: DAPTOmycin 325 MG in SYRINGE 0 ML IV ONE (07:45)
[2021-04-17] MEDS ORDERED: DAPTOmycin 325 MG in SYRINGE 0 ML IV SCH (07:45)
[2021-04-17] MEDS: FOLIC ACID 1 MG in SYRINGE 9.8 ML IV SCH (08:57)
[2021-04-17] MEDS: LEVOTHYROXINE SODIUM 75 MCG in SYRINGE 0 ML IV SCH (08:57)
[2021-04-17] MEDS: levETIRAcetam 250 MG in 0.9 % SODIUM CHLORIDE 100 ML IV SCH ×2 (08:58→21:11)
[2021-04-17] MEDS: PANTOprazole 40 MG in SYRINGE 0 ML IV SCH ×2 (08:58→21:11)
[2021-04-17] MEDS ORDERED: D5W AND 1/2NSS 1,000 ML IV SCH (09:00)
--- NOTE | 2021-04-17 09:01 | Critical Care Progress Note ---
Date of Service April 17, 2021 Assessment & Plan (1) DKA (diabetic ketoacidosis): (2) Diabetic peripheral neuropathy associated with type 1 diabetes mellitus: (3) IRENA (acute kidney injury): (4) High anion gap metabolic acidosis: (5) Acute metabolic encephalopathy: (6) Hyperkalemia: Plan: [id number] female with a history of type 1 diabetes mellitus who presented to the hospital with a picture of HHS/DKA. She is currently off insulin infusion. Her glucose began dropping overnight and she was receiving D50 boluses. Her anion gap is closed and serum bicarbonate is 23. IRENA is resolving. She has a mild troponin leak. We will continue to m onitor troponins closely. Procalcitonin is also mildly elevated, but this could be a false elevation due to her acute kidney injury. She is empirically on Zosyn. Chest x-ray and CT without acute findings. Urinalysis without signs of infection. Blood cultures negative to date. She was given a dose of daptomycin this morning empirically for sepsis and increasing leukocytosis MRSA screen was notably negative on admission. Holding lisinopril due to hyperkalemia on admission relative hypotension at present. Hyperkalemia resolved. Pharmacy is assisting with management of her diabetes. TSH is elevated possibly due to use euthyroid sick syndrome. Continue levothyroxine. I will switch her fluids from D5W/half-normal saline with potassium to D5W/half- normal saline at 80 mL an hour. Continue glucose checks. Speech therapy consulted due to concerns of possible aspiration. Echo from 04/16/2021 reviewed. LVEF greater than 70%. RVSP elevated 37 mmHg. Continue with delirium precautions. Stable for downgrade to PCU status. Discussed with bedside nursing. Admission and Anticipated Discharge Date Admission Date: April 16, 2021 Subjective Patient seen and examined. She appears somewhat confused and delirious. She is arousable and responds to commands. Mildly hypotensive this morning. Review of Systems Review of Systems: All systems reviewed & are unremarkable except as noted in HPI & below Physical Exam Physical Exam: Constitutional: No acute distress HEENT: EOMI, PERRLA Respiratory system: Good air entry bilaterally, no wheeze, no rhonchi, no crackles CVS: S1-S2 positive, no murmurs or gallops Abdomen: Soft, nontender, nondistended, positive bowel sounds x4 Extremities: +2 pulses bilaterally radialis/ dorsalis pedis, no cyanosis, no edema. Neuro: Awake and alert. Confused. Psych: Normal mood and affect G/U: Positive Miranda Skin: no rashes, warm and dry Results & Data Results & Data ([facility]) Vital Signs (Past 12 Hours) Vital Signs Temp Pulse Resp BP Pulse Ox 04/17/21 02:00 98.6 F 94 H 21 97/49 L 98 04/17/21 01:00 80 24 94 04/17/21 00:00 98.6 F 96 H 19 96 04/16/21 23:59 78 04/16/21 23:00 100 H 26 H 115/54 L 96 04/16/21 22:00 94 H 20 99/46 L 94 04/16/21 21:00 95 H 20 97/46 L 94 Vital signs, labs and imaging personally reviewed Coding Level of Care Code 61201 Subseq Hosp Care Lvl 3 Diagnoses DKA (diabetic ketoacidosis) E10.11 Diabetes mellitus complication detail: with coma Diabetes mellitus type: type 1 Diabetic peripheral neuropathy associated with type 1 diabetes mellitus E10.42 IRENA (acute kidney injury) N17.9 High anion gap metabolic acidosis E87.2 Acute metabolic encephalopathy G93.41 Hyperkalemia E87.5 (1) DKA (diabetic ketoacidosis) Diabetes mellitus complication detail: with coma Diabetes mellitus type: type 1 Qualified Code(s): E10.11 - Type 1 diabetes mellitus with ketoacidosis with coma
[2021-04-17 09:42] LABS: BUN Creatinine Ratio 26.6 (10-20); Calcium 8.3 mg/dl (8.5-10.1); Creatinine Clr Calc Pharmacy 19.8 ml/min; Est GFR (African American) 31.3 ml/min; Potassium 4.5 mmol/L (3.5-5.1)
--- NOTE | 2021-04-17 10:27 | Hospitalist Progress Note ---
Date of Service April 17, 2021 Assessment & Plan (1) DKA (diabetic ketoacidosis): Plan: Presented with glucose greater than 1000, VBG pH 7.1, anion gap of 25, with acute kidney injury and hyperkalemia, NSTEMI Suspect due to insulin pump failure- reports he continued to bolus her multiple times over the last 12 hours and her glucose continue to rise No recent infectious symptoms, no chest pain. She did vomit once after hyperglycemia started last evening but no evidence of pneumonia. No UTI or evidence of skin infections Leukocytosis most likely reactive to DKA No strokelike symptoms Anion gap likely due to DKA and lactic acidosis CT chest/abdomen/pelvis without acute findings Much improved now, weaned off insulin drip and transitioned to basal bolus insulin anion gap closed, blood sugars controlled, renal failure improving, and mental status greatly improved. -Downgrade from ICU to PCU -Discontinue IV fluids once taking p.o.-speech therapy consultation now -Follow CBC, BMP, magnesium and phosphorus in the morning -Continue empiric antibiotics for sepsis with Zosyn and added on daptomycin- follow blood cultures-if negative at 48 hours, remains afebrile, and leukocytosis improving, then discontinue antibiotics -Discontinue left femoral central venous catheter (2) Acute metabolic encephalopathy: Plan: Likely secondary to DKA, renal failure, severe dehydration CT head with stable meningioma, but no hemorrhage or stroke seen Much improved today after treatment of DKA and with hydration (3) Hyperkalemia: Plan: Potassium of 6.9 on arrival, secondary to hyperglycemia and acute kidney injury ECG initially quite abnormal with ST elevation in anterior leads and ST depression in inferolateral leads-improved with treatment with IV calcium chloride and IV insulin Potassium normalized with treatment of DKA and IV fluid hydration Follow BMP (4) Abnormal EKG: Plan: As above, seems more likely secondary to hyperkalemia is quickly resolved and she did not complain of chest pain Troponin is elevated on admission at 0.1 and peaked at 2.3, then trended downward -Echocardiogram with hyperdynamic systolic function EF greater than 70%, no regional wall motion abnormalities (5) Anemia: Plan: Hemoglobin 9.2 on arrival down from 12 a year ago. This is borderline macrocytic TSH is quite elevated at 23 could be contributing to anemia but this may be euthyroid sick syndrome as TSH was 8 just last week She was Hemoccult positive on rectal exam in the ER, but no gross melena or history of GI bleeding as per She has not had an EGD or colonoscopy in many years -Hemoglobin fortunately remained stable today at 9.0 despite multiple liters of fluid given in the last 24 hours Iron studies are normal, folate is low and will be replaced, B12 pending -Continue to hold for now on anticoagulation for DVT prophylaxis -Start folic acid 1 mg daily -Treat hypothyroidism as below (6) IRENA (acute kidney injury): Plan: Creatinine 2.6 on arrival with hyperkalemia as above, continuing to improve with hydration-creatinine down to 1.76, other electrolytes normalized, with good urine output No obstruction seen on CT abdomen/pelvis No evidence of infection in the urine, with bland urine sediment except trace protein Encourage p.o. intake once cleared to drink and eat by speech therapy Follow BMP Avoid nephrotoxic agents -Continue to hold home lisinopril (7) Pseudohyponatremia: Plan: Corrected sodium is 140 on arrival and remains normal Follow BMP (8) Elevated troponin: Plan: As above, troponin peaked at 2.3 With initial EKG changes thought to be secondary to hyperkalemia which are now resolved Echocardiogram as above Likely secondary to myocardial demand ischemia in the setting of DKA (9) Dyslipidemia: Plan: Hold home omega-3 (10) Hypertension: Plan: Blood pressure stable to low normal Hold home lisinopril (11) Diabetes type 1, controlled: Plan: hemoglobin A1c elevated 8.2% Normally on insulin pump-on hold Bolus and basal insulin now as above Pharmacy managing (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 tomorrow once more reliably taking p.o. Keppra does need to be renally dosed (13) Hypothyroidism: Plan: TSH quite elevated at 23 but was 8 one week ago-likely secondary to euthyroid sick syndrome but will convert back to p.o. tomorrow once more reliably taking p.o. Patient's reports that they were aware that her TSH was abnormal and were told by student nurse to make sure that she is her levothyroxine from her other pills when she takes in the morning Continue levothyroxine 75 mcg IV once daily while n.p.o. but will convert back to p.o. once more reliably taking p.o. tomorrow (14) Meningioma: Plan: Stable from previous Follows with neurology (15) Short-term memory loss: Plan: Hold home Exelon patch Plan: DVT prophylaxis-SCDs only given heme positive stool and anemia Disposition-admit to ICU Lines-has a left femoral CVC-discontinued Miranda catheter remains for now, but likely discontinue tomorrow DNR/DNI as per discussion with , but is okay with vasopressors Admission and Anticipated Discharge Date Admission Date: April 16, 2021 Subjective Patient is much improved today, is much more awake and interactive, answering questions appropriately. She denies headache or chest pain, no shortness of breath or cough, no abdominal pain. She knows she is in the hospital. Telemetry with sinus rhythm Review of Systems Review of Systems: All systems reviewed & are unremarkable except as noted in HPI & below Physical Exam Constitutional: WD/WN, vitals as above Eyes: PERRL, conjunctivae normal, anicteric sclerae ENMT: Ears: no hearing impairment and no external ear abnormality Nose: no external nose abnormality Mouth: + dry oral mucous membranes (But improved from previous) Neck: trachea midline, no thyromegaly Respiratory: normal respiratory effort, lungs clear to auscultation Cardiovascular: RRR, no murmur, no edema Extremities: no calf tenderness and no pedal edema Chest (Breasts): Chest: normal inspection of chest Gastrointestinal (Abdomen): normal bowel sounds, soft, nontender, no hepatosplenomegaly Musculoskeletal: Extremities: extremities normal to inspection; no cyanosis and no clubbing Skin: no rashes, warm and dry Neurologic: moves all extremities and awake; no focal motor deficits, not confused and not obtunded Psychiatric: Orientation: alert, oriented to person, oriented to place and cooperative Lymphatic: no lymphedema Results & Data Results & Data ([facility]) Vital Signs (Past 12 Hours) Vital Signs Temp Pulse Resp BP Pulse Ox 04/17/21 10:00 81 18 91/48 L 94 04/17/21 09:00 81 16 89/45 L 98 04/17/21 08:00 36.6 C 89 12 114/59 L 97 04/17/21 07:00 85 16 78/41 L 94 04/17/21 02:00 37 C 94 H 21 97/49 L 98 11/06/21 01:00 80 24 94 04/17/21 00:00 37 C 96 H 19 96 04/16/21 23:59 78 04/16/21 23:00 100 H 26 H 115/54 L 96 Laboratory Results 04/17/21 04/17/21 04/17/21 Range/Units 15:51 11:47 11:46 WBC (4.8-10.8) K/uL RBC (4.2-5.4) M/uL Hgb (12.0-16.0) g/dL Hct (37-47) % MCV (80-100) fL MCH (25-34) pg MCHC (32-36) g/dL RDW Std Deviation (36.4-46.3) fL RDW Coeff of Shady (11.5-14.5) % Plt Count (130-400) K/uL MPV (7.4-10.4) fL Immature Gran % (Auto) % Neut % (Auto) % Lymph % (Auto) % [place] % (Auto) % Eos % (Auto) % Baso % (Auto) % Neut # (Auto) (1.4-6.5) K/uL Lymph # (Auto) (1.2-3.4) K/uL [place] # (Auto) (0.11-0.59) K/uL Eos # (Auto) (0-0.5) K/uL Baso # (Auto) (0-0.2) K/uL Immature Gran # (Auto) (0.00-0.02) K/uL PT (9.0-12.0) Seconds INR (0.9-1.1) APTT (21.0-31.0) Seconds PTT Ratio VBG pH (7.36-7.41) VBG pCO2 (38-50) mmHg VBG pO2 mmHg VBG HCO3 mmol/L VBG O2 Saturation % VBG Base Excess mEq/L Barometric Pressure mm/Hg Sodium (136-145) mmol/L Potassium (3.5-5.1) mmol/L Chloride (98-107) mmol/L Carbon Dioxide (21-32) mmol/L Anion Gap (3-11) BUN (7-18) mg/dl Creatinine (0.6-1.2) mg/dl Est Cr Clr Drug Dosing ml/min Est GFR ( Amer) ml/min Est GFR (Non-Af Amer) ml/min BUN/Creatinine Ratio (10-20) Glucose (70-99) mg/dl POC Glucose 215 H 179 H (70-99) mg/dl POC Glucose (other) (70-99) mg/dl Lactate (0.4-2.0) mmol/L Calcium (8.5-10.1) mg/dl Phosphorus (2.5-4.9) mg/dl Magnesium (1.8-2.4) mg/dl Iron (35-150) mcg/dl TIBC (250-450) mcg/dl Transferrin (200-360) mg/dl Transferrin % Sat (15-50) % Ferritin (8-388) ng/ml Total Bilirubin (0.2-1) mg/dl Direct Bilirubin (0-0.2) mg/dl AST (15-37) U/L ALT (12-78) U/L Alkaline Phosphatase (45-117) U/L Troponin I 1.970 H* (0-0.045) ng/ml Total Protein (6.4-8.2) gm/dl Albumin (3.4-5.0) gm/dl Whole Bld Vitamin B1 Folate (>5.38) ng/ml Beta-Hydroxybutyric Acd (0.2-2.81) mg/dl Urine Osmolality (500-800) mOsm/kg Ur Random Creatinine mg/dl Ur Random Sodium mmol/L Ur Random Potassium mmol/L Ur Random Chloride mmol/L Ur Random Uric Acid mg/dl Nasal Screen MRSA (PCR) (Negative) 04/17/21 04/17/21 04/17/21 Range/Units 09:07 07:41 06:30 WBC (4.8-10.8) K/uL RBC (4.2-5.4) M/uL Hgb (12.0-16.0) g/dL Hct (37-47) % MCV (80-100) fL MCH (25-34) pg MCHC (32-36) g/dL RDW Std Deviation (36.4-46.3) fL RDW Coeff of Shady (11.5-14.5) % Plt Count (130-400) K/uL MPV (7.4-10.4) fL Immature Gran % (Auto) % Neut % (Auto) % Lymph % (Auto) % [place] % (Auto) % Eos % (Auto) % Baso % (Auto) % Neut # (Auto) (1.4-6.5) K/uL Lymph # (Auto) (1.2-3.4) K/uL [place] # (Auto) (0.11-0.59) K/uL Eos # (Auto) (0-0.5) K/uL Baso # (Auto) (0-0.2) K/uL Immature Gran # (Auto) (0.00-0.02) K/uL PT (9.0-12.0) Seconds INR (0.9-1.1) APTT (21.0-31.0) Seconds PTT Ratio VBG pH (7.36-7.41) VBG pCO2 (38-50) mmHg VBG pO2 mmHg VBG HCO3 mmol/L VBG O2 Saturation % VBG Base Excess mEq/L Barometric Pressure mm/Hg Sodium 140 (136-145) mmol/L Potassium 4.5 (3.5-5.1) mmol/L Chloride 110 H (98-107) mmol/L Carbon Dioxide 25 (21-32) mmol/L Anion Gap 5.0 (3-11) BUN 45 H (7-18) mg/dl Creatinine 1.69 H (0.6-1.2) mg/dl Est Cr Clr Drug Dosing 19.8 ml/min Est GFR ( Amer) 31.3 ml/min Est GFR (Non-Af Amer) 27.0 ml/min BUN/Creatinine Ratio 26.6 H (10-20) Glucose 142 H (70-99) mg/dl POC Glucose 112 H (70-99) mg/dl POC Glucose (other) (70-99) mg/dl Lactate 1.2 (0.4-2.0) mmol/L Calcium 8.3 L (8.5-10.1) mg/dl Phosphorus (2.5-4.9) mg/dl Magnesium (1.8-2.4) mg/dl Iron (35-150) mcg/dl TIBC (250-450) mcg/dl Transferrin (200-360) mg/dl Transferrin % Sat (15-50) % Ferritin (8-388) ng/ml Total Bilirubin (0.2-1) mg/dl Direct Bilirubin (0-0.2) mg/dl AST (15-37) U/L ALT (12-78) U/L Alkaline Phosphatase (45-117) U/L Troponin I (0-0.045) ng/ml Total Protein (6.4-8.2) gm/dl Albumin (3.4-5.0) gm/dl Whole Bld Vitamin B1 Folate (>5.38) ng/ml Beta-Hydroxybutyric Acd (0.2-2.81) mg/dl Urine Osmolality (500-800) mOsm/kg Ur Random Creatinine mg/dl Ur Random Sodium mmol/L Ur Random Potassium mmol/L Ur Random Chloride mmol/L Ur Random Uric Acid mg/dl Nasal Screen MRSA (PCR) (Negative) 04/17/21 04/17/21 04/17/21 Range/Units 05:55 05:49 05:49 WBC (4.8-10.8) K/uL RBC (4.2-5.4) M/uL Hgb (12.0-16.0) g/dL Hct (37-47) % MCV (80-100) fL MCH (25-34) pg MCHC (32-36) g/dL RDW Std Deviation (36.4-46.3) fL RDW Coeff of Shady (11.5-14.5) % Plt Count (130-400) K/uL MPV (7.4-10.4) fL Immature Gran % (Auto) % Neut % (Auto) % Lymph % (Auto) % [place] % (Auto) % Eos % (Auto) % Baso % (Auto) % Neut # (Auto) (1.4-6.5) K/uL Lymph # (Auto) (1.2-3.4) K/uL [place] # (Auto) (0.11-0.59) K/uL Eos # (Auto) (0-0.5) K/uL Baso # (Auto) (0-0.2) K/uL Immature Gran # (Auto) (0.00-0.02) K/uL PT (9.0-12.0) Seconds INR (0.9-1.1) APTT (21.0-31.0) Seconds PTT Ratio VBG pH (7.36-7.41) VBG pCO2 (38-50) mmHg VBG pO2 mmHg VBG HCO3 mmol/L VBG O2 Saturation % VBG Base Excess mEq/L Barometric Pressure mm/Hg Sodium (136-145) mmol/L Potassium (3.5-5.1) mmol/L Chloride (98-107) mmol/L Carbon Dioxide (21-32) mmol/L Anion Gap (3-11) BUN (7-18) mg/dl Creatinine (0.6-1.2) mg/dl Est Cr Clr Drug Dosing ml/min Est GFR ( Amer) ml/min Est GFR (Non-Af Amer) ml/min BUN/Creatinine Ratio (10-20) Glucose (70-99) mg/dl POC Glucose 73 (70-99) mg/dl POC Glucose (other) (70-99) mg/dl Lactate (0.4-2.0) mmol/L Calcium (8.5-10.1) mg/dl Phosphorus (2.5-4.9) mg/dl Magnesium (1.8-2.4) mg/dl Iron (35-150) mcg/dl TIBC (250-450) mcg/dl Transferrin (200-360) mg/dl Transferrin % Sat (15-50) % Ferritin (8-388) ng/ml Total Bilirubin (0.2-1) mg/dl Direct Bilirubin (0-0.2) mg/dl AST (15-37) U/L ALT (12-78) U/L Alkaline Phosphatase (45-117) U/L Troponin I (0-0.045) ng/ml Total Protein (6.4-8.2) gm/dl Albumin (3.4-5.0) gm/dl Whole Bld Vitamin B1 Pending Folate 4.30 L (>5.38) ng/ml Beta-Hydroxybutyric Acd (0.2-2.81) mg/dl Urine Osmolality (500-800) mOsm/kg Ur Random Creatinine mg/dl Ur Random Sodium mmol/L Ur Random Potassium mmol/L Ur Random Chloride mmol/L Ur Random Uric Acid mg/dl Nasal Screen MRSA (PCR) (Negative) 04/17/21 04/17/21 04/17/21 Range/Units 05:49 05:49 05:49 WBC 21.70 H (4.8-10.8) K/uL RBC 2.92 L (4.2-5.4) M/uL Hgb 9.0 L (12.0-16.0) g/dL Hct 27.1 L (37-47) % MCV 92.8 (80-100) fL MCH 30.8 (25-34) pg MCHC 33.2 (32-36) g/dL RDW Std Deviation 45.5 (36.4-46.3) fL RDW Coeff of Shady 13.4 (11.5-14.5) % Plt Count 191 (130-400) K/uL MPV 10.3 (7.4-10.4) fL Immature Gran % (Auto) 0.3 % Neut % (Auto) 86.1 % Lymph % (Auto) 7.0 % [place] % (Auto) 6.6 % Eos % (Auto) 0.0 % Baso % (Auto) 0.0 % Neut # (Auto) 18.66 H (1.4-6.5) K/uL Lymph # (Auto) 1.52 (1.2-3.4) K/uL [place] # (Auto) 1.44 H (0.11-0.59) K/uL Eos # (Auto) 0.00 (0-0.5) K/uL Baso # (Auto) 0.01 (0-0.2) K/uL Immature Gran # (Auto) 0.07 H (0.00-0.02) K/uL PT 12.4 H (9.0-12.0) Seconds INR 1.2 H (0.9-1.1) APTT 24.3 (21.0-31.0) Seconds PTT Ratio 0.9 VBG pH (7.36-7.41) VBG pCO2 (38-50) mmHg VBG pO2 mmHg VBG HCO3 mmol/L VBG O2 Saturation % VBG Base Excess mEq/L Barometric Pressure mm/Hg Sodium 143 (136-145) mmol/L Potassium 4.4 (3.5-5.1) mmol/L Chloride 113 H (98-107) mmol/L Carbon Dioxide 23 (21-32) mmol/L Anion Gap 7.0 (3-11) BUN 48 H (7-18) mg/dl Creatinine 1.76 H D (0.6-1.2) mg/dl Est Cr Clr Drug Dosing 19.0 ml/min Est GFR ( Amer) 29.8 ml/min Est GFR (Non-Af Amer) 25.7 ml/min BUN/Creatinine Ratio 27.4 H (10-20) Glucose 70 (70-99) mg/dl POC Glucose (70-99) mg/dl POC Glucose (other) (70-99) mg/dl Lactate (0.4-2.0) mmol/L Calcium 8.4 L (8.5-10.1) mg/dl Phosphorus 3.4 (2.5-4.9) mg/dl Magnesium 2.9 H (1.8-2.4) mg/dl Iron 39 (35-150) mcg/dl TIBC 193 L (250-450) mcg/dl Transferrin 154 L (200-360) mg/dl Transferrin % Sat 18 (15-50) % Ferritin 265.2 (8-388) ng/ml Total Bilirubin 0.3 (0.2-1) mg/dl Direct Bilirubin < 0.1 (0-0.2) mg/dl AST 29 (15-37) U/L ALT 25 (12-78) U/L Alkaline Phosphatase 61 (45-117) U/L Troponin I 2.300 H* (0-0.045) ng/ml Total Protein 5.2 L (6.4-8.2) gm/dl Albumin 2.7 L (3.4-5.0) gm/dl Whole Bld Vitamin B1 Folate (>5.38) ng/ml Beta-Hydroxybutyric Acd (0.2-2.81) mg/dl Urine Osmolality (500-800) mOsm/kg Ur Random Creatinine mg/dl Ur Random Sodium mmol/L Ur Random Potassium mmol/L Ur Random Chloride mmol/L Ur Random Uric Acid mg/dl Nasal Screen MRSA (PCR) (Negative) 04/17/21 04/17/21 04/17/21 Range/Units 05:06 04:16 02:56 WBC (4.8-10.8) K/uL RBC (4.2-5.4) M/uL Hgb (12.0-16.0) g/dL Hct (37-47) % MCV (80-100) fL MCH (25-34) pg MCHC (32-36) g/dL RDW Std Deviation (36.4-46.3) fL RDW Coeff of Shady (11.5-14.5) % Plt Count (130-400) K/uL MPV (7.4-10.4) fL Immature Gran % (Auto) % Neut % (Auto) % Lymph % (Auto) % [place] % (Auto) % Eos % (Auto) % Baso % (Auto) % Neut # (Auto) (1.4-6.5) K/uL Lymph # (Auto) (1.2-3.4) K/uL [place] # (Auto) (0.11-0.59) K/uL Eos # (Auto) (0-0.5) K/uL Baso # (Auto) (0-0.2) K/uL Immature Gran # (Auto) (0.00-0.02) K/uL PT (9.0-12.0) Seconds INR (0.9-1.1) APTT (21.0-31.0) Seconds PTT Ratio VBG pH (7.36-7.41) VBG pCO2 (38-50) mmHg VBG pO2 mmHg VBG HCO3 mmol/L VBG O2 Saturation % VBG Base Excess mEq/L Barometric Pressure mm/Hg Sodium (136-145) mmol/L Potassium (3.5-5.1) mmol/L Chloride (98-107) mmol/L Carbon Dioxide (21-32) mmol/L Anion Gap (3-11) BUN (7-18) mg/dl Creatinine (0.6-1.2) mg/dl Est Cr Clr Drug Dosing ml/min Est GFR ( Amer) ml/min Est GFR (Non-Af Amer) ml/min BUN/Creatinine Ratio (10-20) Glucose (70-99) mg/dl POC Glucose 96 76 93 (70-99) mg/dl POC Glucose (other) (70-99) mg/dl Lactate (0.4-2.0) mmol/L Calcium (8.5-10.1) mg/dl Phosphorus (2.5-4.9) mg/dl Magnesium (1.8-2.4) mg/dl Iron (35-150) mcg/dl TIBC (250-450) mcg/dl Transferrin (200-360) mg/dl Transferrin % Sat (15-50) % Ferritin (8-388) ng/ml Total Bilirubin (0.2-1) mg/dl Direct Bilirubin (0-0.2) mg/dl AST (15-37) U/L ALT (12-78) U/L Alkaline Phosphatase (45-117) U/L Troponin I (0-0.045) ng/ml Total Protein (6.4-8.2) gm/dl Albumin (3.4-5.0) gm/dl Whole Bld Vitamin B1 Folate (>5.38) ng/ml Beta-Hydroxybutyric Acd (0.2-2.81) mg/dl Urine Osmolality (500-800) mOsm/kg Ur Random Creatinine mg/dl Ur Random Sodium mmol/L Ur Random Potassium mmol/L Ur Random Chloride mmol/L Ur Random Uric Acid mg/dl Nasal Screen MRSA (PCR) (Negative) 04/17/21 04/17/21 04/16/21 Range/Units 01:31 01:05 23:39 WBC (4.8-10.8) K/uL RBC (4.2-5.4) M/uL Hgb (12.0-16.0) g/dL Hct (37-47) % MCV (80-100) fL MCH (25-34) pg MCHC (32-36) g/dL RDW Std Deviation (36.4-46.3) fL RDW Coeff of Shady (11.5-14.5) % Plt Count (130-400) K/uL MPV (7.4-10.4) fL Immature Gran % (Auto) % Neut % (Auto) % Lymph % (Auto) % [place] % (Auto) % Eos % (Auto) % Baso % (Auto) % Neut # (Auto) (1.4-6.5) K/uL Lymph # (Auto) (1.2-3.4) K/uL [place] # (Auto) (0.11-0.59) K/uL Eos # (Auto) (0-0.5) K/uL Baso # (Auto) (0-0.2) K/uL Immature Gran # (Auto) (0.00-0.02) K/uL PT (9.0-12.0) Seconds INR (0.9-1.1) APTT (21.0-31.0) Seconds PTT Ratio VBG pH (7.36-7.41) VBG pCO2 (38-50) mmHg VBG pO2 mmHg VBG HCO3 mmol/L VBG O2 Saturation % VBG Base Excess mEq/L Barometric Pressure mm/Hg Sodium (136-145) mmol/L Potassium (3.5-5.1) mmol/L Chloride (98-107) mmol/L Carbon Dioxide (21-32) mmol/L Anion Gap (3-11) BUN (7-18) mg/dl Creatinine (0.6-1.2) mg/dl Est Cr Clr Drug Dosing ml/min Est GFR ( Amer) ml/min Est GFR (Non-Af Amer) ml/min BUN/Creatinine Ratio (10-20) Glucose (70-99) mg/dl POC Glucose 122 H 66 L* 99 (70-99) mg/dl POC Glucose (other) (70-99) mg/dl Lactate (0.4-2.0) mmol/L Calcium (8.5-10.1) mg/dl Phosphorus (2.5-4.9) mg/dl Magnesium (1.8-2.4) mg/dl Iron (35-150) mcg/dl TIBC (250-450) mcg/dl Transferrin (200-360) mg/dl Transferrin % Sat (15-50) % Ferritin (8-388) ng/ml Total Bilirubin (0.2-1) mg/dl Direct Bilirubin (0-0.2) mg/dl AST (15-37) U/L ALT (12-78) U/L Alkaline Phosphatase (45-117) U/L Troponin I (0-0.045) ng/ml Total Protein (6.4-8.2) gm/dl Albumin (3.4-5.0) gm/dl Whole Bld Vitamin B1 Folate (>5.38) ng/ml Beta-Hydroxybutyric Acd (0.2-2.81) mg/dl Urine Osmolality (500-800) mOsm/kg Ur Random Creatinine mg/dl Ur Random Sodium mmol/L Ur Random Potassium mmol/L Ur Random Chloride mmol/L Ur Random Uric Acid mg/dl Nasal Screen MRSA (PCR) (Negative) 04/16/21 04/16/21 04/16/21 Range/Units 23:25 23:05 22:05 WBC (4.8-10.8) K/uL RBC (4.2-5.4) M/uL Hgb (12.0-16.0) g/dL Hct (37-47) % MCV (80-100) fL MCH (25-34) pg MCHC (32-36) g/dL RDW Std Deviation (36.4-46.3) fL RDW Coeff of Shady (11.5-14.5) % Plt Count (130-400) K/uL MPV (7.4-10.4) fL Immature Gran % (Auto) % Neut % (Auto) % Lymph % (Auto) % [place] % (Auto) % Eos % (Auto) % Baso % (Auto) % Neut # (Auto) (1.4-6.5) K/uL Lymph # (Auto) (1.2-3.4) K/uL [place] # (Auto) (0.11-0.59) K/uL Eos # (Auto) (0-0.5) K/uL Baso # (Auto) (0-0.2) K/uL Immature Gran # (Auto) (0.00-0.02) K/uL PT (9.0-12.0) Seconds INR (0.9-1.1) APTT (21.0-31.0) Seconds PTT Ratio VBG pH (7.36-7.41) VBG pCO2 (38-50) mmHg VBG pO2 mmHg VBG HCO3 mmol/L VBG O2 Saturation % VBG Base Excess mEq/L Barometric Pressure mm/Hg Sodium (136-145) mmol/L Potassium (3.5-5.1) mmol/L Chloride (98-107) mmol/L Carbon Dioxide (21-32) mmol/L Anion Gap (3-11) BUN (7-18) mg/dl Creatinine (0.6-1.2) mg/dl Est Cr Clr Drug Dosing ml/min Est GFR ( Amer) ml/min Est GFR (Non-Af Amer) ml/min BUN/Creatinine Ratio (10-20) Glucose (70-99) mg/dl POC Glucose 125 H 121 H 175 H (70-99) mg/dl POC Glucose (other) (70-99) mg/dl Lactate (0.4-2.0) mmol/L Calcium (8.5-10.1) mg/dl Phosphorus (2.5-4.9) mg/dl Magnesium (1.8-2.4) mg/dl Iron (35-150) mcg/dl TIBC (250-450) mcg/dl Transferrin (200-360) mg/dl Transferrin % Sat (15-50) % Ferritin (8-388) ng/ml Total Bilirubin (0.2-1) mg/dl Direct Bilirubin (0-0.2) mg/dl AST (15-37) U/L ALT (12-78) U/L Alkaline Phosphatase (45-117) U/L Troponin I (0-0.045) ng/ml Total Protein (6.4-8.2) gm/dl Albumin (3.4-5.0) gm/dl Whole Bld Vitamin B1 Folate (>5.38) ng/ml Beta-Hydroxybutyric Acd (0.2-2.81) mg/dl Urine Osmolality (500-800) mOsm/kg Ur Random Creatinine mg/dl Ur Random Sodium mmol/L Ur Random Potassium mmol/L Ur Random Chloride mmol/L Ur Random Uric Acid mg/dl Nasal Screen MRSA (PCR) (Negative) 04/16/21 04/16/21 04/16/21 Range/Units 21:41 21:34 21:28 WBC (4.8-10.8) K/uL RBC (4.2-5.4) M/uL Hgb (12.0-16.0) g/dL Hct (37-47) % MCV (80-100) fL MCH (25-34) pg MCHC (32-36) g/dL RDW Std Deviation (36.4-46.3) fL RDW Coeff of [place] (11.5-14.5) % Plt Count (130-400) K/uL MPV (7.4-10.4) fL Immature Gran % (Auto) % Neut % (Auto) % Lymph % (Auto) % [place] % (Auto) % Eos % (Auto) % Baso % (Auto) % Neut # (Auto) (1.4-6.5) K/uL Lymph # (Auto) (1.2-3.4) K/uL [place] # (Auto) (0.11-0.59) K/uL Eos # (Auto) (0-0.5) K/uL Baso # (Auto) (0-0.2) K/uL Immature Gran # (Auto) (0.00-0.02) K/uL PT (9.0-12.0) Seconds INR (0.9-1.1) APTT (21.0-31.0) Seconds PTT Ratio VBG pH (7.36-7.41) VBG pCO2 (38-50) mmHg VBG pO2 mmHg VBG HCO3 mmol/L VBG O2 Saturation % VBG Base Excess mEq/L Barometric Pressure mm/Hg Sodium 141 (136-145) mmol/L Potassium 4.2 (3.5-5.1) mmol/L Chloride 110 H (98-107) mmol/L Carbon Dioxide 21 (21-32) mmol/L Anion Gap 10.0 (3-11) BUN 55 H (7-18) mg/dl Creatinine 2.11 H (0.6-1.2) mg/dl Est Cr Clr Drug Dosing 15.8 ml/min Est GFR ( Amer) 24.0 ml/min Est GFR (Non-Af Amer) 20.7 ml/min BUN/Creatinine Ratio 25.9 H (10-20) Glucose 89 (70-99) mg/dl POC Glucose 90 146 H (70-99) mg/dl POC Glucose (other) (70-99) mg/dl Lactate (0.4-2.0) mmol/L Calcium 8.9 (8.5-10.1) mg/dl Phosphorus 2.9 (2.5-4.9) mg/dl Magnesium (1.8-2.4) mg/dl Iron (35-150) mcg/dl TIBC (250-450) mcg/dl Transferrin (200-360) mg/dl Transferrin % Sat (15-50) % Ferritin (8-388) ng/ml Total Bilirubin (0.2-1) mg/dl Direct Bilirubin (0-0.2) mg/dl AST (15-37) U/L ALT (12-78) U/L Alkaline Phosphatase (45-117) U/L Troponin I 1.930 H* (0-0.045) ng/ml Total Protein (6.4-8.2) gm/dl Albumin (3.4-5.0) gm/dl Whole Bld Vitamin B1 Folate (>5.38) ng/ml Beta-Hydroxybutyric Acd (0.2-2.81) mg/dl Urine Osmolality (500-800) mOsm/kg Ur Random Creatinine mg/dl Ur Random Sodium mmol/L Ur Random Potassium mmol/L Ur Random Chloride mmol/L Ur Random Uric Acid mg/dl Nasal Screen MRSA (PCR) (Negative) 04/16/21 04/16/21 04/16/21 Range/Units 20:26 19:27 18:15 WBC (4.8-10.8) K/uL RBC (4.2-5.4) M/uL Hgb (12.0-16.0) g/dL Hct (37-47) % MCV (80-100) fL MCH (25-34) pg MCHC (32-36) g/dL RDW Std Deviation (36.4-46.3) fL RDW Coeff of [place] (11.5-14.5) % Plt Count (130-400) K/uL MPV (7.4-10.4) fL Immature Gran % (Auto) % Neut % (Auto) % Lymph % (Auto) % [place] % (Auto) % Eos % (Auto) % Baso % (Auto) % Neut # (Auto) (1.4-6.5) K/uL Lymph # (Auto) (1.2-3.4) K/uL [place] # (Auto) (0.11-0.59) K/uL Eos # (Auto) (0-0.5) K/uL Baso # (Auto) (0-0.2) K/uL Immature Gran # (Auto) (0.00-0.02) K/uL PT (9.0-12.0) Seconds INR (0.9-1.1) APTT (21.0-31.0) Seconds PTT Ratio VBG pH (7.36-7.41) VBG pCO2 (38-50) mmHg VBG pO2 mmHg VBG HCO3 mmol/L VBG O2 Saturation % VBG Base Excess mEq/L Barometric Pressure mm/Hg Sodium (136-145) mmol/L Potassium (3.5-5.1) mmol/L Chloride (98-107) mmol/L Carbon Dioxide (21-32) mmol/L Anion Gap (3-11) BUN (7-18) mg/dl Creatinine (0.6-1.2) mg/dl Est Cr Clr Drug Dosing ml/min Est GFR ( Amer) ml/min Est GFR (Non-Af Amer) ml/min BUN/Creatinine Ratio (10-20) Glucose (70-99) mg/dl POC Glucose 224 H 286 H (70-99) mg/dl POC Glucose (other) 341 H (70-99) mg/dl Lactate (0.4-2.0) mmol/L Calcium (8.5-10.1) mg/dl Phosphorus (2.5-4.9) mg/dl Magnesium (1.8-2.4) mg/dl Iron (35-150) mcg/dl TIBC (250-450) mcg/dl Transferrin (200-360) mg/dl Transferrin % Sat (15-50) % Ferritin (8-388) ng/ml Total Bilirubin (0.2-1) mg/dl Direct Bilirubin (0-0.2) mg/dl AST (15-37) U/L ALT (12-78) U/L Alkaline Phosphatase (45-117) U/L Troponin I (0-0.045) ng/ml Total Protein (6.4-8.2) gm/dl Albumin (3.4-5.0) gm/dl Whole Bld Vitamin B1 Folate (>5.38) ng/ml Beta-Hydroxybutyric Acd (0.2-2.81) mg/dl Urine Osmolality (500-800) mOsm/kg Ur Random Creatinine mg/dl Ur Random Sodium mmol/L Ur Random Potassium mmol/L Ur Random Chloride mmol/L Ur Random Uric Acid mg/dl Nasal Screen MRSA (PCR) (Negative) 04/16/21 04/16/21 04/16/21 Range/Units 18:11 18:11 18:11 WBC 17.83 H (4.8-10.8) K/uL RBC 2.98 L (4.2-5.4) M/uL Hgb 9.2 L (12.0-16.0) g/dL Hct 27.5 L (37-47) % MCV 92.3 (80-100) fL MCH 30.9 (25-34) pg MCHC 33.5 (32-36) g/dL RDW Std Deviation 44.7 (36.4-46.3) fL RDW Coeff of [place] 13.2 (11.5-14.5) % Plt Count 182 (130-400) K/uL MPV 10.1 (7.4-10.4) fL Immature Gran % (Auto) 0.4 % Neut % (Auto) 89.1 % Lymph % (Auto) 5.6 % [place] % (Auto) 4.8 % Eos % (Auto) 0.0 % Baso % (Auto) 0.1 % Neut # (Auto) 15.89 H (1.4-6.5) K/uL Lymph # (Auto) 0.99 L (1.2-3.4) K/uL [place] # (Auto) 0.86 H (0.11-0.59) K/uL Eos # (Auto) 0.00 (0-0.5) K/uL Baso # (Auto) 0.01 (0-0.2) K/uL Immature Gran # (Auto) 0.08 H (0.00-0.02) K/uL PT (9.0-12.0) Seconds INR (0.9-1.1) APTT (21.0-31.0) Seconds PTT Ratio VBG pH 7.36 (7.36-7.41) VBG pCO2 41 (38-50) mmHg VBG pO2 50 mmHg VBG HCO3 22 mmol/L VBG O2 Saturation 82.1 % VBG Base Excess -3.0 mEq/L Barometric Pressure 741.0 mm/Hg Sodium (136-145) mmol/L Potassium (3.5-5.1) mmol/L Chloride (98-107) mmol/L Carbon Dioxide (21-32) mmol/L Anion Gap (3-11) BUN (7-18) mg/dl Creatinine (0.6-1.2) mg/dl Est Cr Clr Drug Dosing ml/min Est GFR ( Amer) ml/min Est GFR (Non-Af Amer) ml/min BUN/Creatinine Ratio (10-20) Glucose (70-99) mg/dl POC Glucose (70-99) mg/dl POC Glucose (other) (70-99) mg/dl Lactate 2.8 H* (0.4-2.0) mmol/L Calcium (8.5-10.1) mg/dl Phosphorus (2.5-4.9) mg/dl Magnesium (1.8-2.4) mg/dl Iron (35-150) mcg/dl TIBC (250-450) mcg/dl Transferrin (200-360) mg/dl Transferrin % Sat (15-50) % Ferritin (8-388) ng/ml Total Bilirubin (0.2-1) mg/dl Direct Bilirubin (0-0.2) mg/dl AST (15-37) U/L ALT (12-78) U/L Alkaline Phosphatase (45-117) U/L Troponin I (0-0.045) ng/ml Total Protein (6.4-8.2) gm/dl Albumin (3.4-5.0) gm/dl Whole Bld Vitamin B1 Folate (>5.38) ng/ml Beta-Hydroxybutyric Acd (0.2-2.81) mg/dl Urine Osmolality (500-800) mOsm/kg Ur Random Creatinine mg/dl Ur Random Sodium mmol/L Ur Random Potassium mmol/L Ur Random Chloride mmol/L Ur Random Uric Acid mg/dl Nasal Screen MRSA (PCR) (Negative) 04/16/21 04/16/21 04/16/21 Range/Units 18:11 18:00 18:00 WBC (4.8-10.8) K/uL RBC (4.2-5.4) M/uL Hgb (12.0-16.0) g/dL Hct (37-47) % MCV (80-100) fL MCH (25-34) pg MCHC (32-36) g/dL RDW Std Deviation (36.4-46.3) fL RDW Coeff of [place] (11.5-14.5) % Plt Count (130-400) K/uL MPV (7.4-10.4) fL Immature Gran % (Auto) % Neut % (Auto) % Lymph % (Auto) % [place] % (Auto) % Eos % (Auto) % Baso % (Auto) % Neut # (Auto) (1.4-6.5) K/uL Lymph # (Auto) (1.2-3.4) K/uL [place] # (Auto) (0.11-0.59) K/uL Eos # (Auto) (0-0.5) K/uL Baso # (Auto) (0-0.2) K/uL Immature Gran # (Auto) (0.00-0.02) K/uL PT (9.0-12.0) Seconds INR (0.9-1.1) APTT (21.0-31.0) Seconds PTT Ratio VBG pH (7.36-7.41) VBG pCO2 (38-50) mmHg VBG pO2 mmHg VBG HCO3 mmol/L VBG O2 Saturation % VBG Base Excess mEq/L Barometric Pressure mm/Hg Sodium 137 (136-145) mmol/L Potassium 4.2 (3.5-5.1) mmol/L Chloride 107 (98-107) mmol/L Carbon Dioxide 20 L (21-32) mmol/L Anion Gap 11.0 (3-11) BUN 57 H (7-18) mg/dl Creatinine 2.31 H (0.6-1.2) mg/dl Est Cr Clr Drug Dosing 14.5 ml/min Est GFR ( Amer) 21.5 ml/min Est GFR (Non-Af Amer) 18.5 ml/min BUN/Creatinine Ratio 24.6 H (10-20) Glucose 335 H* (70-99) mg/dl POC Glucose (70-99) mg/dl POC Glucose (other) (70-99) mg/dl Lactate (0.4-2.0) mmol/L Calcium 8.7 (8.5-10.1) mg/dl Phosphorus 3.1 D (2.5-4.9) mg/dl Magnesium 2.9 H (1.8-2.4) mg/dl Iron (35-150) mcg/dl TIBC (250-450) mcg/dl Transferrin (200-360) mg/dl Transferrin % Sat (15-50) % Ferritin (8-388) ng/ml Total Bilirubin (0.2-1) mg/dl Direct Bilirubin (0-0.2) mg/dl AST (15-37) U/L ALT (12-78) U/L Alkaline Phosphatase (45-117) U/L Troponin I 1.670 H* (0-0.045) ng/ml Total Protein (6.4-8.2) gm/dl Albumin (3.4-5.0) gm/dl Whole Bld Vitamin B1 Folate (>5.38) ng/ml Beta-Hydroxybutyric Acd 0.95 (0.2-2.81) mg/dl Urine Osmolality 420 L (500-800) mOsm/kg Ur Random Creatinine 71.0 mg/dl Ur Random Sodium < 5 mmol/L Ur Random Potassium 47.7 mmol/L Ur Random Chloride < 10 mmol/L Ur Random Uric Acid 28.3 mg/dl Nasal Screen MRSA (PCR) (Negative) 04/16/21 Range/Units 16:00 WBC (4.8-10.8) K/uL RBC (4.2-5.4) M/uL Hgb (12.0-16.0) g/dL Hct (37-47) % MCV (80-100) fL MCH (25-34) pg MCHC (32-36) g/dL RDW Std Deviation (36.4-46.3) fL RDW Coeff of [place] (11.5-14.5) % Plt Count (130-400) K/uL MPV (7.4-10.4) fL Immature Gran % (Auto) % Neut % (Auto) % Lymph % (Auto) % [place] % (Auto) % Eos % (Auto) % Baso % (Auto) % Neut # (Auto) (1.4-6.5) K/uL Lymph # (Auto) (1.2-3.4) K/uL [place] # (Auto) (0.11-0.59) K/uL Eos # (Auto) (0-0.5) K/uL Baso # (Auto) (0-0.2) K/uL Immature Gran # (Auto) (0.00-0.02) K/uL PT (9.0-12.0) Seconds INR (0.9-1.1) APTT (21.0-31.0) Seconds PTT Ratio VBG pH (7.36-7.41) VBG pCO2 (38-50) mmHg VBG pO2 mmHg VBG HCO3 mmol/L VBG O2 Saturation % VBG Base Excess mEq/L Barometric Pressure mm/Hg Sodium (136-145) mmol/L Potassium (3.5-5.1) mmol/L Chloride (98-107) mmol/L Carbon Dioxide (21-32) mmol/L Anion Gap (3-11) BUN (7-18) mg/dl Creatinine (0.6-1.2) mg/dl Est Cr Clr Drug Dosing ml/min Est GFR ( Amer) ml/min Est GFR (Non-Af Amer) ml/min BUN/Creatinine Ratio (10-20) Glucose (70-99) mg/dl POC Glucose (70-99) mg/dl POC Glucose (other) (70-99) mg/dl Lactate (0.4-2.0) mmol/L Calcium (8.5-10.1) mg/dl Phosphorus (2.5-4.9) mg/dl Magnesium (1.8-2.4) mg/dl Iron (35-150) mcg/dl TIBC (250-450) mcg/dl Transferrin (200-360) mg/dl Transferrin % Sat (15-50) % Ferritin (8-388) ng/ml Total Bilirubin (0.2-1) mg/dl Direct Bilirubin (0-0.2) mg/dl AST (15-37) U/L ALT (12-78) U/L Alkaline Phosphatase (45-117) U/L Troponin I (0-0.045) ng/ml Total Protein (6.4-8.2) gm/dl Albumin (3.4-5.0) gm/dl Whole Bld Vitamin B1 Folate (>5.38) ng/ml Beta-Hydroxybutyric Acd (0.2-2.81) mg/dl Urine Osmolality (500-800) mOsm/kg Ur Random Creatinine mg/dl Ur Random Sodium mmol/L Ur Random Potassium mmol/L Ur Random Chloride mmol/L Ur Random Uric Acid mg/dl Nasal Screen MRSA (PCR) Negative (Negative) PG Care Time/CCT Total # of Minutes Spent Total Time Spent with Patient: Total time spent is greater than 50% in coordination of care (as documented) at patient's floor/unit and/or counseling patient: Coding Level of Care Code 66988 Subseq Hosp Care Lvl 3 Diagnoses DKA (diabetic ketoacidosis) E10.11 Diabetes mellitus complication detail: with coma Diabetes mellitus type: type 1 Acute metabolic encephalopathy G93.41 Hyperkalemia E87.5 Abnormal EKG R94.31 Anemia D64.9 Anemia type: unspecified type IRENA (acute kidney injury) N17.9 Pseudohyponatremia R79.89 Elevated troponin R77.8 Dyslipidemia E78.5 Hypertension I10 Hypertension type: essential hypertension Diabetes type 1, controlled E10.8 Diabetes mellitus complication status: with unspecified complications Focal seizures R56.9 Hypothyroidism E03.9 Hypothyroidism type: unspecified Meningioma D32.9 Short-term memory loss R41.3 (1) DKA (diabetic ketoacidosis) Diabetes mellitus complication detail: with coma Diabetes mellitus type: type 1 Qualified Code(s): E10.11 - Type 1 diabetes mellitus with ketoacidosis with coma (2) Anemia Anemia type: unspecified type Qualified Code(s): D64.9 - Anemia, unspecified (3) Hypothyroidism Hypothyroidism type: unspecified Qualified Code(s): E03.9 - Hypothyroidism, unspecified (4) Diabetes type 1, controlled Diabetes mellitus complication status: with unspecified complications Qualified Code(s): E10.8 - Type 1 diabetes mellitus with unspecified complications (5) Hypertension Hypertension type: essential hypertension Qualified Code(s): I10 - Essential (primary) hypertension
--- NOTE | 2021-04-17 14:13 | Pharmacy Report ---
Pharmacy Glycemic Short Note 2 - Date of Service April 17, 2021 - Glycemic Short BSG Results (Last 24 hours): 04/16/21 04/16/21 04/16/21 14:19 15:24 17:03 Glucose 614 H* 531 H* POC Glucose POC Glucose (other) 427 H* 04/16/21 04/16/21 04/16/21 18:11 18:15 19:27 Glucose 335 H* POC Glucose 286 H POC Glucose (other) 341 H 04/16/21 04/16/21 04/16/21 20:26 21:28 21:34 Glucose 89 POC Glucose 224 H 146 H POC Glucose (other) 04/16/21 04/16/21 04/16/21 21:41 22:05 23:05 Glucose POC Glucose 90 175 H 121 H POC Glucose (other) 04/16/21 04/16/21 04/17/21 23:25 23:39 01:05 Glucose POC Glucose 125 H 99 66 L* POC Glucose (other) 04/17/21 04/17/21 04/17/21 01:31 02:56 04:16 Glucose POC Glucose 122 H 93 76 POC Glucose (other) 04/17/21 04/17/21 04/17/21 05:06 05:49 05:55 Glucose 70 POC Glucose 96 73 POC Glucose (other) 04/17/21 04/17/21 04/17/21 07:41 09:07 11:47 Glucose 142 H POC Glucose 112 H 179 H POC Glucose (other) OUTPATIENT ANTIDIABETIC REGIMEN: * Medtronic 770G * CF 50 CR 15 * Basal 13 units/day; TDD = 22 units/day with goal A1C <8% ASSESSMENT: * Ms Doyle is an 86 y/o F with a PMH of T1DM on insulin pump who presents with severe DKA. * Patient received insulin infusion and BSGs corrected rapidly. Insulin stopped overnight. * Patient given 10 units of Lantus yesterday. Did receive several Dextrose pushes this morning due to BSG < 100 mg/dL. * Patient was receiving D5 1/2NS @ 80 cc/hr but this was discontinued around 1300 after patient was able to eat diet and BSG > 140 mg/dL. * Lantus 13 units tonight. Per previous hospitalization, patient required Lantus 15 units CF 40 CR 8 and BSGs. BSGs were higher at that time. * Patient's BSGs most likely low due to rapid rate of insulin infusion. * Novolog slightly tighter than home dose but loose than previous admission since patient's BSGs do not seem as high as prior. PLAN FOR INPATIENT GLYCEMIC CONTROL: * Hold outpatient oral diabetes medications * Basal insulin * Lantus 13 units SQ HS * Bolus insulin * NovoLog per scale ACHS or Q6hrs while NPO * Goal Range: Low 110 mg/dL - High 140 mg/dL * Correction Factor: 40 mg/dL/unit * Nutritional / Prandial insulin per carb ratio of 1 unit per 10 grams CHO consumed PLAN FOR DISCHARGE: * Continue to [place] [facility] [place] for [place]cemic management.
[2021-04-17] MEDS ORDERED: INSULIN GLARGINE SOLOSTAR 100 UNITS/ML 3 ML PEN SC SCH (21:00)
[2021-04-18] MEDS: INSULIN ASPART 100 UNITS/ML 3 ML PEN SC SCH ×5 (00:03→18:58)
[2021-04-18 05:59] LABS: Basophils # (auto) 0.02 K/uL (0-0.2); Basophils % (auto) 0.2 %; Eosinophils # (auto) 0.05 K/uL (0-0.5); Eosinophils % (auto) 0.4 %; Hematocrit (blood only) 30.1 % (37-47); Hemoglobin 9.8 g/dL (12.0-16.0); Immature Granulocytes # (auto) 0.05 K/uL (0.00-0.02); Immature Granulocytes % (auto) 0.4 %; Lymphocytes % (auto) 14.3 %; Mean Corpuscular Hemoglobin 30.6 pg (25-34); Mean Corpuscular Hgb Conc 32.6 g/dL (32-36); Mean Corpuscular Volume 94.1 fL (80-100); Mean Platelet Volume 10.1 fL (7.4-10.4); Monocytes # (auto) 0.77 K/uL (0.11-0.59); Monocytes % (auto) 6.9 %; Neutrophils # (auto) 8.72 K/uL (1.4-6.5); Neutrophils % (auto) 77.8 %; Platelet Count 156 K/uL (130-400); RDW Coefficient of Variation 13.6 % (11.5-14.5); White Blood Count 11.21 K/uL (4.8-10.8)
[2021-04-18 06:17] LABS: Albumin Level 2.6 gm/dl (3.4-5.0); BUN Creatinine Ratio 29.3 (10-20); Bilirubin Direct 0.2 mg/dl (0-0.2); Bilirubin,Total 0.6 mg/dl (0.2-1); Calcium 8.5 mg/dl (8.5-10.1); Creatinine Clr Calc Pharmacy 37.1 ml/min; Est GFR (African American) 67.1 ml/min; Est GFR (Non-African American) 57.9 ml/min; Magnesium 2.7 mg/dl (1.8-2.4); Phosphorus 2.6 mg/dl (2.5-4.9); Potassium 4.3 mmol/L (3.5-5.1); Total Protein 5.3 gm/dl (6.4-8.2)
[2021-04-18] MEDS: levETIRAcetam 250 MG in 0.9 % SODIUM CHLORIDE 100 ML IV SCH (07:49)
[2021-04-18] MEDS: FOLIC ACID 1 MG in SYRINGE 9.8 ML IV SCH (07:52)
[2021-04-18] MEDS: PANTOprazole 40 MG in SYRINGE 0 ML IV SCH (07:52)
[2021-04-18] MEDS: PIPERACILLIN/TAZOBACTAM 3.375 GM in DEXTROSE 5% 100 ML IV SCH (07:52)
[2021-04-18] MEDS: LEVOTHYROXINE SODIUM 75 MCG in SYRINGE 0 ML IV SCH (08:14)
--- NOTE | 2021-04-18 09:15 | Pharmacy Report ---
Pharmacy Glycemic Short Note 2 - Date of Service April 18, 2021 - Glycemic Short BSG Results (Last 24 hours): 04/17/21 04/17/21 04/17/21 11:47 15:51 21:04 Glucose POC Glucose 179 H 215 H 305 H* 04/17/21 04/17/21 04/18/21 21:05 23:57 05:22 Glucose 88 POC Glucose 305 H* 284 H 04/18/21 04/18/21 05:23 07:38 Glucose POC Glucose 89 75 OUTPATIENT ANTIDIABETIC REGIMEN: * Medtronic 770G * CF 50 CR 15 * Basal 13 units/day; TDD = 22 units/day with goal A1C <8% ASSESSMENT: 04/18/21 * Patient's BSGs yesterday were [phone] and fasting today is 89 mg/dL. * Patient received 28 units of insulin (13 units of basal and 15 units of bolus). * BSGs trended upwards yesterday due to decreased basal dosing the previous night. * Continue Lantus 13 units. * Tighten CR as used in previous hospitalization. Background * Ms Doyle is an 86 y/o F with a PMH of T1DM on insulin pump who presents with severe DKA. * Patient received insulin infusion and BSGs corrected rapidly. Insulin stopped overnight. * Patient given 10 units of Lantus yesterday. Did receive several Dextrose pushes this morning due to BSG < 100 mg/dL. * Patient was receiving D5 1/2NS @ 80 cc/hr but this was discontinued around 1300 after patient was able to eat diet and BSG > 140 mg/dL. * Lantus 13 units tonight. Per previous hospitalization, patient required Lantus 15 units CF 40 CR 8 and BSGs. BSGs were higher at that time. * Patient's BSGs most likely low due to rapid rate of insulin infusion. * Novolog slightly tighter than home dose but loose than previous admission since patient's BSGs do not seem as high as prior. PLAN FOR INPATIENT GLYCEMIC CONTROL: * Hold outpatient oral diabetes medications * Basal insulin * Lantus 13 units SQ HS * Bolus insulin * NovoLog per scale ACHS or Q6hrs while NPO * Goal Range: Low 110 mg/dL - High 140 mg/dL * Correction Factor: 40 mg/dL/unit * Nutritional / Prandial insulin per carb ratio of 1 unit per 8 grams CHO consumed PLAN FOR DISCHARGE: * Continue to follow with [facility] endocr[facility] for glycemic management.
--- NOTE | 2021-04-18 09:26 | Hospitalist Progress Note ---
Date of Service April 18, 2021 Assessment & Plan (1) DKA (diabetic ketoacidosis): Plan: Presented with glucose greater than 1000, VBG pH 7.1, anion gap of 25, with acute kidney injury and hyperkalemia, NSTEMI Suspect due to insulin pump failure- reports he continued to bolus her multiple times over the last 12 hours and her glucose continue to rise No recent infectious symptoms, no chest pain. She did vomit once after hyperglycemia started but no evidence of pneumonia or GI abnormality on CT imaging. No UTI or evidence of skin infections Leukocytosis most likely reactive to DKA No strokelike symptoms Anion gap likely due to DKA and lactic acidosis-now resolved CT chest/abdomen/pelvis without acute findings Much improved now, weaned off insulin drip and transitioned to basal bolus insulin anion gap closed, blood sugars controlled, renal failure improving, and mental status greatly improved. -Downgraded from ICU to PCU on 04/17 -no further IVFs now as is taking po quite well following Speech Tx eval -Follow CBC, BMP, magnesium and phosphorus in the morning -will now discontinue empiric antibiotics for sepsis with Zosyn and daptomycin as blood cultures negative at 48 hours, remains afebrile, and leukocytosis improving -Discontinued left femoral central venous catheter -dc Miranda today and mobilize OOB to chair -Pharmacy managing basal and bolus insulin, will need transition back to insulin pump prior to discharge or once back at [facility] if supplies not available (2) Acute metabolic encephalopathy: Plan: Likely secondary to DKA, renal failure, severe dehydration CT head with stable meningioma, but no hemorrhage or stroke seen Now completely resolved after treatment of DKA and with hydration (3) Hyperkalemia: Plan: Potassium of 6.9 on arrival, secondary to hyperglycemia and acute kidney injury ECG initially quite abnormal with ST elevation in anterior leads and ST depression in inferolateral leads-improved with treatment with IV calcium chloride and IV insulin Potassium normalized with treatment of DKA and IV fluid hydration Follow BMP (4) Abnormal EKG: Plan: As above, seems more likely secondary to hyperkalemia is quickly resolved and she did not complain of chest pain Troponin is elevated on admission at 0.1 and peaked at 2.3, then trended downward -Echocardiogram with hyperdynamic systolic function EF greater than 70%, no regional wall motion abnormalities (5) Anemia: Plan: Hemoglobin 9.2 on arrival down from 12 a year ago. This is borderline macrocytic TSH is quite elevated at 23 could be contributing to anemia but this may be euthyroid sick syndrome as TSH was 8 just last week She was Hemoccult positive on rectal exam in the ER, but no gross melena or history of GI bleeding as per She has not had an EGD or colonoscopy in many years-can do as outpatient if desired -Hemoglobin fortunately remained stable again today at 9.8 despite multiple liters of fluid given Iron studies are normal, folate is low and will be replaced, B12 pending -ok to start DVT prophylaxis today -Started folic acid 1 mg daily and should be continued po on discharge-change from IV to po for tomorrow -Treat hypothyroidism as below (6) IRENA (acute kidney injury): Plan: Creatinine 2.6 on arrival with hyperkalemia as above, now much improved with hydration-creatinine down to 0.9, other electrolytes normalized, with good urine output No obstruction seen on CT abdomen/pelvis No evidence of infection in the urine, with bland urine sediment except trace protein Remove Miranda Follow BMP in AM Avoid nephrotoxic agents -Continue to hold home lisinopril for now but can restart likely tomorrow if pan shover remains normal and BPs can tolerate (7) Pseudohyponatremia: Plan: Corrected sodium is 140 on arrival and remains normal now Secondary to profound hyperglycemia Follow BMP (8) Elevated troponin: Plan: As above, troponin peaked at 2.3 With initial EKG changes thought to be secondary to hyperkalemia which are now resolved Echocardiogram as above Likely secondary to myocardial demand ischemia in the setting of DKA No intervention needed (9) Dyslipidemia: Plan: Hold home omega-3 (10) Hypertension: Plan: Blood pressure was low normal, now improving continue to hold home lisinopril but can likely restart on Monday (11) Diabetes type 1, controlled: Plan: hemoglobin A1c elevated 8.2% Normally on insulin pump-on hold Bolus and basal insulin now as above Pharmacy managing (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 today--> 250mg po bid of the IR while here, but back to home Keppra 500mg XR once daily after discharge No acute issues while here, sounds like absence seizures (13) Hypothyroidism: Plan: TSH quite elevated at 23 but was 8 one week ago-likely secondary to euthyroid sick syndrome but will convert back to p.o. tomorrow at usual home dose Patient's reports that they were aware that her TSH was abnormal and were told by hospice social worker to make sure that she is her levothyroxine from her other pills when she takes in the morning (14) Meningioma: Plan: Stable from previous Follows with neurology (15) Short-term memory loss: Plan: Hold home Exelon patch as not available here Plan: DVT prophylaxis-SCDs and add Lovenox 30mg today as hgb stable, no gross bleeding Disposition-downgrade from PCU to med/surg today. PT/OT consults placed, lives at [facility] and can most likely dc to SNF at [facility] on Mon-Monday if remains stable DNR/DNI as per discussion with , but is okay with vasopressors Admission and Anticipated Discharge Date Admission Date: April 16, 2021 Subjective Feeling much better, ate breakfast, glucose under control. RN going to get her OOB to chair this AM.Denies CP or SOB, no abd pains. Tele with NSR Review of Systems Review of Systems: All systems reviewed & are unremarkable except as noted in HPI & below Physical Exam Constitutional: WD/WN, vitals as above Eyes: + anicteric sclerae ENMT: Ears: no hearing impairment and no external ear abnormality Nose: no external nose abnormality Neck: trachea midline, no thyromegaly Respiratory: normal respiratory effort, lungs clear to auscultation Cardiovascular: RRR, no murmur, no edema Extremities: no calf tenderness and no pedal edema Chest (Breasts): Chest: normal inspection of chest Gastrointestinal (Abdomen): normal bowel sounds, soft, nontender, no hepatosplenomegaly Musculoskeletal: Extremities: extremities normal to inspection; no cyanosis and no clubbing Skin: no rashes, warm and dry Neurologic: moves all extremities and awake; no focal motor deficits, not confused and not obtunded Psychiatric: Orientation: alert, oriented to person, oriented to place and cooperative Lymphatic: no lymphedema Results & Data Results & Data ([facility]) Vital Signs (Past 12 Hours) Vital Signs Temp Pulse Pulse Resp BP BP Pulse Ox 04/18/21 08:00 36.9 C 89 18 144/71 H 97 04/18/21 04:00 75 24 105/56 L 90 04/18/21 00:00 36.4 C L 83 18 120/75 92 04/17/21 23:59 85 Laboratory Results 04/18/21 04/18/21 04/18/21 Range/Units 07:38 05:23 05:22 WBC (4.8-10.8) K/uL RBC (4.2-5.4) M/uL Hgb (12.0-16.0) g/dL Hct (37-47) % MCV (80-100) fL MCH (25-34) pg MCHC (32-36) g/dL RDW Std Deviation (36.4-46.3) fL RDW Coeff of Shady (11.5-14.5) % Plt Count (130-400) K/uL MPV (7.4-10.4) fL Immature Gran % (Auto) % Neut % (Auto) % Lymph % (Auto) % Lyman % (Auto) % Eos % (Auto) % Baso % (Auto) % Neut # (Auto) (1.4-6.5) K/uL Lymph # (Auto) (1.2-3.4) K/uL Lyman # (Auto) (0.11-0.59) K/uL Eos # (Auto) (0-0.5) K/uL Baso # (Auto) (0-0.2) K/uL Immature Gran # (Auto) (0.00-0.02) K/uL Sodium (136-145) mmol/L Potassium (3.5-5.1) mmol/L Chloride (98-107) mmol/L Carbon Dioxide (21-32) mmol/L Anion Gap (3-11) BUN (7-18) mg/dl Creatinine (0.6-1.2) mg/dl Est Cr Clr Drug Dosing ml/min Est GFR ( Amer) ml/min Est GFR (Non-Af Amer) ml/min BUN/Creatinine Ratio (10-20) Glucose (70-99) mg/dl POC Glucose 75 89 (70-99) mg/dl Calcium (8.5-10.1) mg/dl Phosphorus (2.5-4.9) mg/dl Magnesium (1.8-2.4) mg/dl Total Bilirubin (0.2-1) mg/dl Direct Bilirubin (0-0.2) mg/dl AST (15-37) U/L ALT (12-78) U/L Alkaline Phosphatase (45-117) U/L Troponin I (0-0.045) ng/ml Total Protein (6.4-8.2) gm/dl Albumin (3.4-5.0) gm/dl Vitamin B12 1992 H (193-986) pg/ml 04/18/21 04/18/21 04/17/21 Range/Units 05:22 05:22 23:57 WBC 11.21 H D (4.8-10.8) K/uL RBC 3.20 L (4.2-5.4) M/uL Hgb 9.8 L (12.0-16.0) g/dL Hct 30.1 L (37-47) % MCV 94.1 (80-100) fL MCH 30.6 (25-34) pg MCHC 32.6 (32-36) g/dL RDW Std Deviation 47.0 H (36.4-46.3) fL RDW Coeff of Shady 13.6 (11.5-14.5) % Plt Count 156 (130-400) K/uL MPV 10.1 (7.4-10.4) fL Immature Gran % (Auto) 0.4 % Neut % (Auto) 77.8 % Lymph % (Auto) 14.3 % Lyman % (Auto) 6.9 % Eos % (Auto) 0.4 % Baso % (Auto) 0.2 % Neut # (Auto) 8.72 H (1.4-6.5) K/uL Lymph # (Auto) 1.60 (1.2-3.4) K/uL Lyman # (Auto) 0.77 H (0.11-0.59) K/uL Eos # (Auto) 0.05 (0-0.5) K/uL Baso # (Auto) 0.02 (0-0.2) K/uL Immature Gran # (Auto) 0.05 H (0.00-0.02) K/uL Sodium 139 (136-145) mmol/L Potassium 4.3 (3.5-5.1) mmol/L Chloride 109 H (98-107) mmol/L Carbon Dioxide 27 (21-32) mmol/L Anion Gap 3.0 (3-11) BUN 26 H (7-18) mg/dl Creatinine 0.90 D (0.6-1.2) mg/dl Est Cr Clr Drug Dosing 37.1 ml/min Est GFR ( Amer) 67.1 ml/min Est GFR (Non-Af Amer) 57.9 ml/min BUN/Creatinine Ratio 29.3 H (10-20) Glucose 88 (70-99) mg/dl POC Glucose 284 H (70-99) mg/dl Calcium 8.5 (8.5-10.1) mg/dl Phosphorus 2.6 (2.5-4.9) mg/dl Magnesium 2.7 H (1.8-2.4) mg/dl Total Bilirubin 0.6 (0.2-1) mg/dl Direct Bilirubin 0.2 D (0-0.2) mg/dl AST 28 (15-37) U/L ALT 26 (12-78) U/L Alkaline Phosphatase 70 (45-117) U/L Troponin I (0-0.045) ng/ml Total Protein 5.3 L (6.4-8.2) gm/dl Albumin 2.6 L (3.4-5.0) gm/dl Vitamin B12 (193-986) pg/ml 04/17/21 04/17/21 04/17/21 Range/Units 21:05 21:04 15:51 WBC (4.8-10.8) K/uL RBC (4.2-5.4) M/uL Hgb (12.0-16.0) g/dL Hct (37-47) % MCV (80-100) fL MCH (25-34) pg MCHC (32-36) g/dL RDW Std Deviation (36.4-46.3) fL RDW Coeff of Shady (11.5-14.5) % Plt Count (130-400) K/uL MPV (7.4-10.4) fL Immature Gran % (Auto) % Neut % (Auto) % Lymph % (Auto) % Lyman % (Auto) % Eos % (Auto) % Baso % (Auto) % Neut # (Auto) (1.4-6.5) K/uL Lymph # (Auto) (1.2-3.4) K/uL Lyman # (Auto) (0.11-0.59) K/uL Eos # (Auto) (0-0.5) K/uL Baso # (Auto) (0-0.2) K/uL Immature Gran # (Auto) (0.00-0.02) K/uL Sodium (136-145) mmol/L Potassium (3.5-5.1) mmol/L Chloride (98-107) mmol/L Carbon Dioxide (21-32) mmol/L Anion Gap (3-11) BUN (7-18) mg/dl Creatinine (0.6-1.2) mg/dl Est Cr Clr Drug Dosing ml/min Est GFR ( Amer) ml/min Est GFR (Non-Af Amer) ml/min BUN/Creatinine Ratio (10-20) Glucose (70-99) mg/dl POC Glucose 305 H* 305 H* 215 H (70-99) mg/dl Calcium (8.5-10.1) mg/dl Phosphorus (2.5-4.9) mg/dl Magnesium (1.8-2.4) mg/dl Total Bilirubin (0.2-1) mg/dl Direct Bilirubin (0-0.2) mg/dl AST (15-37) U/L ALT (12-78) U/L Alkaline Phosphatase (45-117) U/L Troponin I (0-0.045) ng/ml Total Protein (6.4-8.2) gm/dl Albumin (3.4-5.0) gm/dl Vitamin B12 (193-986) pg/ml 04/17/21 04/17/21 Range/Units 11:47 11:46 WBC (4.8-10.8) K/uL RBC (4.2-5.4) M/uL Hgb (12.0-16.0) g/dL Hct (37-47) % MCV (80-100) fL MCH (25-34) pg MCHC (32-36) g/dL RDW Std Deviation (36.4-46.3) fL RDW Coeff of Shady (11.5-14.5) % Plt Count (130-400) K/uL MPV (7.4-10.4) fL Immature Gran % (Auto) % Neut % (Auto) % Lymph % (Auto) % Lyman % (Auto) % Eos % (Auto) % Baso % (Auto) % Neut # (Auto) (1.4-6.5) K/uL Lymph # (Auto) (1.2-3.4) K/uL Lyman # (Auto) (0.11-0.59) K/uL Eos # (Auto) (0-0.5) K/uL Baso # (Auto) (0-0.2) K/uL Immature Gran # (Auto) (0.00-0.02) K/uL Sodium (136-145) mmol/L Potassium (3.5-5.1) mmol/L Chloride (98-107) mmol/L Carbon Dioxide (21-32) mmol/L Anion Gap (3-11) BUN (7-18) mg/dl Creatinine (0.6-1.2) mg/dl Est Cr Clr Drug Dosing ml/min Est GFR ( Amer) ml/min Est GFR (Non-Af Amer) ml/min BUN/Creatinine Ratio (10-20) Glucose (70-99) mg/dl POC Glucose 179 H (70-99) mg/dl Calcium (8.5-10.1) mg/dl Phosphorus (2.5-4.9) mg/dl Magnesium (1.8-2.4) mg/dl Total Bilirubin (0.2-1) mg/dl Direct Bilirubin (0-0.2) mg/dl AST (15-37) U/L ALT (12-78) U/L Alkaline Phosphatase (45-117) U/L Troponin I 1.970 H* (0-0.045) ng/ml Total Protein (6.4-8.2) gm/dl Albumin (3.4-5.0) gm/dl Vitamin B12 (193-986) pg/ml PG Care Time/CCT Total # of Minutes Spent Total Time Spent with Patient: Total time spent is greater than 50% in coordination of care (as documented) at patient's floor/unit and/or counseling patient: Coding Level of Care Code 34893 Subseq Hosp Care Lvl 3 Diagnoses DKA (diabetic ketoacidosis) E10.11 Diabetes mellitus complication detail: with coma Diabetes mellitus type: type 1 Acute metabolic encephalopathy G93.41 Hyperkalemia E87.5 Abnormal EKG R94.31 Anemia D64.9 Anemia type: unspecified type IRENA (acute kidney injury) N17.9 Pseudohyponatremia R79.89 Elevated troponin R77.8 Dyslipidemia E78.5 Hypertension I10 Hypertension type: essential hypertension Diabetes type 1, controlled E10.8 Diabetes mellitus complication status: with unspecified complications Focal seizures R56.9 Hypothyroidism E03.9 Hypothyroidism type: unspecified Meningioma D32.9 Short-term memory loss R41.3 (1) DKA (diabetic ketoacidosis) Diabetes mellitus complication detail: with coma Diabetes mellitus type: type 1 Qualified Code(s): E10.11 - Type 1 diabetes mellitus with ketoacidosis with coma (2) Anemia Anemia type: unspecified type Qualified Code(s): D64.9 - Anemia, unspecified (3) Hypertension Hypertension type: essential hypertension Qualified Code(s): I10 - Essential (primary) hypertension (4) Diabetes type 1, controlled Diabetes mellitus complication status: with unspecified complications Qualified Code(s): E10.8 - Type 1 diabetes mellitus with unspecified complications (5) Hypothyroidism Hypothyroidism type: unspecified Qualified Code(s): E03.9 - Hypothyroidism, unspecified
[2021-04-18] MEDS: ENOXAPARIN INJ 30 MG/0.3 ML SYR SQ SCH (11:07)
[2021-04-18] MEDS ORDERED: INSULIN ASPART 100 UNITS/ML VIAL SC PRN (11:15)
[2021-04-18] MEDS: DAPTOmycin 325 MG in SYRINGE 0 ML IV SCH (16:02)
[2021-04-18] MEDS ORDERED: INSULIN ASPART 100 UNITS/ML 3 ML PEN SC ONE (20:45)
[2021-04-18] MEDS ORDERED: CHOLECALCIFEROL 1,000 UNITS 25 MCG TAB PO SCH (21:00)
[2021-04-18] MEDS ORDERED: INSULIN GLARGINE SOLOSTAR 100 UNITS/ML 3 ML PEN SC SCH (21:00)
[2021-04-18] MEDS ORDERED: MAGNESIUM OXIDE 400 MG TAB PO SCH (21:00)
[2021-04-18] MEDS ORDERED: CYANOCOBALAMIN 500 MCG TABLET (VITAMIN B-12) PO SCH (21:00)
[2021-04-18] MEDS ORDERED: CALCIUM CARBONATE 1250MG TAB PO SCH (21:00)
[2021-04-18] MEDS: ACETAMINOPHEN 500 MG TAB PO SCH (21:09)
[2021-04-18] MEDS: levETIRAcetam 250 MG TAB PO SCH (21:12)
[2021-04-18] MEDS: NovoLOG INSULIN PUMP SCH (21:23)
[2021-04-19] MEDS ORDERED: INSULIN ASPART 100 UNITS/ML 3 ML PEN SC SCH
[2021-04-19] MEDS ORDERED: INSULIN ASPART 100 UNITS/ML 3 ML PEN SC ONE ×3 (00:30→14:45)
[2021-04-19] MEDS ORDERED: LEVOTHYROXINE SODIUM 125 MCG TABLET PO SCH (06:30)
[2021-04-19 06:55] LABS: Basophils # (auto) 0.01 K/uL (0-0.2); Basophils % (auto) 0.2 %; Eosinophils # (auto) 0.11 K/uL (0-0.5); Eosinophils % (auto) 1.7 %; Hematocrit (blood only) 26.7 % (37-47); Hemoglobin 8.9 g/dL (12.0-16.0); Immature Granulocytes # (auto) 0.02 K/uL (0.00-0.02); Immature Granulocytes % (auto) 0.3 %; Lymphocytes # (auto) 1.69 K/uL (1.2-3.4); Lymphocytes % (auto) 25.8 %; Mean Corpuscular Hemoglobin 30.7 pg (25-34); Mean Corpuscular Hgb Conc 33.3 g/dL (32-36); Mean Corpuscular Volume 92.1 fL (80-100); Mean Platelet Volume 9.9 fL (7.4-10.4); Monocytes # (auto) 0.56 K/uL (0.11-0.59); Monocytes % (auto) 8.5 %; Neutrophils # (auto) 4.16 K/uL (1.4-6.5); Neutrophils % (auto) 63.5 %; Platelet Count 149 K/uL (130-400); RDW Coefficient of Variation 13.4 % (11.5-14.5); White Blood Count 6.55 K/uL (4.8-10.8)
[2021-04-19 07:32] LABS: Albumin Level 2.1 gm/dl (3.4-5.0); BUN Creatinine Ratio 26.6 (10-20); Bilirubin Direct 0.2 mg/dl (0-0.2); Bilirubin,Total 0.7 mg/dl (0.2-1); Calcium 8.2 mg/dl (8.5-10.1); Creatinine Clr Calc Pharmacy 57.6 ml/min; Est GFR (African American) 96.7 ml/min; Est GFR (Non-African American) 83.5 ml/min; Magnesium 2.4 mg/dl (1.8-2.4); Phosphorus 2.8 mg/dl (2.5-4.9); Total Protein 4.9 gm/dl (6.4-8.2)
[2021-04-19 07:44] VITALS: BP 151/80; PULSE 110; O2SAT 91
[2021-04-19 07:46] VITALS: TEMP 98.6
[2021-04-19] MEDS ORDERED: PANTOprazole 40 MG TAB PO SCH (09:00)
[2021-04-19] MEDS ORDERED: FOLIC ACID 1 MG TAB PO SCH (09:00)
[2021-04-19] MEDS: levETIRAcetam 250 MG TAB PO SCH (09:16)
[2021-04-19] MEDS: ACETAMINOPHEN 500 MG TAB PO SCH (09:17)
[2021-04-19] MEDS: ENOXAPARIN INJ 30 MG/0.3 ML SYR SQ SCH (09:17)
[2021-04-19] MEDS: NovoLOG INSULIN PUMP SCH ×2 (09:19→13:53)
[2021-04-19] MEDS: INSULIN ASPART 100 UNITS/ML 3 ML PEN SC SCH ×2 (09:23→12:57)
--- NOTE | 2021-04-19 09:47 | Pharmacy Report ---
Pharmacy Glycemic Short Note 2 - Date of Service April 19, 2021 - Glycemic Short BSG Results (Last 24 hours): 04/18/21 04/18/21 04/18/21 11:06 17:05 20:22 Glucose POC Glucose 115 H 256 H 317 H* 04/18/21 04/19/21 04/19/21 20:25 00:13 03:45 Glucose POC Glucose 317 H* 202 H 183 H 04/19/21 04/19/21 06:30 08:43 Glucose 138 H POC Glucose 148 H OUTPATIENT ANTIDIABETIC REGIMEN: * Medtronic 770G * CF 50 CR 15 * Basal 13 units/day; TDD = 22 units/day with goal A1C <8% * HbA1c: 8.2% (04/16/21) ASSESSMENT: 04/19/21 * Insulin pump was restarted yesterday evening, BSGs poorly controlled following restart * Patient reports that helps her manage her pump * Provider still trying to determine plan for discharge, pump vs. SC basal/bolus insulin * HbA1c of 8.2% is certainly reasonable, if is able to continue assisting patient with management * Will continue pump for now to provide basal needs and will order SC bolus insulin in addition * Called at lunchtime, insulin pump was actually disconnected en route to bathroom * Plan is for discharge this afternoon, discussed with hospitalist, patient's will reconnect insulin pump upon transfer and will be able to continue assisting with pump while at [facility] 04/18/21 * Patient's BSGs yesterday were [phone] and fasting today is 89 mg/dL. * Patient received 28 units of insulin (13 units of basal and 15 units of bolus). * BSGs trended upwards yesterday due to decreased basal dosing the previous night. * Continue Lantus 13 units. * Tighten CR as used in previous hospitalization. Background * Ms Doyle is an 86 y/o F with a PMH of T1DM on insulin pump who presents with severe DKA. * Patient received insulin infusion and BSGs corrected rapidly. Insulin stopped overnight. * Patient given 10 units of Lantus yesterday. Did receive several Dextrose pushes this morning due to BSG < 100 mg/dL. * Patient was receiving D5 1/2NS @ 80 cc/hr but this was discontinued around 1300 after patient was able to eat diet and BSG > 140 mg/dL. * Lantus 13 units tonight. Per previous hospitalization, patient required Lantus 15 units CF 40 CR 8 and BSGs. BSGs were higher at that time. * Patient's BSGs most likely low due to rapid rate of insulin infusion. * Novolog slightly tighter than home dose but loose than previous admission since patient's BSGs do not seem as high as prior. PLAN FOR INPATIENT GLYCEMIC CONTROL: * Basal insulin * provided by Novolog insulin pump (~13 units/day) * Bolus insulin * NovoLog per scale ACHS or Q6hrs while NPO * Goal Range: Low 110 mg/dL - High 140 mg/dL * Correction Factor: 45 mg/dL/unit * Nutritional / Prandial insulin per carb ratio of 1 unit per 8 grams CHO consumed PLAN FOR DISCHARGE: * Continue to follow with [facility] endocrinology for glycemic management * Continue insulin pump with assistance from
[2021-04-19 12:44] LABS: Hematocrit (blood only) 33.1 % (37-47); Hemoglobin 10.8 g/dL (12.0-16.0)
[2021-04-19] MEDS ORDERED: INSULIN GLARGINE SOLOSTAR 100 UNITS/ML 3 ML PEN SC ONE (12:45)
[2021-04-19] MEDS: DAPTOmycin 325 MG in SYRINGE 0 ML IV SCH (12:52)
--- NOTE | 2021-04-19 16:41 | Discharge Summary ---
Date of Service April 19, 2021 Admission HPI Per Admitting Provider This patient is an 86-year-old female with history of type 1 diabetes for over 50 years on an insulin pump, partial seizures, mild cognitive impairment, Diabetic peripheral neuropathy, macular degeneration, hypothyroidism, hyperlipidemia, HTN, meningioma, who presents from [facility] with altered mental status and high blood sugars as per the . The patient is quite lethargic not able to answer any questions. Her reports that yesterday afternoon, he and his attended a meeting together, but by dinnertime she reported nausea and not feeling well. Her blood sugar was in the 300s and 400s which he reports is not uncommon for her. He helped her with her insulin pump to bolus extra insulin through the evening. She did have one episode of vomiting last night. He reports prior to yesterday, she was in her normal state of health. She has not had any recent fevers or chills, no complaints of headaches, no cough or cold symptoms, no chest pain or shortness of breath, no abdominal pain or urinary symptoms. No blood in her stool or diarrhea. This morning, she was very lethargic and she came to the ER. In the ER, she was found to be in DKA have a glucose of 1013, acute kidney in jury with a creatinine of 2.65, hyperkalemia with a potassium of 7.0, and elevated lactate at 4.2, and a pH on VBG of 7.17. Hemoglobin was low at 9.6 down from twelve 1 year ago. Her troponin was elevated at 0.109 and she had an abnormal ECG initially with sinus tachycardia with PVCs and bigeminy with possible ST elevation in V1 and V2 with ST depression in the inferolateral leads. She was treated for her hyperkalemia with IV calcium chloride, 3 L of IV fluids, and IV insulin. Her potassium did come down to 5.0 and her repeat ECG showed resolution of ST elevations and with persistent nonspecific ST depression in the inferolateral leads but not as significant as previous as well as an incomplete right bundle branch block. Her Covid-19 test was negative. She had a leukocytosis of 16. She had some abdominal tenderness on exam as per ER physician and was sent for CT of the chest abdomen and pelvis-this showed just some chronic biapical scarring and dependent atelectasis versus scarring in the chest and abdomen/pelvis with hepatic steatosis, but no other acute abnormalities or bowel obstruction. She was found to be Hemoccult positive without gross melena on rectal exam as per ER physician. CT of the head showed no acute abnormalities and interval stability of a known parafalcine meningioma. She will be admitted to the intensive care unit for management of DKA, acute kidney injury, hyperkalemia, new anemia with Hemoccult positive stool, and possible NSTEMI. I discussed her care with the nursing home manager at the time of admission. Principal Diagnosis Spent greater than 30 minutes preparing patient for discharge. This includes discussion with patient/family, assessment, intervention, medication reconciliation, and coordination of care. Discharge Exam PHYSICAL EXAM General Appearance: WDWN in NAD who is A&O x 3 but chronic memory impairment HEENT: Head is normocephalic/atraumatic; Hearing grossly intact; Mucous membranes moist Neck: Supple; Trachea midline; Neg JVD Heart: RRR with no M/G/R Lungs: CTA in all lung donovan bilaterally; Respirations unlabored; Neg accessory muscle use Abdomen: Soft, non-tender, non-distended; Positive BS x 4 quadrants; insulin pump placed with insertion site in RLQ Extremities: Neg cyanosis or edema Neurological: Speech clear; Gross motor/sensory function intact; Neg focal neurologic deficits Psychiatric: Appropriate mood/affect Skin: Normal Color; Warm/Dry Discharge Data Allergies Allergy/AdvReac Type Severity Reaction Status Date / Time No Known Allergies Allergy Verified 04/20/21 13:14 Consultations 04/16/21 08:15 ED Decision to Admit Stat 04/16/21 14:09 Consult Exhauster Routine Ordered Studies Abdomen/Pelvis CT 04/16/21 06:16 CT abd pelvis wo con CLINICAL HISTORY: vomiting TECHNIQUE: Helical axial images of the abdomen and pelvis were obtained. Automated dose lowering techniques and/or adjustment according to patient size were utilized for this exam. This exam was performed without intravenous contrast. COMPARISON: None available at the time of this dictation. FINDINGS: Lower chest: For findings above the diaphragm, please see CT chest performed same day. Liver: Hepatic steatosis is noted. Gallbladder and biliary tree: No calcified gallstones. Normal caliber wall. No intra- or extrahepatic biliary ductal dilation. Pancreas: Unremarkable, no focal lesions. Spleen: Unremarkable. Adrenals: Unremarkable. Kidneys and ureters: Nonobstructive nephrolithiasis is seen. Bladder: Miranda catheter is seen. Reproductive organs: Uterus retroverted. Bowel: Evaluation is limited due to paucity of intraperitoneal fat. Status post appendectomy. No evidence of bowel obstruction. Lymph nodes Retroperitoneal: Unremarkable. Mesenteric: Unremarkable. Pelvic: Unremarkable. Peritoneum: Normal Vessels: Atherosclerotic calcifications are seen. Abdominal wall: Unremarkable. Bones: Degenerative changes in the visualized spine. Scoliosis is noted. IMPRESSION: No acute abnormalities to explain patient's vomiting, in particular no evidence of bowel obstruction. ACT 112: Negative or not required by law. Electronically signed by: Harlan Rg M.D. 04/16/2021 7:46 AM Chest X-Ray 04/16/21 06:16 XR chest 1V portable CLINICAL HISTORY: SEPSIS TECHNIQUE: Single frontal radiograph of the chest was obtained. Comparison: Comparison is made to chest one view 02/03/2020 FINDINGS: No lines and tubes are seen. Cardiomegaly is noted. The lungs are clear. No evidence of pleural effusion or pneumothorax. Likely old healed right humeral fracture noted. IMPRESSION: No acute chest disease. ACT 112: Negative or not required by law. Electronically signed by: Harlan Rg M.D. 04/16/2021 8:[address] 04/16/21 06:16 CT head/brain wo con CLINICAL HISTORY: AMS Technique: Contiguous axial CT images of the head were acquired from the base of the skull to the vertex without intravenous contrast administration. Images were viewed in brain, subdural and bone windows. Automated dose lowering techniques and/or adjustment according to patient size were utilized for this exam. Comparison: Comparison is made to CT head 01/02/2019 Findings: Areas of decreased attenuation are present in the periventricular and subcortical white matter bilaterally consistent with small vessel ischemic disease. Generalized cerebral atrophy with commensurate enlargement of the ventricles, sulci, and cisterns is also present. There is no acute intracranial hemorrhage or evidence of acute territorial infarction. No shift of the midline structures, mass effect, or extra-axial abnormalities are shown. Atherosclerotic calcifications are present in the intracranial segments of the internal carotid arteries. A large calcified mass arising from the falx is again seen. Imaged portions of the paranasal sinuses and mastoid air cells are clear. The orbits appear normal. There are no acute fractures of the calvaria or scalp swelling. Impression: No acute abnormalities. Interval stability of parafalcine meningioma. ACT 112: Negative or not required by law. Electronically signed by: Harlan Rg M.D. 04/16/2021 7:[address] 04/16/21 07:09 CT chest diagnostic wo con CLINICAL HISTORY: abnl CXR hyperglycemia, nausea, confusion TECHNIQUE: Multidetector row helical CT of the chest was performed. Coronal and sagittal reformations were obtained. Automated dose lowering techniques and/or adjustment according to patient size were utilized for this exam. Comparison: Comparison is made to chest one view 04/16/[address] chest 05/30/2008 FINDINGS: Lungs and pleura: Biapical scarring is noted. Dependent atelectasis versus scarring is seen. Heart and pericardium: Cardiomegaly is seen with biatrial enlargement. Vessels: Severe atherosclerotic changes in the aorta and coronary arteries. Mediastinum and simone: Unremarkable. Chest wall and lower neck: Subcentimeter thyroid nodules are noted which do not require follow-up by ACR criteria. Abdomen: For findings below the diaphragm, please refer to CT of the abdomen dated the same. Bones: Degenerative changes are seen in the visualized spine and shoulder joints. IMPRESSION: 1. Chronic scarring changes without evidence of acute abnormality. 2. Cardiomegaly ACT 112: Negative or not required by law. Electronically signed by: Harlan Rg M.D. 04/16/2021 7:31 AM Chest X-Ray 04/17/21 07:00 XR chest 1V portable CLINICAL HISTORY: Respiratory failure. COMPARISON STUDY: Chest radiograph and chest CT April 16, 2021. FINDINGS: Old proximal right humeral deformity is incidentally noted. Electronic device of the right upper arm is incidentally noted as well. There is no pneumothorax. Mild left basilar opacity has developed. There is pulmonary vascular congestion. IMPRESSION: 1. Interval development of mild left basilar opacity. This favors atelectasis although an infectious process could appear similar. 2. Pulmonary vascular congestion. ACT 112: Negative or not required by law. Electronically signed by: Elieser Watson M.D. 04/17/2021 7:33 AM Hospital Course (1) DKA (diabetic ketoacidosis): Presented with glucose greater than 1000, VBG pH 7.1, anion gap of 25, with acute kidney injury and hyperkalemia, NSTEMI Suspect due to insulin pump line failure instead of actual pump - reports he continued to bolus her multiple times over the last 12 hours and her glucose continued to rise No recent infectious symptoms, no chest pain. She did vomit once after hyperglycemia started but no evidence of pneumonia or GI abnormality on CT imaging. No UTI or evidence of skin infections Leukocytosis most likely reactive to DKA No strokelike symptoms Anion gap likely due to DKA and lactic acidosis-now resolved CT chest/abdomen/pelvis without acute findings Much improved now, weaned off insulin drip and transitioned to home insulin pump anion gap closed, blood sugars controlled, renal failure improving, and mental status greatly improved. -Downgraded from ICU to PCU on 04/17 - Discontinued empiric antibiotics for sepsis with Zosyn and daptomycin -- One BCx did show micrococcus which appears to be contaminant - repeat BCx remain NGTD (2) Acute metabolic encephalopathy: Likely secondary to DKA, renal failure, severe dehydration CT head with stable meningioma, but no hemorrhage or stroke seen Now completely resolved after treatment of DKA and with hydration (3) Hyperkalemia: Potassium of 6.9 on arrival, secondary to hyperglycemia and acute kidney injury ECG initially quite abnormal with ST elevation in anterior leads and ST depression in inferolateral leads-improved with treatment with IV calcium chloride and IV insulin Potassium normalized with treatment of DKA and IV fluid hydration (4) Abnormal EKG: As above, seems more likely secondary to hyperkalemia is quickly resolved and she did not complain of chest pain Troponin is elevated on admission at 0.1 and peaked at 2.3, then trended downward -Echocardiogram with hyperdynamic systolic function EF greater than 70%, no regional wall motion abnormalities (5) Anemia: Hemoglobin 9.2 on arrival down from 12 a year ago. This is borderline macrocytic TSH is quite elevated at 23 could be contributing to anemia but this may be euthyroid sick syndrome as TSH was 8 just last week She was Hemoccult positive on rectal exam in the ER, but no gross melena or history of GI bleeding as per She has not had an EGD or colonoscopy in many years-can do as outpatient if desired -Hemoglobin fortunately remained stable Iron studies are normal, folate is low and will be replaced, B12 elevated (6) IRENA (acute kidney injury): Creatinine 2.6 on arrival with hyperkalemia as above, now much improved with hydration-creatinine down to 0.58, other electrolytes normalized, with good urine output No obstruction seen on CT abdomen/pelvis No evidence of infection in the urine (7) Pseudohyponatremia: Corrected sodium is 140 on arrival and remains normal now Secondary to profound hyperglycemia (8) Elevated troponin: As above, troponin peaked at 2.3 With initial EKG changes thought to be secondary to hyperkalemia which are now resolved Echocardiogram as above Likely secondary to myocardial demand ischemia in the setting of DKA No intervention needed (9) Dyslipidemia: omega-3 (10) Hypertension: Blood pressure was low normal, now normal continue lisinopril (11) Diabetes type 1, controlled: hemoglobin A1c elevated 8.2% Normally on insulin pump-clinical systems educator discussed with and gave sick/illness directions for elevated BSGs (12) Focal seizures: Continue Keppra (13) Hypothyroidism: TSH quite elevated at 23 but was 8 one week ago-likely secondary to euthyroid sick syndrome - will continue normal home dosing Patient's reports that they were aware that her TSH was abnormal and were told by furniture associate to make sure that she is her levothyroxine from her other pills when she takes in the morning (14) Meningioma: Stable from previous Follows with neurology (15) Short-term memory loss: Continue Exelon patch Return to [facility] Total Time Total Time Spent Total Time Spent (In Minutes): Spent greater than 30 minutes preparing patient for discharge. This includes discussion with patient/family, assessment, intervention, medication reconciliation, and coordination of care. Discharge Plan Discharge Items Patient Disposition: Transfer Long Term Fac Reason For Visit: DKA, IRENA, HYPRKALEMIA Discharge Diagnosis: DKA with Acute Kidney Injury Activity: Resume your previous activity Non-emergency contact: Primary Care Provider Call non-emergency contact if: you have any medication questions, your symptoms worsen and you have a fever Follow-up/Referrals: Lynette Odom [Primary Care Provider] - Diet: Carb Consistent or DM2 Diet Texture: Dental soft (bite-sized) Addtl Attending Provider Instructions: Diabetic Ketoacidosis: - Suspect this was in the setting a kinked or faulty line instead of the pump itself - resulting in inadequate insulin coverage - You also had a bump in your kidney numbers which was in the setting of dehydration given how high the sugars were - however they have completely normalized - You have been transitioned back to your insulin pump with your normal settings and blood sugars are doing better; given instructions when you have illness or higher glucose numbers as below - During illness or if sugars are greater than 250 - check blood sugar and ketones every 4 hours. Give bolus insulin and if no change in sugar then change infusion site. Can use a syringe to provider correction until the sugars are below 250 * If after bolus no improvement in BG values, could be indicate kinked cannula/bad site. Instructed to change infusion site, check ketones, and provide correctional bolus using syringe. Continue to check ketones/BG q 4 hours and provide correctional bolus using syringe until BG < 250. Then resume bolusing thru pump. Syringes provided. Rx to pharmacy for ketostix. Ketone coverage based on TDD= ~22-23 units (5%= 1 unit, 10%= 2 units, 20%= 4 units). - Has follow-up with America Lujan tomorrow at 1 PM Anemia: - Hemoglobin has dropped down over the past year compared to previous numbers. Currently hemoglobin is 10.8 (previously in the 12s in the past) -- This does not require a blood transfusion but should be monitored periodically through the family doctor - Watch for any bright red blood in the stool or tarry black stools as this could be a sign of blood loss in the GI tract. - Protonix 40 mg daily was added to help reduce acids in the stomach to help prevent development of ulcers - Can continue daily baby aspirin but would stop if hemoglobin does drop down - Could discuss with family doctor about considering a scope to look at the GI tract from the top and bottom called an EGD and a colonoscopy - Folate was low which can play a role in anemia and will add a daily supplement to continue Blood Cultures: - You had blood cultures drawn on admission that were initially negative but then started to grow micrococcus which tends to be normal skin bacteria that can contaminate blood cultures - New cultures were obtained and currently not growing anything. Will monitor these and can let you know if anything changes with them. Thankfully there is no signs of active infection at this time. - You have had no fevers and you no longer have a white blood cell count to suggest an active infection. You were treated with antibiotics empirically while in the hospital but will stop them on discharge Low Thyroid: - Continue to separate the thyroid medicine (Levothyroxine) from the other pills as you were previously doing. - Recommend your doctor recheck your thyroid levels in about 6 weeks Pending Studies at Discharge: Yes Studies:: Repeat Blood Culture Stand-Alone Forms: My [facility] Skilled Items Patient informed of condition?: Yes DNR: Yes Discharge Level of Care: Skilled Communicable Disease: No Discharge Prognosis: Stable Lines: None Urinary Catheter: No Medications and DC Order Prescriptions: New folic acid 1 mg Tablet 1 mg PO QAM 30 Days Qty: 30 RF: 0 (DME) Ketostix Strip See Rx Instructions .Route Qty: 50 RF: 0 pantoprazole 40 mg Tablet,Delayed Release (Dr/Ec) 40 mg PO QAM 30 Days Qty: 30 RF: 0 Continued magnesium oxide 400 mg (241.3 mg magnesium) Tablet 400 mg PO HS Qty: 0 RF: 0 lisinopril 2.5 mg Tablet 2.5 mg PO HS Qty: 0 RF: 0 omega [id number] oil [Fish Oil] 1,000 mg (120 mg-180 mg) capsule 1 cap PO HS Qty: 0 RF: 0 cholecalciferol (vitamin D3) [Vitamin D3] 5,000 unit tablet 5,000 unit PO HS Qty: 0 RF: 0 aspirin 81 mg tablet,delayed release (DR/EC) 81 mg PO QAM Qty: 0 RF: 0 coenzyme Q10 100 mg capsule 100 mg PO HS Qty: 0 RF: 0 levothyroxine 125 mcg tablet 125 mcg PO DAILYBB RF: 0 calcium carbonate [Calcium 600] 600 mg calcium (1,500 mg) tablet 600 mg PO HS RF: 0 (DME) Contour Next Test Strips strip See Dose Instructions .ROUTE .MEDSUPPLY Qty: 10 RF: 0 alendronate [Fosamax] 70 mg tablet 70 mg PO WK RF: 0 PreserVision Lutein 226 mg-200 unit -5 mg-0.8 mg Capsule 1 cap PO BID RF: 0 acetaminophen 500 mg Tablet 500 mg PO BID RF: 0 cyanocobalamin (vitamin B-12) [Vitamin B-12] 500 mcg Tablet 500 mcg PO HS RF: 0 rivastigmine [Exelon Patch] 9.5 mg/24 hour patch 24 hour 9.5 mg Topical QAM RF: 0 levetiracetam [Keppra XR] 500 mg tablet extended release 24 hr 500 mg PO QAM RF: 0 magnesium hydroxide [Jackson Milk of Magnesia] 400 mg/5 mL Suspension 30 ml PO UD RF: 0 No Action Lantus U-100 Insulin 100 unit/mL solution 15 unit subcut QPM Qty: 10 RF: 2 (DME) insulin syringe-needle U-100 [BD Insulin Syringe Ultra-Fine] 0.5 mL 31 gauge x 5/16" syringe See Dose Instructions .ROUTE .MEDSUPPLY Qty: 100 RF: 0 insulin aspart U-100 [Novolog U-100 Insulin aspart] 100 unit/mL solution 40 unit continuous IV infusion DAILY Qty: 30 RF: 3 Discharge Orders: Discharge Order (Routine); Ordered 04/19/21 Ordered By: Na Mcneill/Other Patient Handouts: Managing Type 1 Diabetes Admission Data Admit Date/Time: 04/16/21 09:24 Attending Provider: Harlan Davenport Admit Provider: Debra Leon Primary Care Provider: Lynette Odom Other Providers: Debra Leon ; Kim Andre Other Interventions: Discharge Summary Assessment (RN) Last Done: 04/19/21 14:00 Supervising Physician Co-Signing Physician Notes Attending note: patient seen and examined with Na Bartlett PA-C. I agree with her discharge summary. I personally reviewed the labs and imaging findings. patient doing much better, sugars now controlled with Lantus and Novolog patient's very involved in her care, he manages her insulin pump likely that the tubing was kinked appreciate education from the clinical systems educator, will get ketone strips to test her urine at home - DKA: resolved with insulin drip, transitioned to basal/bolus while here, resume insulin pump at rehab for full details see d/c summary above Coding Level of Care Code D/C DAY MANAGEMENT >30 MINS Diagnoses DKA (diabetic ketoacidosis) E10.11 Diabetes mellitus complication detail: with coma Diabetes mellitus type: type 1 Acute metabolic encephalopathy G93.41 Hyperkalemia E87.5 Abnormal EKG R94.31 Anemia D64.9 Anemia type: unspecified type IRENA (acute kidney injury) N17.9 Pseudohyponatremia R79.89 Elevated troponin R77.8 Dyslipidemia E78.5 Hypertension I10 Hypertension type: essential hypertension Diabetes type 1, controlled E10.8 Diabetes mellitus complication status: with unspecified complications Focal seizures R56.9 Hypothyroidism E03.9 Hypothyroidism type: unspecified Meningioma D32.9 Short-term memory loss R41.3
== END 2021-04-19 15:30 | DRG 919 ==
LOC: ED 05:57 → EDINP 09:24 → SUATTDRO 09:24 → 1E 14:12 → 3N 04-18 12:10
DX: H35.30 Unspecified macular degeneration; E78.5 Hyperlipidemia, unspecified; E03.9 Hypothyroidism, unspecified; E87.5 Hyperkalemia; N17.9 Acute kidney failure, unspecified; Y92.009 Unspecified place in unspecified non-institutional (private) residence as the place of occurrence of the external cause; T85.694A Other mechanical complication of insulin pump, initial encounter; K92.2 Gastrointestinal hemorrhage, unspecified; I21.4 Non-ST elevation (NSTEMI) myocardial infarction; Z66 Do not resuscitate; D53.9 Nutritional anemia, unspecified; Z96.41 Presence of insulin pump (external) (internal); E10.42 Type 1 diabetes mellitus with diabetic polyneuropathy; E86.0 Dehydration; Z79.82 Long term (current) use of aspirin; E10.11 Type 1 diabetes mellitus with ketoacidosis with coma; G40.89 Other seizures; D63.8 Anemia in other chronic diseases classified elsewhere; Z83.3 Family history of diabetes mellitus; I95.89 Other hypotension; E87.1 Hypo-osmolality and hyponatremia; G93.41 Metabolic encephalopathy; Z86.011 Personal history of benign neoplasm of the brain

== ENCOUNTER 2023-05-08 05:36 | Observation (INO) ==
--- NOTE | 2023-05-08 06:30 | Emergency Department Note ---
Impression & Plan Ground-level fall, Gait abnormality, Generalized weakness ED Provider Note Name: JORDON PALENCIA Age: 88 Sex: Female Arrives Via: Ambulance Informant: Patient (poor historian), , EMS ED Provider: Luis Alston MD Chief Complaint: Weakness Impression: As per impressions above Medical Decision Makin-year-old female with history of diabetes, multiple other comorbidities arrives for evaluation of generalized weakness. Initially sounded like it was a mechanical fall but then possible syncope and fall. Patient complaining of right hip pain. Initially complained left foot pain for which an x-ray revealed a distal 5th metatarsal fracture. That said patient does not have any current pain she has no tenderness palpation we will hold off on casting at this time. Does continue have pain with range of motion right hip. X-rays are negative thus a CT of the pelvis was obtained which reveals some subacute fractures though no acute findings. CT of the head and cervical spine are also negative. Laboratory work-up is benign. Patient is quite weak and essentially unable to sit up due to both weakness and pain. In the setting of possible syncope generalized weakness ambulatory issues I do not feel it would be safe at this point to discharge to home. Triage/Nursing Notes reviewed by Me Differential: Infection, dehydration, metabolic abnormality, hypo/hyperglycemia, electrolyte disturbance, anemia, hypoxia, cardiac sources, intracerebral event, toxicologic, neurologic, as well as other pathologies. Vital Signs: reviewed and remarkable for no significant abnormalities Interventions: Tylenol 1 g p.o. Labs:ED labs Reviewed by me and remarkable for no significant abnormalities Imaging: X-rays of the right hip and pelvis as per my interpretation no fracture nor dislocation appreciated. X-ray of the left foot as per my interpretation questionable lucency at the distal left fifth metatarsal none displaced CT of the head without contrast as per my informal interpretation there is a large meningioma which appears similar to that seen on CT a month ago no evidence of hemorrhage or edema at this time. CT of the cervical spine as per my informal interpretation moderate degenerative changes no overt fracture no dislocation appreciated. EKG:As per my interpretation. Indication syncope. Sinus at 78 bpm with PAC noted. No ischemia appreciated. When compared to EKG March 14, 2023 there is no significant change. Cardiac/Tele Monitoring: Cardiac Monitoring: An Order was placed for continuous cardiac monitoring. The monitor shows a rate of 70 with a normal sinus rhythm. Consults:Dr. Chambers of the [facility] service Plan: Disposition:Hospitalization. Condition: Good History of Present Illness: 88-year-old female syncope/fall to ground at around 5 AM this morning with staff. Witnessed and helped to ground did not strike head. Did land on right hip. Since then right hip pain. Worse with ambulation. Reported left foot pain earlier. Patient without loss of consciousness, altered mental status or other concerning findings. No reported fevers, chills, chest pain, shortness of breath, back pain, abdominal pain, leg swelling or other concerning signs or symptoms. No medications prior to arrival. Past Medical History:See Below Home Medications:See Below Allergies:nkda Vitals:Blood Pressure: 148/71, Pulse 80, RR 16, T 36.4C, O2 99% on RA Physical Exam: GENERAL: Patient is elderly/frail appearing and in minimal distress. HEAD: AT/NC NECK: No midline TTP nor stepoff RESPIRATORY: No dyspnea. Clear to auscultation and equal bilaterally. CARDIOVASCULAR: Regular rate and rhythm.No murmur appreciated. GASTROINTESTINAL: Abdomen soft, non-tender, no peritonitis. EXTREMITIES: Pain with range of motion of the right hip. Mildly shortened slightly externally rotated right leg. Distal pulses sensation intact. 1+ edema bilateral lower legs. NEUROLOGIC: Alert. No focal neurologic deficits appreciated SKIN: No rash, no jaundice, no diaphoresis. PSYCH: Appropriate GCS: 15 ED Course: Times/Reassessments: Patient is stable although just appears generally weak and uncomfortable with any sitting up attempts. Luis Alston MD Past Med/Surg History Medical History Acute blood loss anemia Acute GI bleeding Acute metabolic encephalopathy IRENA (acute kidney injury) Closed head injury Constipation Diabetes type 1, controlled Diabetic peripheral neuropathy associated with type 1 diabetes mellitus DKA (diabetic ketoacidosis) Dyslipidemia Elevated troponin Elevated troponin Encounter for pre-operative examination Focal seizures Fracture of right hip High anion gap metabolic acidosis Hip fracture History of herpes zoster History of meningioma History of rheumatic fever Hyperkalemia Hyperkalemia Hypertension Hypothyroidism Insulin pump in place Meningioma Pancreatic cyst Pseudohyponatremia Short-term memory loss Surgical History History of appendectomy History of breast biopsy History of hip surgery History of surgery on arm History of tonsillectomy Family History Father Colon cancer Mother Alzheimer disease Other Diabetes Social History Smoking Status: Never smoker Cigarettes Per Day: No smoking since freshman year of college.; Second Hand Exposure: No; Do You Dip or Chew Tobacco: No; Hx Alcohol Use: No Hx Substance Use: No Preferred Language: Kiswahili Communication Ability: Effective Cashier Required: No Beliefs That Will Affect Care: None marital status: Current Living Situation: Spouse Current Living Situation Comment: [facility]. current occupation: retired Feels Safe at Home: Yes Assistive Devices: Walker Allergies Allergies Allergy/AdvReac Type Severity Reaction Status Date / Time No Known Allergies Allergy Verified 04/11/23 13:04 Home Meds Home Medications Medication Instructions Recorded Confirmed magnesium oxide 400 mg (241.3 mg 400 mg PO HS #0 tabs 12/27/15 05/08/23 magnesium) tablet lisinopril 2.5 mg tablet 2.5 mg PO HS #0 tabs 01/21/17 05/08/23 vit C 226 mg-vit E 90 mg-copper 1 cap PO BID 01/02/19 05/08/23 0.8 mg-zinc oxide-lutein 5 mg capsule (PreserVision Lutein) cholecalciferol (vitamin D3) 125 5,000 unit PO HS #0 tabs 01/03/19 05/08/23 mcg (5,000 unit) tablet (Vitamin D3) coenzyme Q10 100 mg capsule 100 mg PO HS #0 caps 01/03/19 05/08/23 omega 7-zbz-kee-fish oil 1,000 mg 1 cap PO HS #0 caps 01/03/19 05/08/23 (120 mg-180 mg) capsule (Fish Oil) calcium carbonate 600 mg calcium 600 mg PO HS 01/14/19 05/08/23 (1,500 mg) tablet (Calcium) alendronate 70 mg tablet (Fosamax) 70 mg PO WK 10/26/20 05/08/23 acetaminophen 500 mg tablet 500 mg PO BID 04/16/21 05/08/23 cyanocobalamin (vitamin B-12) 500 500 mcg PO HS 04/16/21 05/08/23 mcg tablet (Vitamin B-12) insulin aspart U-100 100 unit/mL 25 unit subcut DAILY 04/26/22 05/08/23 subcutaneous solution (Novolog U-100 Insulin aspart) aspirin 81 mg tablet,delayed 81 mg PO .COMPLEX #0 tabs 07/27/22 05/08/23 release pantoprazole 40 mg tablet,delayed 40 mg PO DAILY 05/08/23 05/08/23 release Previous Rx's Medication Instructions Recorded levothyroxine 150 mcg capsule 150 mcg PO DAILY #90 caps 09/05/22 levetiracetam 500 mg 500 mg PO DAILY 90 days #90 tabs 11/25/22 tablet,extended release 24 hr (Keppra XR) rivastigmine tartrate 4.5 mg 4.5 mg PO BID 90 days #180 caps 11/25/22 capsule lancets 30 gauge (ReadyLance #200 ea 04/26/23 Safety Lancets) Results & Data (ED) Vital Signs Vital Signs - 24 hr 05/08/23 05:46 05/08/23 06:34 05/08/23 07:02 Temperature 36.4 C L Temperature Source Oral Pulse Rate 80 71 Pulse Rate [Apical] 79 Respiratory Rate 16 16 Respiratory Effort / Characteristics Non-Labored Spontaneous Non-Labored Respiratory Depth Normal Normal Respiratory Pattern Regular Blood Pressure 148/71 H Blood Pressure [Right Arm] 144/79 H Blood Pressure Mean 96 Blood Pressure Mean [Right Arm] 100 Pulse Oximetry 99 Oxygen Delivery Method Room Air Sepsis Recent Fever Within 48 Hours No Sepsis New/Unexplained Change in Mental Status No Sepsis Action Taken by Nursing No Action Required 05/08/23 09:40 Temperature Temperature Source Pulse Rate Pulse Rate [Apical] 80 Respiratory Rate 19 Respiratory Effort / Characteristics Non-Labored Respiratory Depth Normal Respiratory Pattern Blood Pressure Blood Pressure [Right Arm] Blood Pressure Mean Blood Pressure Mean [Right Arm] Pulse Oximetry Oxygen Delivery Method Sepsis Recent Fever Within 48 Hours Sepsis New/Unexplained Change in Mental Status Sepsis Action Taken by Nursing Laboratory Data 05/08/23 06:28 05/08/23 06:28 Lab Results 05/08/23 05/08/23 05/08/23 Range/Units 05:51 06:28 08:35 WBC 6.82 (4.8-10.8) K/ul RBC 3.82 L (4.20-5.40) M/uL Hgb 11.2 L (12.0-16.0) g/dl Hct 35.7 L (37.0-47.0) % MCV 93.5 (80.0-100.0) fL MCH 29.3 (25.0-34.0) pg MCHC 31.4 L (32.0-36.0) g/dL RDW Std Deviation 44.2 (36.4-46.3) fL RDW Coeff of [place] 12.9 (11.5-14.5) % Plt Count 214 (130-400) K/uL MPV 10.2 (9.4-12.4) fL Immature Gran % (Auto) 0.3 % Neut % (Auto) 64.0 % Lymph % (Auto) 22.3 % Will % (Auto) 8.5 % Eos % (Auto) 4.3 % Baso % (Auto) 0.6 % Neut # (Auto) 4.37 (1.40-6.50) K/uL Lymph # (Auto) 1.52 (1.20-3.40) K/uL Will # (Auto) 0.58 (0.11-0.59) K/uL Eos # (Auto) 0.29 (0.00-0.50) K/uL Baso # (Auto) 0.04 (0.00-0.20) K/uL Immature Gran # (Auto) 0.02 (0.01-0.20) K/uL PT 11.3 (9.0-12.0) Seconds INR 1.0 (0.9-1.1) APTT 24.2 (21.0-31.0) Seconds PTT Ratio 0.9 Sodium 140 (136-145) mmol/L Potassium 4.9 (3.5-5.1) mmol/L Chloride 103 (98-107) mmol/L Carbon Dioxide 33 H (21-32) mmol/L Anion Gap 4 (3-11) BUN 23 (6-23) mg/dl Creatinine 0.73 (0.6-1.2) mg/dl Est Cr Clr Drug Dosing 45.0 ml/min Est GFR ( Amer) 85.2 ml/min Est GFR (Non-Af Amer) 73.5 ml/min BUN/Creatinine Ratio 31.5 H (10-20) Glucose 244 H (70-99(Fasting)) mg/dl POC Glucose 248 H (70-99) mg/dl Calcium 9.5 (8.6-10.3) mg/dl Total Bilirubin 0.5 (0.2-1.0) mg/dl AST 13 (13-39) U/L ALT 12 (7-52) U/L Alkaline Phosphatase 88 (34-104) U/L Total Protein 6.5 (6.0-8.3) gm/dl Albumin 4.1 (3.4-5.0) gm/dl Globulin 2.4 L (2.5-4.0) gm/dl Albumin/Globulin Ratio 1.7 (0.9-2) Urine Color Yellow Urine Appearance Clear (Clear) Urine pH 6.0 (4.5-7.5) Ur Specific Reading 1.011 (1.000-1.030) Urine Protein Negative (Negative) Urine Glucose (UA) Trace H (Negative) Urine Ketones Negative (Negative) Urine Blood Negative (Negative) Urine Nitrite Negative (Negative) Urine Bilirubin Negative (Negative) Urine Urobilinogen Negative (Negative) Ur Leukocyte Esterase Negative (Negative) Administered Medications Discontinued Medications Acetaminophen (Acetaminophen 500 Mg Tab) 1,000 mg PO NOW STA Stop: 05/08/23 09:10 Last Admin: 05/08/23 09:16 Dose: 1,000 mg Documented By: ABIGAIL Levetiracetam (Levetiracetam Soln 500 Mg/5 Ml Udp) 500 mg PO NOW STA Stop: 05/08/23 10:56 Last Admin: 05/08/23 11:50 Dose: 500 mg Documented By: PAM Imaging Data Radiologist's Impression: Foot X-Ray 05/08/23 05:55 LEFT FOOT 3 VIEWS CLINICAL HISTORY: Fall. Left foot pain. FINDINGS: 3 views of the left foot are compared to study dated 11/23/2018. The skeletal structures are osteopenic. There is a nondisplaced and minimally angulated fracture of the fifth metatarsal neck. Overlying soft tissue edema is observed. No additional findings are suspicious for acute fracture. There is a high arch. Mild to moderate osteoarthritic change is seen throughout the foot, greatest at the first metatarsophalangeal joint and at the tarsometatarsal articulations. There is a dorsal heel spur. Mild atherosclerotic calcification is noted in the regional arteries. IMPRESSION: Fifth metatarsal neck fracture with overlying soft tissue edema. Electronically signed by: Burak Mistry M.D. 05/08/2023 7:55 AM Hip/Pelvis X-Ray 05/08/23 05:55 XR hip RT 2V w pelvis HISTORY: 88 years-old Female fall acute pelvic pain status post fall COMPARISON: Right femur radiographs 03/14/2023 TECHNIQUE: AP view the pelvis with 2 views of the right hip FINDINGS: Intratrochanteric nail with medullary joaquim of the right femur redemonstrated. Cortical thickening of the proximal right femur compatible with healed fracture deformity. Moderate osteoarthritis of the hips. Demineralized appearance of the bones. No acute fracture or dislocation. Arterial calcifications. IMPRESSION: No acute fracture or dislocation. ACT 112: Negative or not required by law. The above report was generated using voice recognition software. It may contain grammatical, syntax or spelling errors. Electronically signed by: Dread Henning M.D. 05/08/2023 8:[address] 05/08/23 07:37 CT SCAN OF THE CERVICAL SPINE CLINICAL HISTORY: Fall. Head injury. COMPARISON STUDY: Cervical spine CT dated 03/14/2023. TECHNIQUE: CT scan of the cervical spine is performed from the skull base to the upper thoracic spine. Images are reviewed in the axial, sagittal, and coronal planes. IV contrast was not administered for this examination. A dose lowering technique was utilized adhering to the principles of ALARA. FINDINGS: Skeletal structures: The skeletal structures are osteopenic. There is no evidence of fracture or subluxation involving the cervical spine. Vertebral body height and alignment are maintained. There is straightening of the cervical lordosis. Anterior osteophytes are seen throughout. The odontoid process and lateral masses are intact. The atlantoaxial articulation is preserved noting productive degenerative change. The spinous processes appear intact. There is moderate to advanced multilevel cervical spondylosis. Uncovertebral and facet arthropathy contribute to neural foraminal stenosis at most levels. There are subacute/healing fractures of the left posterior first through fourth ribs. Intervertebral discs: Moderate to advanced disc space narrowing seen at all cervical levels, greatest at C4-C5, C5-C6, and C6-C7. Central canal: Posterior disc osteophyte complexes are seen at all cervical levels. This likely contributes to multilevel cervical spondylosis. Soft tissues: The prevertebral and paraspinous soft tissues are within normal limits. The thyroid gland is enlarged and heterogeneous, and contains coarse calcifications. There is mild atherosclerotic calcification of the carotid bulbs. Calvarium: The visualized calvarium at the skull base appears intact. Brain parenchyma: Partially visualized brain parenchyma the skull base is within normal limits. A large calcified meningioma is noted on the low voltage technician tomogram. Sinuses and mastoids: The visualized paranasal sinuses are clear. There are trace mastoid effusions. Lung apices: There is biapical scarring. Partially imaged apical lung parenchyma is otherwise grossly clear. IMPRESSION: 1. There is no evidence of fracture or subluxation involving the cervical spine. 2. Osteopenia and spondylotic change as above. 3. Subacute appearing left posterior rib fractures as above. Electronically signed by: Burak Mistry M.D. 05/08/2023 8:[address] 05/08/23 07:37 CT head/brain wo con CLINICAL HISTORY: 88 years-old Female with fall, headache. Acute head injury status post fall TECHNIQUE: Multiple axial CT images of the head were obtained without contrast. A dose lowering technique was utilized adhering to the principles of ALARA. CT DOSE: 1360.64 mGy.cm COMPARISON: 03/14/2023, 09/30/2022 FINDINGS: No acute intracranial hemorrhage, intra-axial mass, hydrocephalus, territorial ischemia or abnormal extra-axial collection. 5.0 x 3.5 cm calcified mass lesion is again seen along the superior left aspect of the midline falx which is stable from prior studies. Again, this lesion causes minimal surrounding mass affect. There is minimal left to right midline shift, unchanged from previous. Involutional changes with chronic microvascular stomach disease. Cerebrovascular calcifications. The calvarium is intact. Complete opacification of the left frontal sinus and anterior left ethmoid air cells. Mastoid air cells are clear. Prior bilateral lens repair. IMPRESSION: 1. No acute intracranial abnormality or calvarial fracture. 2. Stable large calcified meningioma of the falx cerebri. ACT 112: Negative or not required by law. The above report was generated using voice recognition software. It may contain grammatical, syntax or spelling errors. Electronically signed by: Dread Henning M.D. 05/08/2023 8:[address] 05/08/23 07:47 CT pelvis wo con HISTORY: 88 years-old Female fall, right hip pain h/o replacement acute right hip pain status post fall COMPARISON: Pelvis and right hip radiographs of same day and also 03/14/2023, CT abdomen and pelvis 03/03/2022 TECHNIQUE: Multiple axial CT images of the pelvis were obtained without use of IV contrast. A dose lowering technique was used consistent with the principals of MAX. FINDINGS: Indeterminate 2.6 and meter right adnexal cystic focus. Vascular calcifications of the uterus. Mild to moderate colonic fecal retention. Atherosclerosis. Unremarkable soft tissues and musculature. Demineralized appearance of the bones. Degenerative changes of the lumbar spine with likely degenerative related grade 1 anterolisthesis L4 on L5 resulting in severe central canal stenosis with moderate bilateral foraminal narrowing. Ill- defined linear sclerosis involving the right sacral alar on image 41 series 9 is new from prior with mild associated cortical thickening. Anterior cortical buckling at S3 is seen on the sagittal images. Moderate degeneration of the SI joints. Moderate osteoarthritis of the hips. Intact ORIF hardware of the right femur. No acute fracture or dislocation identified. No evidence of acute hardware complication. IMPRESSION: 1. No acute fracture or dislocation identified. 2. Subacute to chronic nondisplaced sacral fractures, new compared to the 03/03/2022 exam. 3. Unremarkable appearance of the right femoral ORIF hardware. ACT 112: Negative or not required by law. The above report was generated using voice recognition software. It may contain grammatical, syntax or spelling errors. Electronically signed by: Dread Henning M.D. 05/08/2023 8:55 AM Discharge Plan Visit Data Chief Complaint: Hip Pain Stated Complaint: FALL/ rt HIP PAIN/lt FOOT PAIN ED Provider: Luis Alston Discharge Problem: Ground-level fall, Gait abnormality, Generalized weakness Discharge Instructions Interventions: ED Discharge Assessment Last Done: 05/08/23 13:22
[2023-05-08 06:48] LABS: Basophils # (auto) 0.04 K/uL (0.00-0.20); Basophils % (auto) 0.6 %; Eosinophils # (auto) 0.29 K/uL (0.00-0.50); Eosinophils % (auto) 4.3 %; Hematocrit (blood only) 35.7 % (37.0-47.0); Hemoglobin 11.2 g/dl (12.0-16.0); Immature Granulocytes # (auto) 0.02 K/uL (0.01-0.20); Immature Granulocytes % (auto) 0.3 %; Lymphocytes # (auto) 1.52 K/uL (1.20-3.40); Lymphocytes % (auto) 22.3 %; Mean Corpuscular Hemoglobin 29.3 pg (25.0-34.0); Mean Corpuscular Hgb Conc 31.4 g/dL (32.0-36.0); Mean Corpuscular Volume 93.5 fL (80.0-100.0); Mean Platelet Volume 10.2 fL (9.4-12.4); Monocytes # (auto) 0.58 K/uL (0.11-0.59); Monocytes % (auto) 8.5 %; Neutrophils # (auto) 4.37 K/uL (1.40-6.50); Platelet Count 214 K/uL (130-400); RDW Coefficient of Variation 12.9 % (11.5-14.5); RDW Standard Deviation 44.2 fL (36.4-46.3); Red Blood Count 3.82 M/uL (4.20-5.40); White Blood Count 6.82 K/ul (4.8-10.8)
[2023-05-08 07:01] LABS: Albumin Globulin Ratio 1.7 (0.9-2); Albumin Level 4.1 gm/dl (3.4-5.0); BUN Creatinine Ratio 31.5 (10-20); Bilirubin,Total 0.5 mg/dl (0.2-1.0); Calcium 9.5 mg/dl (8.6-10.3); Est GFR (African American) 85.2 ml/min; Est GFR (Non-African American) 73.5 ml/min; Globulin 2.4 gm/dl (2.5-4.0); Potassium 4.9 mmol/L (3.5-5.1); Total Protein 6.5 gm/dl (6.0-8.3)
[2023-05-08 07:16] LABS: Partial Thromboplastin Ratio 0.9; Partial Thromboplastin Time 24.2 Seconds (21.0-31.0); Prothrombin Time 11.3 Seconds (9.0-12.0)
--- NOTE | 2023-05-08 07:56 | XRay Report ---
LEFT FOOT 3 VIEWS CLINICAL HISTORY: Fall. Left foot pain. FINDINGS: 3 views of the left foot are compared to study dated 11/23/2018. The skeletal structures are osteopenic. There is a nondisplaced and minimally angulated fracture of the fifth metatarsal neck. O verlying soft tissue edema is observed. No additional findings are suspicious for acute fracture. The re is a high arch. Mild to moderate osteoarthritic change is seen throughout the foot, greatest at th e first metatarsophalangeal joint and at the tarsometatarsal articulations. There is a dorsal heel sp ur. Mild atherosclerotic calcification is noted in the regional arteries. IMPRESSION: Fifth metatarsal neck fracture with overlying soft tissue edema. Electronically signed by: Burak Mistry M.D. 05/08/2023 7:55 AM
--- NOTE | 2023-05-08 08:40 | CT Scan Report ---
CT head/brain wo con CLINICAL HISTORY: 88 years-old Female with fall, headache. Acute head injury status post fall TECHNIQUE: Multiple axial CT images of the head were obtained without contrast. A dose lowering tech nique was utilized adhering to the principles of ALARA. CT DOSE: 1360.64 mGy.cm COMPARISON: 03/14/2023, 09/30/2022 FINDINGS: No acute intracranial hemorrhage, intra-axial mass, hydrocephalus, territorial ischemia or abnormal e xtra-axial collection. 5.0 x 3.5 cm calcified mass lesion is again seen along the superior left aspec t of the midline falx which is stable from prior studies. Again, this lesion causes minimal surroundi ng mass affect. There is minimal left to right midline shift, unchanged from previous. Involutional c hanges with chronic microvascular stomach disease. Cerebrovascular calcifications. The calvarium is intact. Complete opacification of the left frontal sinus and anterior left ethmoid air cells. Mastoid air cells are clear. Prior bilateral lens repair. IMPRESSION: 1. No acute intracranial abnormality or calvarial fracture. 2. Stable large calcified meningioma of the falx cerebri. ACT 112: Negative or not required by law. The above report was generated using voice recognition software. It may contain grammatical, syntax o r spelling errors. Electronically signed by: Dread Henning M.D. 05/08/2023 8:39 AM
--- NOTE | 2023-05-08 08:46 | CT Scan Report ---
CT SCAN OF THE CERVICAL SPINE CLINICAL HISTORY: Fall. Head injury. COMPARISON STUDY: Cervical spine CT dated 03/14/2023. TECHNIQUE: CT scan of the cervical spine is performed from the skull base to the upper thoracic spine . Images are reviewed in the axial, sagittal, and coronal planes. IV contrast was not administered fo r this examination. A dose lowering technique was utilized adhering to the principles of ALARA. FINDINGS: Skeletal structures: The skeletal structures are osteopenic. There is no evidence of fracture or subl uxation involving the cervical spine. Vertebral body height and alignment are maintained. There is st raightening of the cervical lordosis. Anterior osteophytes are seen throughout. The odontoid process and lateral masses are intact. The atlantoaxial articulation is preserved noting productive degenerat makenna change. The spinous processes appear intact. There is moderate to advanced multilevel cervical sp ondylosis. Uncovertebral and facet arthropathy contribute to neural foraminal stenosis at most levels . There are subacute/healing fractures of the left posterior first through fourth ribs. Intervertebral discs: Moderate to advanced disc space narrowing seen at all cervical levels, greatest at C4-C5, C5-C6, and C6-C7. Central canal: Posterior disc osteophyte complexes are seen at all cervical levels. This likely contr ibutes to multilevel cervical spondylosis. Soft tissues: The prevertebral and paraspinous soft tissues are within normal limits. The thyroid gla nd is enlarged and heterogeneous, and contains coarse calcifications. There is mild atherosclerotic c alcification of the carotid bulbs. Calvarium: The visualized calvarium at the skull base appears intact. Brain parenchyma: Partially visualized brain parenchyma the skull base is within normal limits. A lar ge calcified meningioma is noted on the core sticker tomogram. Sinuses and mastoids: The visualized paranasal sinuses are clear. There are trace mastoid effusions. Lung apices: There is biapical scarring. Partially imaged apical lung parenchyma is otherwise grossly clear. IMPRESSION: 1. There is no evidence of fracture or subluxation involving the cervical spine. 2. Osteopenia and spondylotic change as above. 3. Subacute appearing left posterior rib fractures as above. Electronically signed by: Burak Mistry M.D. 05/08/2023 8:43 AM
--- NOTE | 2023-05-08 08:57 | CT Scan Report ---
CT pelvis wo con HISTORY: 88 years-old Female fall, right hip pain h/o replacement acute right hip pain status post f all COMPARISON: Pelvis and right hip radiographs of same day and also 03/14/2023, CT abdomen and pelvis TECHNIQUE: Multiple axial CT images of the pelvis were obtained without use of IV contrast. A dose lo wering technique was used consistent with the principals of MAX. FINDINGS: Indeterminate 2.6 and meter right adnexal cystic focus. Vascular calcifications of the uterus. Mild t o moderate colonic fecal retention. Atherosclerosis. Unremarkable soft tissues and musculature. Demineralized appearance of the bones. Degenerative changes of the lumbar spine with likely degenerat makenna related grade 1 anterolisthesis L4 on L5 resulting in severe central canal stenosis with moderate bilateral foraminal narrowing. Ill-defined linear sclerosis involving the right sacral alar on image 41 series 9 is new from prior with mild associated cortical thickening. Anterior cortical buckling a t S3 is seen on the sagittal images. Moderate degeneration of the SI joints. Moderate osteoarthritis of the hips. Intact ORIF hardware of the right femur. No acute fracture or dislocation identified. No evidence of acute hardware complication. IMPRESSION: 1. No acute fracture or dislocation identified. 2. Subacute to chronic nondisplaced sacral fractures, new compared to the 03/03/2022 exam. 3. Unremarkable appearance of the right femoral ORIF hardware. ACT 112: Negative or not required by law. The above report was generated using voice recognition software. It may contain grammatical, syntax o r spelling errors. Electronically signed by: Dread Henning M.D. 05/08/2023 8:55 AM
--- NOTE | 2023-05-08 08:57 | XRay Report ---
XR hip RT 2V w pelvis HISTORY: 88 years-old Female fall acute pelvic pain status post fall COMPARISON: Right femur radiographs 03/14/2023 TECHNIQUE: AP view the pelvis with 2 views of the right hip FINDINGS: Intratrochanteric nail with medullary joaquim of the right femur redemonstrated. Cortical thickening of t he proximal right femur compatible with healed fracture deformity. Moderate osteoarthritis of the hip s. Demineralized appearance of the bones. No acute fracture or dislocation. Arterial calcifications. IMPRESSION: No acute fracture or dislocation. ACT 112: Negative or not required by law. The above report was generated using voice recognition software. It may contain grammatical, syntax o r spelling errors. Electronically signed by: Dread Henning M.D. 05/08/2023 8:55 AM
[2023-05-08 09:06] LABS: Appearance Urine Clear (Clear); Bilirubin Urine Negative (Negative); Blood Urine Negative (Negative); Color Urine Yellow; Glucose Urine UA Trace (Negative); Ketones Urine Negative (Negative); Leukocyte Esterase Urine Negative (Negative); Nitrite Urine Negative (Negative); Protein Urine Negative (Negative); Specific Gravity Urine 1.011 (1.000-1.030); Urobilinogen Urine Negative (Negative)
[2023-05-08] MEDS ORDERED: ACETAMINOPHEN 500 MG TAB PO STA (09:09)
--- NOTE | 2023-05-08 10:11 | History & Physical Report ---
Date of Service May 08, 2023 Assessment & Plan (1) Fracture of fifth metatarsal bone of left foot: Plan: -Noted on xray of the left foot today -Patient is without pain at rest -Spoke with Orthopedic surgery, appreciate their assistance >They agree with walking boot and WBAT for now, can follow up outpatient >Walking boot ordered -Case management consult placed to assist with outpatient follow-up -Fall precautions -PT/OT -PRN tylenol for now (2) Right thigh pain: Plan: -No focal trauma on exam, patient able to flex right hip/knee without significant pain -Will FU on right femur xray ordered on admission (3) Type 1 diabetes mellitus with diabetic neuropathy, with long-term current use of insulin: Plan: -Patient normally on an insulin pump with basal of 0.55 and Carb Ratio of 15 -Normally managed by with her hx of Dementia -Will remove pump while admitted to avoid hypoglycemia as the patient has dementia -Will monitor BSG q6h overnight as she is a brittle diabetic -Goal BSG is 110-160 -Will start with 5 units lantus BID, CF of 50, and CR of 15 -Pharmacy glycemic consult placed -DMI, HH diet ordered (4) Focal seizures: Plan: -Will give am dose of keppra now -Continue daily keppra (5) Hypertension: Plan: -Stable -Can continue HS lisinopril tonight if still stable (6) Hypothyroidism: Plan: -Continue levothyroxine (7) Dementia: Plan: -Continue Rivastigmine prescribed by Neurology Plan The patient was discussed with Dr. Chambers at the time of the admission History of Present Illness Chief Complaint: Fall, ambulatory dysfunction Primary Care Provider: [facility] Gricelda is an 88 year old female with a PMH significant for DMI, Dementia, focal seizures, hypothyroidism, and known meningioma who presented to the [facility] ED on 05/08 from [facility] due to a fall. She remained stable while in the ED. Labs including CBC, CMP, high sen trop, and UA were unremarkable. Ct of the head, cervical, spine, and pelvis were read as negative for acute trauma. CT of the cervical spine did note subacute/healing fractures of the left posterior first through fourth ribs. Xray of the right hip was also read as negative for acute findings. Xray of the left foot was read as "Fifth metatarsal neck fracture with overlying soft tissue edema.". The patient was given 1gm IV tylenol in the ED. We were asked to admit the patient for ongoing ambulatory dysfunction and unwitnessed fall. At the time of the exam the patient was sitting in bed in no acute distress with her sitting bedsdie, history was mainly obtained from her due to her baseline Hx of dementia. The patient's states that the patient is supposed to wake him up when her alarm goes off at 4:30 so he can help care for her. However, she woke around 0400 before her alarm and got out of bed herself. She uses a walker at baseline due to multiple falls in the past. She must have gone to the living room and tried to sit back in a recliner as she was sitting on her buttocks in front of the recliner. He woke when she started to call his name. They currently live in the [facility] (Assisted living), states that she has lots of care and does not think she needs to be upgraded to their SNF section at this time. She did not have her am medications today. When asked, the patient's only complaint is mild pain in the proximal right thigh/femur, she denies all other pain. No recent fever, chest pain, SOB, palpitations, cough, abd pain, nausea, vomiting, diarrhea, dysuria, hematuria, and LE swelling. Her normally manages her insulin pump, normal basal rate is 0.55 and they use a Carb Ratio of 15. Her confirms that she is a DNR/DNI. Please refer to Dr. Chambers's attestation for any changes to the treatment plan Allergies Allergy/AdvReac Type Severity Reaction Status Date / Time No Known Allergies Allergy Verified 04/11/23 13:04 Home Medications Medication Instructions Recorded Confirmed Type magnesium oxide 400 mg (241.3 mg 400 mg PO HS #0 tabs 12/27/15 05/08/23 History magnesium) tablet lisinopril 2.5 mg tablet 2.5 mg PO HS #0 tabs 01/21/17 05/08/23 History vit C 226 mg-vit E 90 mg-copper 1 cap PO BID 01/02/19 05/08/23 History 0.8 mg-zinc oxide-lutein 5 mg capsule (PreserVision Lutein) cholecalciferol (vitamin D3) 125 5,000 unit PO HS #0 tabs 01/03/19 05/08/23 History mcg (5,000 unit) tablet (Vitamin D3) coenzyme Q10 100 mg capsule 100 mg PO HS #0 caps 01/03/19 05/08/23 History omega 7-jhv-tov-fish oil 1,000 mg 1 cap PO HS #0 caps 01/03/19 05/08/23 History (120 mg-180 mg) capsule (Fish Oil) calcium carbonate 600 mg calcium 600 mg PO HS 01/14/19 05/08/23 History (1,500 mg) tablet (Calcium) alendronate 70 mg tablet (Fosamax) 70 mg PO WK 10/26/20 05/08/23 History acetaminophen 500 mg tablet 500 mg PO BID 04/16/21 05/08/23 History cyanocobalamin (vitamin B-12) 500 500 mcg PO HS 04/16/21 05/08/23 History mcg tablet (Vitamin B-12) insulin aspart U-100 100 unit/mL 25 unit subcut DAILY 04/26/22 05/08/23 History subcutaneous solution (Novolog U-100 Insulin aspart) aspirin 81 mg tablet,delayed 81 mg PO .COMPLEX #0 tabs 07/27/22 05/08/23 History release levothyroxine 150 mcg capsule 150 mcg PO DAILY #90 caps 09/05/22 05/08/23 Rx levetiracetam 500 mg 500 mg PO DAILY 90 days #90 tabs 11/25/22 05/08/23 Rx tablet,extended release 24 hr (Keppra XR) rivastigmine tartrate 4.5 mg 4.5 mg PO BID 90 days #180 caps 11/25/22 05/08/23 Rx capsule lancets 30 gauge (ReadyLance #200 ea 04/26/23 Rx Safety Lancets) pantoprazole 40 mg tablet,delayed 40 mg PO DAILY 05/08/23 05/08/23 History release Past Med/Surg History Medical History Acute blood loss anemia Acute GI bleeding Acute metabolic encephalopathy IRENA (acute kidney injury) Closed head injury Constipation Diabetes type 1, controlled Diabetic peripheral neuropathy associated with type 1 diabetes mellitus DKA (diabetic ketoacidosis) Dyslipidemia Elevated troponin Elevated troponin Encounter for pre-operative examination Focal seizures Fracture of right hip High anion gap metabolic acidosis Hip fracture History of herpes zoster History of meningioma History of rheumatic fever Hyperkalemia Hyperkalemia Hypertension Hypothyroidism Insulin pump in place Meningioma Pancreatic cyst Pseudohyponatremia Short-term memory loss Surgical History History of appendectomy History of breast biopsy History of hip surgery History of surgery on arm History of tonsillectomy Family History Father Colon cancer Mother Alzheimer disease Other Diabetes Social History Smoking Status: Never smoker Cigarettes Per Day: No smoking since freshman year of college.; Second Hand Exposure: No; Do You Dip or Chew Tobacco: No; Hx Alcohol Use: No Hx Substance Use: No Preferred Language: Monegasque Communication Ability: Effective 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 current occupation: retired Feels Safe at Home: Yes Assistive Devices: Walker Physical Exam Physical Exam: Physical Exam: General: In no acute distress, stated age, well-nourished, good hygiene HEENT: Normocephalic, atraumatic, no scleral icterus, pupils around round, symmetrical, and reactive to light, moist mucus membranes, trachea midline, no thyromegaly Chest/Pulm: No respiratory distress, symmetrical chest expansion, clear breath sounds throughout Cardiac: RRR, no murmurs noted Abdomen: Negative for ascites and bruising, normoactive bowel sounds, soft, non-tender to palpation throughout Musculoskeletal: No acute trauma on inspection and palpation of the head, cervical, thoracic, lumbar spine, BL hips, chest, abdomen, BL knees, and BL feet. Patient denies pain with palpation of the entire right foot, able to move BL upper and lower extremities without pain or limitation Extremities: Radial, dorsalis pedis, and posterior tibial pulses are intact and symmetrical, no edema noted in the BL LE's Skin: Warm, dry, no rashes , lesions, or scars noted Neuro: Alert and oriented to person and place only ( confirms this is her baseline), no focal defects, CN II-XII tested and intact, no tremors noted Psych: No acute distress, calm and cooperative during the exam Results & Data Results & Data Vital Signs (Past 12 Hours) Vital Signs Temp Pulse Pulse Resp BP BP Pulse Ox 05/08/23 09:40 80 19 05/08/23 07:02 79 16 144/79 H 05/08/23 06:34 71 05/08/23 05:46 36.4 C L 80 16 148/71 H 99 O2 Del Method 05/08/23 09:40 05/08/23 07:02 05/08/23 06:34 05/08/23 05:46 Room Air Laboratory Results Abnormal lab results 05/08/23 05/08/23 05/08/23 Range/Units 05:51 06:28 08:35 RBC 3.82 L (4.20-5.40) M/uL Hgb 11.2 L (12.0-16.0) g/dl Hct 35.7 L (37.0-47.0) % MCHC 31.4 L (32.0-36.0) g/dL Carbon Dioxide 33 H (21-32) mmol/L BUN/Creatinine Ratio 31.5 H (10-20) Glucose 244 H (70-99(Fasting)) mg/dl POC Glucose 248 H (70-99) mg/dl Globulin 2.4 L (2.5-4.0) gm/dl Urine Glucose (UA) Trace H (Negative) Diagnostic Findings Foot X-Ray 05/08/23 05:55 LEFT FOOT 3 VIEWS CLINICAL HISTORY: Fall. Left foot pain. FINDINGS: 3 views of the left foot are compared to study dated 11/23/2018. The skeletal structures are osteopenic. There is a nondisplaced and minimally angulated fracture of the fifth metatarsal neck. Overlying soft tissue edema is observed. No additional findings are suspicious for acute fracture. There is a high arch. Mild to moderate osteoarthritic change is seen throughout the foot, greatest at the first metatarsophalangeal joint and at the tarsometatarsal articulations. There is a dorsal heel spur. Mild atherosclerotic calcification is noted in the regional arteries. IMPRESSION: Fifth metatarsal neck fracture with overlying soft tissue edema. Electronically signed by: Burak Mistry M.D. 05/08/2023 7:55 AM Hip/Pelvis X-Ray 05/08/23 05:55 XR hip RT 2V w pelvis HISTORY: 88 years-old Female fall acute pelvic pain status post fall COMPARISON: Right femur radiographs 03/14/2023 TECHNIQUE: AP view the pelvis with 2 views of the right hip FINDINGS: Intratrochanteric nail with medullary joaquim of the right femur redemonstrated. Cortical thickening of the proximal right femur compatible with healed fracture deformity. Moderate osteoarthritis of the hips. Demineralized appearance of the bones. No acute fracture or dislocation. Arterial calcifications. IMPRESSION: No acute fracture or dislocation. ACT 112: Negative or not required by law. The above report was generated using voice recognition software. It may contain grammatical, syntax or spelling errors. Electronically signed by: Dread Henning M.D. 05/08/2023 8:[address] 05/08/23 07:37 CT SCAN OF THE CERVICAL SPINE CLINICAL HISTORY: Fall. Head injury. COMPARISON STUDY: Cervical spine CT dated 03/14/2023. TECHNIQUE: CT scan of the cervical spine is performed from the skull base to the upper thoracic spine. Images are reviewed in the axial, sagittal, and coronal planes. IV contrast was not administered for this examination. A dose lowering technique was utilized adhering to the principles of ALARA. FINDINGS: Skeletal structures: The skeletal structures are osteopenic. There is no evidence of fracture or subluxation involving the cervical spine. Vertebral body height and alignment are maintained. There is straightening of the cervical lordosis. Anterior osteophytes are seen throughout. The odontoid process and lateral masses are intact. The atlantoaxial articulation is preserved noting productive degenerative change. The spinous processes appear intact. There is moderate to advanced multilevel cervical spondylosis. Uncovertebral and facet arthropathy contribute to neural foraminal stenosis at most levels. There are subacute/healing fractures of the left posterior first through fourth ribs. Intervertebral discs: Moderate to advanced disc space narrowing seen at all cervical levels, greatest at C4-C5, C5-C6, and C6-C7. Central canal: Posterior disc osteophyte complexes are seen at all cervical levels. This likely contributes to multilevel cervical spondylosis. Soft tissues: The prevertebral and paraspinous soft tissues are within normal limits. The thyroid gland is enlarged and heterogeneous, and contains coarse calcifications. There is mild atherosclerotic calcification of the carotid bulbs. Calvarium: The visualized calvarium at the skull base appears intact. Brain parenchyma: Partially visualized brain parenchyma the skull base is within normal limits. 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 Sinuses and mastoids: The visualized paranasal sinuses are clear. There are trace mastoid effusions. Lung apices: There is biapical scarring. Partially imaged apical lung parenchyma is otherwise grossly clear. IMPRESSION: 1. There is no evidence of fracture or subluxation involving the cervical spine. 2. Osteopenia and spondylotic change as above. 3. Subacute appearing left posterior rib fractures as above. Electronically signed by: Burak Mistry M.D. 05/08/2023 8:[address] 05/08/23 07:37 CT head/brain wo con CLINICAL HISTORY: 88 years-old Female with fall, headache. Acute head injury status post fall TECHNIQUE: Multiple axial CT images of the head were obtained without contrast. A dose lowering technique was utilized adhering to the principles of ALARA. CT DOSE: 1360.64 mGy.cm COMPARISON: 03/14/2023, 09/30/2022 FINDINGS: No acute intracranial hemorrhage, intra-axial mass, hydrocephalus, territorial ischemia or abnormal extra-axial collection. 5.0 x 3.5 cm calcified mass lesion is again seen along the superior left aspect of the midline falx which is stable from prior studies. Again, this lesion causes minimal surrounding mass affect. There is minimal left to right midline shift, unchanged from previous. Involutional changes with chronic microvascular stomach disease. Cerebrovascular calcifications. The calvarium is intact. Complete opacification of the left frontal sinus and anterior left ethmoid air cells. Mastoid air cells are clear. Prior bilateral lens repair. IMPRESSION: 1. No acute intracranial abnormality or calvarial fracture. 2. Stable large calcified meningioma of the falx cerebri. ACT 112: Negative or not required by law. The above report was generated using voice recognition software. It may contain grammatical, syntax or spelling errors. Electronically signed by: Dread Henning M.D. 05/08/2023 8:[address] 05/08/23 07:47 CT pelvis wo con HISTORY: 88 years-old Female fall, right hip pain h/o replacement acute right hip pain status post fall COMPARISON: Pelvis and right hip radiographs of same day and also 03/14/2023, CT abdomen and pelvis 03/03/2022 TECHNIQUE: Multiple axial CT images of the pelvis were obtained without use of IV contrast. A dose lowering technique was used consistent with the principals of MAX. FINDINGS: Indeterminate 2.6 and meter right adnexal cystic focus. Vascular calcifications of the uterus. Mild to moderate colonic fecal retention. Atherosclerosis. Unremarkable soft tissues and musculature. Demineralized appearance of the bones. Degenerative changes of the lumbar spine with likely degenerative related grade 1 anterolisthesis L4 on L5 resulting in severe central canal stenosis with moderate bilateral foraminal narrowing. Ill- defined linear sclerosis involving the right sacral alar on image 41 series 9 is new from prior with mild associated cortical thickening. Anterior cortical buckling at S3 is seen on the sagittal images. Moderate degeneration of the SI joints. Moderate osteoarthritis of the hips. Intact ORIF hardware of the right femur. No acute fracture or dislocation identified. No evidence of acute hardware complication. IMPRESSION: 1. No acute fracture or dislocation identified. 2. Subacute to chronic nondisplaced sacral fractures, new compared to the 03/03/2022 exam. 3. Unremarkable appearance of the right femoral ORIF hardware. ACT 112: Negative or not required by law. The above report was generated using voice recognition software. It may contain grammatical, syntax or spelling errors. Electronically signed by: Dread Henning M.D. 05/08/2023 8:55 AM ECG Additional Comments: Sinus rhythm with Premature atrial complexes Possible Left atrial enlargement Borderline ECG When compared with ECG of 14-MAR-2023 19:49, Premature atrial complexes are now Present Code Status & VTE Plan Code Status DNR/DNI VTE Prophylaxis Plan VTE Prophylaxis will be ordered: Yes Supervising Physician Co-Signing Physician Notes Patient seen and examined, chart reviewed, case discussed with Konrad Erickson PA-C and I agree with the assessment and plan as above except as otherwise noted Labs and images reviewed Gricelda is an 88-year-old female with a past medical history of dementia, focal seizures, hypothyroidism, type I DM, and meningioma who presented from [facility] for a fall. Patient has subacute fractures of the left first through fourth rib. No hip fracture was noted. Left foot has 1/[address] of the head/neck and pelvis were negative. Gricelda is seen at the bedside, her has gone home at time of visit.She reports that she feels like she is being experimented on and does not appreciate this, otherwise she has no acute complaints. She reports her foot does not hurt at rest. Lungs are grossly clear heart rate is regular. Patient endorses pain to palpation at left distal fifth metatarsal. Sensation to soft touch is intact in the toes, PT pulse is intact. She is able to wiggle her toes without difficulty. Fifth metatarsal of the left foot, nondisplaced. Walking boot/stiff soled shoe and weightbearing as tolerated. No surgical intervention is indicated at this time. PT/OT pending. Type I DM: Patient does use insulin pump which she manages with the assistance of her . While inpatient due to cognitive baseline do not recommend patient self manage her pump. This will be turned off and transition to basal bolus insulin based on her basal rate of 0.55 and home carb ratio of 15. Agree with assessment and management above. PG Care Time/CCT Total # of Minutes Spent Total Time Spent with Patient: Total time spent is greater than 50% in coordination of care (as documented) at patient's floor/unit and/or counseling patient: [place] [address] INT INP/OBS CARE 2/55MIN Patient Type Established Medical Decision Making Moderate Complexity Diagnoses Fracture of fifth metatarsal bone of left foot S92.352A Right thigh pain M79.651 Type 1 diabetes mellitus with diabetic neuropathy, with long-term current use of insulin E10.40 Focal seizures R56.9 Essential hypertension I10 Hypertension type: essential hypertension Hypothyroidism, unspecified type E03.9 Hypothyroidism type: unspecified Dementia F03.90 (5) Hypertension Hypertension type: essential hypertension Qualified Code(s): I10 - Essential (primary) hypertension (6) Hypothyroidism Hypothyroidism type: unspecified Qualified Code(s): E03.9 - Hypothyroidism, unspecified
[2023-05-08] MEDS ORDERED: GLUCOSE 40% GEL 15 GM TUBE PO PRN (10:14)
[2023-05-08] MEDS ORDERED: DEXTROSE 50% 50 ML SYRINGE IV PRN (10:14)
[2023-05-08] MEDS ORDERED: CARBOHYDRATES FOR HYPOGLYCEMIA PO PRN (10:14)
[2023-05-08] MEDS ORDERED: GLUCOSE 10 TAB/TUBE PO PRN (10:14)
[2023-05-08] MEDS ORDERED: GLUCAGON FOR INJ 1 MG VIAL SQ PRN (10:14)
[2023-05-08] MEDS ORDERED: PHARMACY GLYCEMIC MGMT CONSULT PRN (10:50)
[2023-05-08] MEDS ORDERED: INSULIN ASPART PER UNIT CHARGE SC SCH (11:30)
--- NOTE | 2023-05-08 12:04 | XRay Report ---
SINGLE VIEW CHEST CLINICAL HISTORY: Fall. FINDINGS: An AP semierect chest radiograph is compared to study dated 01/10/2023. The heart is enlarged noting atherosclerotic calcification of the thoracic aorta. The pulmonary vasculature is noncongeste d. Chronic interstitial thickening is previous. Apical fibrosis is noted. There is bibasilar scarring /atelectasis. No airspace consolidation or large pleural effusion is identified. No pneumothorax is s een. The skeletal structures are osteopenic. There are subacute-appearing left-sided rib fracture. Th ere is chronic deformity of the right proximal humerus. IMPRESSION: Cardiomegaly with no acute cardiopulmonary abnormality identified. ACT 112: Negative or not required by law. Electronically signed by: Burak Mistry M.D. 05/08/2023 12:03 PM
--- NOTE | 2023-05-08 12:48 | XRay Report ---
XR femur RT 2V routine HISTORY: 88 years-old Female fall, right thiggh pain acute pain of the right lower extremity status post fall COMPARISON: CT pelvis of same day TECHNIQUE: 2 views of the right femur FINDINGS: Intact ORIF hardware. No acute fracture or dislocation. Osteoarthritis of the knee. Trace joint effus ion of the knee. Arterial calcifications. IMPRESSION: No acute fracture identified. ACT 112: Negative or not required by law. The above report was generated using voice recognition software. It may contain grammatical, syntax o r spelling errors. Electronically signed by: Dread Henning M.D. 05/08/2023 12:46 PM
[2023-05-08] MEDS ORDERED: LANTUS PER UNIT CHARGE SQ ONE (13:00)
--- NOTE | 2023-05-08 14:07 | Pharmacy Report ---
Pharmacy Glycemic Short Note 2 - Date of Service May 08, 2023 - Glycemic Short BSG Results (Last 24 hours): 05/08/23 05/08/23 05/08/23 05:51 06:28 11:47 Glucose 244 H POC Glucose 248 H 190 H OUTPATIENT ANTIDIABETIC REGIMEN: * Novolog insulin pump * Basal: ~13.55 units/day * Bolus insulin to carb ratio: 1:30 @0000, 1:14 @0300 * Correction factor: 75 @0000, 45 @0300 HbA1c: 9.2% (04/18/23) ASSESSMENT: * RA is an 88 year old female w/ brittle T1DM * Patient's helps with insulin pump at home. Pump removed while inpatient. Pharmacy to manage w/ SC basal/bolus. * Patient presented to ED this morning following a fall. Found to have left foot fracture. * Pertinent PMH includes T1DM and dementia * Past inpatient data suggests 13 units of basal/day may be reasonable - will give slightly more conservative dose today given uncertainty with possible NPO status pending imaging results PLAN FOR INPATIENT GLYCEMIC CONTROL: * Hold insulin pump * Basal insulin * Lantus 12 units SC x 1 * Reassess in AM * Bolus insulin * NovoLog per scale ACHS or Q6hrs while NPO * Goal Range: Low 110 mg/dL - High 160 mg/dL * Correction Factor: 50 mg/dL/unit * Nutritional / Prandial insulin per carb ratio of 1 unit per 15 grams CHO consumed
[2023-05-08] MEDS: INSULIN ASPART PER UNIT CHARGE SC SCH ×3 (14:44→22:28)
[2023-05-08] MEDS: ASPIRIN 81 MG ECTAB PO SCH (15:39)
--- NOTE | 2023-05-08 19:33 | Electrocardiogram Report ---
Test Reason : Blood Pressure : / mmHG Vent. Rate : 078 BPM Atrial Rate : 078 BPM P-R Int : 154 ms QRS Dur : 074 ms QT Int : 382 ms P-R-T Axes : 069 060 067 degrees QTc Int : 435 ms Sinus rhythm with Premature atrial complexes Possible Left atrial enlargement Borderline ECG When compared with ECG of 14-MAR-2023 19:49, Premature atrial complexes are now Present Confirmed by Liam Lauren ([id number]) on 05/08/2023 7:33:30 PM Referred By: Confirmed By:Alberto Lauren
[2023-05-08] MEDS ORDERED: LANTUS PER UNIT CHARGE SQ SCH (21:00)
[2023-05-08] MEDS: CHOLECALCIFEROL 5,000 UNITS 125 MCG TAB PO SCH (22:12)
[2023-05-08] MEDS: CEROVITE ADV FORMULA TAB PO SCH (22:12)
[2023-05-08] MEDS: CALCIUM CARBONATE 1250MG TAB PO SCH (22:13)
[2023-05-08] MEDS: CYANOCOBALAMIN (B-12) 500 MCG TABLET PO SCH (22:13)
[2023-05-08] MEDS: RIVASTIGMINE TARTRATE 1.5 MG CAP PO SCH (22:13)
[2023-05-08] MEDS: lisinopril 2.5 MG TAB PO SCH (22:13)
[2023-05-08] MEDS: MAGNESIUM OXIDE 400 MG TAB PO SCH (22:13)
[2023-05-09] MEDS: LEVOTHYROXINE SODIUM 150 MCG TABLET PO SCH (06:20)
[2023-05-09 06:30] LABS: Basophils # (auto) 0.03 K/uL (0.00-0.20); Basophils % (auto) 0.4 %; Eosinophils # (auto) 0.26 K/uL (0.00-0.50); Eosinophils % (auto) 3.6 %; Hematocrit (blood only) 32.7 % (37.0-47.0); Hemoglobin 10.6 g/dl (12.0-16.0); Immature Granulocytes # (auto) 0.02 K/uL (0.01-0.20); Immature Granulocytes % (auto) 0.3 %; Lymphocytes # (auto) 1.75 K/uL (1.20-3.40); Lymphocytes % (auto) 24.2 %; Mean Corpuscular Hemoglobin 29.1 pg (25.0-34.0); Mean Corpuscular Hgb Conc 32.4 g/dL (32.0-36.0); Mean Corpuscular Volume 89.8 fL (80.0-100.0); Mean Platelet Volume 10.1 fL (9.4-12.4); Monocytes # (auto) 0.59 K/uL (0.11-0.59); Monocytes % (auto) 8.2 %; Neutrophils # (auto) 4.58 K/uL (1.40-6.50); Neutrophils % (auto) 63.3 %; Platelet Count 230 K/uL (130-400); RDW Coefficient of Variation 12.7 % (11.5-14.5); RDW Standard Deviation 42.3 fL (36.4-46.3); Red Blood Count 3.64 M/uL (4.20-5.40); White Blood Count 7.23 K/ul (4.8-10.8)
[2023-05-09 07:13] LABS: BUN Creatinine Ratio 27.7 (10-20); Calcium 8.7 mg/dl (8.6-10.3); Creatinine Clr Calc Pharmacy 49.3 ml/min; Est GFR (African American) 91.9 ml/min; Est GFR (Non-African American) 79.3 ml/min; Magnesium 2.1 mg/dl (1.7-2.4); Potassium 4.4 mmol/L (3.5-5.1)
[2023-05-09] MEDS ORDERED: traMADol HCL 50 MG TABLET PO PRN (07:18)
[2023-05-09] MEDS ORDERED: ACETAMINOPHEN 500 MG TAB PO PRN (07:18)
[2023-05-09] MEDS: CEROVITE ADV FORMULA TAB PO SCH ×2 (07:54→20:50)
[2023-05-09] MEDS: PANTOprazole 40 MG TAB PO SCH (07:54)
[2023-05-09] MEDS: RIVASTIGMINE TARTRATE 1.5 MG CAP PO SCH ×2 (07:54→20:49)
[2023-05-09] MEDS: DOCUSATE SODIUM/SENNA 50/8.6MG TAB PO SCH (07:55)
[2023-05-09] MEDS ORDERED: LANTUS PER UNIT CHARGE SC SCH (09:00)
[2023-05-09] MEDS ORDERED: NON-FORMULARY PATIENT'S OWN MED PO SCH (09:00)
[2023-05-09] MEDS: INSULIN ASPART PER UNIT CHARGE SC SCH ×4 (09:02→20:51)
[2023-05-09] MEDS ORDERED: LIDOCAINE 5% 1 PATCH TD STA (10:31)
--- NOTE | 2023-05-09 10:41 | Pharmacy Report ---
Pharmacy Glycemic Short Note 2 - Date of Service May 09, 2023 - Glycemic Short BSG Results (Last 24 hours): 05/08/23 05/08/23 05/08/23 11:47 17:03 20:22 Glucose POC Glucose 190 H 279 H 219 H 05/09/23 05/09/23 05/09/23 02:05 05:44 08:14 Glucose 169 H POC Glucose 143 H 172 H OUTPATIENT ANTIDIABETIC REGIMEN: * Novolog insulin pump * Basal: ~13.55 units/day * Bolus insulin to carb ratio: 1:30 @0000, 1:14 @0300 * Correction factor: 75 @0000, 45 @0300 HbA1c: 9.2% (04/18/23) ASSESSMENT: 05/09/23: * BSGs elevated yesterday, unsurprising given conservative initial dosing and that there was a gap between insulin pump being removed and basal insulin administration. Fasting BSG of 172 mg/dL this morning. Will increase basal to 13 units today and maintain current Novolog parameters. 05/08/23: * RA is an 88 year old female w/ brittle T1DM * Patient's helps with insulin pump at home. Pump removed while inpatient. Pharmacy to manage w/ SC basal/bolus. * Patient presented to ED this morning following a fall. Found to have left foot fracture. * Pertinent PMH includes T1DM and dementia * Past inpatient data suggests 13 units of basal/day may be reasonable - will give slightly more conservative dose today given uncertainty with possible NPO status pending imaging results PLAN FOR INPATIENT GLYCEMIC CONTROL: * Hold insulin pump * Basal insulin * Lantus 13 units SC daily * Bolus insulin * NovoLog per scale ACHS or Q6hrs while NPO * Goal Range: Low 110 mg/dL - High 140 mg/dL * Correction Factor: 45 mg/dL/unit * Nutritional / Prandial insulin per carb ratio of 1 unit per 15 grams CHO consumed
--- NOTE | 2023-05-09 16:02 | Hospitalist Progress Note ---
Date of Service May 09, 2023 Assessment & Plan (1) Fracture of fifth metatarsal bone of left foot: Plan: -Noted on xray of the left foot today -Patient is without pain at rest -Spoke with Orthopedic surgery, appreciate their assistance >They agree with walking boot and WBAT for now, can follow up outpatient >Walking boot ordered -Case management consult placed to assist with outpatient follow-up -Fall precautions -PT/OT, recommend snf and since pt is resident of [facility] consider yeni carlson -PRN tylenol for now (2) Right thigh pain: Plan: -No focal trauma on exam, patient able to flex right hip/knee without significant pain -no femur fracture has sacral fractures (3) Type 1 diabetes mellitus with diabetic neuropathy, with long-term current use of insulin: Plan: -Patient normally on an insulin pump with basal of 0.55 and Carb Ratio of 15 -Normally managed by with her hx of Dementia, he is supportive of yeni carlson referral -Will remove pump while admitted to avoid hypoglycemia as the patient has dementia -Will monitor BSG q6h overnight as she is a brittle diabetic -Goal BSG is 110-160 -Will start with 5 units lantus BID, CF of 50, and CR of 15 -Pharmacy glycemic consult placed - (4) Focal seizures: Plan: -Will give am dose of keppra now -Continue daily keppra (5) Hypertension: Plan: -Stable -Can continue HS lisinopril (6) Hypothyroidism: Plan: -Continue levothyroxine (7) Dementia: Plan: -Continue Rivastigmine prescribed by Neurology Admission and Anticipated Discharge Date Admission Date: May 08, 2023 Subjective pt is without complaints of pain, is forgetful, spoke to and wants her considered for yeni carlson Physical Exam Physical Exam: Awake alert and appropriate. No significant complaints of pain. Card exam is regular lungs are clear. There is a boot on her injured metatarsal left foot Results & Data Results & Data Vital Signs (Past 12 Hours) Vital Signs Temp Pulse Pulse Resp BP BP Pulse Ox 05/09/23 15:25 98.2 F 82 20 125/70 97 05/09/23 15:20 88 05/09/23 11:37 98.4 F 98 H 17 103/57 L 99 05/09/23 07:56 98.6 F 70 19 136/76 97 05/09/23 07:08 79 O2 Del Method 05/09/23 15:25 Room Air 05/09/23 15:20 05/09/23 11:37 Room Air 05/09/23 07:56 Room Air 05/09/23 07:08 Laboratory Results Reviewed CBC reviewed chemistry phoned for update PG Care Time/CCT Total # of Minutes Spent Total Time Spent with Patient: Total time spent is greater than 50% in coordination of care (as documented) at patient's floor/unit and/or counseling patient: Coding Level of Care Code 41515 SUB INP/OBS CARE 2/35MIN Diagnoses Fracture of fifth metatarsal bone of left foot S92.352A Right thigh pain M79.651 Type 1 diabetes mellitus with diabetic neuropathy, with long-term current use of insulin E10.40 Focal seizures R56.9 Essential hypertension I10 Hypertension type: essential hypertension Hypothyroidism, unspecified type E03.9 Hypothyroidism type: unspecified Dementia F03.90 (5) Hypertension Hypertension type: essential hypertension Qualified Code(s): I10 - Essential (primary) hypertension (6) Hypothyroidism Hypothyroidism type: unspecified Qualified Code(s): E03.9 - Hypothyroidism, unspecified
[2023-05-09] MEDS: lisinopril 2.5 MG TAB PO SCH (20:49)
[2023-05-09] MEDS: CALCIUM CARBONATE 1250MG TAB PO SCH (20:49)
[2023-05-09] MEDS: MAGNESIUM OXIDE 400 MG TAB PO SCH (20:50)
[2023-05-09] MEDS: CYANOCOBALAMIN (B-12) 500 MCG TABLET PO SCH (20:50)
[2023-05-09] MEDS: CHOLECALCIFEROL 5,000 UNITS 125 MCG TAB PO SCH (20:50)
[2023-05-10] MEDS: LEVOTHYROXINE SODIUM 150 MCG TABLET PO SCH (06:08)
[2023-05-10 06:29] LABS: Basophils # (auto) 0.05 K/uL (0.00-0.20); Basophils % (auto) 0.6 %; Eosinophils # (auto) 0.16 K/uL (0.00-0.50); Hematocrit (blood only) 37.2 % (37.0-47.0); Hemoglobin 12.3 g/dl (12.0-16.0); Immature Granulocytes # (auto) 0.02 K/uL (0.01-0.20); Immature Granulocytes % (auto) 0.2 %; Lymphocytes # (auto) 2.01 K/uL (1.20-3.40); Lymphocytes % (auto) 24.8 %; Mean Corpuscular Hemoglobin 29.6 pg (25.0-34.0); Mean Corpuscular Hgb Conc 33.1 g/dL (32.0-36.0); Mean Corpuscular Volume 89.4 fL (80.0-100.0); Mean Platelet Volume 10.1 fL (9.4-12.4); Monocytes # (auto) 0.62 K/uL (0.11-0.59); Monocytes % (auto) 7.6 %; Neutrophils # (auto) 5.25 K/uL (1.40-6.50); Neutrophils % (auto) 64.8 %; Platelet Count 252 K/uL (130-400); RDW Coefficient of Variation 12.7 % (11.5-14.5); RDW Standard Deviation 41.6 fL (36.4-46.3); Red Blood Count 4.16 M/uL (4.20-5.40); White Blood Count 8.11 K/ul (4.8-10.8)
[2023-05-10 06:47] LABS: BUN Creatinine Ratio 22.4 (10-20); Calcium 8.9 mg/dl (8.6-10.3); Est GFR (Non-African American) 78.5 ml/min; Potassium 4.6 mmol/L (3.5-5.1)
[2023-05-10] MEDS ORDERED: LANTUS PER UNIT CHARGE SC SCH ×2 (09:00)
[2023-05-10] MEDS: RIVASTIGMINE TARTRATE 1.5 MG CAP PO SCH ×2 (09:28→23:11)
[2023-05-10] MEDS: DOCUSATE SODIUM/SENNA 50/8.6MG TAB PO SCH (09:28)
[2023-05-10] MEDS: CEROVITE ADV FORMULA TAB PO SCH ×2 (09:28→23:12)
[2023-05-10] MEDS: PANTOprazole 40 MG TAB PO SCH (09:28)
[2023-05-10] MEDS: ASPIRIN 81 MG ECTAB PO SCH (09:29)
[2023-05-10] MEDS: levETIRAcetam 500 MG TAB PO SCH (09:32)
[2023-05-10] MEDS: INSULIN ASPART PER UNIT CHARGE SC SCH ×4 (09:39→21:36)
[2023-05-10] MEDS ORDERED: LANTUS PER UNIT CHARGE SQ ONE (13:10)
[2023-05-10] MEDS: cefTRIAXone SODIUM 2,000 MG in DEXTROSE 5 % MINI-B 50 ML IV SCH (13:50)
--- NOTE | 2023-05-10 15:03 | Pharmacy Report ---
Pharmacy Glycemic Short Note 2 - Date of Service May 10, 2023 - Glycemic Short BSG Results (Last 24 hours): 05/09/23 05/09/23 05/10/23 17:20 20:11 05:39 Glucose 296 H POC Glucose 131 H 179 H 05/10/23 05/10/23 05/10/23 08:30 08:32 11:49 Glucose POC Glucose 322 H* 298 H 392 H* 05/10/23 05/10/23 11:50 12:20 Glucose 358 H* POC Glucose 415 H* OUTPATIENT ANTIDIABETIC REGIMEN: * Novolog insulin pump * Basal: ~13.55 units/day * Bolus insulin to carb ratio: 1:30 @0000, 1:14 @0300 * Correction factor: 75 @0000, 45 @0300 HbA1c: 9.2% (04/18/23) ASSESSMENT: 05/10/23: * BSGs surprisingly elevated today w/ unclear reason for why (likely due to inadequate basal insulin to manage stress of hospitalization) * Will increase basal to 15 units SC x 1 today and reassess in AM * Making slight adjustments to Novolog, as patient is brittle T1DM and primary goal is to prevent hypoglycemia * Labs okay this morning (A, CO2: 32) 05/09/23: * BSGs elevated yesterday, unsurprising given conservative initial dosing and that there was a gap between insulin pump being removed and basal insulin administration. Fasting BSG of 172 mg/dL this morning. Will increase basal to 13 units today and maintain current Novolog parameters. 05/08/23: * RA is an 88 year old female w/ brittle T1DM * Patient's helps with insulin pump at home. Pump removed while inpatient. Pharmacy to manage w/ SC basal/bolus. * Patient presented to ED this morning following a fall. Found to have left foot fracture. * Pertinent PMH includes T1DM and dementia * Past inpatient data suggests 13 units of basal/day may be reasonable - will give slightly more conservative dose today given uncertainty with possible NPO status pending imaging results PLAN FOR INPATIENT GLYCEMIC CONTROL: * Hold insulin pump * Basal insulin * Lantus 15 units SC x 1 * Reassess in AM * Bolus insulin * NovoLog per scale ACHS or Q6hrs while NPO * Goal Range: Low 120 mg/dL - High 160 mg/dL * Correction Factor: 40 mg/dL/unit * Nutritional / Prandial insulin per carb ratio of 1 unit per 12 grams CHO consumed
--- NOTE | 2023-05-10 16:54 | Hospitalist Progress Note ---
Date of Service May 10, 2023 Assessment & Plan (1) Metabolic encephalopathy: Plan: patient with marked change in her alertness. Concern for metabolic encephalopathy possibly from urinary tract infection present on admission which led to her initial fall. Urine culture was sent and ceftriaxone was begun. Certainly this could be in hospital delirium on top of her baseline dementia. Will try to ensure good sleep hygiene this evening will initially try some melatonin however with the roommate in her room it might be difficult to show good sleeping if urine culture is negative can discontinue ceftriaxone (2) Fracture of fifth metatarsal bone of left foot: Plan: -Noted on xray of the left foot walking boot supplied - -Fall precautions -PT/OT, recommend snf and since pt is resident of [facility] consider yeni carlson -PRN tylenol for now (3) Right thigh pain: Plan: -No focal trauma on exam, patient able to flex right hip/knee without significant pain -no femur fracture has sacral fractures (4) Type 1 diabetes mellitus with diabetic neuropathy, with long-term current use of insulin: Plan: -Patient normally on an insulin pump with basal of 0.55 and Carb Ratio of 15 -Normally managed by with her hx of Dementia, he is supportive of yeni carlson referral -Will remove pump while admitted to avoid hypoglycemia as the patient has dementia -Will monitor BSG q6h overnight as she is a brittle diabetic -Goal BSG is 110-160 -Will start with 5 units lantus BID, CF of 50, and CR of 15 -Pharmacy glycemic consult placed patient will be a brittle diabetic glycemic pharmacist is managing - (5) Focal seizures: Plan: -Will give am dose of keppra now -Continue daily keppra (6) Hypertension: Plan: -Stable -Can continue HS lisinopril (7) Hypothyroidism: Plan: -Continue levothyroxine (8) Dementia: Plan: -Continue Rivastigmine prescribed by Neurology Admission and Anticipated Discharge Date Admission Date: May 08, 2023 Subjective Patient has delirium today likely encephalopathy from metabolic issues. Initial urine was not checked and patient is acting such like she may have encephalopathy from UTI present on admission. She also has uncontrolled glucose and being managed by her glycemic pharmacist. Will have better glucose control urine culture was sent ceftriaxone was initiated and disposition at the house was postponed due to her metabolic encephalopathy/delirium Physical Exam Physical Exam: very fatigued makes small talk reported he was up all night and was confused Card exam is regular lungs are clear. There is a boot on her injured metatarsal left foot she has no pain to examination of the fracture site Results & Data Results & Data Vital Signs (Past 12 Hours) Vital Signs Temp Pulse Pulse Resp BP Pulse Ox O2 Del Method 05/10/23 16:04 98.2 F 79 17 95/59 L 100 Room Air 05/10/23 15:43 75 05/10/23 14:55 Room Air 05/10/23 11:45 98.4 F 82 18 123/57 L 100 Room Air 05/10/23 07:52 97.7 F 88 17 109/77 98 Room Air 05/10/23 07:47 91 H Laboratory Results reviewed CBC reviewed chemistry PG Care Time/CCT Total # of Minutes Spent Total Time Spent with Patient: Total time spent is greater than 50% in coordination of care (as documented) at patient's floor/unit and/or counseling patient: Coding Level of Care Code 02739 SUB INP/OBS CARE 2/35MIN Diagnoses Metabolic encephalopathy G93.41 Fracture of fifth metatarsal bone of left foot S92.352A Right thigh pain M79.651 Type 1 diabetes mellitus with diabetic neuropathy, with long-term current use of insulin E10.40 Focal seizures R56.9 Essential hypertension I10 Hypertension type: essential hypertension Hypothyroidism, unspecified type E03.9 Hypothyroidism type: unspecified Dementia F03.90 (6) Hypertension Hypertension type: essential hypertension Qualified Code(s): I10 - Essential (primary) hypertension (7) Hypothyroidism Hypothyroidism type: unspecified Qualified Code(s): E03.9 - Hypothyroidism, unspecified
[2023-05-10] MEDS ORDERED: MELATONIN 3 MG TAB PO SCH (21:00)
[2023-05-10] MEDS ORDERED: LANTUS PER UNIT CHARGE SQ SCH (21:00)
--- NOTE | 2023-05-10 22:08 | CT Scan Report ---
Exam(s): CT HEAD Without Contrast EXAM: CT Head Without Intravenous Contrast CLINICAL HISTORY: Reason for exam: eval ct marked change in mental status. TECHNIQUE: Axial computed tomography images of the head/brain without intravenous contrast. CTDI is 37.12 mGy and DLP is 1094.1 mGy-cm. Automated exposure control was utilized for the study. A dose lowering technique was utilized adhering to the principles of ALARA. COMPARISON: Head CT May 08, 2023. FINDINGS: No acute intracranial hemorrhage. Large calcified mass along the LEFT side of the falx measuring 4.4 x 3.1 cm, concerning for a large, calcified meningioma. There is localized mass-effect throughout the LEFT cerebral hemisphere. No midline shift. The territorial garcia-white matter differentiation is maintained throughout. Age-related cerebral volume loss. Periventricular and subcortical white matter hypoattenuation, consistent with chronic microangiopathy. The visualized orbits appear grossly unremarkable. The calvarium is intact. The visualized paranasal sinuses and mastoid air cells are grossly clear. IMPRESSION: No acute intracranial hemorrhage, midline shift, or mass effect. Large calcified mass along the LEFT side of the falx measuring 4.4 x 3.1 cm, concerning for a large, calcified meningioma. There is localized mass-effect throughout the LEFT cerebral hemisphere. This is similar in appearance when compared to May 08, 2023. No midline shift. Electronically signed by: Micky Urbina MD 05/10/23 22:07 PM
[2023-05-10] MEDS: CYANOCOBALAMIN (B-12) 500 MCG TABLET PO SCH (23:11)
[2023-05-10] MEDS: lisinopril 2.5 MG TAB PO SCH (23:11)
[2023-05-10] MEDS: CHOLECALCIFEROL 5,000 UNITS 125 MCG TAB PO SCH (23:11)
[2023-05-10] MEDS: CALCIUM CARBONATE 1250MG TAB PO SCH (23:11)
[2023-05-10] MEDS: MAGNESIUM OXIDE 400 MG TAB PO SCH (23:11)
[2023-05-11] MEDS: LEVOTHYROXINE SODIUM 150 MCG TABLET PO SCH (06:02)
[2023-05-11 06:47] LABS: Basophils # (auto) 0.06 K/uL (0.00-0.20); Basophils % (auto) 0.7 %; Eosinophils # (auto) 0.29 K/uL (0.00-0.50); Eosinophils % (auto) 3.2 %; Hematocrit (blood only) 35.2 % (37.0-47.0); Hemoglobin 11.4 g/dl (12.0-16.0); Immature Granulocytes # (auto) 0.02 K/uL (0.01-0.20); Immature Granulocytes % (auto) 0.2 %; Lymphocytes # (auto) 2.79 K/uL (1.20-3.40); Lymphocytes % (auto) 31.1 %; Mean Corpuscular Hemoglobin 29.5 pg (25.0-34.0); Mean Corpuscular Hgb Conc 32.4 g/dL (32.0-36.0); Monocytes # (auto) 0.75 K/uL (0.11-0.59); Monocytes % (auto) 8.4 %; Neutrophils # (auto) 5.05 K/uL (1.40-6.50); Neutrophils % (auto) 56.4 %; Platelet Count 272 K/uL (130-400); RDW Standard Deviation 42.5 fL (36.4-46.3); Red Blood Count 3.87 M/uL (4.20-5.40); White Blood Count 8.96 K/ul (4.8-10.8)
[2023-05-11 07:19] LABS: BUN Creatinine Ratio 34.4 (10-20); Calcium 8.5 mg/dl (8.6-10.3); Creatinine Clr Calc Pharmacy 32.1 ml/min; Est GFR (African American) 63.6 ml/min; Est GFR (Non-African American) 54.9 ml/min; Potassium 4.7 mmol/L (3.5-5.1)
[2023-05-11] MEDS ORDERED: LANTUS PER UNIT CHARGE SC SCH (09:00)
[2023-05-11 09:03] VITALS: RESP 16; O2SAT 97
[2023-05-11] MEDS: INSULIN ASPART PER UNIT CHARGE SC SCH ×2 (09:46→14:14)
[2023-05-11] MEDS: PANTOprazole 40 MG TAB PO SCH (09:48)
[2023-05-11] MEDS: CEROVITE ADV FORMULA TAB PO SCH (09:48)
[2023-05-11] MEDS: RIVASTIGMINE TARTRATE 1.5 MG CAP PO SCH (09:48)
[2023-05-11] MEDS: DOCUSATE SODIUM/SENNA 50/8.6MG TAB PO SCH (09:48)
[2023-05-11] MEDS: levETIRAcetam 500 MG TAB PO SCH (09:49)
[2023-05-11 12:53] VITALS: TEMP 97.7
[2023-05-11] MEDS: cefTRIAXone SODIUM 2,000 MG in DEXTROSE 5 % MINI-B 50 ML IV SCH (14:15)
--- NOTE | 2023-05-11 14:39 | Discharge Summary ---
Date of Service May 11, 2023 Admission HPI Per Admitting Provider Gricelda is an 88 year old female with a PMH significant for DMI, Dementia, focal seizures, hypothyroidism, and known meningioma who presented to the [facility] ED on 05/08 from [facility] due to a fall. She remained stable while in the ED. Labs including CBC, CMP, high sen trop, and UA were unremarkable. Ct of the head, cervical, spine, and pelvis were read as negative for acute trauma. CT of the cervical spine did note subacute/healing fractures of the left posterior first through fourth ribs. Xray of the right hip was also read as negative for acute findings. Xray of the left foot was read as "Fifth metatarsal neck fracture with overlying soft tissue edema.". The patient was given 1gm IV tylenol in the ED. We were asked to admit the patient for ongoing ambulatory dysfunction and unwitnessed fall. At the time of the exam the patient was sitting in bed in no acute distress with her sitting bedsdie, history was mainly obtained from her due to her baseline Hx of dementia. The patient's states that the patient is supposed to wake him up when her alarm goes off at 4:30 so he can help care for her. However, she woke around 0400 before her alarm and got out of bed herself. She uses a walker at baseline due to multiple falls in the past. She must have gone to the living room and tried to sit back in a recliner as she was sitting on her buttocks in front of the recliner. He woke when she started to call his name. They currently live in the [facility] (Assisted living), states that she has lots of care and does not think she needs to be upgraded to their SNF section at this time. She did not have her am medications today. When asked, the patient's only complaint is mild pain in the proximal right thigh/femur, she denies all other pain. No recent fever, chest pain, SOB, palpitations, cough, abd pain, nausea, vomiting, diarrhea, dysuria, hematuria, and LE swelling. Her normally manages her insulin pump, normal basal rate is 0.55 and they use a Carb Ratio of 15. Her confirms that she is a DNR/DNI. Principal Diagnosis Metabolic encephalopathy Discharge Exam Confused but at baseline as per family. Card exam is regular lungs are clear. There is a boot on her injured metatarsal left foot she has no pain to examination of the fracture site Discharge Data Allergies Allergy/AdvReac Type Severity Reaction Status Date / Time No Known Allergies Allergy Verified 04/11/23 13:04 Consultations 05/08/23 09:57 ED Decision to Admit Stat Ordered Studies 05/08/23 07:37 CT cervical spine wo con Stat CT head/brain wo con Stat 05/08/23 07:47 CT pelvis wo con Stat 05/10/23 16:[address] [CT head/brain wo con] Urgent Hospital Course (1) Metabolic encephalopathy: patient with marked change in her alertness. Concern for metabolic encephalopathy possibly from urinary tract infection present on admission which led to her initial fall. Urine culture was sent and ceftriaxone was begun. Certainly this could be in hospital delirium on top of her baseline dementia. will complete treatment with a short course of macrobid, her renal function will allow it. will hold columba inhibitor in the short term just to be careful. (2) Fracture of fifth metatarsal bone of left foot: -Noted on xray of the left foot walking boot supplied - -Fall precautions -PT/OT, recommend snf and since pt is resident of [facility] consider yeni carlson -PRN tylenol for now (3) Right thigh pain: -No focal trauma on exam, patient able to flex right hip/knee without significant pain -no femur fracture has sacral fractures (4) Type 1 diabetes mellitus with diabetic neuropathy, with long-term current use of insulin: -Patient normally on an insulin pump with basal of 0.55 and Carb Ratio of 15 -Normally managed by with her hx of Dementia, he is supportive of yeni carlson referral -Will remove pump while admitted to avoid hypoglycemia as the patient has dementia -Will monitor BSG q6h overnight as she is a brittle diabetic -Goal BSG is 110-160 -Will start with 5 units lantus BID, CF of 50, and CR of 15 -Pharmacy glycemic consult placed patient will be a brittle diabetic glycemic pharmacist is managing - (5) Focal seizures: -Will give am dose of keppra now -Continue daily keppra (6) Hypertension: -Stable -Can continue HS lisinopril (7) Hypothyroidism: -Continue levothyroxine (8) Dementia: -Continue Rivastigmine prescribed by Neurology Total Time Total Time Spent Total Time Spent (In Minutes): 32 Discharge Plan Discharge Items Patient Disposition: Transfer Snf Fac Reason For Visit: UNWITNESSED FALL, AMBULATORY DYSFUNCTION, L FOOTFX Discharge Diagnosis: 5th met fracture sacral fracture rib fractures Activity: Resume your previous activity Non-emergency contact: Primary Care Provider Call non-emergency contact if: your symptoms worsen Follow-up/Referrals: Lynette Odom [Primary Care Provider] - Diet: Regular Addtl Attending Provider Instructions: please rest and recover Pending Studies at Discharge: No Stand-Alone Forms: My [facility] [employer] Skilled Items Patient informed of condition?: Yes DNR: Yes Discharge Level of Care: Skilled Communicable Disease: No Discharge Prognosis: Stable Lines: None Urinary Catheter: No Medications and DC Order Prescriptions: New nitrofurantoin monohyd/m-cryst [Macrobid] 100 mg capsule 100 mg PO BID 5 Days Qty: 9 0RF Rx Instructions: must administer with a meal/food Take first dose this evening (05/11/23) Continued magnesium oxide 400 mg (241.3 mg magnesium) Tablet 400 mg PO HS Qty: 0 omega 2-vii-pwr-fish oil [Fish Oil] 1,000 mg (120 mg-180 mg) capsule 1 cap PO HS Qty: 0 cholecalciferol (vitamin D3) [Vitamin D3] 5,000 unit tablet 5,000 unit PO HS Qty: 0 coenzyme Q10 100 mg capsule 100 mg PO HS Qty: 0 aspirin 81 mg tablet,delayed release (DR/EC) 81 mg PO .COMPLEX Qty: 0 Rx Instructions: 81 mg orally 3X A WEEK; MON, WED, FRI levothyroxine 150 mcg capsule 150 mcg PO DAILY Qty: 90 3RF (DME) lancets [ReadyLance Safety Lancets] 30 gauge misc See Rx Instructions .Route Qty: 200 11RF Rx Instructions: test blood sugars 4 times a day levetiracetam [Keppra XR] 500 mg tablet extended release 24 hr 500 mg PO DAILY 90 Days Qty: 90 3RF rivastigmine tartrate 4.5 mg capsule 4.5 mg PO BID 90 Days Qty: 180 1RF insulin aspart U-100 [Novolog U-100 Insulin aspart] 100 unit/mL solution 25 unit subcut DAILY calcium carbonate [Calcium 600] 600 mg calcium (1,500 mg) tablet 600 mg PO HS alendronate [Fosamax] 70 mg tablet 70 mg PO WK Rx Instructions: Monday PreserVision Lutein 226 mg-200 unit -5 mg-0.8 mg Capsule 1 cap PO BID acetaminophen 500 mg Tablet 500 mg PO BID cyanocobalamin (vitamin B-12) [Vitamin B-12] 500 mcg Tablet 500 mcg PO HS pantoprazole 40 mg tablet,delayed release (DR/EC) 40 mg PO DAILY Held lisinopril 2.5 mg Tablet 2.5 mg PO HS Qty: 0 Hold Instructions: Resume on 05/16/23. resume once nitrofurantoin has been completed Discharge Orders: Discharge Order (Routine); Ordered 05/11/23 Ordered By: Luis E Walker Admission Data Admit Date/Time: 05/08/23 10:12 Attending Provider: Lius E Walker Admit Provider: Gui Chambers Primary Care Provider: Lynette Odom Other Providers: Gui Chambers Other Interventions: Discharge Summary Assessment (RN) Last Done: 05/11/23 14:45 Coding Level of Care Code 82670 INP/OBS DISCH >30 MIN Diagnoses Metabolic encephalopathy G93.41 Fracture of fifth metatarsal bone of left foot S92.352A Right thigh pain M79.651 Type 1 diabetes mellitus with diabetic neuropathy, with long-term current use of insulin E10.40 Focal seizures R56.9 Essential hypertension I10 Hypertension type: essential hypertension Hypothyroidism, unspecified type E03.9 Hypothyroidism type: unspecified Dementia F03.90
[2023-05-11 14:46] VITALS: BP 125/74; PULSE 93
[2023-05-15] MEDS ORDERED: ALENDRONATE SODIUM 70 MG TAB PO SCH (06:30)
== END 2023-05-11 14:53 ==
LOC: ED 05:36 → EDINP 05:36 → SUATTDRO 10:12 → 2N 13:22